=== PATIENT | male | born 1940 | race Caucasian/White ===

== ENCOUNTER 2023-12-13 12:09 | Day surgery (SDC) | payer OTHER, SELFPAY ==
[2023-12-11 15:14] VITALS: BMI 25.8
--- NOTE | 2023-12-12 10:07 | HO.ANESPROP2 ---
HPI - Anesthesia Eval Consult details Narrative: 83yo M for Upper Endoscopy and Colonoscopy Eliquis d/t ischemic stroke 2021 Follows [facility] cardiology. Last office visit 09/2023: s/p TAVR 09/2022 MR s/p mitraClip 08/2023 Nonobstructive CAD CHB s/p pacer 03/2023 SVT [facility] [place] Past Medical History Medical History (Updated 12/11/23 @ 15:13 by Gale Wick RN) Ischemic stroke CAD (coronary artery disease) Neuropathy Mitral regurgitation Elevated cholesterol GERD (gastroesophageal reflux disease) Prostate cancer Chronic renal insufficiency SVT (supraventricular tachycardia) Sleep apnea Aortic stenosis Surgical History Surgical History (Updated 12/11/23 @ 15:13 by Gale Wick RN) Hx of tonsillectomy S/P cardiac pacemaker procedure Status post transcatheter aortic valve replacement Meds Allergies Allergy/AdvReac Type Severity Reaction Status Date / Time nitroglycerin Allergy Unknown Unknown Verified 12/11/23 15:14 Home Medications Medication Instructions Recorded Confirmed Last Taken Type apixaban 2.5 mg tablet (Eliquis) 2.5 mg PO BID 12/11/23 12/11/23 Unknown History atorvastatin 20 mg tablet 20 mg PO DAILY 12/11/23 12/11/23 Unknown History darolutamide 300 mg tablet (Nubeqa) 600 mg PO BID 12/11/23 12/11/23 Unknown History fluticasone propionate 50 1 spray intranasal DAILY 12/11/23 12/11/23 Unknown History mcg/actuation nasal spray,suspension furosemide 20 mg tablet 20 mg PO DAILY 12/11/23 12/11/23 Unknown History magnesium oxide 400 mg PO DAILY 12/11/23 12/11/23 Unknown History tamsulosin 0.4 mg capsule 0.4 mg PO DAILY 12/11/23 12/11/23 Unknown History Exam Height,Weight and Vital Signs: Height 6 ft Weight 86.183 kg Pertinent Lab Results Pertinent Lab Results: 07/2023 labs from outside facility Electrolytes wnl BUN/Creat up 1.8 H&H low 9.04/17 Plts low 146 Narrative Narrative: EKG 09/2023 V-paced rhythm @ 70 ECHO 09/2023 LV wall thickness is mildly increased. Nml LV size and function with EF 55-60% Bioprosthetic valve in aortic position. Mild central aortic regurg. No aortic stenosis. Trace perivalvular regurg. Mitraclip in place. Trace mitral regurg. Nml RV size and function. Pacer interrog 08/2023 DDD 60/130 Battery life 8.5 AP 47%, CANDY CATCHER 98% 1 high vent rate. No AT/AF Assessment and Plan Assessment Anesthesia Assessment: Chart Reviewed
[2023-12-13 12:53] VITALS: BMI 26.1
--- NOTE | 2023-12-13 13:24 | P.CONAN_ITS ---
[facility] Past Medical History Medical History Ischemic stroke CAD (coronary artery disease) Neuropathy Mitral regurgitation Elevated cholesterol GERD (gastroesophageal reflux disease) Prostate cancer Chronic renal insufficiency SVT (supraventricular tachycardia) Sleep apnea Aortic stenosis Family History Family history of problems with anesthesia: No Surgical History Surgical History Hx of tonsillectomy S/P cardiac pacemaker procedure Status post transcatheter aortic valve replacement History of Problems with Anesthesia: No Social History Social History Patient Tobacco Use Status: Never used Tobacco Use of substances other than those prescribed or required for medical reasons: No Are you DNR?: No Advance Directives: No Advance Directives Information Provided: Yes Meds Allergies Allergy/AdvReac Type Severity Reaction Status Date / Time nitroglycerin Allergy Unknown Unknown Verified 12/11/23 15:14 Active Medications: Current Medications Lactated Ringer's (Lr) 1,000 mls @ 50 mls/hr IVCONT .Q20H DEXTER Home Medications Medication Instructions Recorded Confirmed Last Taken Type apixaban 2.5 mg tablet (Eliquis) 2.5 mg PO BID 12/11/23 12/13/23 12/10/23 History atorvastatin 20 mg tablet 20 mg PO DAILY 12/11/23 12/11/23 Unknown History darolutamide 300 mg tablet (Nubeqa) 600 mg PO BID 12/11/23 12/11/23 Unknown History fluticasone propionate 50 1 spray intranasal DAILY 12/11/23 12/11/23 Unknown History mcg/actuation nasal spray,suspension furosemide 20 mg tablet 20 mg PO DAILY 12/11/23 12/11/23 Unknown History magnesium oxide 400 mg PO DAILY 12/11/23 12/11/23 Unknown History tamsulosin 0.4 mg capsule 0.4 mg PO DAILY 12/11/23 12/11/23 Unknown History Exam Height,Weight and Vital Signs: Height 6 ft Weight 87.203 kg Airway Mallampati Class: II TM Dist: >3cm Neck ROM: Full Assessment and Plan Assessment Anesthesia Assessment: Anesthesia Plan Discussed and Chart Reviewed Final Anesthetic Review Family History of Problems with Anesthesia: No History of Problems with Anesthesia: No NPO: Yes ASA Class: III Final Preanesthetic Review: No Changes in Pt Med Stat, Meds/Allgs Chart Reviewed, Consent Obtained/Reviewed and Anes Risks/Benef Reviewed Patient Risk: Intermediate Procedure Risk: Low Anesthetic Plan Anesthetic Plan: TIVA Disposition: Standard PACU
[2023-12-13 13:33] VITALS: BP 133/47; PULSE 60; RESP 18; TEMP 36.4; O2SAT 99
[2023-12-13] MEDS: Lactated Ringers 1,000 ML 50 ML IVCONT (13:37)
--- NOTE | 2023-12-13 13:44 | MHC.SHP ---
Pre-Procedural Eval Section A Date of Service: 12/13/23 The patient is an INPATIENT: No Changes since office visit: No Cold of Flu in the past 2 weeks, No New Medical Problems, No Changes in Medication and No Patient answered all questions The History & Physical has been completed within 30 days and I have reviewed it.: Yes Section B Chief Complaint: Anemia, unspecified Allergies: Allergies Allergy/AdvReac Type Severity Reaction Status Date / Time nitroglycerin Allergy Unknown Unknown Verified 12/11/23 15:14 Plan I have reviewed the history and physical and performed a pertinent physical examination on my patient. No changes have occurred unless specified. Time Spent With Patient Time: Total time managing care of this patient today ____ minutes.
[2023-12-13 14:44] VITALS: BP 95/37; PULSE 60; RESP 16; TEMP 36.8; O2SAT 97
[2023-12-13 14:59] VITALS: BP 122/44; PULSE 60; RESP 16; TEMP 36.6; O2SAT 100
--- NOTE | 2023-12-13 16:38 | OP_ITS ---
DATE OF SERVICE: 12/13/2023 SURGEON: Deric Foster MD INDICATIONS: Anemia and Hemoccult-positive stools. PREOPERATIVE DIAGNOSIS: POSTOPERATIVE DIAGNOSIS: PROCEDURE PERFORMED: 1. Upper endoscopy with biopsy. 2. Colonoscopy to the cecum with biopsy and snare polypectomy. ESTIMATED BLOOD LOSS: COMPLICATIONS: ANESTHESIA: Monitored anesthesia care. ASSISTANTS: SPECIMENS: DESCRIPTION OF PROCEDURE: A history and physical performed. The risks and benefits of the procedure were explained to the patient. Informed consent was obtained. The patient was placed in the left lateral decubitus position. The Olympus videogastroscope was introduced into the esophagus, stomach, and duodenum. Examination was performed. The scope was removed. He was repositioned for colonoscopy. A digital rectal exam was performed and was found to be normal. The Olympus pediatric videocolonoscope was introduced into the rectum and advanced to the cecum. The cecum was identified by transillumination, palpation, and identification of ileocecal valve. Examination was performed. The scope was removed. He tolerated both procedures well and was turned recovery room in stable condition. FINDINGS: Upper endoscopy esophagus: The esophagus showed erosive esophagitis over the last 5 cm with no bleeding or ulcerated areas. There was a moderate-sized hiatal hernia. Stomach: The stomach showed multiple benign-appearing gastric polyps in the body and fundus consistent with fundic gland polyps. Two of these were biopsied. All were less than 10 mm. Duodenum: The bulb and 2nd portion were normal. The 2nd portion biopsies were obtained to rule out malabsorption. Colonoscopy: The terminal ileum was not examined. There was moderate amount of liquid stool coating the mucosa, which was washed and suctioned. This limited the sensitivity examination for detection of small polyps. There were 3 polyps identified and removed with a biopsy or snare polypectomy. Two were located in the cecum, both measured less than 10 mm. The 3rd polyp was located at 70 cm, measuring approximately 8 mm. This was removed with a snare. There was pandiverticulosis. Retroflexed examination showed some hypertrophic anal papillae and moderate-sized internal hemorrhoids. IMPRESSION: 1. Gastric polyps. 2. Erosive esophagitis. 3. Colon polyps. RECOMMENDATION: Follow up the biopsy results. MD SANTANA Mary/SINDYL / [phone]
== END 2023-12-13 15:40 | disposition home or self-care (01) ==
PROVIDERS: PCP Internal Medicine; Visit Provider Internal Medicine Gastroenterology
PROC: (CPT 45385; principal; 2023-12-13 13:50)
DX: D64.9 Anemia, unspecified (principal); R19.5 Other fecal abnormalities; D12.0 Benign neoplasm of cecum; D12.4 Benign neoplasm of descending colon; K57.30 Diverticulosis of large intestine without perforation or abscess without bleeding; K62.89 Other specified diseases of anus and rectum; K64.8 Other hemorrhoids; K31.7 Polyp of stomach and duodenum; K20.80 Other esophagitis without bleeding; K44.9 Diaphragmatic hernia without obstruction or gangrene; K21.9 Gastro-esophageal reflux disease without esophagitis; C61 Malignant neoplasm of prostate; N18.9 Chronic kidney disease, unspecified; I25.10 Atherosclerotic heart disease of native coronary artery without angina pectoris; Z95.0 Presence of cardiac pacemaker; E87.5 Hyperkalemia; Z79.01 Long term (current) use of anticoagulants; Z95.2 Presence of prosthetic heart valve; Z86.73 Personal history of transient ischemic attack (TIA), and cerebral infarction without residual deficits; Z79.899 Other long term (current) drug therapy
CPT/HCPCS: 45385; 45380; 43239; 88305; 88313; 88342; J2704

== ENCOUNTER → 2024-03-15 15:20 | Outpatient (BNV) | payer MEDICARE, OTHER, SELFPAY | PROVIDERS: PCP Internal Medicine; Visit Provider Internal Medicine Medical Oncology | DX: D64.9 Anemia, unspecified (principal) | CPT/HCPCS: 99202; 99204; 99213 ==

== ENCOUNTER 2024-06-01 12:00 | Outpatient (REF) | payer MEDICARE, SELFPAY | END 2024-06-01 12:01 | disposition home or self-care (01) | LOC: HO.LNP 12:00 | PROVIDERS: Visit Provider Internal Medicine Gastroenterology | DX: R19.7 Diarrhea, unspecified (principal) | CPT/HCPCS: 87177; 87209 ==

== ENCOUNTER 2024-06-02 10:45 | Outpatient (REF) | payer MEDICARE, SELFPAY ==
[2024-06-03 14:21] LABS: Leukocytes Stool Qualitative NEGATIVE (NEGATIVE)
== END 2024-06-02 10:46 | disposition home or self-care (01) ==
LOC: HO.LNP 10:45
PROVIDERS: Visit Provider Internal Medicine Gastroenterology
DX: R19.7 Diarrhea, unspecified (principal)
CPT/HCPCS: 89055

== ENCOUNTER 2024-06-03 12:55 | Outpatient (REF) | payer OTHER, SELFPAY ==
[2024-06-03 16:30] LABS: Adenovirus F 40/41 Not Detected (Not Detect.); Astrovirus Not Detected (Not Detect.); Cryptosporidium Not Detected (Not Detect.); Cyclospora cayetanensis Not Detected (Not Detect.); E. coli EAEC Not Detected (Not Detect.); E. coli EPEC Not Detected (Not Detect.); E. coli ETEC Not Detected (Not Detect.); E. coli STEC Not Detected (Not Detect.); Entamoeba histolytica Not Detected (Not Detect.); Giardia lamblia Not Detected (Not Detect.); Norovirus GI/GII Not Detected (Not Detect.); Plesiomonas shigelloides Not Detected (Not Detect.); Rotavirus A Not Detected (Not Detect.); Salmonella Not Detected (Not Detect.); Sapovirus Not Detected (Not Detect.); Shigella sp./EIEC Not Detected (Not Detect.); Vibrio Not Detected (Not Detect.); Vibrio Cholerae Not Detected (Not Detect.); Yersinia enterocolitica Not Detected (Not Detect.)
[2024-06-03 17:30] LABS: Campylobacter Detected (Not Detect.)
== END 2024-06-03 12:56 | disposition home or self-care (01) ==
LOC: HO.LNP 12:55
PROVIDERS: Visit Provider Internal Medicine Gastroenterology
DX: R19.7 Diarrhea, unspecified (principal)
CPT/HCPCS: 87507

== ENCOUNTER 2024-09-23 08:00 | Outpatient (REF) | payer MEDICARE, SELFPAY ==
[2024-09-24 12:10] LABS: Leukocytes Stool Qualitative NEGATIVE (NEGATIVE)
[2024-09-24 14:45] LABS: Adenovirus F 40/41 Not Detected (Not Detect.); Astrovirus Not Detected (Not Detect.); Campylobacter Not Detected (Not Detect.); Cryptosporidium Not Detected (Not Detect.); Cyclospora cayetanensis Not Detected (Not Detect.); E. coli EAEC Not Detected (Not Detect.); E. coli EPEC Not Detected (Not Detect.); E. coli ETEC Not Detected (Not Detect.); E. coli STEC Not Detected (Not Detect.); Entamoeba histolytica Not Detected (Not Detect.); Giardia lamblia Not Detected (Not Detect.); Norovirus GI/GII Not Detected (Not Detect.); Plesiomonas shigelloides Not Detected (Not Detect.); Rotavirus A Not Detected (Not Detect.); Salmonella Not Detected (Not Detect.); Sapovirus Not Detected (Not Detect.); Shigella sp./EIEC Not Detected (Not Detect.); Vibrio Not Detected (Not Detect.); Vibrio Cholerae Not Detected (Not Detect.); Yersinia enterocolitica Not Detected (Not Detect.)
[2024-10-01 10:39] LABS: Fecal Fat Qualitative Normal (Normal)
[2024-10-09 16:53] LABS: Pancreatic Elastase-1 656 mcg/g (>200)
== END 2024-09-23 08:01 | disposition home or self-care (01) ==
LOC: HO.LNP 08:00
PROVIDERS: Visit Provider Internal Medicine Gastroenterology
DX: R19.7 Diarrhea, unspecified (principal)
CPT/HCPCS: 82656; 82705; 87507; 89055

== ENCOUNTER 2024-09-23 15:38 | Outpatient (REF) | payer MEDICARE, SELFPAY ==
[2024-10-02 18:53] LABS: Camplyobacter jejuni Antibody <0.90
== END 2024-09-23 15:39 | disposition home or self-care (01) ==
LOC: HO.LAB 15:38
PROVIDERS: PCP Internal Medicine; Visit Provider Internal Medicine Gastroenterology
DX: R19.7 Diarrhea, unspecified (principal)
CPT/HCPCS: 36415; 86625

== ENCOUNTER 2025-03-07 15:37 | Emergency (ER) | payer OTHER, MEDICARE, SELFPAY ==
--- NOTE | ~2025-03-07 | XR_ITS ---
CLINICAL HISTORY: central chest pain 2 view chest x-ray Comparison: None Findings: No consolidation or effusion. Mildly enlarged heart. Elongation of the aorta. Cardiac pacemaker present. Prior TAVR. Postsurgical change of the distal right clavicle. IMPRESSION: 1. No acute findings. This document has been electronically signed by: Vicenta Tomas MD on 03/07/2025 16:49:27
[2025-03-07 15:38] VITALS: BP 129/44; PULSE 72; RESP 18; TEMP 37.2; O2SAT 97; BMI 26.4
--- NOTE | 2025-03-07 15:38 | ECG_ITS ---
Test Reason : CHEST PAIN Blood Pressure : */* mmHG Vent. Rate : 71 BPM Atrial Rate : 71 BPM P-R Int : 104 ms QRS Dur : 224 ms QT Int : 512 ms P-R-T Axes : * -58 90 degrees QTcB Int : 556 ms Atrial-sensed ventricular-paced rhythm Abnormal ECG No previous ECGs available Referred By: Lashell Paz Electronically Signed By: CHARLINE IRELAND MD
--- NOTE | 2025-03-07 16:05 | ED.CHESTPAIN ---
HPI - Chest Pain General Chief Complaint: Chest Pain Stated Complaint: chest pain Time Seen by Provider: 03/07/25 16:02 History of Present Illness ED Provider: gerardo HPI narrative: This is an 84-year-old male with chronic anemia, permanent pacemaker dependent, mitral regurg and aortic stenosis status post valve repairs/clip with progressively worsening shortness of breath on exertion mild though no cough no fever. He has had several weeks of rather constant burning-type chest pain across the central chest no radiation of the back neck or jaw. Minimal increased with exertion. Tells me that he performed a stress test before the most recent mitral clip and does not recall any known coronary artery disease or provocable positive stress testing. No hemoptysis no leg edema no history of DVT or PE. He was sent from Hematology office where he has been getting Procrit for mild anemia hemoglobin is reasonably stable 8.6 no reported melena Related Data Home Medications ?Medication ?Instructions ?Recorded ?Confirmed apixaban 2.5 mg tablet (Eliquis) 2.5 mg PO BID 12/11/23 03/03/25 darolutamide 300 mg tablet (Nubeqa) 600 mg PO BID 12/11/23 03/03/25 fluticasone propionate 50 1 spray intranasal DAILY 12/11/23 03/03/25 mcg/actuation nasal spray,suspension furosemide 20 mg tablet 20 mg PO DAILY 12/11/23 03/03/25 magnesium oxide 400 mg PO DAILY 12/11/23 03/03/25 tamsulosin 0.4 mg capsule 0.4 mg PO DAILY 12/11/23 03/03/25 evolocumab 140 mg/mL subcutaneous 140 mg subcut Q2W 03/15/24 03/03/25 pen injector (Makeda Israel) amlodipine 5 mg tablet 5 mg PO DAILY 03/03/25 03/03/25 omeprazole 20 mg capsule,delayed 20 mg PO DAILY 03/03/25 03/03/25 release Allergies Allergy/AdvReac Type Severity Reaction Status Date / Time nitroglycerin Allergy Unknown Unresponsiv Verified 03/07/25 15:47 e gabapentin Allergy Dizziness Verified 03/07/25 15:47 [facility] Past Medical History [facility] Narrative: PAST MEDICAL HISTORY: 1. AORTIC STENOSIS. 2. CKD. 3. PROSTATE CANCER: He was diagnosed with metastatic prostate cancer a couple of years ago. He was treated with Taxotere. He got the full dose in ended up in the hospital with diverticulitis for 10 days. Subsequently he was dose reduced to twice weekly dosing. He had 14 sessions. He did go into remission. Subsequently he has been maintained on Eligard q.6 months and Nubeka. He is being treated at [facility] under the care of Dr. Clay. 4. GERD. 5. HYPERLIPIDEMIA. 6. NEUROPATHY. 7. SLEEP APNEA. 8. MITRAL REGURGITATION. 9. SVT. HEART BLOCK. 10. CORONARY ARTERY DISEASE. 11. ISCHEMIC STROKE. 12. COLONOSCOPY: TUBULAR ADENOMAS. PAST SURGICAL HISTORY: 1. STATUS POST TONSILLECTOMY. 2. AORTIC VALVE REPLACEMENT TAVR IN 2021. 3. MITRAL VALVE CLIP IN 2022. 4. PACEMAKER PLACEMENT IN 2022. Medical History (Updated 03/07/25 @ 17:41 by Justin Schultz MD) Ischemic stroke CAD (coronary artery disease) Neuropathy Mitral regurgitation Elevated cholesterol GERD (gastroesophageal reflux disease) Prostate cancer Chronic renal insufficiency SVT (supraventricular tachycardia) Sleep apnea Aortic stenosis Surgical History Hx of tonsillectomy S/P cardiac pacemaker procedure Status post transcatheter aortic valve replacement Social History Social History Household Members: Spouse Patient Tobacco Use Status: Never used Tobacco Advance Directives: Yes Advance Directives Information Provided: Yes Advance Directives on File: No Do you have a plan to hurt others: No Plan service: Yes Current occupational status: retired Physical Exam Vital Signs: Vital Signs: Last Vital Signs Temp 98.2 F 03/07/25 18:42 Pulse 67 03/07/25 18:42 Resp 17 03/07/25 18:42 BP 115/40 L 03/07/25 18:42 Pulse Ox 94 03/07/25 18:42 O2 Del Method Room Air 03/07/25 18:42 BMI result Body Mass Index 26.4 Const: Other: EXAM: Gen: Alert, awake, well appearing, well hydrated. Head: Atraumatic Eyes: Anicteric, Normal conjunctiva. ENT: Moist mucosa, no pallor. ? Neck: Supple. No JVD Respiratory: Breathing comfortably, No distress.Clear to auscultation bilaterally, symmetric chest expansion, No wheeze, rales, ronchi. When the patient does exert himself and move around he appears very mildly dyspneic but not distressed and speaking full sentences no wheezing no stridor Cardiovascular: Paste on the vehicle monitor technician. Regular rate and rhythm. No murmurs or rub. Well perfused periphery, warm extremities. No edema. ?Ppm left upper chest Abdominal: Soft, no objective distension. No palpable masses or obvious organomegaly. No focal tenderness, no guarding, no rebound tenderness or other peritoneal findings. : No flank tenderness. Neuro: Alert. Gross movement of all extremities intact. ? Vital signs: See flowsheet Medical Decision Making Medical Decision Making [facility] Narrative: 84-year-old male with extensive cardiac history aortic valve replacement and mitral clip, P p.m. no self-reported or other clear diagnosis of underlying coronary artery disease with persistent steady and relatively unchanging chest pain nearly daily for many weeks slight dyspnea on exertion. Does not appear distressed he is awake alert pleasant with a reassuring cardiovascular exam. He does have a expected systolic murmur. He does not appear overloaded and has no peripheral edema or unilateral leg edema to suggest DVT he does however have prostate cancer. D-dimer was performed age adjusted this is very low likelihood of PE. Chest x-ray no infiltrates or effusions or signs of decompensated heart failure. Bedside echo is performed and reassuring with visualized mitral clip aortic valve replacement and trace pericardial effusion no evidence of decompensated heart failure or RV strain. Less likely to be ACS given the persistent chest pain however we will trend the troponins. ECG not helpful in this analysis given that there is no STEMI criteria in the setting of RV pacing Lab Data [facility] Lab Attestation statement: I reviewed the patient's lab results. 03/07/25 16:21 03/07/25 16:21 Labs: Lab Results 03/07/25 03/07/25 03/07/25 Range/Units 16:21 17:06 17:49 WBC 9.0 (4.8-10.8) X10*3/uL RBC 2.75 L (4.60-5.80) X10*6/uL Hgb 8.6 L (14.0-18.0) g/dl Hct 25.2 L (42.0-52.0) % MCV 91.6 (80.0-98.0) fL MCH 31.3 (27.0-33.0) pg MCHC 34.1 (31.0-36.0) g/dl RDW 14.0 (11.0-16.0) % Plt Count 170 (160-400) X10*3/uL MPV 10.2 (9.4-12.4) fL Immature Gran % (Auto) 0.3 (0.0-0.4) % Neut % (Auto) 83.2 H (45-73) % Lymph % (Auto) 11.3 L (20-40) % [place] % (Auto) 4.3 (2-11) % Eos % (Auto) 0.7 (0-4) % Baso % (Auto) 0.2 (0-2) % Lymph # (Auto) 1.0 L (1.2-4.9) X10*3/uL [place] # (Auto) 0.4 (0.1-1.2) X10*3/uL Eos # (Auto) 0.1 (0.0-0.4) X10*3/uL Baso # (Auto) 0.0 (0.0-0.2) X10*3/uL Abs Immat Gran (auto) 0.03 (0.00-0.03) X10*3/uL Absolute Neuts (auto) 7.5 (2.0-8.3) x10*3/uL Absolute Nucleated RBC 0.000 (0.0-0.012) X10*3/uL Nucleated RBC % (auto) 0.0 (0.0-0.2) /100WBC D-Dimer High Sensitivty 290 NG/ML Sodium 136 (135-145) mmol/L Potassium 3.8 (3.3-5.1) mmol/L Chloride 106 (96-108) mmol/L Carbon Dioxide 21 L (22-29) mmol/L Anion Gap 13 (12-20) BUN 18 H (9-16) mg/dL Creatinine 1.58 H (0.5-1.4) mg/dL Estim Creat Clear Calc 36.4 Estimated GFR 42 Random Glucose 111 (60-115) mg/dL Calcium 8.6 (8.4-10.2) mg/dL Troponin I High Sens 19.7 21.4 (<3.5-35.0) ng/L B-Natriuretic Peptide 475 H (<100) pg/mL Independent Interpretation I performed an independent interpretation of an: EKG Interpretation: ECG RV pacing expected left bundle branch block no sgarabosa criteria Discharge Plan Discharge Clinical Impression: Atypical chest pain Patient Disposition: Home, Self-Care Instructions: Chest Pain (DC) Additional Instructions: DISCHARGE DIAGNOSES: Chest pain, unclear cause Difficulty breathing, unclear cause at this time Trace pericardial effusion, fluid around the heart this is at this time negligible and unlikely to be related to your symptoms HISTORY OF PRESENTATION: Persistent steady central chest pain ongoing for weeks and mild difficulty breathing on exertion EMERGENCY DEPARTMENT COURSE,TESTS, TREATMENTS: While in the ED today you had a chest x-ray which was clear showed no signs of pneumonia or fluid in the lungs. You had an EKG which showed a paced rhythm. You had an echocardiogram which showed trace or so very small amount of fluid around the heart unlikely to be related to your current presentation. You did not show any signs of heart failure, pneumonia and blood clotting test or pulmonary emboli blood test was negative when corrected for your age. We have at this time excluded heart attack but we have not excluded narrowing of the vessels possibly causing the symptoms it is imperative that you call your envelope press operator at [facility] thing Monday morning to discuss your symptoms as we feel you may need provocative testing to exclude this. If at any point you develop severe or worsening pain in your chest especially if there is radiation to jaw your neck or your arm or associated sweating or ill appearance or vomiting return immediately to emergency department DISCHARGE MEDICATIONS: ?[We have made no changes to your regular medication regimen] FOLLOW-UP: ?Call your primary or general physician soon as possible to discuss your symptoms, your ED visit and to discuss follow up plans Call your envelope press operator INSTRUCTIONS ?& RETURN PRECAUTIONS: If any symptoms change first call your primary physician, if it is after-hours your primary doctors office should have a provider diagnostic cardiac sonographer you can speak with. If the symptoms are severe or very concerning to you then call 911 or return to the ED. Return for worsening pain as above Justin Schultz MD Emergency Physician [facility] Prescriptions: No Action tamsulosin 0.4 mg capsule 0.4 mg PO DAILY furosemide 20 mg tablet 20 mg PO DAILY fluticasone propionate [Flonase] 50 mcg/actuation [place],Suspension 1 spray INTRANASAL DAILY Rx Instructions: administer into each nostril Eliquis 2.5 mg tablet 2.5 mg PO BID magnesium oxide 400 mg magnesium Tablet 400 mg PO DAILY Nubeqa 300 mg tablet 600 mg PO BID Repatha SureClick 140 mg/mL pen injector 140 mg subcut Q2W amlodipine 5 mg Tablet 5 mg PO DAILY omeprazole 20 mg Capsule,Delayed Release(Dr/Ec) 20 mg PO DAILY Interventions: ED Discharge Assessment Last Done: 03/07/25 18:42 Discharge Date/Time: 03/07/25 18:42 Print Language: Indonesian
--- OUTSIDE RECORDS SUMMARY | 2025-03-07 16:17 | XMS_ITS | Patient Health Record ---
Author Organization [facility] Address [address] [place] [address] Care Team Providers Care Cardiology Clinical Consultant Name Role Phone Jose Angel Kim Primary Care Provider Un available Cristian OvertonDeric Unavailable [phone] Allergies Allergen (clinical drug ingredient) Drug/Non Drug Allergy documented on EMR Reaction Allergy Type Onset Date Status nitroglycerin Nitroglycerin Unknown Drug Allergy Active gabapentin Gabapentin Unknown Drug Allergy Activ e Results Component Value Reference Range Notes GI PANEL Reviewed date:06/06/2024 08:32:36 AM Interpretation: Performing Lab:[facility], [address] [place] [phone] Notes/Report: Campylobacter Detected Not Detect. Results of DETECTED CAMPYLOBACTER called to and read back by on 06/03/24 at 1729 by SUSAN. Results of DETECTED CAMPYLOBACTER called to and read back by [facility]ETT [facility] [employer] on 06/03/24 at 1645 by SUSAN. Plesiomonas shigelloides Not Detected Not Detect. Salmonella Not Detected Not Detect. Vibrio Not Detected Not Detect. Vibrio Cholerae Not Detected Not Detect. Yersinia enterocolitica Not Detected Not Detect. E. coli EAEC Not Detected Not Detect. E. coli EPEC Not Detected Not Detect. E. coli ETEC Not Detected Not Detect. E. coli STEC Not Detected Not Detect. E. coli O157 Not applicable Not Detect. E. coli containing the O157 antigen are a subset of E. coli containing the O157 antigen are a subset of Shiga-like toxin-producing E. coli (STEC). Shiga-like toxin-producing E. coli (STEC). Shigella sp./EIEC Not Detected Not Detect. Cryptosporidium Not Detected Not Detect. Cyclospora cayetanensis Not Detected Not Detect. Entamoeba histolytica Not Detected Not Detect. Giardia lamblia Not Detected Not Detect. Adenovirus F 40/41 Not Detected Not Detect. Astrovirus Not Detected Not Detect. Norovirus GI/GII Not Detected Not Detect. Rotavirus A Not Detected Not Detect. Sapovirus Not Detected Not Detect. All results must be correlated with clinical findings. All results must be correlated with clinical findings. Negative results do not exclude the possibility of Negative results do not exclude the possibility of gastrointestinal infection and should not be used as the gastrointestinal infection and should not be used as the sole basis for diagnosis, treatment, or other management sole basis for diagnosis, treatment, or other management decisions. Virus, bacteria, and parasite nucleic acid may decisions. Virus, bacteria, and parasite nucleic acid may persist in vivo independently of organism viability. persist in vivo independently of organism viability. Additionally, some organisms may be carried symptomatically. Additionally, some organisms may be carried symptomatically. Detection of organism targets does not imply that the Detection of organism targets does not imply that the corresponding organisms are infectious or are the causative corresponding organisms are infectious or are the causative agents for clinical symptoms. There is a risk of false agents for clinical symptoms. There is a risk of false negative values due to the presence of sequence variants in negative values due to the presence of sequence variants in the gene targets of the assay, amplification inhibitors in the gene targets of the assay, amplification inhibitors in specimens, or inadequate numbers of organisms for specimens, or inadequate numbers of organisms for amplification. amplification. The identification of several diarrheagenic E. coli The identification of several diarrheagenic E. coli pathotypes has historically relied upon phenotypic pathotypes has historically relied upon phenotypic characteristics. This panel targets genetic determinants characteristics. This panel targets genetic determinants characteristic of most pathogenic strains, but may not characteristic of most pathogenic strains, but may not detect all strains having phenotypic characteristics of a detect all strains having phenotypic characteristics of a pathotype. pathotype. The performance of this test has not been established for The performance of this test has not been established for monitoring treatment of infection with any of the panel monitoring treatment of infection with any of the panel organisms. organisms. This assay is performed by Multiplexed PCR, utilizing the This assay is performed by Multiplexed PCR, utilizing the [employer] Array. [employer] Array. Campylobacter Detected Not Detect. Results of DETECTED CAMPYLOBACTER called to and read back by on 06/03/24 at 1729 by [facility]. Results of DETECTED CAMPYLOBACTER called to and read back by IVETT [facility] [employer] on 06/03/24 at 1645 by CARMEN. Plesiomonas shigelloides Not Detected Not Detect. Salmonella Not Detected Not Detect. Vibrio Not Detected Not Detect. Vibrio Cholerae Not Detected Not Detect. Yersinia enterocolitica Not Detected Not Detect. E. coli EAEC Not Detected Not Detect. E. coli EPEC Not Detected Not Detect. E. coli ETEC Not Detected Not Detect. E. coli STEC Not Detected Not Detect. E. coli O157 Not applicable Not Detect. E. coli containing the O157 antigen are a subset of E. coli containing the O157 antigen are a subset of Shiga-like toxin-producing E. coli (STEC). Shiga-like toxin-producing E. coli (STEC). Shigella sp./EIEC Not Detected Not Detect. Cryptosporidium Not Detected Not Detect. Cyclospora cayetanensis Not Detected Not Detect. Entamoeba histolytica Not Detected Not Detect. Giardia lamblia Not Detected Not Detect. Adenovirus F 40/41 Not Detected Not Detect. Astrovirus Not Detected Not Detect. Norovirus GI/GII Not Detected Not Detect. Rotavirus A Not Detected Not Detect. Sapovirus Not Detected Not Detect. All results must be correlated with clinical findings. All results must be correlated with clinical findings. Negative results do not exclude the possibility of Negative results do not exclude the possibility of gastrointestinal infection and should not be used as the gastrointestinal infection and should not be used as the sole basis for diagnosis, treatment, or other management sole basis for diagnosis, treatment, or other management decisions. Virus, bacteria, and parasite nucleic acid may decisions. Virus, bacteria, and parasite nucleic acid may persist in vivo independently of organism viability. persist in vivo independently of organism viability. Additionally, some organisms may be carried symptomatically. Additionally, some organisms may be carried symptomatically. Detection of organism targets does not imply that the Detection of organism targets does not imply that the corresponding organisms are infectious or are the causative corresponding organisms are infectious or are the causative agents for clinical symptoms. There is a risk of false agents for clinical symptoms. There is a risk of false negative values due to the presence of sequence variants in negative values due to the presence of sequence variants in the gene targets of the assay, amplification inhibitors in the gene targets of the assay, amplification inhibitors in specimens, or inadequate numbers of organisms for specimens, or inadequate numbers of organisms for amplification. amplification. The identification of several diarrheagenic E. coli The identification of several diarrheagenic E. coli pathotypes has historically relied upon phenotypic pathotypes has historically relied upon phenotypic characteristics. This panel targets genetic determinants characteristics. This panel targets genetic determinants characteristic of most pathogenic strains, but may not characteristic of most pathogenic strains, but may not detect all strains having phenotypic characteristics of a detect all strains having phenotypic characteristics of a pathotype. pathotype. The performance of this test has not been established for The performance of this test has not been established for monitoring treatment of infection with any of the panel monitoring treatment of infection with any of the panel organisms. organisms. This assay is performed by Multiplexed PCR, utilizing the This assay is performed by Multiplexed PCR, utilizing the [employer] Array. [employer] Array. CORRECTED REPORT Camplyobacter jejuni Antibod y Reviewed date:10/03/2024 08:32:45 AM Interpretation: Performing Lab:[facility], [address] [place] [phone] Notes/Report: Camplyobacter jejuni Antibody <0.90 REFERENCE RANGE: <0.90 INTERPRETIVE CRITERIA: <0.90 ANTIBODY NOT DETECTED 0.90-1.10 EQUIVOCAL >1.10 ANTIBODY DETECTED Campylobacter jejuni is a major cause of sporadic bacterial diarrhea in the [facility], with poultry the most important source of infection. Markedly elevated levels of antibodies recognizing C. jejuni typically indicate recent or ongoing infection, even though stool cultures may be negative. Neurological complications may follow C. jejuni infection; approximately 30% of Guillain-[place] cases are associated with recent C. jejuni infection. The basis of this association is apparently molecular mimicry between C. jejuni antigens and gangliosides of neuronal cells. This test was developed and its analytical performance characteristics have been determined by [employer]. It has not been cleared or approved by FDA. This assay has been validated pursuant to the CLIA regulations and is used for clinical purposes. THIS TEST WAS PERFORMED AT: [facility] [facility] [address] [place] [address] JAYME GAONA MD,PHD,RONY GI PANEL Reviewed date:09/26/2024 09:40:05 AM Interpretation: Performing Lab:[facility], [address] [place] [phone] Notes/Report: Campylobacter Not Detected Not Detect. Plesiomonas shigelloides Not Detected Not Detect. Salmonella Not Detected Not Detect. Vibrio Not Detected Not Detect. Vibrio Cholerae Not Detected Not Detect. Yersinia enterocolitica Not Detected Not Detect. E. coli EAEC Not Detected Not Detect. E. coli EPEC Not Detected Not Detect. E. coli ETEC Not Detected Not Detect. E. coli STEC Not Detected Not Detect. E. coli O157 Not applicable Not Detect. E. coli containing the O157 antigen are a subset of Shiga-like toxin-producing E. coli (STEC). Shigella sp./EIEC Not Detected Not Detect. Cryptosporidium Not Detected Not Detect. Cyclospora cayetanensis Not Detected Not Detect. Entamoeba histolytica Not Detected Not Detect. Giardia lamblia Not Detected Not Detect. Adenovirus F 40/41 Not Detected Not Detect. Astrovirus Not Detected Not Detect. Norovirus GI/GII Not Detected Not Detect. Rotavirus A Not Detected Not Detect. Sapovirus Not Detected Not Detect. All results must be correlated with clinical findings. Negative results do not exclude the possibility of gastrointestinal infection and should not be used as the sole basis for diagnosis, treatment, or other management decisions. Virus, bacteria, and parasite nucleic acid may persist in vivo independently of organism viability. Additionally, some organisms may be carried asymptomatically. Detection of organism targets does not imply that the corresponding organisms are infectious or are the causative agents for clinical symptoms. There is a risk of false negative values due to the presence of sequence variants in the gene targets of the assay, amplification inhibitors in specimens, or inadequate numbers of organisms for amplification. The identification of several diarrheagenic E. coli pathotypes has historically relied upon phenotypic characteristics. This panel targets genetic determinants characteristic of most pathogenic strains, but may not detect all strains having phenotypic characteristics of a pathotype. The performance of this test has not been established for monitoring treatment of infection with any of the panel organisms. This assay is performed by Multiplexed PCR, utilizing the [employer] Array. Ova and Parasite Reviewed date:06/09/2024 07:52:11 PM Interpretation: Performing Lab:[facility], [address] [place] [phone] Notes/Report: Ova and Parasite SEE NOTE OVA AND PARASITES, CONC AND PERM SMEAR Micro Number: [id number] Test Status: Final Specimen Source: Stool Specimen Quality: Adequate CONCENTRATION 1: No ova or parasites seen TRICHROME 1: No ova or parasites seen Routine Ova and Parasite exam may not detect some parasites that occasionally cause diarrheal illness. Cryptosporidium Antigen and/or Cyclospora and Isospora Exam may be ordered to detect these parasites. One negative sample does not necessarily rule out the presence of a parasitic infection. For additional information, please refer to https://[employer]/faq/WIO652 (This link is being provided for informational/ educational purposes only.) THIS TEST WAS PERFORMED AT: [facility] [address] [place] [phone] RENETTA SALAZAR MD Leukocytes Stool Qualitative Reviewed date:06/06/2024 08:37:04 AM Interpretation: Performing Lab:[facility], [address] [place] [phone] Notes/Report: Leukocytes Stool Qualitative NEGATIVE NEGATIVE Leukocytes Stool Qualitative Reviewed date:09/26/2024 09:40:11 AM Interpretation: Performing Lab:[facility], [address] [place] [phone] Notes/Report: Leukocytes Stool Qualitative NEGATIVE NEGATIVE Pancreatic Elastase-1 Reviewed date:10/10/2024 08:19:33 AM Interpretation: Performing Lab:[facility], [address] [place] [phone] Notes/Report: Pancreatic Elastase-1 656 >200 mcg/g E-1 mcg/g feces Interpretation <100 Severe exocrine pancreatic insufficiency 100-200 Mild to moderate exocrine pancreatic insufficiency >200 Normal THIS TEST WAS PERFORMED AT: [facility] [address] [place] [address] JAYME GAONA MD,PHD,RONY Fecal Fat Qualitative Reviewed date:10/10/2024 08:19:25 AM Interpretation: Performing Lab:[facility], [address] [place] [phone] Notes/Report: Fecal Fat Qualitative Normal Normal THIS TEST WAS PERFORMED AT: [facility]/[address] [address] SAKINA RAMSEY MD,PHD Reason For Referral No Information Medications Medication SIG (Take, Route, Fr equency, Duration) Notes Start Date End Date Status Eliquis 5 MG half tab Orally Twice a day Active Tamsulosin HCl 0.4 MG TAKE ONE CAPSULE B Y MOUTH EVERY DAY Oral for 30 Active Furosemide 20 MG TAKE ONE TABLET BY M OUTH EVERY DAY Oral for 90 Active Nubeqa 300 MG as directed Oral 4 per day Active Magnesium Oxide 400 MG 1 tablet as neede d Orally Once a day for 30 day(s) Active Azithromycin 500 MG 1 tablet Orally michelle y for 7 days 08/22/2024 Active Ezetimibe 10 MG 1 tablet Orally Once a day Active Omeprazole 40 MG TAKE ONE CAPSULE BY MOUTH TWICE A DAY for 30 Active Repatha 140 MG/ML 1 mL Subcutaneous ev keo 14 days Active Eligard 7.5 MG as directed Subcutaneous Active Immunizations Vaccine Route Administration Date Status Comme nts Influenza Unknown 11/21/2023 Administered Social History Tobacco Use: Social History Observation Description Date Details (start date - stop date) Never Smoker NA - NA Tobacco Use/Smoking Question Answer Notes Patient is a nonsmoker Alcohol Screen Question Answer Notes Did you have a drink contain ing alcohol in the past year? Yes How often did you have a dri nk containing alcohol in the past year? Never (0 point) How many drinks did you have on a typical day when you were drinking in the past year? 1 or 2 drinks (0 point) How often did you have 6 or more drinks on one occasion in the past year? 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) Active confirmed Problem Gastroesophageal reflux disease (713689131) Chronic GERD (K21.9) Active confirmed Vital Signs Blood pressure diastolic 00 mm Hg 08/22/2024 Height 6 ft in 08/22/2024 Blood pressure systolic 00 mm Hg 08/22/2024 Weight 191 lbs 08/22/2024 BMI 25.90 kg/m2 08/22/2024 Encounters Encounter Location Date Provider Diagnosis [facility] [address] [place] [phone] 05/30/2024 Deric Foster Jr Diarrhea, unspecified type R19.7 [facility] [address] [place] [phone] 08/22/2024 Deric Foster Jr Abnormal findings in stool R19.5 and Campylobacter intestinal infection A04.5 [facility] [address] [place] [phone] 05/28/2024 Deric Foster Jr [facility] [address] [place] [phone] 06/03/2024 Deric Foster Jr [facility] [address] [place] [phone] 09/20/2024 Deric Foster Jr Diarrhea, unspecified type R19.7 [facility] [address] [place] [phone] 09/24/2024 Deric Foster Jr [facility] [address] [place] [phone] 10/10/2024 Deric Foster Jr Assessments Encounter Date Diagnosis (ICD Code) Assessment Notes Treatment Notes Treatment Clinical Notes Section Notes 05/30/2024 Diarrhea, unspecified type (ICD-10 - R19.7) We discussed hi s symptoms today. He'll have further evaluation with stool testing. We discussed using low-dose Imodium at night to help prevent problems with nocturnal diarrhea. Based on his colonoscopy earlier this year it seems unlikely that this is a colitis tissue. We discussed this today. He'll let us know how he's doing a month. 08/22/2024 Abnormal findings in stool (ICD-10 - R19.5) Based on his symptoms, we have recommended a 7 day course of azithromycin. He'll let us known 2 weeks out he is doing. If he has recurrent symptoms, a repeat GI panel will be obtained. We also discussed that frequently people will get postinfectious IBS-type symptoms after a viral or bacterial gastrointestinal illness. 08/22/2024 Campylobacter intestinal infection (ICD-10 - A04.5) Based on his symptoms, we have recommended a 7 day course of azithromycin. He'll let us known 2 weeks out he is doing. If he has recurrent symptoms, a repeat GI panel will be obtained. We also discussed that frequently people will get postinfectious IBS-type symptoms after a viral or bacterial gastrointestinal illness. 09/20/2024 Diarrhea, unspecified type (ICD-10 - R19.7) Plan Of Treatment Pending Test Test Name Order Date MAGNESIUM 12/18/2023 IRON + IBC (FE) 02/05/2024 FERRITIN 02/05/2024 CBC w/o DIFF 02/05/2024 RETICULOCYTE COUNT,CORRECTED 02/05/2024 STOOL WBC 09/20/2024 STOOL WBC 05/30/2024 OVA & PARASITES (O&P) 05/30/2024 PANCREATIC ELASTASE 09/20/2024 FECAL FAT QUAL 09/20/2024 Stool Culture 09/20/2024 Future Test Test Name Order Date UPPER GI ENDOSCOPY 11/27/2023 COLONOSCOPY 11/27/2023 Insurance Providers Payer Name Payer Address Payer Phone Subscriber Number Group Number Insured Name Patient Relationship to Insured Coverage Start Date Coverage End Date MEDICARE OF [place] [address] [place] [address] [phone] [id number] OLIVER OLIVAREZ Self - patient is the insured [employer] ATT[employer] CLAIMS [address] [place] [address] [phone] [id number] OLIVER OLIVAREZ Self - patient is the insured Medical (General) History Medical History History ICD Code Aortic stenosis Chronic kidney disease prostate cancer Gastroesophageal reflux disease Hyperlipidemia Neuropathy Sleep apnea Mitral regurgitation SVT Heart block Coronary artery disease Ischemic stroke Colonoscopy tubular adenomas x3, 12/13 EGD 12/13, fundic gland polyp, normal duo denal biopsies. Surgical History Surgery Date(Month/Year) Tonsillectomy aortic valve replacement (TAVR) 2021 mitral valve clip 2022 pacemaker 2022
--- OUTSIDE RECORDS SUMMARY | 2025-03-07 16:17 | XMS_ITS | Encounter Summary ---
Author Name [facility] [facility] [place] Address [address] [place] [address] Care Team Providers Care Well Shooter Name Role Phone PAZ WOODS Primary Care Provider Unavail able Insurance Providers: All historical and current Section Date Range: From patient's date of to the date document was created. This section includes the names of all active insurance providers for the patient. Insurance Provider Type of Coverage Plan Name Start of Policy Coverage End of Policy Coverage Group Number Member ID Insurance Provider's Telephone Number Policy Johnson's Name Patient's Relationship to Policy Johnson KEN SEPULV[place] OF [place] ([place]UECARD) MEDICARE SUPPLEMEN DEVIN MEDEX 2 Jun 20, 2013 [id number] OLIVER OLIVAREZ PATIENT [facility] MEDIC[facility] SUPPLEMEN DEVIN MEDEX 2 Jun 20, 2013 [id number] OLIVER OLIVAREZ PATIENT [facility] MEDICARE SUPPLEMEN DEVIN MEDEX 2 Jun 20, 2013 [id number] [phone] OLIVER OLIVAREZ PATIENT [place] SUPPLEMEN DEVIN MEDEX 2 Jun 20, 2013 [id number] OLIVER OLIVAREZ PATIENT MEDICARE (WNR) MEDICARE (M) PART A Apr 20, 2004 PART A [id number] OLIVER OLIVAREZ PATIENT MEDICARE (WNR) MEDICARE (M) PART B Apr 20, 2004 PART B [id number] OLIVER OLIVAREZ PATIENT MEDICARE (WNR) MEDICARE (M) PART A Apr 20, 2004 PART A [id number] OLIVER OLIVAREZ PATIENT MEDICARE (WNR) MEDICARE (M) PART B Apr 20, 2004 PART B [id number] [phone] OLIVER OLIVAREZ FOR LIFE TFL* Oct 24, 2017 [id number] [phone] OLIVER OLIVAREZ PATIENT Selected Encounter This section includes the information on record at CT for the Encounter. Date/Time Encounter Type Encounter Description Reason Provider Source Dec 05, 2024 02:57 PM OFFICE O/P EST LOW 20 MIN ANESTHESIA PRE/POST-OP CONSULT ICD-10-CM Z01.818 Encounter for other preprocedural examination LAURA ELLISON [facility] Encounter Template Text not used by CT Assessments - Encounter Diagnoses This section includes the primary and secondary diagnoses documented for the Encounter. Date/Time Primary/Secondary Diagnosis Diagnosis Name Provider Source Dec 13, 2024 03:35 PM PRIMARY Encounter for other preprocedural examination LAURA ELLISON [facility] Plan of Treatment: Future Appointments (+ 6 months) and Future Tests (+/- 45 days) The Plan of Treatment section includes future care activities for the patient from all CT treatmentfacilities. This section includes future appointments and future orders which are active, pending or scheduled. Future Appointments This section includes appointments that were scheduled to occur 6 months from the date of the Encounter, up to a maximum of 20 appointments. The data comes from all CT treatment facilities. Appointment Date/Time Appointment Type Appointme nt Facility Name Dec 11, 2024 10:00 AM [facility]BULATORY - [facility]ERY [facility] Jan 15, 2025 08:00 AM [facility] [place] [facility] Jan 15, 2025 11:30 AM [facility] Jan 29, 2025 01:00 PM AMBULATORY - NONE [facility] Jan 29, 2025 01:01 PM [facility] Feb 12, 2025 02:00 PM AMBULATORY - NONE [facility] [place] [facility] Feb 12, 2025 02:01 PM [facility] Mar 04, 2025 01:00 PM AMBULATORY - NONE [facility] [place] [facility] Mar 04, 2025 01:01 PM [facility] Mar 04, 2025 02:00 PM AMBULATORY - REHAB MEDICIN [facility] [place] [facility] May 13, 2025 01:00 PM AMBULATORY - NONE [facility] [place] [facility] May 13, 2025 01:01 PM [facility] [place] [facility] Lab Results: +/- 30 days of the encounter This section includes the Chemistry and Hematology Lab Results on record with CT for the patient. Radiology Reports and Pathology Reports are provided separately, in subsequent sections. Lab Results This section contains the Chemistry/Hematology Results that were resulted 30 days before or 30 daysafter the date of the Encounter. Date/Time Source Result Type Result - Unit Interpretation Reference Range Specimen Type Comment Dec 05, 2024 11:07 AM [facility] MRSA/SA SCREEN NARES Specimen Type: NARES No comment entered. Ordering Provider: LIGIA SHAFER Report Released Date/Time: Dec 05, 2024 11:05 AM Reporting Lab: [facility] [address] [facility] [address] Performing Lab: [facility] [address] [address] MRSA SURVL NARES DNA Negative Negative SA Negative Negative Nov 07, 2024 01:[address] [facility] BASIC METABOLIC PANEL (fasting) SERUM Specime n Type: SERUM No comment entered. Ordering Provider: PAZ WOODS Report Released Date/Time: Sep 20, 2024 01:52 PM Reporting Lab: [facility] [place] [address] [address] Performing Lab: [facility] [address] [facility] [address] UREA NITROGEN 26 mg/dL H 7-25 GLUCOSE 161 mg/dL H 65-100 SODIUM 137 mmol/L 135-145 POTASSIUM 4.1 mmol/L 3.5-5.0 CHLORIDE 109 mmol/L 100-110 CO2 20 meq/L 20-30 CREATININE, Serum 1.60 mg/dL H 0.50-1.40 eGFR(CKD-EPI 2020) 42 mL/min L >60 Nov 07, 2024 01:35 PM [facility] LIVER FUNCTION SERUM Specimen Type: SERUM No comment entered. Ordering Provider: PAZ WOODS Report Released Date/Time: Sep 20, 2024 01:52 PM Reporting Lab: [facility] [address] [facility] [address] Performing Lab: [address] [address] PROTEIN,TOTAL 6.4 g/dL 6.0-8.3 ALBUMIN 3.9 g/dL 3.5-5.0 ALKALINE PHOSPHATASE 80 U/L 40-150 AST 14 U/L 5-34 ALT 11 U/L BILIRUBIN, TOTAL 0.5 mg/dL 0.2-1.2 Nov 07, 2024 01:35 PM [facility] FERRITIN SERUM Specimen Type: SERUM No comment entered. Ordering Provider: PAZ WOODS Report Released Date/Time: Sep 20, 2024 01:52 PM Reporting Lab: [address] [address] Performing Lab: [address] [address] FERRITIN 46 ng/mL 20-300 Nov 07, 2024 01:35 PM [facility] IRON & TIBC PANEL SERUM Specimen Type: SERUM No comment entered. Ordering Provider: PAZ WOODS Report Released Date/Time: Sep 20, 2024 01:52 PM Reporting Lab: [address] [address] Performing Lab: [facility] [address] [facility] [address] TIBC 333 ug/dL 204-475 IRON 73 ug/dL 40-160 Transferrin Saturation 21.9 20.0-50.0 Transferrin (TRF) 252 mg/dL 200-360 Nov 07, 2024 01:35 PM [facility] CBC AND DIFF (AUTO) BLOOD Specimen Type: BLOO D No comment entered. Ordering Provider: PAZ WOODS Report Released Date/Time: Sep 20, 2024 01:52 PM Reporting Lab: [facility] [address] [facility] [address] Performing Lab: [facility] [address] [facility] [address] WBC 5.12 10*3/uL 4.50-11.00 RBC 3.42 10*6/uL L 4.23-5.66 HGB 10.7 g/dL L 12.8-17 HCT 31.3 L 39.2-50.4 MCV 91.5 fL 82-99 MCHC 34.2 g/dL 30.8-35.1 PLT 157 10*3/uL 140-360 RDW-CV 14.1 12.0-16.0 MONO, ABS 0.45 10*3/uL 0.30-1.10 MCH 31.3 pg 26.2-32.6 NEUT % 58.9 43.7-75.8 LYMPH % 30.3 14.0-42.3 MONO % 8.8 5.1-13.7 EOS % 1.4 0.4-6.8 BASO % 0.6 0.1-2.0 NEUT, ABS 3.02 10*3/uL 2.20-7.60 LYMPH, ABS 1.55 10*3/uL 1.00-3.20 EOS, ABS 0.07 10*3/uL 0.03-0.44 BASO, ABS 0.03 10*3/uL 0.01-0.13 IMMATURE GRAN % 0.0 0.0-0.7 IMMATURE GRAN, ABS 0.00 10*3/uL 0.00-0.0 6 NRBC % 0.0 0.0-0.0 NRBC, ABS 0.00 10*3/uL 0.00-0.00 Nov 07, 2024 01:35 PM [facility] PT & INR (PROTIME) PLASMA Specimen Type: PLASM A No comment entered. Ordering Provider: PAZ WOODS Report Released Date/Time: Sep 20, 2024 01:52 PM Reporting Lab: [address] [address] Performing Lab: [address] [address] INR 1.2 PROTIME 13.1 s 10.0-13.1 Nov 07, 2024 01:34 PM [facility] VITAMIN B12 SERUM Specimen Type: SERUM No comment entered. Ordering Provider: PAZ WOODS Report Released Date/Time: Nov 07, 2024 01:04 PM Reporting Lab: [address] [address] Performing Lab: [address] [address] VITAMIN B12 389 pg/mL 200-900 Vital Signs: All taken on the encounter date This section contains inpatient and outpatient Vital Signs collected on the date of the Encounter. Date/Time Temperature Pulse Blood Pressure Respiratory Rate SP02 Pain Height Weight Body Mass Index Source Dec 05, 2024 11:49 PM 0 [facility] Dec 05, 2024 09:57 PM 0 [facility] Dec 05, 2024 08:24 PM 97.5 74 167/58 18 99 0 71 195.2 27 [facility] Dec 05, 2024 10:52 AM 71 [facility] Dec 05, 2024 10:50 AM 97.1 60 146/69 16 100 0 188 26 [facility] Advance Directives: All historical and current Section Date Range: From patient's date of to the date document was created. This section includes ALL of a patient's completed or amended CT Advance and Rescinded Directives. The entries below indicate that a directive exists for the patient, but an actual copy is not included with this document. The data comes from all CT facilities. Date Advance Directives Provider Source Nov 07, [address] [facility] Encounter Notes: All associated encounter notes This section contains the clinical notes associated to the Encounter. Date/Time Encounter Note(s) Provider Source Dec 05, 2024 02:57 PM ANESTHESIOLOGY PRE OPERATIVE E & M NOTE: LOCAL TITLE: ANESTHESIA PREOPERATIVE EVALUATION (GT) STANDARD TITLE: ANESTHESIOLOGY PRE OPERATIVE E & M NOTE DATE OF NOTE: DEC 05, 2024@14:57 ENTRY DATE: DEC 05, 2024@14:57:52 AUTHOR: LAURA ELLISON EXP COSIGNER: URGENCY: STATUS: COMPLETED ANESTHESIA PREOPERATIVE EVALUATION NOTE PATIENT IDENTIFICATION Procedure: right ear cochlear mplant Indication: haring loss Age: 84 Sex: MALE Ht: 71 in [180.3 cm] (12/05/2024 10:52) Wt: 188 lb [85.28 kg] (12/05/2024 10:50) Vital Signs: HR: 60 (12/05/2024 10:50); BP: 146/69 (12/05/2024 10:50): RR: 16 (12/05/2024 10:50); Temp: 97.1 F [36.2 C] (12/05/2024 10:50); SpO2: HISTORY OF PRESENT ILLNESS: Pt. is an 84 yo MALE with PMHx noted below who is being evaluated prior to Right Cochlear Implant for Hearing Loss with a planned procedure date of 12/05/2024. Requested Anesthesia is general. Plan is for patient to be discharged home. 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 Had Anesthesia screen at that time that required PCP/ Cards risk stratification due to anemia. Patient is npo, anemia likely due to CKD/ chronic disease. He has no cp or sob now, has a pacer, gerd improving by itself. Untreated anuj. No recent cold or infection. N new allergies or problems with anesthesia. 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 - lexiscan nuclear stress test demonstrated moderate area of infarction and ischemia in his LAD and infarction in his RCA territory -Afib - on Eliquis for Atrial fibrillation -SVT -HTN - pt. states has been in good control 131 -133/41-63 per pt. 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 -ANUJ - untreated -GERD , moderate aized type 1 hiatal hernia - OMEPRAZOLE , controlled -CKD (stg 3) - Cr 1.86 (10/2023) --> 1.75 (07/2024) -Anemia / anemia of chronic disease -Hx fever unknown origin w/ thrombocytopenia & leukopenia 05/2015, possibly 2/2 a tick borne illness. -Hx 05/2023: some blood infection (unsure details), hospitalizaed for approx 10 days, had IV ABX and then outpatient ABX for additional 10 days -Other: See ROS REVIEW OF SYSTEMS HEENT: hearing gloss. No issues with eyes, nose, sinuses, or throat. CARDIAC: Pt. is able to walk 1-2 FOS w/out CP/pressure/tightness/jaw pain/arm pain. VASCULAR: pt does not know NEURO: Idiopathic peripheral neuropathy, small fiber neuropathy. PULM: No asthma, COPD, or home oxygen use. GI: Polyp Colon, Diverticular Disease of Colon. No gallbladder disease. 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 ENDOCRINE: pre DM. No thyroid dysfunction. ID/IMMUNE: No open wounds. MUSCULOSKELETAL: L>R shld pain / arthritis per pt. report. PSYCHIATRIC: No depression, anxiety, or PTSD. OTHER: Actinic Keratosis hem onc note:february RECOMMENDATION: I have been unable to locate labs from January. Please addend to this note if you have them available. From December, he is noted to have a mild chronic anemia. Micronutrient studies in the past six months are unremarkable and he has no evidence of significant iron, b12, or folate deficiency. Preliminary suspicion is for anemia of CKD. However, recommend obtaining reticuloycte count, spep and kappa/lambda serum free light chains to complete anemia work-up. SOCIAL HISTORY: -Tobacco: / EtOH(Ethanol): / Illicits: denies FAMILY: DEFERRED PAST SURGERIES -11/2023: EGD/colonoscopy for positive fit test. -08/2023: Hx severe MR s/p MiltraClip -04/14/23: Heart block s/p Abott PPM -09/2022: Hx severe - s/p TAVR -2002, s/p R orchiectomy -colon -pilonidal cyst - age 16 -tonsillectomy as a child ANESTHETIC COMPLICATIONS: -Denies prior anesthetic complications MEDICATIONS (Per [facility]): OMEPRAZOLE (omeprazole), 40 MG ELIQUIS (APIXABAN), 2.5 MG FUROSEMIDE TAB - prn MAGNESIUM OXIDE DAROLUTAMIDE (NUBEQA) PA-F TAB, LEUPROLIDE INJ,SUSP,LA CARBOXYMETHYLCELLULOSE NA 0.5% OPH SOLN REPATHA SURECLICK (evolocumab), 140 MG/ML, PEN INJCTR, SUBCUT, [employer] 1 ml SYRINGE MULTIVITAMIN TAMSULOSIN HCL (TAMSULOSIN HCL), 0.4 MG AMOXICILLIN (AMOXICILLIN), 500 MG PHYSICAL EXAM: cardiac: s1 and s2 heard Lungs : cta airway: M2 avg aperture 4 fgb neck from teeth intact tmd 4 fgb WORK-UP EK10/23/23: paced LABS: [facility] Aug 13, 2024 16:29 FERRITIN 66 ng/mL VA: [facility] Aug 13, 2024 16:29 SODIUM 140 mmol/L [facility]: [facility] Aug 13, 2024 16:29 POTASSIUM 4.1 mmol/L VA: [facility] Aug 13, 2024 16:29 CHLORIDE 110 mmol/L VA: [facility] Aug 13, 2024 16:29 CO2 21 mEq/L VA: [facility] Aug 13, 2024 16:29 UREA NITROGEN 22 mg/dL VA: [facility] Aug 13, 2024 16:29 GLUCOSE 98 mg/dL [facility]: [facility] Aug 13, 2024 16:29 PROTEIN,TOTAL 6.0 g/dL [facility]: [facility] Aug 13, 2024 16:29 ALBUMIN 3.7 g/dL [facility]: [facility] Aug 13, 2024 16:29 ALKALINE PHOSPHATASE 86 U/L [facility]: [facility] Aug 13, 2024 16:29 AST 15 U/L [facility]: [facility] Aug 13, 2024 16:29 BILIRUBIN, TOTAL 0.4 mg/dL [facility]: [facility] Aug 13, 2024 16:29 TIBC 298 ug/dL [facility]: [facility] Aug 13, 2024 16:29 IRON 62 ug/dL [facility]: [facility] Aug 13, 2024 16:29 CREATININE, Serum 1.75 mg/dL [facility]: [facility] Aug 13, 2024 16:29 Transferrin Saturation 20.8 % [facility]: [facility] Aug 13, 2024 16:29 Transferrin (TRF) 226 mg/dL [facility]: [facility] Aug 13, 2024 16:29 eGFR(CKD-EPI 2020) 38 mL/min [facility]: [facility] Aug 13, 2024 16:29 WBC 6.45 K/cmm [facility]: [facility] Aug 13, 2024 16:29 HGB 10.6 g/dL [facility]: [facility] Aug 13, 2024 16:29 HCT 32.1 % [facility]: [facility] Aug 13, 2024 16:29 PLT 153 K/cmm VA: [place], CHEST X-RAY / CT: none noted OTHER: -OUTSIDE CARDS Note from Date of service 10/07/24 (already scanned to records): ...medical clearance ...cochler implant... repeat ECHO conducted recently demonstrated normal heart function... no signs or symptoms of heart failuure ...patient on Eliquis due to a previous stroke ...device interrogations have consistently shown no evidence of atrial fibrillation. ... I do not foresee any contraindications... -02/20/24: HEMATOLOGY E-CONSULT NOTE ([facility]) REASON FOR CONSULT: 83 yo male with anemia, on Eliquis for Atrial fibrillation, omeprazole for gerd worked up with EGD/ colonoscopy in November for positive fit test. GI locally, DR Foster recommends a hematology consult. Please see him most recent labs from 02/11 I will have scanned. Thank you. RECOMMENDATION: I have been unable to locate labs from January. Please addend to this note if you have them available. From December, he is noted to have a mild chronic anemia. Micronutrient studies in the past six months are unremarkable and he has no evidence of significant iron, b12, or folate deficiency. Preliminary suspicion is for anemia of CKD. However, recommend obtaining reticuloycte count, spep and kappa/lambda serum free light chains to complete anemia work-up. /esmer/ KENDELL WINTER MD ATTENDING PHYSICIAN Signed: 02/20/2024 12:33 03/04/2024 ADDENDUM STATUS: COMPLETED Alerted to review available testing. SPEP normal, mildly abnormal light chains are likely due to known CKD. Suspect anemia of kidney disease. No further hematologic work-up indicated at this time. -10/29/23: CARDIOLOGY E-CONSULT NOTE ([facility]) Reason for consult: Perioperative device interrogation Chart reviewed. The patient underwent implantation of an Chaney dual chamber pacemaker in March 2023 for complete heart block. The device was interrogated on 08/31/23 and was functioning normally. Given recent normal device function, perioperative device interrogation and reprogramming is not necessary. If electrocautery will be used during the surgery, a magnet may be placed over the pacemaker during the surgery to make the pacemaker asynchronous. The magnet may be removed at the end of the surgery, and the device will revert to original settings. /esmer/ JEAN PIERRE BUSTILLO ATTENDING Signed: 10/29/2023 22:01 -Per Sleeve Maker (coordinator to scan records to chart) - outside Air Sampler provided the following: -10/31/23 ...cochlear surgery... I last saw the patient 09/15/23. At that time ... hemodynamicalyl stable. If things are unchanged...I do not feel strongly he needs to come in the office again before his upcoming surgery. He can hold Eliquis for 3 days... -[facility]: 10/16/23: (already scanned to medical records) The patient is on Eliquis empirically dut to a concern about atrial fibrillation after his stroke on 09/28/23 after undergoing a TAVR on 09/22/22. However, thus far no definitive atrial fibrillation has been detected. Therefore, if it is necessary to hold Eliquis before his cochlear implant surgery then it may be held for 2 days prior to surgery and then restarted as soon as it is safe to do so. No bridging necessary. (OF NOTE: CVA was 09/2022, not 09/2023) -10/13/23: TTE Summary: LV wall thickness is mildy increased. Normal LV size and function with EF 55- 60%. There is bioprosthetic valve in the aortic position. Mild central AR. No aortic stenosis (mean gradient 10mmHg). Mitraclip in place. Trace MR. Normal RV size and function. Compareison to 05/2023: mitraclip is in place and MRis corrected. -08/31/23: PPM interrogation Model: [employer] MRI Mode: DDD 60/130 Battery life: 8.5 years Normal impedance, threshold and sensitivity Pacing %: AP 47%, [employer] 98% Arrhythmic events: 1 high ventricular rate. No AT/AF -07/2023: Trans-esophageal ECHO Summary Mitral valve appears mildly thickened. The chordal structure is thickened and calcified. There is restricted mobility of the posterior mitral valve leaflet. There is severe MR. The mitral regurgitant jet is posteriorly directed. The mitral regurgitant jet is central with involvement laterally (A2/PA into A3/P3). The effective regurgitant orifice area is 0.43cm2 and the regurgitant volume is 86ml by proximal isovelocity surface area (PISA) method. There is systolic flow reversal of left upper pulmonary venous flow. There is no mitral stenosis. Valve area by 3D planimetry averages 4.6cm2. There is bioprosthetic valve in the aortic position. Mild central AR. Trivial perivalvular leak also present. An accurate AV mean gradient could not be obtained d/t off axis transgastric views. The LV systolic function is low normal. LVEF is 50-55%. There is basal inferior/inferolateral wall akinesis. Normal RV size and function. A pacer/ICD wire is seen in the RV. The pulmonary artery systolic pressure estimation is 26mmHg + right atrial pressure (central venous pressure). There is no thrombus in the left atrial appendage. Left atrial appendage function is normal. Comparison: No prior ROSE MARIE for comparison -05/2023: ECHO Normal LV size and function with EF 55-60%. Grade III, severe diastolic dysfunction with restricted LV filling pattern and increased LA pressure. There is a bioprosthetic valve in the aortic position (TAVR Medtr[employer] Evolut #34). There is mild central aortic regurgitation. No asortic stenosis (mean gradient 14 mmHg). There is moderate to severe MR. Normal RV size and function. The tricuspid valve is normal in appearance with at least mild TR. -06/19/2023: NM MYOCARD SPECT MULTI Summary Moderate sized area of myocardial infarction with associated ischemia in the LAD territory. Moderate sized area of prior infarction in the RCA territory. Normal left ventricular function. EF 57% -07/2022: Cardiac cath Normal left main. 65% D1 stenosis. Normal circumflex. 100% distal RCA stenosis. 60% proximal RCA stenosis. Pulmonary capillary wedge pressure 28mmHg. Mean PA pressure 24mmHg. Normal cardiac output of 5.2L/min. Severe with valve area 0.7cm2. No PCI performed. DASI (METS): at least 5.07 (10/2024) ASA PHYSICAL STATUS: 4 ANESTHETIC PLAN: std asa monitors, GETA, decadron COMMENTS preop done on dos, no meds recommendations THE RISKS AND BENEFITS OF THE ANESTHETIC HAVE BEEN EXPLAINED AND THE PATIENT AGREES TO PROCEED. PREOPERATIVE NPO GUIDELINES AND MEDICATION ADJUSTMENTS BEFORE SURGERY HAVE BEEN REVIEWED. Is the patient high risk geriatrics? =====High Risk Geriatrics===== Assessment: This patient has been flagged as a HIGH-RISK GERIATRICS. Plan: In HIGH-RISK GERIATRICS patients such as this, the following would be beneficial: Prioritize enhanced recovery after surgery (ERAS) strategy especially multimodal analgesia; avoid antihistamines (including diphenhydramine), anticholinergics (including scopolamine), benzodiazepines, and metoclopramide; renal and hepatic function and age per se should be considered and medication doses adjusted accordingly. ----- Preoperative Phase ----- - Nothing to eat after midnight - CLEAR fluids up to 2 hours prior to scheduled arrival are encouraged - Continue home analgesic medications - Prioritize preoperative acetaminophen and nonsteroidal anti-inflammatory drugs (NSAIDs) - Prioritize regional/neuraxial anesthesia; when possible these can be utilized as primary anesthetic to minimize polypharmacy ----- Intraoperative Plan ----- - Surgeons inject local unless concern for local anesthetic systemic toxicity (LAST) - If general anesthesia is elected, age-adjust induction agent dose, target an age-adjusted minimal alveolar concentration (MAC) and consider processed EEG (i.e. BIS) to avoid excess anesthetic depth - If opioids are required, prioritize short acting agents (such as fentanyl) and titrate to effect- Maintain euvolemia, use vasopressors/inotropes as appropriate to optimize hemodynamics - Maintain normothermia ----- Postoperative Phase ----- - Early consult to acute pain service if there are concerns for poorly controlled acute pain - Continue home analgesic medications - Consider scheduled doses of acetaminophen as a first-line agent - Exercise caution in patients with liver disease - Consider parenteral NSAIDs (such as ketorolac) if breakthrough pain occurs while on acetaminophen - Continuous regional/epidural if employed - If continued need for opioid, consider patient-controlled analgesia 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
--- OUTSIDE RECORDS SUMMARY | 2025-03-07 16:18 | XMS_ITS | Encounter Summary ---
Author Name [facility] [place] [facility] [place] [facility] [place] Address [address] [place] [address] Care Team Providers Care Loan Specialist Name Role Phone PAZ WOODS Primary Care [...] SUPPLEMEN DEVIN MEDEX 2 Jun 20, 2013 [id number] OLIVER LOPEZ PATIENT [facility] MEDICARE SUPPLEMEN DEVIN MEDEX 2 Jun 20, 2013 [id number] OLIVER LOPEZ PATIENT [place]IC[place] SUPPLEMEN DEVIN MEDEX 2 Jun 20, 2013 [id number] OLIVER LOPEZ PATIENT [employer] MEDICARE SUPPLEMEN TAL MEDEX 2 Jun 20, 2013 [id number] OLIVER LOPEZ PATIENT MEDICARE (WNR) MEDICARE (M) PART A Apr 20, 2004 PART A [id number] OLIVER LOPEZ PATIENT MEDICARE (WNR) MEDICARE (M) PART B Apr 20, 2004 PART B [id number] [phone] OLIVER LOPEZ PATIENT MEDICARE (WNR) MEDICARE (M) PART A Apr 20, 2004 PART A [id number] [phone] OLIVER LOPEZ PATIENT MEDICARE (WNR) MEDICARE (M) PART B Apr 20, 2004 PART B [id number] OLIVER LOPEZ FOR LIFE TFL* Oct 24, 2017 [id number] [phone] OLIVER LOPEZ PATIENT Selected Encounter This section includes the information on record at [place] for the Encounter. Date/Time Encounter Type Encounter Description Reason Provider Source Jan 15, 2025 08:00 AM COCHLEAR IMPLT F/UP EXAM 7/> AUDIOLOGY ICD-10-CM Z45.321 Encounter for adjustment and management of cochlear device CANDI CHOWDARY [facility] Encounter Template Text not used by [facility] Assessments - Encounter Diagnoses This section includes the primary and secondary diagnoses documented for the Encounter. Date/Time Primary/Secondary Diagnosis Diagnosis Name Provider Source Jan 15, 2025 01:13 PM PRIMARY Encounter for adjustment and management of cochlear device [facility] Jan 15, 2025 01:13 PM SECONDARY Sensorineural hearing loss, bilateral [facility] Plan of Treatment: Future Appointments (+ 6 months) and Future Tests (+/- 45 days) The Plan of Treatment section includes future care activities for the patient from all [place] treatmentfacilities. This section includes future appointments and future orders which are active, pending or scheduled. Future Appointments This section includes appointments that were scheduled to occur 6 months from the date of the Encounter, up to a maximum of 20 appointments. The data comes from all [place] treatment facilities. Appointment Date/Time Appointment Type Appointme nt Facility Name Jan 29, 2025 01:00 PM AMBULATORY - NONE [facility] Jan 29, 2025 01:01 PM AMBULATORY - SURGERY [facility] Feb 12, 2025 02:00 PM AMBULATORY - NONE [facility] Feb 12, 2025 02:01 PM AMBULATORY - SURGERY [facility] Mar 04, 2025 01:00 PM AMBULATORY - NONE [facility] Mar 04, 2025 01:01 PM AMBULATORY - SURGERY [facility] Mar 04, 2025 02:00 PM AMBULATORY - REHAB MEDICIN E [facility] May 13, 2025 01:00 PM AMBULATORY - NONE [facility] May 13, 2025 01:01 PM AMBULATORY - SURGERY [facility] Jun 19, 2025 03:00 PM [facility] Vital Signs: All taken on the encounter date This section contains inpatient and outpatient Vital Signs collected on the date of the Encounter. Date/Time Temperature Pulse Blood Pressure Respiratory Rate SP02 Pain Height Weight Body Mass Index Source Jan 15, 2025 10:24 AM 60 129/62 98 [facility] Advance Directives: All historical and current Section Date Range: From patient's date of to the date document was created. This section includes ALL of a patient's completed or amended [place] Advance and Rescinded Directives. The entries below indicate that a directive exists for the patient, but an actual copy is not included with this document. The data comes from all [place] facilities. Date Advance Directives Provider Source Nov 07, 2024 ADVANCE DIRECTIVE JOHN KUMAR [place] [facility] Encounter Notes: All associated encounter notes This section contains the clinical notes associated to the Encounter. Date/Time Encounter Note(s) Provider Source Jan 15, 2025 02:10 PM AUDIOLOGY EDUCATIO N NOTE: LOCAL TITLE: AUDIOLOGY PROGRESS/PT EDUCATION NOTE (T) STANDARD TITLE: AUDIOLOGY EDUCATION NOTE DATE OF NOTE: JAN 15, 2025@14:10 ENTRY DATE: JAN 15, 2025@14:10:27 AUTHOR: RICHIE,MARY KAY S EXP COSIGNER: URGENCY: STATUS: COMPLETED AUDIOLOGY PROGRESS/PT EDUCATION NOTE (T) Has ADDENDA Discussed plan of care with Audiology Reaming Machine Operator For Plastic and agree with the findings, assessment and plan as noted below: Oliver Lopez is a 84 YO vet with longstanding history of asymmetric (right poorer) sensorineural hearing loss s/p cochlear implantation in the RIGHT EAR seen today for initial activation of the devices below. will be fit with LEFT GYPSY hearing aid. [place] accompanied by his . IMPLANT(S): RIGHT EAR: [employer] SYNCHRONY 2 FLEX 28 ([id number]) Surgery date: 12/06/24 SOUND PROCESSORS: RIGHT EAR: ROSALES 3 ([id number]) in silver Magnet:3 Act Date: 01/15/25 *RIGHT EAR: ROSALES 3 ([id number]) in silver Magnet:3 Act Date: 01/15/25 *Back-up sound processor HEARING AID Hearing aid history: 05/03/21 GYPSY BURROUGHS REGIS R R [id number] NA 05/27/24 05/03/21 GYPSY BURROUGHS REGIS R L [id number] NA 05/27/24 03/08/16 GYPSY Z SERIES I110 MINI BTE 312 R [id number] 03/08/16 GYPSY Z SERIES I110 MINI BTE 312 L [id number] Current Hearing Aid Information 01/15/25 GYPSY BURROUGHS REGIS RT L [id number] Wax guard: HEAR CLEAR Dome size: 7MM OPEN DOME Security Officers And Guards: M BRAILLE DUPLICATING MACHINE OPERATOR SIZE 2 Retention: YES Trial expiration: 03/11/25 Warranty expiration: 10/12/27 Otoscopy: AU- Canals clear, TMs visualized. FITTING: Physical fit of hearing aid was good. The feedback franchise sales manager was activated. Real ear measurement (conformity evaluation) could not be ran on device due to equipment not functioning. Subjectively, reported a comfortable fit and good sound quality. Programming: NAL-NL2 Rocker button synced and enabled for Short press = VC Long press = Power on/off Mem1: Personal PROGRAMMING: Impedances: wnl NRT/NRI/ART: not measured today T levels: not measured today M levels: measured using electrode 6 and interpolated to all other electrodes RIGHT EAR P1: MAP 1 P2: MAP 1 (+3) P3: MAP 1 (+6) P4: MAP 1 (+9) Primary sound processor paired to 's [employer] remote control. Unable to save today's setting on back-up sound processor, due to defective sound processor. Device will be sent to executive vice president of sales for repair. AUDITORY REHAB AND TRAINING AUDITORY REHABILITATION: Rehab and education was provided to effectively self-manage hearing loss in relation to daily activities and active participation in care. Pt was educated regarding consistent use of devices, awareness of adverse listening situations, and their effects on the ability to participate in social activities. We also discussed the importance of multi-sensory integration to maximize benefit from the implants. I provided training on how to navigate adverse listening environments to maximize and improve overall communication. Pt was given instruction on implementing effective communication strategies. Reviewed hearing aid insertion, removal, use, cleaning, and how to charge hearing aids. 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 Includes multi-sensory integration and multi-sensory approaches, reducing negative emotional reactions, improving communication and listening skills, auditory training, effective use of amplification systems, and information, with or without amplification hearing aids and assistive and assistive listening devices. Provided extra domes and wax guards, reviewed supply order program and trial/warranty periods. MRI CONSIDERATIONS: Reviewed with executive vice president of sales's MRI compatibility regarding any future MRI. Discussed the importance of notifying radiologists/physicians of the presence of their CI prior to any MRI procedures. IMPRESSION: Pt had good open-set speech understanding without visual cues in the office today. He reported good sound quality bimodally and from the CI alone. PLAN: 1. RTC in [facility] for one month CI f/up appointment on 03/04/25 at 11:00 am. 2. 's back-up sound processor will be sent out for repair. Once device arrives, today's settings will be saved and device will be mailed to [facility] for upcoming appointment. Barriers/Considerations for Learning Assessed None List any if positive: READINESS TO LEARN: Ready to learn, patient receptive STYLES OF LEARNING PREFERRED: Discussion Ability to comprehend instruction: Yes If no, who will be instructed: Pt/caregiver received information that included interactive discussion and when applicable demonstration. Instruction was understood as evidenced by the ability to repeat significant information, ask pertinent questions, and demonstrate/verbalize skills learned.Yes Instructed about: Learner demonstrated understanding of information taught: Yes Reinforcement/Repeat Education Needed: No Additional take home instruction materials/supplies given/reviewed: (why not?) N/A /esmer/ Saravanan ABREU, PATY-A UNDERWRITING SUPPORT SPECIALIST Signed: 01/15/2025 14:11 01/17/2025 ADDENDUM STATUS: COMPLETED Rec'd replacement Rondo3 (SN: [id number]), loaded MAP 1 and attached #3 magnet. Mailed to the pt via [employer], tracking #: [id number] Damaged processor returned to [employer], [employer] tracking # [id number] /Saravanan Nowak, PATY-Veronica UNDERWRITING SUPPORT SPECIALIST Signed: 01/17/2025 14:53 01/24/2025 ADDENDUM STATUS: COMPLETED Pt called yesterday to report that both of his Rosales processors, including the new replacement, are not working. They only produce a buzzing/squealing sound when he wears them. He is unable to hear anything with them but was able to hear well with the processor following his initial activation until after the first overnight charge cycle 01/15-01/16. Pt unable to come to [place]. I coordinated an CVT appt for pt to be seen in [facility] by Dr. Chowdary on 01/29 at 13:00. Pt agreed to appt time. /esmer/ Saravanan Montanez Pcb Design Engineer, Audiology and Speech Pathology Signed: 01/24/2025 08:20 MARY KAY CHOWDARY [facility] Jan 15, 2025 07:19 AM AUDIOLOGY EDUCATIO N NOTE: LOCAL TITLE: AUDIOLOGY PROGRESS/PT EDUCATION NOTE (T) STANDARD TITLE: AUDIOLOGY EDUCATION NOTE DATE OF NOTE: JAN 15, 2025@07:19 ENTRY DATE: JAN 15, 2025@07:19:29 AUTHOR: COLLINS GARNER COSIGNER: MARY KAY CHOWDARY URGENCY: STATUS: COMPLETED Oliver Lopez is a 84 YO vet with longstanding history of asymmetric (right poorer) sensorineural hearing loss s/p cochlear implantation in the RIGHT EAR seen today for initial activation of the devices below. [place] will be fit with LEFT GYPSY hearing aid. [place] accompanied by his . IMPLANT(S): RIGHT EAR: [employer] SYNCHRONY 2 FLEX 28 ([id number]) Surgery date: 12/06/24 SOUND PROCESSORS: RIGHT EAR: ROSALES 3 ([id number]) in silver Magnet:3 Act Date: 01/15/25 *RIGHT EAR: ROSALES 3 ([id number]) in silver Magnet:3 Act Date: 01/15/25 *Back-up sound processor HEARING AID Hearing aid history: 05/03/21 GYPSY BURROUGHS REGIS R R [id number] NA 05/27/24 05/03/21 GYPSY [place] REGIS R L [id number] 05/27/24 03/08/16 [employer] Z SERIES I110 MINI BTE 312 R [id number] 03/08/16 [employer] Z SERIES I110 MINI BTE 312 L [id number] Current Hearing Aid Information 01/15/25 GYPSY [place] REGIS RT L [id number] Wax guard: HEAR CLEAR Dome size: 7MM OPEN DOME Security Officers And Guards: M BRAILLE DUPLICATING MACHINE OPERATOR SIZE 2 Retention: YES Trial expiration: 03/11/25 Warranty expiration: 10/12/27 Otoscopy: AU- Canals clear, TMs visualized. FITTING: Physical fit of hearing aid was good. The feedback franchise sales manager was activated. Real ear measurement (conformity evaluation) could not be ran on device due to equipment not functioning. Subjectively, reported a comfortable fit and good sound quality. Programming: NAL-NL2 Rocker button synced and enabled for Short press = VC Long press = Power on/off Mem1: Personal PROGRAMMING: Impedances: wnl NRT/NRI/ART: not measured today T levels: not measured today M levels: measured using electrode 6 and interpolated to all other electrodes RIGHT EAR P1: MAP 1 P2: MAP 1 (+3) P3: MAP 1 (+6) P4: MAP 1 (+9) Primary sound processor paired to 's [employer] remote control. Unable to save today's setting on back-up sound processor, due to defective sound processor. Device will be sent to executive vice president of sales for repair. AUDITORY REHAB AND TRAINING AUDITORY REHABILITATION: Rehab and education was provided to effectively self-manage hearing loss in relation to daily activities and active participation in care. Pt was educated regarding consistent use of devices, awareness of adverse listening situations, and their effects on the ability to participate in social activities. We also discussed the importance of multi-sensory integration to maximize benefit from the implants. I provided training on how to navigate adverse listening environments to maximize and improve overall communication. Pt was given instruction on implementing effective communication strategies. Reviewed hearing aid insertion, removal, use, cleaning, and how to charge hearing aids. 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 Includes multi-sensory integration and multi-sensory approaches, reducing negative emotional reactions, improving communication and listening skills, auditory training, effective use of amplification systems, and information, with or without amplification hearing aids and assistive and assistive listening devices. Provided extra domes and wax guards, reviewed supply order program and trial/warranty periods. ? - MRI CONSIDERATIONS: Reviewed with executive vice president of sales's MRI compatibility regarding any future MRI. Discussed the importance of notifying radiologists/physicians of the presence of their CI prior to any MRI procedures. IMPRESSION: Pt had good open-set speech understanding without visual cues in the office today. He reported good sound quality bimodally and from the CI alone. PLAN: 1. RTC in [facility] for one month CI f/up appointment on 03/04/25 at 11:00 am. 2. [place]'s back-up sound processor will be sent out for repair. Once device arrives, today's settings will be saved and device will be mailed to [facility] for upcoming appointment. /esmer/ COLLINS GARNER Audiology Occupational Therapist Assistants Signed: 01/15/2025 13:26 /esmer/ Saravanan ABREU, [facility]A UNDERWRITING SUPPORT SPECIALIST Cosigned: 01/15/2025 13:37 [facility]ARN[facility]
--- OUTSIDE RECORDS SUMMARY | 2025-03-07 16:18 | XMS_ITS | Data Portability ---
Author Organization [facility], Main Office Address [address] [facility] [facility], [address] [place] [address] Assessment No assessment recorded. Plan of Treatment Reminders Order Date Submit Date Provider Last Modified By Organization Details Last Modified Time Details Appointments None record ed. Lab None record ed. Referral None record ed. Procedures None record ed. Surgeries None record ed. Imaging None record ed. Medication Orders None record ed. Patient TargetsNo targets recorded. Patient InstructionsNo instructions recorded. Reason for Referral None Reported. 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, [address], [place], [address], [facility] 9 14:18:08 Coronary atherosclerosi s 129546446 Active 2018 DURAN Rosario [address] [facility], [address], [place], [address], [facility] 9 14:18:32 Nutritional disorder 5976064 Active 2018 DURAN Rosairo [address] [facility], [address], [place], [address], [facility] 9 14:18:59 Essential hypertension 30488370 Active 2018 DURAN Rosario [address] [facility], [address], [place], [address], [facility] 9 14:20:01 Mixed hyperlipidemia 209746672 Active 2018 DURAN Rosario [address] [facility], [address], [place], [address], [facility] 9 14:20:09 Bipolar disorder 98300497 Active 2018 KISHORE RosarioP [address] [facility], [address], [place], [address], [facility] 9 14:20:17 Ventricular arrhythmia 85479100 Active 2018 DURAN Rosario [address], [address], [place], [address], [facility] 9 14:21:02 Problem Notes None recorded. Medical Equipment None Reported. Allergies No known drug allergies Vitals Date Recorded Heart rate Respiratory rate Body temperature Systolic blood pressure Diastolic blood pressure Provider Name and Address Organization Details Last Updated DateTime 9 86 /min 20 /min 99.4 [degF] 124 mm[Hg] 68 mm[Hg] Vickie Perea TAKE UP OPERATOR [address] [facility], [address], [place], [address], [facility] 9 16:44:36 Date Recorded Heart rate Respiratory rate Body temperature Systolic blood pressure Diastolic blood pressure Provider Name and Address Organization Details Last Updated DateTime 9 94 /min 18 /min 98.3 [degF] 137 mm[Hg] 70 mm[Hg] Vickie PereaDURAN [address], [place], [address], [facility] 9 15:56:36 Date Recorded Systolic blood pressure Diastolic blood pressure Provider Name and Address Organization Details Last Updated DateTime 05/06/2019 132 mm[Hg] 72 mm[Hg] Mayra Nguyen [address] [place] [address], [address], [place], [address], [facility] 05/06/2019 14:01:05 Date Recorded Systolic blood pressure Diastolic blood pressure Provider Name and Address Organization Details Last Updated DateTime 05/15/2019 127 mm[Hg] 75 mm[Hg] Mayra Nguyen [address] [place] [address], [address], [place], [address], [facility] 05/15/2019 13:03:16 Social History Question Answer Notes LastModified by Organizat ion Details LastModified Time Tobacco Smoking Status Never Smoker Not Available [facility] 09/15/2020 03:13:20 Do You Have An Advance Directive? Yes DNR, DNI DNH [id number] Information not available 09/15/2020 What Is Your Level Of Alcohol Consumption? Moderate One Glass Of Wine Or Hard Liquor Per Day [id number] Information not available 09/15/2020 How Much Tobacco Do You Chew? None [id number] Information not available 09/15/2020 Do You Have A Medical Power Of Electro[employer]? No [id number] Information not available 09/15/2020 What Was The Date Of Your Most Recent Tobacco Screening? 05/16/2019 [id number] Information not available 09/15/2020 Sex: Unknown Functional Status None recorded. Mental Status None recorded. Family History Nothing Reported Notes:N/C Medical History No medical history recorded. Past Encounters Encounter ID Performer Location Encounter Start Date Encounter Closed Date Diagnosis/Indication Diagnosis SNOMED-CT Code Diagnosis ICD10 Code Diagnosis Note [id number] DURAN Rosario AT [address] [address] 04/02/2019 14:09:04 04/04/2019 13:29:09 Adenocarcinoma of stomach 776506793 C16.0 see hpiPT OT for conditioni ng and mobilityf/ u with oncology in 1-2 weeks to determine treatment courseoxyc odone 10 - 15 mg q 3 hrs prnfentany l patch 25 mcg q 72 hrmonitor bowels, pain reliefadde d senna s 1 po bid Coronary atherosclerosis 297080838 I25.119 asa 81 mg qdplavix 75 mg qdlipitor 20 mg qdmonitor for chest pain, sob 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 amiodarone 200 mg qdmonitor heart ratef/u with cardiology prn Essential hypertension 48562595 I10 metoprolol 12.5 mg bidmonitor bp and labs Mixed hyperlipidemia 267 980259 E78.2 statin as aboveAST/A LT normal Nutritional disorder 249 2009 E46 remeron 30 mg qhsmonitor weight, po intake Bipolar disorder 0155067 4 F31.9 bupropion 150 mg qdbuspar 10 [place] [id number] MD RAUL Bosch AT [address] [address] 04/03/2019 10:54:08 04/08/2019 16:23:21 Bipolar disorder 87701115 F31.89 Abilify 5 mg dailyBuspa r 10 mg bidmirtaza pine 30 mg at hsWellbutr in SR 150 mg dailywill monitor Ventricula r arrhythmia 94221954 I47.1 amiodarone 200 mg dailywill monitor with cardiology Coronary atherosclerosis 187446406 I25.10 ASA 81 mg dailyatorv astatin 20 mg dailywill monitor Adenocarci noma of stomach 446534032 C16.2 fentanyl patch 25 mcg [id number] one 10-15 mg q3h prnawait full oncology consultati on for discussion prognosis and treatment plan Asthenia 81371256 R53.1 PT/OTencou rage good nutrition will monitor Essential hypertension 37334906 I10 metoprolol 12.5 mg bidwill monitor [id number] DURAN Rosario AT [address] [address] 04/09/2019 13:05:42 04/11/2019 16:26:47 Adenocarcinoma of stomach 457874037 C16.0 continue PT OT for conditioni ng and mobilityf/ u with oncology tomorrow determine treatment courseoxyc odone 10 - 15 mg q 3 hrs prnfentany l patch 25 mcg q 72 hrapap 650 mg tid and prn NTE 3 g/24hrlido pawan patch to low back on at 9 PM, off 9 ammonitor bowels, pain reliefadde d senna s 1 po bidadd gabapentin 100 mg 1 qhs for insomnia related to dx, can increase as needed Coronary atherosclerosis 104747080 I25.119 asa 81 mg qdplavix 75 mg qdlipitor 20 mg qdmonitor for chest pain, sob Ventricula r arrhythmia 07621827 I49.9 amiodarone 200 mg qdmonitor heart ratef/u with cardiology prn Essential hypertension 07709258 I10 metoprolol 12.5 mg bidmonitor bp and labs Nutritional disorder 249 2009 E46 remeron 30 mg qhsmonitor weight, po intake Bipolar disorder 5757440 4 F31.9 bupropion 150 mg qdbuspar 10 [place] [id number] MD RAUL Bosch AT [address] [address] 04/17/2019 08:40:30 04/19/2019 15:16:01 Bipolar disorder 53383306 F31.89 Abilify 5 mg dailyBuspa r 10 mg bidmirtaza pine 30 mg at hsWellbutr in SR 150 mg dailywill monitor Nutritional disorder 249 2008 E44.0 will continue Megacewill offer chocolate Ensure tidwill monitor weekly weights Adenocarci noma of stomach 699398789 C16.2 fentanyl patch 25 mcg [id number] one 10-15 mg q3h prnplans to give chemo a try and hope for best Ventricula r arrhythmia 61334181 I47.1 amiodarone 200 mg dailywill monitor with cardiology Coronary atherosclerosis 355498181 I25.10 ASA 81 mg dailyatorv astatin 20 mg dailywill monitor Essential hypertension 16724424 I10 metoprolol 12.5 mg bidwill monitor Low back pain 495409855 M54.5 will increase gabapentin to 200 mg at hs for 2 nights, then [facility] increase fentanyl patcha [id number] DURAN Rosario AT [address] [place] [address] 04/26/2019 16:43:49 04/30/2019 10:13:57 Adenocarcinoma of stomach 970025635 C16.0 continue PT OT for conditioni ng and mobilityf/ u with oncology tomorrow determine treatment courseoxyc odone 10 - 15 mg q 3 hrs prnincreas e fentanyl patch to 50 mcg q 72 hrapap 650 mg tid and prn NTE 3 g/24hrlido pawan patch to low back on at 9 PM, off 9 ammonitor bowels, pain reliefsenn a s 1 po bidgabapen tin 300 mg qhs Coronary atherosclerosis 842576945 I25.119 asa 81 mg qdplavix 75 mg qdlipitor 20 mg qdmonitor for chest pain, sob Ventricula r arrhythmia 43029224 I49.9 amiodarone 200 mg qdmonitor heart ratef/u with cardiology prn Essential hypertension 71125169 I10 metoprolol 12.5 mg bidmonitor bp and labs Nutritional disorder 249 2008 E46 remeron 30 mg qhsmonitor weight, po intake Bipolar disorder 8720451 4 F31.9 bupropion 150 mg qdbuspar 10 [place] [id number] DURAN Rosario AT [address] [address] 04/30/2019 15:55:49 05/02/2019 14:58:23 Adenocarcinoma of stomach 421066319 C16.0 continue PT OT for conditioni ng and mobilityf/ u with oncology on 05/03 determine treatment courseoxyc odone 10 - 15 mg q 3 hrs prnfentany l 50 mcg q 72 hrapap 650 mg tid and prn NTE 3 g/24hrlido pawan patch to low back on at 9 PM, off 9 ammonitor bowels, pain reliefsenn a s 1 po bidgabapen tin 300 mg qhs Coronary atherosclerosis 021781280 I25.119 asa 81 mg qdplavix 75 mg qdlipitor 20 mg qdmonitor for chest pain, sob Ventricula r arrhythmia 98848533 I49.9 amiodarone 200 mg qdmonitor heart ratein NSR nowf/u with cardiology prn Essential hypertension 37412282 I10 metoprolol 12.5 mg bidmonitor bp and labs Nutritional disorder 249 2008 E46 remeron 30 mg qhsmonitor weight, po intake Bipolar disorder 8183786 4 F31.9 mood stable on current medsbuprop ion 150 mg qdbuspar 10 [place] [id number] Mayra JOSEPHLEY AT [address] [address] 05/06/2019 14:00:04 05/08/2019 09:33:40 Bipolar disorder 38800913 F31.89 stable, at baseline. continue regimenAbi lify 5 mg dailyBuspa r 10 mg bidmirtaza pine 30 mg at hsWellbutr in SR 150 mg dailywill monitor Ventricula r arrhythmia 95913877 I47.1 HR regular on examamioda don 200 mg dailywill monitor with cardiology Coronary atherosclerosis 367279086 I25.10 ASA 81 mg dailywill d/c statin to reduce pill burden.meghan l monitor Adenocarci noma of stomach 014655972 C16.2 see HPI, goal is for comfortfen tanyl patch 25 mcg y55fxde rec's from hospice include schedule of oxycodone 10 mg qid, ativan scheduled at HS and prn. with new order for lactulose daily. monitor. Essential hypertension 48731692 I10 BP at goal, continue regimenmet oprolol 12.5 mg bidwill monitor Shared car e - hospice and GP 197628372 Z76.89 see HPI, pt under care of hospice. goals are for comfort. follow hospice recs. monitor for s/s EOL, comfort. [id number] Mayra Williamsburglashell CARTER AT [address] [address] 05/15/2019 13:02:29 05/20/2019 15:40:29 Adenocarcinoma of stomach 141634426 C16.2 as above. Shared car e - hospice and GP 919856799 Z76.89 pt under care of hospice. goals are for comfort. follow hospice recs. pt appears to be imminently dying. fentanyl patch was d/c;d due to concern of effectiven ess with cachexia. current regimen of PO morphine is 40 mg q 1 hrs and q 1 hr prn. pt not comfortabl e with q 4 hrs scheduled dose, and concern of ablity to swallow increasing PO morphine. will switch to sub q via CADD pump. hospice will manage. Essential hypertension 22800416 I10 pt on hospice,al l PO meds ahave been d/c'd except for comfort meds. goals are for comfort. [id number] DURAN Rosario AT [address] [address] 05/16/2019 14:52:34 05/20/2019 16:15:27 Adenocarcinoma of stomach 663583865 C16.0 increase morphine CAD pump to 6 mg/hr continuous . staff will continue to administer 2 mg q 15 if pt appears uncomforta ble.hospic e care Health Concerns Section Related Observation LastModified by Organization Detai ls LastModified Time None Recorded Concern Status LastModified by Organization Details LastModified Time None Recorded Advance Directives Directive Y: DNR, DNI DNH Payers Encounter Date Sequence Insurance Name Policy Number Policy Johnson Covered Member ID Johnson Member ID Guarantor Name 04/26/2019 2 [place] [email or web address] [facility] [id number] [facility] 04/26/2019 1 [facility] - MEDICARE PREFERRED (MEDICARE REPLACEMENT HMO) BRIANA Torres [id number] [facility] 04/30/2019 2 [place] [facility] [id number] [facility] 04/30/2019 1 [facility] - MEDICARE PREFERRED (MEDICARE REPLACEMENT HMO) BRIANA Torres [id number] [facility] 05/06/2019 2 [place] [facility] Wan Torres [id number] [facility] 05/06/2019 1 [facility] - MEDICARE PREFERRED (MEDICARE REPLACEMENT HMO) BRIANA Torres [id number] [facility] 05/15/2019 2 [place] [facility] Wan [facility] [id number] [facility] 05/15/2019 1 [facility] - MEDICARE PREFERRED (MEDICARE REPLACEMENT HMO) BRIANA Torres [id number] [facility] 05/16/2019 2 [place] [facility] Wan Torres [id number] [facility] 05/16/[address] [facility] MEDICARE PREFERRED (MEDICARE REPLACEMENT HMO) BRIANA Torres [id number] [facility] Notes Date Note Type Note Provider Name and Address Organization Details Recorded Time 04/26/2019 text/html 78 yo male seen for routine 30 day rounding visit. pt admitted from [facility] s/p syncope and weakness. 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 it was not decided whether he would have further treatment.pt has had 20 lb unintentional weight loss in the last month. pt was having dark bloody stools. gastric mass found in the gastric cardia. pt also seen by cardiology who felt his syncope was 2/2 orthostasis. pt was continued on amiodarone for ventricular and atrial ectopy and asa and plavix continued for CAD. po intake poor, started on remeron and is improving. today staff note that pt has been having worse low back pain and he is currently on fentanyl 25 mcg with prn oxycodone. he was also started on gabapentin 100 mg for insomnia and titrated up to 300 mg which he says is working well. he is meeting with his oncologist in one week to discuss further treatment. no other concerns per nursing. Vickie Perea, TAKE UP OPERATOR [address] [facility], [address], [place], [address], [facility] [employer] [facility] 04/26/2019 16:48:05 04/30/2019 text/html 78 yo male seen for acute rounding visit. pt admitted from [facility] s/p syncope and weakness. 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 it was not decided whether he would have further treatment.pt has had 20 lb unintentional weight loss in the last month. pt was having dark bloody stools. gastric mass found in the gastric cardia. pt also seen by cardiology who felt his syncope was 2/2 orthostasis. pt was continued on amiodarone for ventricular and atrial ectopy and asa and plavix continued for CAD. po intake poor, started on remeron and is improving. today pt says the low back pain has improved since doubling the fentanyl patch to 50 mcg. he is meeting with his oncologist on 05/03 to discuss further treatment. his alk phos had come up 200 points to 736 today. no other concerns per nursing. DURAN Rosario [address] [facility], [address], [place], [address], [facility] [employer] 04/30/2019 16:03:13 05/06/2019 text/html Pt is an 79 y.o male seen today for acute rounding visit. Pt had f/u with oncology on 05/03, who determined adenocarcinoma of stomach non-treatable and referred to hospice. Pt was admitted to hospice services on 05/05/19. He was admitted to [facility] 04/01/19 after [facility] admission 03/23/19-04/01/19 after found on the floor by friend after syncopal episode. He also had anorexia, weight less, shortness of breath, and weakness. Upper endoscopy revealed a gastric mass which was determined to be moderately to poorly differentiated adenocarcinoma. Abd/pelvic CT revealed lesions consistent with mets to liver. Chest CT was consistent with lung mets (per patient). Patient was seen by oncology at [facility] and is awaiting fu outpatient consultation to discuss prognosis and treatment options. During admission he was initially treated for rhabdomyolysis with IV hydration and initially elevated CK and creatinine returned to baseline. Of note, cardiology felt that syncope was due to orthostasis and medical therapy only indicated for CAD at this time. Mayra Nguyen [address] [facility], [address], [place], [address], [employer] 05/06/2019 15:02:32 05/15/2019 text/html Pt is an 79 y.o male seen today for acute rounding visit per concerns of pain management at EOL. Pt appears to be imminently dying and in need of better sx management.Pt was admitted to hospice services on 05/05/19. He was admitted to [facility] 04/01/19 after [facility] admission 03/23/19-04/01/19 after found on the floor by friend after syncopal episode. He also had anorexia, weight less, shortness of breath, and weakness. Upper endoscopy revealed a gastric mass which was determined to be moderately to poorly differentiated adenocarcinoma. Abd/pelvic CT revealed lesions consistent with mets to liver. Chest CT was consistent with lung mets (per patient). Patient was seen by oncology at [facility] and is awaiting fu outpatient consultation to discuss prognosis and treatment options. Mayra Nguyen [address] [facility], [address], [place], [address], [employer] 05/15/2019 13:09:50 05/16/2019 text/html 79 y.o male seen today for acute rounding visit. hospice in to eval pt for pain management. they are asking to increase his morphine CAD pump to 6 mg/hr from 4 mg continuous. he also has 2 mg q 15 minutes prn which staff and friend have been administering as pt is unable. pt is actively dying. He was admitted to [facility] 04/01/19 after [facility] admission 03/23/19-04/01/19 after found on the floor by friend after syncopal episode. He also had anorexia, weight less, shortness of breath, and weakness. Upper endoscopy revealed a gastric mass which was determined to be moderately to poorly differentiated adenocarcinoma. Abd/pelvic CT revealed lesions consistent with mets to liver. Chest CT was consistent with lung mets (per patient). Patient was seen by oncology at [facility] and is awaiting fu outpatient consultation to discuss prognosis and treatment options. DURAN Rosario [address] [facility], [address], [place], [address], [employer] 05/16/2019 14:58:18
--- OUTSIDE RECORDS SUMMARY | 2025-03-07 16:18 | XMS_ITS | Clinical Summary ---
Author Organization [facility] Address [address] [facility] [facility] [address] [place] [address] Phone Care Team Providers Care Blending Tank Tender Name Role Phone Maxx Donis MD Primary Care Provider [phone] Allergies Active Allergy Reactions Criticality Noted Date Comments Gabapentin 01/25/2023 Nitroglycerin 01/25/2023 Other reaction(s): low bp Medications tamsulosin (FLOMAX) 0.4 MG 24 hr capsule Take 0.4 mg by mouth 06/29/2022 Active omeprazole (PriLOSEC) [address] capsule See Instructions, TAKE 1 CAPSULE BY MOUTH TWICE A DAY, # 30 capsule, 5 Refills, [facility], 182.88, cm, 05/25/21 12:55:00 EDT, Height 11/04/2021 Active furosemide (LASIX) 20 MG tablet Take 20 mg by mouth 10/30/2022 Active DAROLUTAMIDE PO Take 600 mg by mouth 06/29/2022 Active apixaban (ELIQUIS) 5 MG tablet Take 5 mg by mouth 10/31/2022 Active magnesium oxide 250 MG tablet Take 400 mg by mouth in the morning. Active Repatha SureClick 140 MG/ML solution auto-injector 01/25/2024 Activ e Active Problems Problem Noted Date Diagnosed Date Stage 3a chronic kidney disease 02/23/2023 Stage 3b chronic kidney disease 01/26/2023 Renal osteodystrophy 01/26/2023 Idiopathic peripheral neuropathy 01/25/2023 Hypercholesterolemia 01/25/2023 History of aortic valve replacement 01/25/2023 Heart failure with normal ejection fraction 06/2023 Gastroesophageal reflux disease 01/25/2023 Dizziness 01/25/2023 Cough 01/25/2023 Coronary arteriosclerosis 01/25/2023 Chronic kidney disease stage 3 01/25/2023 Aortic valve stenosis 01/25/2023 Anemia 01/25/2023 Non-specific colitis 01/25/2023 Malignant tumor of testis 01/25/2023 Infection of skin 01/25/2023 Renal failure syndrome 01/25/2023 Serum creatinine above reference range Peripheral neuropathic pain 01/25/2023 Patient encounter status 01/25/2023 Overweight 01/25/2023 Numbness 01/25/2023 Tick bite 01/25/2023 Shoulder pain 01/25/2023 Transfusion reaction due to excess volume 2022 Overview (01/26/2023): Patient at risk for Transfusion-Associated Circulatory Overload (TACO). The use of slow infusion rates, the administration of ruben-transfusion diuretics where not clinically contraindicated, and/or the transfusion of split units of PRBCs should be considered in any future hemotherapy interventions. Consult Transfusion Medicine Services if any questions. 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 Patient doing well after hospitalization, will remain on apixaban twice daily for further prevention and amiodarone for rhythm and rate control. Dr. Rodriguez will manage the amiodarone. Cerebellar infarction 10/10/2022 Overview (01/26/2023): Last Assessment & Plan: The symptoms that came with the stroke have resolved, patient to remain on apixaban for further prevention of measurement. Posterior rhinorrhea 08/31/2022 Overview (01/26/2023): Last Assessment & Plan: Oropharynx negative for signs of thrush, cobblestoning is present indicative of postnasal drip with nasal discharge, possibly fall allergy related, fluticasone nasal spray 1 spray each nostril nightly and I explained exactly how to use the Flonase properly so that it would be most effective. Meanwhile for the cough so we can get better sleep 2 teaspoons nightly of the cough syrup with codeine. He can use it at daytime to if he needs to and we put some refills on. If he develops a sore throat we can treat thrush if that develops. Do not snort the fluticasone nasal spray to the back of the throat. Diverticulitis 06/21/2022 Primary insomnia 06/21/2022 Overview (01/26/2023): Last Assessment & Plan: The patient is having a lot of trouble staying asleep. Sleep is important to gather his strength so he has some strength to take care of his ADLs the next day. Trial of trazodone 50 mg p.o. nightly. Avoidance of antihistamine substances for sleep. Aortic valve stenosis 06/21/2022 Overview (01/26/2023): Status post TAVR 09/22 without complication. Last Assessment & Plan: Systolic diastolic murmur appreciated, history negative for chest pain, CHF, syncope. Patient being referred to [facility] cardiology [place] from the commercial loan closer seeing the patient at [facility]. Patient possibly being referred for TAVR, we ascertained today no signs of heart failure, patient will continue as planned with the follow-up appointment. Diverticulitis of sigmoid colon 05/26/2022 Overview (01/26/2023): Last Assessment & Plan: Patient has a history of diverticulitis many years ago and has followed Dr. Foster (GI) as an outpatient. Last colonoscopy approximately 2 years ago was unremarkable except for polyps. Clearly source of his fever, elevated CRP of 132, and elevated procalcitonin of 0.21. Clinically improving though continues to complain of generalized malaise and [employer] member nausea and a sense of fullness Tolerated full liquids -Check plain films today to rule out developing ileus -Continue high dose ceftriaxone and metronidazole for now. Hopefully can transition him to oral antibiotics if x-rays are negative -Advance diet regular, low fiber unless x-rays consistent with ileus -Stop IV morphine. Only needed it once in the last 36 hours -Ambulate in the halls now that he is no longer neutropenic Febrile neutropenia 05/25/2022 Overview (01/26/2023): Last Assessment & Plan: Patient presented with neutropenic fever in the setting of recent chemotherapy (Taxotere) for metastatic prostate cancer. Patient also experiencing left lower quadrant pain and was found to have uncomplicated sigmoid diverticulitis on his CAT scan. Likely source of fever. White count has rebounded. No longer neutropenic. Afebrile for 36 hours. -Continue IV ceftriaxone and IV Flagyl along with lactobacillus for diverticulitis with an expectation that we will transition to p.o. soon. -Blood cultures remain negative -Repeat CBC with diff daily Benign prostatic hyperplasia with outflow obstru ction 04/14/2022 Overview (01/26/2023): Last Assessment & Plan: Continue Flomax Diverticulosis of sigmoid colon 04/14/2022 Overview (01/26/2023): Last Assessment & Plan: Diverticulitis has since healed up as per exam, patient can convert over to high-fiber diet if he wishes, agree with avoidance of seeds nuts and popcorn. 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 Mitral valve regurgitation 07/12/2016 Overview (01/25/2023): Mild Secondary pulmonary hypertension 07/12/2016 Overview (01/25/2023): RVSP 32 mmHg; RV normal Mixed sleep apnea 04/19/2016 Overview (01/25/2023): AHI 19.1, BMLH HST. Declined treatment. Encounters Date Type Department Care Team Description 03/05/2025 Orders Only [facility] [address] [facility] [place] [address] Eduardo Pike MD Stage 3b chronic kidney disease (HCC); Renal osteodystrophy from Last 3 Months Immunizations Immunization Administration Dates Next Due Cholera 11/21/1961 Hepatitis A 03/13/1999,09/05/1998 Influenza (IM) Preservative Free 08/12/2014 Influenza Split High Dose Pr eservative Free IM 08/29/2019,10/07/2018,08/18/2017,09/06 Influenza Vaccine, Quadrival ent, Adjuvanted 08/13/2021 Influenza Whole 09/05/1998,09/27/1997,11/29/1994 Influenza, Unspecified 08/20/2023,2021,07/21/2021,09/01,08/20/2020,08/18/2017,09/06/2016 ,10/06/2015,08/11/2014 MMR 10/13/1998 Meningococcal Polysaccharide 12/12/1998 Moderna SARS-COV-2 02/22/2022,,01/04/2021,12/07 OPV 11/20/1963 Pneumococcal Conjugate 13-Valent 09/06/2016,01/19 Pneumococcal Polysaccharide 04/10/2017 Shingrix 02/22/2022,07/22/2021 Td 11/30/1989 Tdap 07/22/2021,08/14/2012 Typhoid Live 09/05/1998 Typhoid, Unspecified 11/22/1987 Yellow Fever 03/20/1999,11/24/1982 Zoster 02/22/2022,07/22/2021,12/20/2007 Family History Relation Status Comments Father Mother Social History Tobacco Use Types Packs/Day Years Used Date Smoking Tobacco: Never Tobacco Cessation:Counseling Given: Not Answered Alcohol Use Standard Drinks/Week Comments Never 0 (1 standard drink = 0.6 oz pure alcohol) Alcoholic Drinks/day: Occasional social drink Sex and Gender Information Value Date Recorded Sex Assigned at Not on file Legal Sex Male 4:41 PM EST Gender Identity Not on file Sexual Orientation Not on file Last Filed Vital Signs Vital Sign Reading Time Taken Comments Blood Pressure 119/60 04/04/2024 1:42 PM EDT Pulse 67 02/23/2023 3:10 PM EDT Temperature - - Respiratory Rate - - Oxygen Saturation 97% 02/23/2023 3:10 PM EDT Inhaled Oxygen Concentration - - Weight 87.8 kg (193 lb 9.6 oz) 04/04/2024 1:42 P M EDT Height - - Body Mass Index - - Plan of Treatment Upcoming Encounters Date Type Department Care Team (Late st Contact Info) Description 04/03/2025 1:15 PM EDT Office Visit [facility] [address] [place] [address] Eduardo Pike MD [address] [id number] Health Maintenance Due Date Last Done Comments Pneumococcal Vaccine: 50+ Years Completed 04/10/2017, 09/06/2016, 02/13/2015 Pneumococcal Vaccine: Peds (0 to 5 Years) and At-Risk Patients (6 to 49 Years) Discontinued 04/10/2017, 09/06/2016, 02/13/2015 Influenza Vaccine Completed 08/13/2024, , 09/17/2022, Additional history exists Hepatitis B Vaccine Aged Out No longe r eligible based on patient's age to complete this topic Insurance [facility] Medicare [facility] Medicare Care Teams Blending Tank Tender Relationship Specialty Start Date End Date Maxx Donis MD [address] [employer] [place] [id number] PCP - General 11/30/20
--- OUTSIDE RECORDS SUMMARY | 2025-03-07 16:18 | XMS_ITS | Encounter Summary ---
Author Name [facility] [place] [facility] [place] [facility] [place] Address [address] [place] [address] Care Team Providers Care Structural Shop Helper Name Role Phone PAZ WOODS Primary Care [...] SUPPLEMEN DEVIN MEDEX 2 Jun 20, 2013 [id number] OLIVER OLIVAREZ PATIENT [facility] SUPPLEMEN DEVIN MEDEX 2 Jun 20, 2013 [id number] OLIVER OLIVAREZ PATIENT [facility] SUPPLEMEN DEVIN MEDEX 2 Jun 20, 2013 [id number] OLIVER OLIVAREZ PATIENT [facility] [place] MEDIC[place] SUPPLEMEN DEVIN MEDEX 2 Jun 20, 2013 [id number] OLIVER OLIVAREZ PATIENT MEDICARE (WNR) MEDICARE (M) PART A Apr 20, 2004 PART A [id number] OLIVER OLIVAREZ PATIENT MEDICARE (WNR) MEDICARE (M) PART B Apr 20, 2004 PART B [id number] OLIVER OLIVAREZ PATIENT MEDICARE (WNR) MEDICARE (M) PART A Apr 20, 2004 PART A [id number] OLIVER OLIVAREZ PATIENT MEDICARE (WNR) MEDICARE (M) PART B Apr 20, 2004 PART B [id number] [phone] OLIVER OLIVAREZ FOR LIFE TFL* Oct 24, 2017 [id number] OLIVER OLIVAREZ PATIENT Selected Encounter This section includes the information on record at [place] for the Encounter. Date/Time Encounter Type Encounter Description Reason Provider Source Dec 05, 2024 11:00 AM Inpatient Visit MEDICAL/SURGICAL DAY UNIT LEIGHU LIGIA ESTEVEZ Encounter Template Text not used by [place] Plan of Treatment: Future Appointments (+ 6 months) and Future Tests (+/- 45 days) The Plan of Treatment section includes future care activities for the patient from all [place] treatmentfacilities. This section includes future appointments and future orders which are active, pending or scheduled. Future Appointments This section includes appointments that were scheduled to occur 6 months from the date of the Encounter, up to a maximum of 20 appointments. The data comes from all [place] treatment facilities. Appointment Date/Time Appointment Type Appointme nt Facility Name Dec 11, 2024 10:00 AM AMBULATORY [place] [facility] Jan 15, 2025 08:00 AM AMBULATORY [place] [facility] Jan 15, 2025 11:30 AM AMBUL[facility] [place] [facility] Jan 29, 2025 01:00 PM AMBULATORY - NONE [place] [facility] [place] [facility] Jan 29, 2025 01:01 PM AMBULATORY - SURGERY [facility] Feb 12, 2025 02:00 PM [facility] [place] [facility] Feb 12, 2025 02:01 PM AMBULATORY - SURGERY [facility] Mar 04, 2025 01:00 PM AMBULATORY - NONE [place] [facility] [place] [facility] Mar 04, 2025 01:01 PM AMBULATORY - SURGERY [facility] Mar 04, 2025 02:00 PM [facility] May 13, 2025 01:00 PM [facility] May 13, 2025 01:01 PM AMBULATORY - SURGERY [facility] Lab Results: +/- 30 days of the encounter This section includes the Chemistry and Hematology Lab Results on record with [place] for the patient. Radiology Reports and Pathology Reports are provided separately, in subsequent sections. Lab Results This section contains the Chemistry/Hematology Results that were resulted 30 days before or 30 daysafter the date of the Encounter. Date/Time Source Result Type Result - Unit Interpretation Reference Range Specimen Type Comment Dec 05, 2024 11:07 AM [facility] MRSA/SA SCREEN NARES Specimen Type: NARES No comment entered. Ordering Provider: LIGIA ESTEVEZ Report Released Date/Time: Dec 05, 2024 11:05 AM Reporting Lab: [address] [address] Performing Lab: [address] [address] MRSA SURVL NARES DNA Negative Negative SA Negative Negative Nov 07, 2024 01:35 PM [facility] LIVER FUNCTION SERUM Specimen Type: SERUM No comment entered. Ordering Provider: PAZ WOODS Report Released Date/Time: Sep 20, 2024 01:52 PM Reporting [facility]: [facility] [address] [address] Performing Lab: [address] [address] PROTEIN,TOTAL 6.4 g/dL 6.0-8.3 ALBUMIN 3.9 g/dL 3.5-5.0 ALKALINE PHOSPHATASE 80 U/L 40-150 AST 14 U/L 5-34 ALT 11 U/L BILIRUBIN, TOTAL 0.5 mg/dL 0.2-1.2 Nov 07, 2024 01:35 PM [facility] BASIC METABOLIC PANEL (fasting) SERUM Specime n Type: SERUM No comment entered. Ordering Provider: PAZ WOODS Report Released Date/Time: Sep 20, 2024 01:52 PM Reporting Lab: [facility] [address] [address] Performing Lab: [facility] [address] [facility] [address] UREA NITROGEN 26 mg/dL H 7-25 GLUCOSE 161 mg/dL H 65-100 SODIUM 137 mmol/L 135-145 POTASSIUM 4.1 mmol/L 3.5-5.0 CHLORIDE 109 mmol/L 100-110 CO2 20 meq/L 20-30 CREATININE, Serum 1.60 mg/dL H 0.50-1.40 eGFR(CKD-EPI 2020) 42 mL/min L >60 Nov 07, 2024 01:35 PM [facility] FERRITIN SERUM Specimen Type: SERUM No comment entered. Ordering Provider: PAZ WOODS Report Released Date/Time: Sep 20, 2024 01:52 PM Reporting Lab: [address] [address] Performing Lab: [address] [address] FERRITIN 46 ng/mL 20-300 Nov 07, 2024 01:35 PM [facility] IRON & TIBC PANEL SERUM Specimen Type: SERUM No comment entered. Ordering Provider: PAZ WOODS Report Released Date/Time: Sep 20, 2024 01:52 PM Reporting Lab: [facility] [address] [address] Performing Lab: [address] [address] TIBC 333 ug/dL 204-475 IRON 73 ug/dL 40-160 Transferrin Saturation 21.9 20.0-50.0 Transferrin (TRF) 252 mg/dL 200-360 Nov 07, 2024 01:35 PM [facility] CBC AND DIFF (AUTO) BLOOD Specimen Type: BLOO D No comment entered. Ordering Provider: PAZ WOODS Report Released Date/Time: Sep 20, 2024 01:52 PM Reporting Lab: [facility] [address] [facility] [address] Performing Lab: [facility] [address] [facility] [address] WBC 5.12 10*3/uL 4.50-11.00 RBC 3.42 10*6/uL [...] 10*3/uL 0.00-0.00 Nov 07, 2024 01:35 PM [facility] PT & INR (PROTIME) PLASMA Specimen Type: PLASM A No comment entered. Ordering Provider: PAZ WOODS Report Released Date/Time: Sep 20, 2024 01:52 PM Reporting Lab: [facility] [address] [facility] [address] Performing Lab[facility] [address] [address] INR 1.2 PROTIME 13.1 s 10.0-13.1 Nov 07, 2024 01:34 PM [facility] VITAMIN B12 SERUM Specimen Type: SERUM No comment entered. Ordering Provider: PAZ WOODS Report Released Date/Time: Nov 07, 2024 01:04 PM Reporting Lab: [facility] [address] [facility] [address] Performing Lab: [address] [address] VITAMIN B12 389 pg/mL 200-900 Vital Signs: All taken on the encounter date This section contains inpatient and outpatient Vital Signs collected on the date of the Encounter. Date/Time Temperature Pulse Blood Pressure Respiratory Rate SP02 Pain Height Weight Body Mass Index Source Dec 05, 2024 11:49 PM 0 [facility] Dec 05, 2024 09:57 PM 0 [facility] Dec 05, 2024 08:24 PM 97.5 74 167/58 18 99 0 71 195.2 27 [facility] Dec 05, 2024 10:52 AM 71 [facility] Dec 05, 2024 10:50 AM 97.1 60 146/69 16 100 0 188 26 [facility] Advance Directives: All historical and current Section Date Range: From patient's date of to the date document was created. This section includes ALL of a patient's completed or amended [place] Advance and Rescinded Directives. The entries below indicate that a directive exists for the patient, but an actual copy is not included with this document. The data comes from all [place] facilities. Date Advance Directives Provider Source Nov 07, 2024 ADVANCE DIRECTIVE [facility] Encounter Notes: All associated encounter notes This section contains the clinical notes associated to the Encounter. Date/Time Encounter Note(s) Provider Source Dec 05, 2024 02:33 PM NURSING NOTE: LOCAL TITLE: [facility] OPERATING ROOM/PROCEDURE FIRE RISK ASSESSMENT STANDARD TITLE: NURSING NOTE DATE OF NOTE: DEC 05, 2024@14:33 ENTRY DATE: DEC 05, 2024@14:33:15 AUTHOR: CARMEN CHRISTENSEN EXP COSIGNER: URGENCY: STATUS: COMPLETED PROBLEM: FIRE RISK ASSESSMENT EXPECTED OUTCOME: Patient will remain free from injury related to surgical fire/ procedural fire NURSING ASSESSMENT: A. Is an alcohol-based skin antiseptic or other flammable solution being used preoperatively? No B. Is the procedure being performed above the xiphoid process or in the oropharynx? Yes, Interventions Coat head and facial hair near the site with water-soluble surgical lubricant to decrease flammability. Use an adhesive incise drape between the surgical/procedural site and the oxygen source. If oxygen concentration is greater than 30% consider laryngeal mask airway or endotracheal tube. Comments: C. Is open oxygen or nitrous oxide being administered (delivery via nasal cannula or face mask)? No D. Is an ESU (Electrical Surgical Unit), laser, or fiber optic cord being used? Yes, Interventions ESU Place the ESU in a location that does not put stress on the electrical cord. Keep the electrical cord dry and free of kinks, knots, and bends. Inspect the ESU cord before use, and do not use it if there is any evidence of breaks, nicks, or cracks in the outer insulation coating. Keep the active electrode cord free of kinks and coils during use. Only the person controlling the active electrode should activate the ESU. Use the lowest possible power setting for the ESU. Store the active electrode in a clean, dry, non-conductive safety holster when it is not in use. Keep sterile drapes or linens away from the activated ESU. Do not use an ignition source to enter the bowel or the trachea. Keep the ESU active electrode away from oxygen, nitrous oxide, or combustible anesthetic gas sources if possible. Do not activate the active electrode in the presence of flammable agents until the agents are dry and vapors have dissipated (eg, alcohol-based skin antiseptics, tinctures, de-fatting agents, collodion, petroleum-based lubricants, phenol, aerosol adhesives, uncured methyl methacrylate). Keep the active electrode tip clean. Use active electrode tips according to the emergency medical technician/driver's instructions. Use only active electrodes or return electrodes that are compatible with the ESU. Seat the active electrode tip securely into the electrosurgical hand piece. Do not alter the active electrode tip (eg, by bending, by using insulation sheaths made from flammable materials such as rubber catheters). Activate the active electrode only when it is in close proximity to the target tissue and away from other metal objects that could conduct heat or cause arcing. Inspect minimally invasive electrosurgical instruments for impaired insulation and remove them from service if the insulation is not intact. Use cut or blend settings instead of coagulation when possible. Remove the active electrode tip from the electrosurgical hand piece before discarding it. Remove the batteries or disable the cautery tip before disposing of battery-powered, hand-held cautery units, if applicable. During perineal procedure, use moistened radiopaque sponges to cover or pack the anus. Comments: E. Other possible contributors to fire are present (defibrillator, drills, saws, burrs) Yes, Interventions Slowly drip saline on a moving drill, ron, or saw blade. Place drills or saws on the [place] stand or back table when not in use. Comments: OUTCOME: Option 1. Patient is free from fire/burn injury. Additional comments: /es/ CARMEN CHRISTENSEN RN REGISTERED NURSE Signed: 12/05/2024 14:34 CARMEN CHRISTENSEN [facility] Dec 05, 2024 01:58 PM SURGERY ATTENDING PRE OPERATIVE E & M NOTE: LOCAL TITLE: PRE-OP SURGICAL ATTENDING PROGRESS NOTE STANDARD TITLE: SURGERY ATTENDING PRE OPERATIVE E & M NOTE DATE OF NOTE: DEC 05, 2024@13:58 ENTRY DATE: DEC 05, 2024@13:58:39 AUTHOR: LIGIA ESTEVEZ EXP COSIGNER: URGENCY: STATUS: COMPLETED PRE-OP ATTENDING NOTE Pre-operative diagnosis: BILATERAL HEARING LOSS Operative plan: RIGHT COCHLEAR IMPLANT I have discussed risks, benefits, and potential complications including: Bleeding, scar, pain, infection, csf leak, device failure, facial paralysis, vertigo, dysgeusia, implant extrusion * This patient is expected to be admitted postoperatively: Yes * I personally discussed the anticipated impact of surgical vs non-surgical treatment on: current symptoms, functional outcome, burden of care on the family, living situation post-operatively, and survival. * Patient's goal for the treatment plan is (in their words): to hear again * This treatment plan is a result of shared decision making between the patient, patient's family, and the surgeon reflecting on the patient's stated goals of care. /es/ LIGIA ESTEVEZ MD OTOLOGY, NEUROTOLOGY AND SKULL BASE SURGERY Signed: 12/05/2024 13:59 LIGIA ESTEVEZ [facility] Dec 05, 2024 01:26 PM SURGERY NURSING NO TE: LOCAL TITLE: NURSING PHASE III-PRE-OP HOLDING AREA PRE-OP ASSESS STANDARD TITLE: SURGERY NURSING NOTE DATE OF NOTE: DEC 05, 2024@13:26 ENTRY DATE: DEC 05, 2024@13:26:43 AUTHOR: JAQUELINE ARTHUR COSIGNER: URGENCY: STATUS: COMPLETED NURSING PHASE III-PRE OP HOLDING AREA PRE OP ASSESSMENT Date: Nov@13:20 Identification band: Correct name: Verified Correct social security number: Verified Patient verified identity verbally: Yes COVID/Illness Screening Does the have symptoms of COVID/Illness? (Cough, Shortness of Breath, Sore Throat, Fever, Nasal or Congestion or Recent exposure to someone with COVID) No Proposed surgery: Right Cochlear implant Proposed surgery matches: Operating room schedule: Yes Attending note: Yes Consent: Yes Current H&P: Yes Patient verbalizes procedure and site of surgery: Yes Operative site indicated with surgical marking pen or armband per Dr. Gaitan. Allergies: GABAPENTIN, NITROGLYCERIN Patient's height: 71 in [180.3 cm] (12/05/2024 10:52) Patient's weight: 188 lb [85.28 kg] (12/05/2024 10:50) Patient's age: 84 Temperature: 97.1 Glucose: n/a History of post-op nausea and vomiting: No NPO from midnight: Yes Pre-op cognitive function: WNL Pre-op activity level: Moves all extremities Hearing: Normal The following were removed: N/A Comments: Left upper chest pacemaker Loose teeth: No Skin features: Intact Pre-surgery Chlorhexidine Gluconate (CHG) wipes: N/A Decolonization completed per surgery protocol: N/A Pre-op clip: N/A Type and screen collected: N/A Lab work completed: Yes test completed: N/A Priority problems: Anxiety due to surgery Risk for fall Plan for nursing care for the identified problems will follow the guidelines outlined in RN standards of care and/or will follow the accepted standards of nursing care for the operating room and holding area. 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 He is a CI candidate but his surgery was delayed due to anemia. He is now interested in moving forward after his workup is complete. 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 OTHER: Actinic Keratosis SOCIAL HISTORY: -Tobacco: / EtOH(Ethanol): / Illicits: denies FAMILY: DEFERRED PAST SURGERIES -11/2023: EGD/colonoscopy for positive fit test. 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 He is a RIGHT sided CI candidate. - To OR w Dr. Estevez for Right cochlear implantation, Med EL /esmer/ CELSA HERNANDEZ Otolaryngology - Head & Neck Surgery Resident Signed: 12/05/2024 13:08 /esmer/ LIGIA ESTEVEZ MD OTOLOGY, NEUROTOLOGY AND SKULL BASE SURGERY Cosigned: 12/05/2024 13:58 CELSA HERNANDEZ [facility] Dec 05, 2024 11:30 AM NURSING NOTE: LOCAL TITLE: PATIENT BELONGING LIST NOTE STANDARD TITLE: NURSING NOTE DATE OF NOTE: DEC 05, 2024@11:30 ENTRY DATE: DEC 05, 2024@11:30:16 AUTHOR: YAMILETH WOOD EXP COSIGNER: URGENCY: STATUS: COMPLETED PATIENT BELONGING LIST NOTE Has ADDENDA CH: [facility] ADMITTING NURSE/LITIGATOR: yamileth wood/rn PATIENT WAS ADVISED THAT VALUABLES AND FUNDS WILL BE ACCEPTED FOR SAFEKEEPING; HOWEVER, [facility] DOES NOT ASSUME RESPONSIBILITY FOR LOST, STOLEN OR DAMAGED ITEMS THAT REMAIN IN THEIR POSSESSION, INCLUDING DENTURES AND EYEGLASSES. MEDICATIONS (S) ARE HANDLED IN ACCORDANCE WITH EXISTING [facility] POLICY. 1 light jacket 1 hat 1 scarf 1sweat short 1 polo shirt 1 t-shirt 1 pair pants 1 underwear 1 pair socks 1 pair shoes 1 p;air eyeglasses 1 book 1 smartphone 1 white bag Clean clothes 1 pajama bottom 1 t-shirt 1 underwear' 1 sweat pants 1 sweat shirt 1 pair socks toiletriea Medications given to daughter MEDICATION: HANDELED IN ACCORDANCE WITH EXISTING [facility] POLICY Do you have any medications with you? No If yes, then please list the medications: BENEFICIARY NAMED: Yes If yes, provide name and contact information of a person they give authority to act as their beneficiary in the event they are unable to diamond picker their belongings including valuables upon discharge or . Name: Address: Phone Number: Yiqtdwilf-[phone] daughter This list was completed with the Patient/Caregiver and a copy of this signed note was given to the Patient/Caregiver. Patient agrees that once items are sent to the clothing room they will not be accessible until discharge. Patient informed that any items left after discharge will be disposed of after 90 days. /esmer/ YAMILETH WOODRN,BSN REGISTERED NURSE Signed: 12/05/2024 11:34 12/06/2024 ADDENDUM STATUS: COMPLETED all patient belongings were brought to [facility] by [facility] WILLEM [facility] and were given to [facility] BEBO George at 1035 /es/ TOMER HILLIARD CNA CERTIFIED NURSE RED HAT OPEN STACK ADMINISTRATOR Signed: 12/06/2024 10:45 YAMILETH WOOD [facility] Dec 05, 2024 10:52 AM NURSING PROCEDURE NOTE: LOCAL TITLE: NURSING PHASE I [facility] DAY OF PROCEDURE OR NOTE STANDARD TITLE: NURSING PROCEDURE NOTE DATE OF NOTE: DEC 05, 2024@10:52 ENTRY DATE: DEC 05, 2024@10:52:32 AUTHOR: YAMILETH WOOD EXP COSIGNER: URGENCY: STATUS: COMPLETED [facility] DAY OF PROCEDURE NOTE OR NOTE COVID/Illness Screening Does the [place] have symptoms of COVID/Illness? (Cough, Shortness of Breath, Sore Throat, Fever, Nasal or Congestion or Recent exposure to someone with COVID) No If yes: 1. Referred to: 2. Comments: DAY OF PROCEDURE: Does the patient have an Advance Directive? Yes If yes, does the patient want to change or revoke it during this admission? No If yes, a social work consult has been completed. No If yes, does the patient have a copy that they can provide now? No Is there an electronic copy of an Advance Directive in the CWAD (Patient Postings)? Yes If no, does the patient want information on Advance Directives? No If yes, a social Work consult has been completed No Date/time: Nov@13:00 Patient/Nursing Assessment Planned surgery/procedure: right cochlear implant Identification Band: Patient verified identity verbally: Yes Place on patient after patient is identified according to HSP: Yes Arrived from: Home How transported: Ambulatory Is the patient on blood thinners? Yes If yes, what is the name of the medication? apixaban when was the last dose of the medication taken? Nov Does the patient have an open wound or rashes? No If yes, where? Did the patient have a Methicillin-resistant staphylococcus aures (MRSA) swab? Yes If yes, where? Allergies: GABAPENTIN, NITROGLYCERIN Other Allergies: none A medication review is done with the patient/caregiver: Active Outpatient Medications (including Supplies): No Medications Found * Active Medications from other [facility]: Active Medications from Remote Data NOTE: Remote meds display is limited to those items matched to National Drug File at the originating site. CARBOXYMETHYLCELLULOSE NA 0.5% SOLN,OPH Sig: INSTILL 1 DROP INTO EACH EYE TWICE DAILY NEEDED FOR DRY EYE Quantity: 15 Days Supply: 30 Rx Expiration Date: 01/11/25 Last filled 07/03/24 at [place] [facility] (Active) * Unable to review medications with patient/caregiver due to: Patient cannot remember some of hos medications Vital Signs: T: 97.1 F [36.2 C] (12/05/2024 10:50) P: 60 (12/05/2024 10:50) R: 16 (12/05/2024 10:50); O2 sat: 100% RA B/P: 146/69 (12/05/2024 10:50) Pain scale: 0 (12/05/2024 10:50) Finger stick: n/a PAIN ASSESSMENT Patient is able to self report pain. NUMERICAL PAIN SCALE Numerical Rating pain scale:0 - No pain Intervention IS NOT required at this time Comments: If pain is 4 or greater: Location: and Character: Is your pain tolerable/adequately controlled in your present treatment plan: If answered no notified MD by: Weight: 188 lb [85.28 kg] (12/05/2024 10:50)lbs height: 71 in [180.3 cm] (12/05/2024 10:52)in. Neurological assessment: Mental status: Oriented, Calm Fall Risk: NO If answered yes list personal assistive devices in place: Wandering Risk: NO Sensory assessment limitation: hearing: YES visual: YES Respiratory: Breathing easily without distress YES O2 dependent: NO Cardiovascular: Heart Rate problems YES afib Pacemaker YES GI: bowel problems NO : urinary problems no HOSE INSPECTOR AND PATCHER: If female last menstrual period: n/a What was the method of patient preparation used? npo after midnight When was the last time food or fluid was taken: Nov@16:00 What medications did you take today?am meds with sips of water Patient Transportation: How did you arrive? car with /daughter How are you getting home? admit Name of person: [phone] Are they in the waiting area? Yes Patient Belongings and valuables: Placed in locker: Yes Locker number: 19 Given to someone: Yes Whom: medications given to daughter Belonging list completed: Yes Blood: Is the clot current: No Procedure and consent verification: Patient verbalized an understanding of procedure? Yes Completed consent: Yes Consent validated by patient: Yes Correct site validated by patient: Yes OR schedule and consent validated: Yes If no to any of the above who was notified: Intravenous access: Yes Inserted by:Yamileth Wood/bebo Device type: nexiva g 20 Site: right hand Solution: SL Pre Procedure Medications: Time Medication Dose Route Other Procedure expectations for patient: no complications Expected patient outcome/Plan of care: to hear better Other team members involved: ENT IF PATINT IS GOING TO THE OR CONTINUE. DOCUMENTATION PRESENT: Attending note, History and Physical, Anesthesia note, Current labs, Consent, EKG Patient voided /es/ YAMILETH WOODRN,BSN REGISTERED NURSE Signed: 12/05/2024 13:19 YAMILETH WOOD [facility]
--- OUTSIDE RECORDS SUMMARY | 2025-03-07 16:18 | XMS_ITS | Encounter Summary ---
Author Name [facility] [facility] [place] Address [address] [place] [address] Care Team Providers Care Court Abstractor Name Role Phone PAZ WOODS Primary Care [...] SUPPLEMEN DEVIN MEDEX 2 Jun 20, 2013 [id number] OLIVER LOPEZ PATIENT [facility] MEDICARE SUPPLEMEN DEVIN MEDEX 2 Jun 20, 2013 [id number] OLIVER LOPEZ PATIENT [facility] MEDICARE SUPPLEMEN DEVIN MEDEX 2 Jun 20, 2013 [id number] [phone] OLIVER LOPEZ PATIENT [place] MEDIC[place] SUPPLEMEN DEVIN MEDEX 2 Jun 20, 2013 [id number] OLIVER LOPEZ PATIENT MEDICARE (WNR) MEDICARE (M) PART A Apr 20, 2004 PART A [id number] OLIVER LOPEZ PATIENT MEDICARE (WNR) MEDICARE (M) PART B Apr 20, 2004 PART B [id number] [phone] OLIVER LOPEZ PATIENT MEDICARE (WNR) MEDICARE (M) PART A Apr 20, 2004 PART A [id number] OLIVER LOPEZ PATIENT MEDICARE (WNR) MEDICARE (M) PART B Apr 20, 2004 PART B [id number] OLIVER LOPEZ PATIENT FOR LIFE TFL* Oct 24, 2017 [id number] [phone] OLIVER LOPEZ PATIENT Selected Encounter This section includes the information on record at [place] for the Encounter. Date/Time Encounter Type Encounter Description Reason Provider Source Sep 11, 2024 11:30 AM OFFICE O/P EST MOD 30 MIN OTOLARYNGOLOGY/EN T ICD-10-CM H91.93 Unspecified hearing loss, bilateral HILDREW,CHRISTIAN S IHE Encounter Template Text not used by [place] Assessments - Encounter Diagnoses This section includes the primary and secondary diagnoses documented for the Encounter. Date/Time Primary/Secondary Diagnosis Diagnosis Name Provider Source Sep 11, 2024 01:43 PM PRIMARY Unspecified hearing loss, bilateral HILDREW,DOUGLA S [facility] Plan of Treatment: Future Appointments (+ 6 months) and Future Tests (+/- 45 days) The Plan of Treatment section includes future care activities for the patient from all [place] treatmentfacilities. This section includes future appointments and future orders which are active, pending or scheduled. Future Appointments This section includes appointments that were scheduled to occur 6 months from the date of the Encounter, up to a maximum of 20 appointments. The data comes from all [place] treatment facilities. Appointment Date/Time Appointment Type Appointme nt Facility Name Sep 12, 2024 03:30 PM AMBULATORY [place]ICINE [place] [facility] Sep 27, 2024 11:30 AM [facility] Oct 02, 2024 10:00 AM AMBULATORY - NONE [facility] Nov 07, 2024 10:00 AM [facility] Nov 07, 2024 01:00 PM [facility] Dec 05, 2024 11:00 AM [facility]ORY [facility] Dec 11, 2024 10:00 AM [facility]UL[facility]ORY - [facility] Jan 15, 2025 08:00 AM [facility]ORY [facility] Jan 15, 2025 11:30 AM [facility]ORY [facility] Jan 29, 2025 01:00 PM AMBULATORY - NONE [facility] Jan 29, 2025 01:01 PM [facility]ORY [facility]ERY [facility] Feb 12, 2025 02:00 PM AMBULATORY - NONE [facility] Feb 12, 2025 02:01 PM [facility]ORY [facility]ERY [facility] Mar 04, 2025 01:00 PM AMBULATORY - NONE [facility] Mar 04, 2025 01:01 PM [facility]ORY [facility] Mar 04, 2025 02:00 PM AMBULATORY - REHAB MEDICIN E [facility] Lab Results: +/- 30 days of the encounter This section includes the Chemistry and Hematology Lab Results on record with [place] for the patient. Radiology Reports and Pathology Reports are provided separately, in subsequent sections. Lab Results This section contains the Chemistry/Hematology Results that were resulted 30 days before or 30 daysafter the date of the Encounter. Date/Time Source Result Type Result - Unit Interpretation Reference Range Specimen Type Comment Aug 13, 2024 03:29 PM [facility] FERRITIN SERUM Specimen Type: SERUM No comment entered. Ordering Provider: RENETTA WOODS Report Released Date/Time: Feb 19, 2024 02:41 PM Reporting Lab: [facility] [address] Performing Lab: [facility] [address] FERRITIN 66 ng/mL 20-300 Aug 13, 2024 03:29 PM [facility] IRON & TIBC PANEL SERUM Specimen Type: SERUM No comment entered. Ordering Provider: PAZ WOODS Report Released Date/Time: Feb 19, 2024 02:41 PM Reporting Lab: [facility] [address] [facility] [address] Performing Lab: [address] [address] TIBC 298 ug/dL 204-475 IRON 62 ug/dL 40-160 Transferrin Saturation 20.8 20.0-50.0 Transferrin (TRF) 226 mg/dL 200-360 Aug 13, 2024 03:29 PM [facility] BASIC METABOLIC PANEL (fasting) SERUM Specime n Type: SERUM No comment entered. Ordering Provider: PAZ WOODS Report Released Date/Time: Feb 19, 2024 02:41 PM Reporting Lab: [address] [address] Performing Lab: [address] [address] UREA NITROGEN 22 mg/dL 7-25 GLUCOSE 98 mg/dL 65-100 SODIUM 140 mmol/L 135-145 POTASSIUM 4.1 mmol/L 3.5-5.0 CHLORIDE 110 mmol/L 100-110 CO2 21 meq/L 20-30 CREATININE, Serum 1.75 mg/dL H 0.50-1.40 eGFR(CKD-EPI 2020) 38 mL/min L >60 Aug 13, 2024 03:29 PM [facility] LIPID PANEL FASTING SERUM Specimen Type: SERU M No comment entered. Ordering Provider: PAZ WOODS Report Released Date/Time: Feb 19, 2024 02:41 PM Reporting Lab: [address] [address] Performing Lab: [address] [address] CHOLESTEROL 141 mg/dL TRIGLYCERIDE 137 mg/dL 0-150 LDL calculated 61 mg/dL 0-129 CHOL/HDL 2.7 HDL CHOLESTEROL 53 mg/dL 40-60 Aug 13, 2024 03:29 PM [facility] LIVER FUNCTION SERUM Specimen Type: SERUM No comment entered. Ordering Provider: PAZ WOODS Report Released Date/Time: Feb 19, 2024 02:41 PM Reporting Lab: [facility] [address] [facility] [address] Performing Lab: [address] [address] PROTEIN,TOTAL 6.0 g/dL 6.0-8.3 ALBUMIN 3.7 g/dL 3.5-5.0 ALKALINE PHOSPHATASE 86 U/L 40-150 AST 15 U/L 5-34 ALT 10 U/L BILIRUBIN, TOTAL 0.4 mg/dL 0.2-1.2 Aug 13, 2024 03:29 PM [facility] PSA SERUM Specimen Type: SERUM No comment entered. Ordering Provider: PAZ WOODS Report Released Date/Time: Feb 19, 2024 02:41 PM Reporting Lab: [address] [address] Performing Lab: [address] [address] PSA < 0.10 ng/mL 0.00-4.00 Aug 13, 2024 03:29 PM [facility] CBC AND DIFF (AUTO) BLOOD Specimen Type: BLOO D No comment entered. Ordering Provider: PAZ WOODS Report Released Date/Time: Feb 19, 2024 02:41 PM Reporting Lab: [address] [address] Performing Lab: [address] [address] WBC 6.45 10*3/uL 4.50-11.00 RBC 3.41 10*6/uL L 4.23-5.66 HGB 10.6 g/dL L 12.8-17 HCT 32.1 L 39.2-50.4 MCV 94.1 fL 82-99 MCHC 33.0 g/dL 30.8-35.1 PLT 153 10*3/uL 140-360 RDW-CV 14.2 12.0-16.0 MONO, ABS 0.50 10*3/uL 0.30-1.10 MCH 31.1 pg 26.2-32.6 NEUT % 57.8 43.7-75.8 LYMPH % 32.2 14.0-42.3 MONO % 7.8 5.1-13.7 EOS % 1.4 0.4-6.8 BASO % 0.5 0.1-2.0 NEUT, ABS 3.73 10*3/uL 2.20-7.60 LYMPH, ABS 2.08 10*3/uL 1.00-3.20 EOS, ABS 0.09 10*3/uL 0.03-0.44 BASO, ABS 0.03 10*3/uL 0.01-0.13 IMMATURE GRAN % 0.3 0.0-0.7 IMMATURE GRAN, ABS 0.02 10*3/uL 0.00-0.0 6 NRBC % 0.0 0.0-0.0 NRBC, ABS 0.00 10*3/uL 0.00-0.00 Vital Signs: All taken on the encounter date This section contains inpatient and outpatient Vital Signs collected on the date of the Encounter. Date/Time Temperature Pulse Blood Pressure Respiratory Rate SP02 Pain Height Weight Body Mass Index Source Sep 11, 2024 09:39 AM 97.8 60 170/71 100 [facility] Advance Directives: All historical and current Section Date Range: From patient's date of to the date document was created. This section includes ALL of a patient's completed or amended [place] Advance and Rescinded Directives. The entries below indicate that a directive exists for the patient, but an actual copy is not included with this document. The data comes from all [place] facilities. Date Advance Directives Provider Source Nov 07, 2024 ADVANCE DIRECTIVE JOHN KUMAR [place] [facility] Radiology Reports: +/- 30 days of the encounter Radiology Reports For cases when an order for radiology services may have been completed prior to the date of the Encounter, the report list includes the Radiology Reports that were completed up to 30 days before dateof the Encounter. For cases when an order for radiology services may have been completed after the date of the Encounter, the report list also includes the Radiology Reports that were completed up to30 days after date of the Encounter. The data comes from all [place] treatment facilities. Date/Time Radiology Report Provider Source Oct 02, 2024 09:[address] ORBIT SELLA P FOS OR TEMP BONE W/O CONT: OLIVER LOPEZ [id number] [phone] Exm Date: OCT 02, 2024@09:59 Req Phys: PAZ WOODS Loc: CWM/NO/PACT 3 (Req'g Loc) Img Loc: NHM/CT Service: [facility] [place] [address] (Case [id number] COMPLETE) CT ORBIT SELLA P FOS OR TEMP BONE(CT Detailed) CPT:36227 Reason for Study: We are also requesting a CT IAC (CT Temporal) w/o contrast [facility] Report Status: Verified Date Reported: OCT 03, 2024 Date Verified: OCT 03, 2024 Parts Sales Counterperson E-Sig: Report: CT ORBIT SELLA P FOS OR TEMP BONE W/O CONT HISTORY: We are also requesting a CT IAC (CT Temporal) w/o contrast Reason for Study: We are also requesting a CT IAC (CT Temporal) w/o contrast [facility]. COMPARISON: CT temporal bones: None. TECHNIQUE: CT ORBIT SELLA P FOS OR TEMP BONE W/O CONT . Study (including selection of protocol, image acquisition, and any postprocessing) was performed under direction and supervision of the local radiologist at the local [facility] facility. Images were then submitted to the [facility] National Teleradiology Program (NTP) for interpretation. 745 images were received by the [place] National Teleradiology Program (NTP) for interpretation. If provided to [facility] NTP by local facility, intravenous contrast and/or radiation dose and information is reported below. This information is provided by the technologist at the local facility and cannot be independently verified by the interpreting radiologist RADIATION DOSE (mGy*cm): 489 IV CONTRAST: None administered. FINDINGS: RIGHT TEMPORAL BONE: External auditory canal patent. Please note that otoscopic visualization may be more sensitive than imaging for detection and characterization of cutaneous based lesions involving the external auditory canal and for evaluation of the tympanic membrane. Ossicles intact. Middle ear cavity and mastoid air cells well aerated. Normal course of the facial nerve. Otic capsule and osseous labyrinth unremarkable. Osseous contours of the internal auditory canal unremarkable. Nonosseous contents of the internal auditory canals and cerebellopontine cisterns are not well evaluated by CT; if there is clinical concern for vestibular schwannoma or other non-osseous abnormality please note that MRI of the internal auditory canals is more sensitive than CT. LEFT TEMPORAL BONE: External auditory canal patent. Please note that otoscopic visualization may be more sensitive than imaging for detection and characterization of cutaneous based lesions involving the external auditory canal and for evaluation of the tympanic membrane. Ossicles intact. Middle ear cavity and mastoid air cells well aerated. Normal course of the facial nerve. Otic capsule and osseous labyrinth unremarkable. Osseous contours of the internal auditory canal unremarkable. Nonosseous contents of the internal auditory canals and cerebellopontine cisterns are not well evaluated by CT; if there is clinical concern for vestibular schwannoma or other non-osseous abnormality please note that MRI of the internal auditory canals is more sensitive than CT. Impression: Unremarkable CT appearance of the bilateral temporal bones. READING PHYSICIAN: Kimber Adair M.D. -[phone] 10/03/2024 8:12 [facility] [place] National Teleradiology Program [phone] (For Medical Practitioner Use Only) Attention Patients / Veterans: If you have questions or concerns about these test results, please contact your ordering provider or primary care team. Primary Diagnostic Code: NO ALERT REQUIRED Primary Interpreting Staff: RADIOLOGY,OUTSIDE SERVICE, Staff Physician / RADIOLOGY,OUTSIDE SERVICE [place] [facility] Encounter Notes: All associated encounter notes This section contains the clinical notes associated to the Encounter. Date/Time Encounter Note(s) Provider Source Sep 11, 2024 01:43 PM SURGERY NOTE: LOCAL TITLE: ENT BOOKING SHEET PROGRESS NOTE STANDARD TITLE: SURGERY NOTE DATE OF NOTE: SEP 11, 2024@13:43 ENTRY DATE: SEP 11, 2024@13:43:55 AUTHOR: LIGIA SHAFER COSIGNER: URGENCY: STATUS: COMPLETED ENT BOOKING SHEET PROGRESS NOTE Has ADDENDA Ears Nose Throat (ENT) Surgical Booking Form Elective Case (schedule within 60 days of AURE) Clinically Indicated Date: Nov What is the sex of the patient? Male Desired Attending: Zenaida Surgical Diagnosis: hearing loss Surgical Procedure: right cochlear implant Side of body: Right Length of Procedure: 2 Hour(s) 0 Minute(s) Anesthesia: General Frozen Section: No Intraoperative Fluoroscopy: No Post-op Disposition: Observation Pre-op Clearance Required: Medical, Cardiology Special Equipment for Procedure: Nicolas Barrientos Consults needed before procedure: Lovenox Bridge: Yes Bleeding risk based on surgery/procedure type: Intermediate Bleeding Risk (PLEASE ORDER TYPE and SCREEN) ----- ACTIVE ANTIOCOAGULANTS, DOACS, ANTIPLATELETS, NSAIDS ----- Aspirin/NSAIDS: No Antiplatelets: No DOAC: No Warfarin (Coumadin): No The patient has a Life Sustaining Treatment order/note documented? No ENT BOOKING TEAM NOTIFIED Is patient a HIGH RISK GERIATRIC (GSV) candidate? Yes /esmer/ LIGIA SHAFER MD OTOLOGY, NEUROTOLOGY AND SKULL BASE SURGERY Signed: 09/11/2024 13:45 Receipt Acknowledged By: 09/12/2024 08:43 /esmer/ FLOWER LOPEZ, RN REGISTERED NURSE 09/11/2024 14:20 /esmer/ Saravanan ABREU CCC-A CLEARANCE COORDINATOR 09/11/2024 ADDENDUM STATUS: COMPLETED Patient will need cardiology clearence. Anticoagulation will need to be held Patient has chosen a [facility] impalnt Patient needs a CT IAC done in [facility]. /faraz SHAFER MD OTOLOGY, NEUROTOLOGY AND SKULL BASE SURGERY Signed: 09/11/2024 13:46 09/11/2024 ADDENDUM STATUS: COMPLETED I would like to keep patient overnight in the hosptal for one night after surgery. 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 He is a CI candidate but his surgery was delayed due to anemia. He is now interested in moving forward after his workup is complete. Allergies/Adverse Reactions: No Allergy Assessment RECENT VITALS: Blood Pressure: Pulse: Respirations: Temperature: Pain Level: Weight: Height: Pulse Ox: No data available The OBJECT ACTIVE MEDS OUTPATIENT was NOT found...Contact IRM. Physical Exam General - NAD, AAOx3, strong voice without stridor Eyes - PERRL, EOMI, no nystagmus Ears - AD - normal EAC, TM intact, no effusion - normal EAC, TM intact, no effusion Nose - Midline septum, pink mucosa without mass or lesion, unremarkable inferior turbinates Oral Cavity - normal dentition, no gingival fluctuance, no mucosal mass or lesion Pharynx - Tonsillar fossae intact, no mucosal mass or lesions Neck - supple, no lymphadenopathy, no thyromegaly A/P - 83 yo MALE with RIGHT sided SNHL. He is a RIGHT sided CI candidate. - Patient will need clearence from PCP. - Patient will need cardiac clearence. - His anticoagulation needs to be held and/or bridged. - Pneumovax - CT IAC in [place] /esmer/ LIGIA SHAFER MD OTOLOGY, NEUROTOLOGY AND SKULL BASE SURGERY Signed: 09/11/2024 13:43 Receipt Acknowledged By: 09/12/2024 08:41 /es/ FLOWER LOPEZ, RN REGISTERED NURSE 09/11/2024 13:58 /es/ Saravanan ABREU, [facility] CLEARANCE COORDINATOR LIGIA SHAFER [facility]
--- OUTSIDE RECORDS SUMMARY | 2025-03-07 16:18 | XMS_ITS ---
Author Organization [facility] Address [address] [place] [address] Care Team Providers Care Co Chairman Name Role Phone Maxx Donis MD Primary Care Provider Unavailabl e Black, Josy Unavailable [phone] Allergies Allergen (clinical drug ingredient) Drug/Non Drug Allergy documented on EMR Reaction Allergy Type Onset Date Status gabapentin Gabapentin Unknown Drug Allergy Activ e nitroglycerin Nitroglycerin Unknown Drug Allergy Active REASON FOR VISIT Ingrown Nail, Emergency Appointment Medications Medication SIG (Take, Route, Frequency, Duration) Notes Start Date End Date Status eliquis 5 mg Active Atorvastatin Calcium 40 MG 1 tablet Orally Once a day Active Eligard Active Furosemide 20 MG 1 tablet Orally Once a day Active Magnesium Oxide 400 MG 1 tablet as neede d Orally Once a day Active Flonase Active CeleBREX 200 MG 1 capsule Orally Onc e a day for 30 day(s) 05/17/2016 Not-Taking Physical Therapy 3-4x per week for 3- 4 weeks 07/26/2016 Not-Taking Night Splint AFO - L1930 as directed 04/12/2016 Not-Taking Gabapentin 100 MG Orally No t-Taking Nortriptyline HCl 10 MG TAKE ONE CAPSULE BY MOUTH AT BEDTIME Oral for 30 Not-Taking Celecoxib 200 MG TAKE 1 CAPSULE BY MO UTH DAILY, NEEDED FOR PAIN Oral for 30 Not-Taking Omeprazole 10 MG 2 capsules Orally On ce a day for 30 day(s) Not-Taking aspirin baby Not-Ej ing Simvastatin 10 MG TAKE 1 TABLET BY DIALLO TH AT BEDTIME Oral for 90 Not-Takin g Omeprazole 20 MG 1 capsule 30 minutes before morning meal Orally Once a day Active Ammonium Lactate 12 % 1 application Externally Twice a day for 30 days Active Ammonium Lactate 12 % 1 application Externally Twice a day for 30 days Active Tamsulosin HCl 0.4 MG Oral for 30 Days Active Nubeqa 300 MG Oral for 30 Days Active Social History Tobacco Use: Social History Observation Description Date Details (start date - stop date) Never Smoker NA - NA Tobacco Use/Smoking Question Answer Notes Are you a: nonsmoker Additional Findings: Tobacco Non-User Current no n-smoker Alcohol Screen Question Answer Notes Did you have a drink containing alcohol in the p ast year? Yes Points 0 Interpretation Negative Tobacco use other than smoking: Question Answer Notes Are you an other tobacco user? No Vital Signs Height 6 ft 0 in in 06/14/2024 Weight 190 lbs 06/14/2024 BMI 25.77 kg/m2 06/14/2024 Procedures Procedure Date Ordered Date Performed Result Body Sit e 90094-Iggqzgkv Plate 06/14/2024 N/A Encounters Encounter Location Date Provider Diagnosis [facility] [address] [address] 06/14/2024 Josy Barney Ingrown nail L60.0 Assessments Encounter Date Diagnosis (ICD Code) Assessment Notes Treatment Notes Treatment Clinical Notes Section Notes 06/14/2024 Ingrown nail (ICD-10 - L60.0) Plan Of Treatment Pending Test Test Name Order Date [id number] Plate 06/14/2024 Next Appt Details Follow Up: 2 Weeks, Reason: Provider Name:Josy Barney , 05/09/2025 11:00:00 AM, [address] [place], [address], Procedure Notes * Category Sub-Category Detail Notes Nail Avulsion Procedure A fine sterile e levator was placed between the eponychium, nail fold, and nail plate to separate the structures. A sterile nail splitter, and/or sterile 316 blade, was then used to longitudinally section the nail along its entire length through the eponychium to the area under the nail fold. The offending portion of nail was from the nail bed with a rolling action and then removed with a hemostat. No underlying bone was identified. There was minimal bleeding as hemostasis was achieved through the temporary use of either a digital tourniquet or the aforementioned local with epinephrine. A bacitracin sterile dressing was applied. Local wound aftercare instructions were discussed and dispensed. The patient was informed of both conservative and future surgical procedures to prevent recurrence. Tylenol or Motrin was recommended for pain or discomfort (03669) , Pt DEFERS matricectomy Anesthesia was accomplished TOP ICALLY with Lidocaine Hydrochloride Jelly 2 percent Location Medial nail border , TA Progress Notes * Wan LOPEZDOB:1940 (84 yo M)Acc No.[id number]:06/14/2024 Progress Note Patient:?Wan Lopez Provider:?Josy Barney DPM :1940???Age:84 Y???Sex:Male Isrrael e:06/14/2024 Address:[address] [place], [place] [id number] Pcp:Maxx Donis MD Subjective: * Chief Complaints: * ???Ingrown NailEmergency Bala ointment * Medical History:? * Surgical History:?cataract s urgery heart valve replacement, pacemaker * Hospitalization/Major Diagno stic Procedure:?No Hospitalization History. * Family History:?Mother: dece ased, diagnosed with Other malignant neoplasm of unspecified site.?Father: .? * Social History:?Tobacco Use:?Tobacco Use/Smoking?Are you a:?nonsmoker ?Additional Findings: Tobacco Non-User?Current non-smoker ?Tobacco use other than smoking?Are you an other tobacco user??No ???Drugs/Alcohol:?Drugs?Have you used drugs other than those for medical reasons in the past 12 months??No ?Alcohol Screen?Did you have a drink containing alcohol in the past year??Yes ?Points?0 ?Interpretation?Negative ???Miscellaneous:?Caffeine: yes, 1-2 cups per day. ?Children: yes, 2. ?Exercise: yes, occasional, gardening/yard work. ?Marital status: . ?Occupation: Retired/. * Medications:?TakingFlonase E ligard eliquis 5 mg Tablet Atorvastatin Calcium 40 MG Tablet 1 tablet Orally Once a dayFurosemide 20 MG Tablet 1 tablet Orally Once a dayMagnesium Oxide 400 MG Tablet 1 tablet as needed Orally Once a dayOmeprazole 20 MG Capsule Delayed Release 1 capsule 30 minutes before morning meal Orally Once a dayTamsulosin HCl 0.4 MG Capsule Oral Nubeqa 300 MG Tablet Oral Ammonium Lactate 12 % Cream 1 application Externally Twice a dayAmmonium Lactate 12 % Cream 1 application Externally Twice a dayTaking Flonase Taking Eligard Taking eliquis 5 mg Tablet Taking Atorvastatin Calcium 40 MG Tablet 1 tablet Orally Once a dayTaking Furosemide 20 MG Tablet 1 tablet Orally Once a dayTaking Magnesium Oxide 400 MG Tablet 1 tablet as needed Orally Once a dayTaking Omeprazole 20 MG Capsule Delayed Release 1 capsule 30 minutes before morning meal Orally Once a dayTaking Tamsulosin HCl 0.4 MG Capsule Oral Taking Nubeqa 300 MG Tablet Oral Taking Ammonium Lactate 12 % Cream 1 application Externally Twice a dayTaking Ammonium Lactate 12 % Cream 1 application Externally Twice a dayNot-Taking/PRNOmeprazole 10 MG Capsule Delayed Release 2 capsules Orally Once a dayaspirin baby Nortriptyline HCl 10 MG Capsule TAKE ONE CAPSULE BY MOUTH AT BEDTIME Oral Celecoxib 200 MG Capsule TAKE 1 CAPSULE BY MOUTH DAILY, NEEDED FOR PAIN Oral Simvastatin 10 MG Tablet TAKE 1 TABLET BY MOUTH AT BEDTIME Oral Night Splint AFO - L1930 as directed CeleBREX 200 MG Capsule 1 capsule Orally Once a dayPhysical Therapy 3-4x per week for 3-4 weeks Gabapentin 100 MG Capsule Orally Medication List reviewed and reconciled with the patientNot- Taking/PRN Omeprazole 10 MG Capsule Delayed Release 2 capsules Orally Once a dayNot- Taking/PRN aspirin baby Not-Taking/PRN Nortriptyline HCl 10 MG Capsule TAKE ONE CAPSULE BY MOUTH AT BEDTIME Oral Not-Taking/PRN Celecoxib 200 MG Capsule TAKE 1 CAPSULE BY MOUTH DAILY, NEEDED FOR PAIN Oral Not-Taking/PRN Simvastatin 10 MG Tablet TAKE 1 TABLET BY MOUTH AT BEDTIME Oral Not-Taking/PRN Night Splint AFO - L1930 as directed Not-Taking/PRN CeleBREX 200 MG Capsule 1 capsule Orally Once a dayNot-Taking/PRN Physical Therapy 3-4x per week for 3-4 weeks Not-Taking/PRN Gabapentin 100 MG Capsule Orally Medication List reviewed and reconciled with the patient * Allergies:?GabapentinNitrogl marielena[Allergies Verified] Objective: * Vitals:?Ht: 6 ft 0 in, Wt: 1 90, BMI:25.77, Shoe size: 11. * Examination: ???Ingrown Nail: ?INSPECTION:?Reveals nail incurvation, pain on palpation, groove hypertrophy , groove ischemia , Medial nail border , TA.? Assessment: * Assessment: 1.?Ingrown nail - L60.0? Plan: * Treatment: * Procedures:?Nail Avulsion:?Location?Medial nail border , TA.?Anesthesia?was accomplished TOPICALLY with Lidocaine Hydrochloride Jelly 2 percent.?Procedure?A fine sterile elevator was placed between the eponychium, nail fold, and nail plate to separate the structures. A sterile nail splitter, and/or sterile 316 blade, was then used to longitudinally section the nail along its entire length through the eponychium to the area under the nail fold. The offending portion of nail was from the nail bed with a rolling action and then removed with a hemostat. No underlying bone was identified. There was minimal bleeding as hemostasis was achieved through the temporary use of either a digital tourniquet or the aforementioned local with epinephrine. A bacitracin sterile dressing was applied. Local wound aftercare instructions were discussed and dispensed. The patient was informed of both conservative and future surgical procedures to prevent recurrence. Tylenol or Motrin was recommended for pain or discomfort (64606) , Pt DEFERS matricectomy.? * Procedure Codes:?43382 Avuls ion Plate, Modifiers: TA * Follow Up:?2 Weeks * Images: * Sign off status: Completed true * Provider:?Josy Barney DPM Date:?2023 Generated for Glenn tirado/Niels/Iraidaitting on:?03/07/2025 04:18 PM EDT History and Physical Notes * Examination Category Sub-Category Detail Notes Category Not es Ingrown Nail INSPECTION: Reveals nail inc urvation, pain on palpation, groove hypertrophy , groove ischemia , Medial nail border , TA
--- OUTSIDE RECORDS SUMMARY | 2025-03-07 16:18 | XMS_ITS | Encounter Summary ---
Author Name [facility] Organization [facility] [place] [facility] [place] Address [address] [place] [address] Care Team Providers Care Office Services Associate Name Role Phone PAZ WOODS Primary Care [...] SUPPLEMEN DEVIN MEDEX 2 Jun 20, 2013 [id number] OLIVER OLIVAREZ PATIENT [place] SUPPLEMEN DEVIN MEDEX 2 Jun 20, 2013 [id number] [phone] OLIVER OLIVAREZ PATIENT [place] SUPPLEMEN DEVIN MEDEX 2 Jun 20, 2013 [id number] OLIVER OLIVAREZ PATIENT [place] MEDICARE SUPPLEMEN TAL MEDEX 2 Jun 20, 2013 [id number] OLIVER OLIVAREZ PATIENT MEDICARE (WNR) MEDICARE (M) PART A Apr 20, 2004 PART A [id number] OLIVER OLIVAREZ PATIENT MEDICARE (WNR) MEDICARE (M) PART B Apr 20, 2004 PART B [id number] [phone] OLIVER OLIVAREZ PATIENT MEDICARE (WNR) MEDICARE (M) PART A Apr 20, 2004 PART A [id number] OLIVER OLIVAREZ PATIENT MEDICARE (WNR) MEDICARE (M) PART B Apr 20, 2004 PART B [id number] OLIVER OLIVAREZ FOR LIFE TFL* Oct 24, 2017 [id number] [phone] OLIVER OLIVAREZ PATIENT Selected Encounter This section includes the information on record at [place] for the Encounter. Date/Time Encounter Type Encounter Description Reason Provider Source Aug 13, 2024 03:27 PM IMMUNIZATION ADMIN PRIMARY CARE/MEDICINE ICD-10-CM Z23. Encounter for immunization ANIL WOODS Encounter Template Text not used by [place] Assessments - Encounter Diagnoses This section includes the primary and secondary diagnoses documented for the Encounter. 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 This section includes future appointments and future orders which are active, pending or scheduled. Future Appointments This section includes appointments that were scheduled to occur 6 months from the date of the Encounter, up to a maximum of 20 appointments. The data comes from all [place] treatment facilities. Appointment Date/Time Appointment Type Appointme nt Facility Name Sep 11, 2024 09:30 AM [facility] [place] [facility] Sep 11, 2024 11:30 [facility] Sep 12, 2024 03:30 PM [facility] [place] [facility] Sep 27, 2024 11:30 AM [facility] [place] [facility] Oct 02, 2024 10:00 AM AMBULATORY - NONE [facility] [place] [facility] Nov 07, 2024 10:00 AM [facility] [place] [facility] Nov 07, 2024 01:00 PM [facility] [place] [facility] Dec 05, 2024 11:00 AM [facility] [place] [facility] Dec 11, 2024 10:00 AM [facility] [place] [facility] Jan 15, 2025 08:00 AM [facility] [place] [facility] Jan 15, 2025 11:30 AM [facility] [place] [facility] Jan 29, 2025 01:00 PM AMBULATORY - NONE [facility] [place] [facility] Jan 29, 2025 01:01 PM [facility] [place] [facility] Lab Results: +/- 30 days of the encounter This section includes the Chemistry and Hematology Lab Results on record with [place] for the patient. Radiology Reports and Pathology Reports are provided separately, in subsequent sections. Lab Results This section contains the Chemistry/Hematology Results that were resulted 30 days before or 30 daysafter the date of the Encounter. Date/Time Source Result Type Result - Unit Interpretation Reference Range Specimen Type Comment Aug 13, 2024 03:29 PM [facility] FERRITIN SERUM Specimen Type: SERUM No comment entered. Ordering Provider: RENETTA WOODS Report Released Date/Time: Feb 19, 2024 02:41 PM Reporting Lab: [place] [facility] [place] [facility] [address] [address] Performing Lab: [facility] [address] FERRITIN 66 ng/mL 20-300 Aug 13, 2024 03:29 PM [facility] IRON & TIBC PANEL SERUM Specimen Type: SERUM No comment entered. Ordering Provider: PAZ WOODS Report Released Date/Time: Feb 19, 2024 02:41 PM Reporting Lab: [facility] [address] [address] Performing Lab: [address] [address] TIBC 298 ug/dL 204-475 IRON 62 ug/dL 40-160 Transferrin Saturation 20.8 20.0-50.0 Transferrin (TRF) 226 mg/dL 200-360 Aug 13, 2024 03:29 PM [facility] BASIC METABOLIC PANEL (fasting) SERUM Specime n Type: SERUM No comment entered. Ordering Provider: PAZ WOODS Report Released Date/Time: Feb 19, 2024 02:41 PM Reporting Lab: [address] [address] Performing Lab: [address] [address] UREA NITROGEN 22 mg/dL 7-25 GLUCOSE 98 mg/dL 65-100 SODIUM 140 mmol/L 135-145 POTASSIUM 4.1 mmol/L 3.5-5.0 CHLORIDE 110 mmol/L 100-110 CO2 21 meq/L 20-30 CREATININE, Serum 1.75 mg/dL H 0.50-1.40 eGFR(CKD-EPI 2020) 38 mL/min L >60 Aug 13, 2024 03:29 PM [facility] LIVER FUNCTION SERUM Specimen Type: SERUM No comment entered. Ordering Provider: PAZ WOODS Report Released Date/Time: Feb 19, 2024 02:41 PM Reporting Lab: [address] [address] Performing Lab: [address] [address] PROTEIN,TOTAL 6.0 g/dL 6.0-8.3 ALBUMIN 3.7 g/dL 3.5-5.0 ALKALINE PHOSPHATASE 86 U/L 40-150 AST 15 U/L 5-34 ALT 10 U/L BILIRUBIN, TOTAL 0.4 mg/dL 0.2-1.2 Aug 13, 2024 03:29 PM [facility] LIPID PANEL FASTING SERUM Specimen Type: SERU M No comment entered. Ordering Provider: PAZ WOOSD Report Released Date/Time: Feb 19, 2024 02:41 PM Reporting Lab: [facility] [address] [address] Performing Lab: [facility] [address] [address] CHOLESTEROL 141 mg/dL TRIGLYCERIDE 137 mg/dL 0-150 LDL calculated 61 mg/dL 0-129 CHOL/HDL 2.7 HDL CHOLESTEROL 53 mg/dL 40-60 Aug 13, 2024 03:29 PM [facility] PSA SERUM Specimen Type: SERUM No comment entered. Ordering Provider: PAZ WOODS Report Released Date/Time: Feb 19, 2024 02:41 PM Reporting Lab: [facility] [address] [address] Performing Lab: [address] [address] PSA < 0.10 ng/mL 0.00-4.00 Aug 13, 2024 03:29 PM [facility] CBC AND DIFF (AUTO) BLOOD Specimen Type: BLOO D No comment entered. Ordering Provider: PAZ WOODS Report Released Date/Time: Feb 19, 2024 02:41 PM Reporting Lab: [facility] [address] [address] Performing Lab: [address] [address] WBC 6.45 10*3/uL 4.50-11.00 RBC 3.41 10*6/uL [...] Pain Height Weight Body Mass Index Source Aug 13, 2024 03:06 PM 97.8 67 132/64 16 98 0 196 27 [facility] Immunizations: All administered on the encounter date This section contains immunizations associated to the Encounter. 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 Current Smoking Status This section includes the most current smoking, or tobacco-related health factor, from the [place] facility where the Encounter took place. Date/Time Current Smoking Status Comment Lorri radford Feb 19, 2024 02:00 PM [place]-TOBACCO NEVER USED [facility] Tobacco Use History This section includes a history of the smoking, or tobacco-related health factors, that were collected on or before the date of the Encounter. The data comes from the [place] facility where the Encounter took place. Date/Time Smoking Status/Tobacco Use Comment F acility Feb 21, 2023 02:30 PM VA-TOBACCO NEVER USED [place] [facility] Jul 22, 2021 02:30 PM VA-TOBACCO NEVER USED [facility] Advance Directives: All historical and current Section Date Range: From patient's date of to the date document was created. This section includes ALL of a patient's completed or amended [place] Advance and Rescinded Directives. The entries below indicate that a directive exists for the patient, but an actual copy is not included with this document. The data comes from all [place] facilities. Date Advance Directives Provider Source Nov 07, 2024 ADVANCE DIRECTIVE JOHN KUMAR [facility] Encounter Notes: All associated encounter notes This section contains the clinical notes associated to the Encounter. Date/Time Encounter Note(s) Provider Source Aug 13, 2024 03:27 PM IMMUNIZATION NOTE: LOCAL TITLE: [place] IMMUNIZATION NOTE STANDARD TITLE: IMMUNIZATION NOTE DATE OF NOTE: AUG 13, 2024@15:27:53 ENTRY DATE: AUG 13, 2024@15:27:53 AUTHOR: SALOMON DRAPER EXP COSIGNER: URGENCY: STATUS: COMPLETED Administered: RSV, BIVALENT, PROTEIN SUBUNIT RSVPREF, DILUENT RECONSTITUTED, 0.5 ML, PF Date Administered: Aug 13, 2024 15:27 Series: Series 1 Refrigeration Operator: [email or web address], [email or web address] Lot: [id number] Exp Date: Feb 17, 2025 ND: [id number] Admin Route/Site: INTRAMUSCULAR/LEFT DELTOID Dosage: 0.5mL Vaccine Information Statement(s): RSV (RESPIRATORY SYNCYTIAL VIRUS) VACCINE VIS Sep 07, 2023 (JAPANESE) Order By: Policy Administered By: Salomon Draper /esmer/ SALOMON DRAPER LPN Signed: 08/13/2024 15:37 SALOMON DRAPER [facility]
--- OUTSIDE RECORDS SUMMARY | 2025-03-07 16:18 | XMS_ITS ---
Author Organization [facility] [place] Address [address] [place] [address] Care Team Providers Care Coyote Hunter Name Role Phone Maxx Donis MD Primary Care Provider Unavailabl e Black, Josy Unavailable [phone] Allergies Allergen (clinical drug ingredient) Drug/Non Drug Allergy documented on EMR Reaction Allergy Type Onset Date Status gabapentin Gabapentin Unknown Drug Allergy Activ e nitroglycerin Nitroglycerin Unknown Drug Allergy Active REASON FOR VISIT Painful nail(s) aggravated by shoes causing difficulty standing/walking, Skin problem(s), Heel pain Medications Medication SIG (Take, Route, Frequency, Duration) Notes Start Date End Date Status Simvastatin 10 MG TAKE 1 TABLET BY DIALLO TH AT BEDTIME Oral for 90 Not-Takin g CeleBREX 200 MG 1 capsule Orally Onc e a day for 30 day(s) 05/17/2016 Not-Taking Night Splint AFO - L1930 as directed 04/12/2016 Not-Taking Gabapentin 100 MG Orally No t-Taking Physical Therapy 3-4x per week for 3- 4 weeks 07/26/2016 Not-Taking Nortriptyline HCl 10 MG TAKE ONE CAPSULE BY MOUTH AT BEDTIME Oral for 30 Not-Taking aspirin baby Not-Ej ing Celecoxib 200 MG TAKE 1 CAPSULE BY MO UTH DAILY, NEEDED FOR PAIN Oral for 30 Not-Taking Omeprazole 10 MG 2 capsules Orally On ce a day for 30 day(s) Not-Taking Ammonium Lactate 12 % 1 application Externally Twice a day for 30 days Active Ammonium Lactate 12 % 1 application Externally Twice a day for 30 days Not-Taking Omeprazole 20 MG 1 capsule 30 minutes before morning meal Orally Once a day Active Magnesium Oxide 400 MG 1 tablet as neede d Orally Once a day Active Nubeqa 300 MG Oral for 30 Days Active Tamsulosin HCl 0.4 MG Oral for 30 Days Active eliquis 5 mg Active Eligard Active Furosemide 20 MG 1 tablet Orally Once a day Active Atorvastatin Calcium 40 MG 1 tablet Orally Once a day Not-Taking Flonase Active Ammonium Lactate 12 % 1 application Externally to affected areas of dry skin to feet except for between the toes Twice a day for 30 days Active amLODIPine Benzoate Active Zetia 10 MG 1 tablet Orally Once a day Active Repatha Active Social History Tobacco Use: Social History [...] Are you an other tobacco user? 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 Problem Essential hypertension (22844696) Essential hypertension (I10) Active confirmed Vital Signs Height 6 ft 0 in in 11/08/2024 Weight 190 lbs 11/08/2024 BMI 25.77 kg/m2 11/08/2024 Blood pressure systolic 133 mm Hg 11/08/20 24 Blood pressure diastolic 82 mm Hg 024 Procedures Procedure Date Ordered Date Performed Result Body Sit e 12040-OHRRGBG NAIL, 6 OR MORE 11/08/2024 N/A Encounters Encounter Location Date Provider Diagnosis [facility] [address] 11/08/2024 Josy Black Onychomycosis B35.1 ; Plantar fasciitis of right foot M72.2 ; Pain in right toe(s) M79.674 ; Pain in left toe(s) M79.675 ; Xerosis of skin L85.3 ; Pain in right foot M79.671 ; Calcaneal spur, right foot M77.31 ; Interstitial myositis of right foot M60.171 and Bursitis of right foot M77.51 Assessments Encounter Date Diagnosis (ICD Code) Assessment Notes Treatment Notes Treatment Clinical Notes Section Notes 11/08/2024 Onychomycosis (ICD-10 - B35.1) 11/08/2024 Plantar fasciitis of right foot (ICD-10 - M72.2) Patient Educated with: HEEL CORD STRETCHES.pdf (HEEL CORD STRETCHES.pdf) Patient Educated with: RICE THERAPY.pdf (RICE THERAPY.pdf) 11/08/2024 Pain in right toe(s) (ICD-10 - M79.674) 11/08/2024 Pain in left toe(s) (ICD-10 - M79.675) 11/08/2024 Xerosis of skin (ICD-10 - L85.3) 11/08/2024 Pain in right foot (ICD-10 - M79.671) 11/08/2024 Calcaneal spur, right foot (ICD-10 - M77.31) 11/08/2024 Interstitial myositis of right foot (ICD-10 - M60.171) 11/08/2024 Bursitis of right foot (ICD-10 - M77.51) Plan Of Treatment Medication Medication Name Sig Start Date Stop Date Notes Ammonium Lactate 12 % 1 application Exte rnally to affected areas of dry skin to feet except for between the toes Twice a day for 30 days Treatment Notes Assessment Notes Plantar fasciitis of right foot Patient Educated with: HEEL CORD STRETCHES.pdf (HEEL CORD STRETCHES.pdf) Patient Educated with: RICE THERAPY.pdf (RICE THERAPY.pdf) Pending Test Test Name Order Date [id number] NAIL, 6 OR MORE 11/08/2024 Next Appt Details Follow Up: prn, Reason: Provider Name:Josy Barney , 05/09/2025 11:00:00 AM, [address], [place], [address], Procedure Notes * Category Sub-Category Detail Notes Debride Nail 6-10 Nail debridement Due to the cl inical pathology outlined in the exam findings, performance of this nail treatment is medically necessary as its management by an unskilled/untrained nonprofessional would put this patients foot and overall health at risk. Therefore, debridement to affected nail(s), as described in exam ( TA, T1, T2, T3, T4, T5, T6, T7, T8, T9, ___ ), was performed exclusively by the physician of record to reduce/remove overall nail length, girth, thickness, subungual debris, and necrotic tissue, by manual and/or electrical means through the use of a nail nipper and/or dremel-type sand mill grinder, to a more viable healthy nail plate or bed tissue 6-10 nails in total. Silver nitrate was used for any petechial bleeding as necessary. Definitive antifungal treatment options, both pharmaceutical and surgical, have been reviewed and discussed with the patient. The patient solely prefers the use of intermittent/as needed professional debridement services for their nail condition and understands the need for additional periodic treatments to maintain effectiveness in symptomatic relief - 71601 Progress Notes * Wan LOPEZDOB:1940 (84 yo M)Acc No.[id number]:11/08/2024 Progress Note Patient:?LOPEZ, Wan Provider:?Josy Barney DPM :1940???Age:84 Y???Sex:Male Isrrael e:11/08/2024 Address:[address] [place] [address] [address], [facility] Pcp:Maxx Donis MD Subjective: * Chief Complaints: * ???Painful nail(s) aggravate d by shoes causing difficulty standing/walkingSkin problem(s)Heel pain * HPI: ???Painful Nails:?Pt States Last PCP Visit:?Date:?11/07/2024 ???Skin problems:?Nature:?dryness , scaling.?Location:?B/L .?Duration:?several days.?Course:?worse.?Heel pain:?Location:?Proximal plantar aspect of Heel, RIGHT.?Duration:?, several months.?Course:?worse.?Aggravated:?standing, walking, walking first thing in the morning/after rest.?Treatments:?rest/alter normal daily activity.? * Medical History:? * Surgical History:?cataract s urgery heart valve replacement, pacemaker * Hospitalization/Major Diagno stic Procedure:?Denies Past Hospitalization * Family History:?Mother: dece ased, diagnosed with [...] work. ?Marital status: . ?Occupation: Retired/. * Medications:?TakingRepatha Z etia 10 MG Tablet 1 tablet Orally Once a day amLODIPine Benzoate Flonase Eligard eliquis 5 mg Tablet Furosemide 20 MG Tablet 1 tablet Orally Once a day Magnesium Oxide 400 MG Tablet 1 tablet as needed Orally Once a day Omeprazole 20 MG Capsule Delayed Release 1 capsule 30 minutes before morning meal Orally Once a day Tamsulosin HCl 0.4 MG Capsule Oral Nubeqa 300 MG Tablet Oral Ammonium Lactate 12 % Cream 1 application Externally Twice a day Taking Repatha Taking Zetia 10 MG Tablet 1 tablet Orally Once a day Taking amLODIPine Benzoate Taking Flonase Taking Eligard Taking eliquis 5 mg Tablet Taking Furosemide 20 MG Tablet 1 tablet Orally Once a day Taking Magnesium Oxide 400 MG Tablet 1 tablet as needed Orally Once a day Taking Omeprazole 20 MG Capsule Delayed Release 1 capsule 30 minutes before morning meal Orally Once a day Taking Tamsulosin HCl 0.4 MG Capsule Oral Taking Nubeqa 300 MG Tablet Oral Taking Ammonium Lactate 12 % Cream 1 application Externally Twice a day Not-Taking/PRNAtorvastatin Calcium 40 MG Tablet 1 tablet Orally Once a day Ammonium Lactate 12 % Cream 1 application Externally Twice a day Omeprazole 10 MG Capsule Delayed Release 2 capsules Orally Once a day aspirin baby Nortriptyline HCl 10 MG Capsule TAKE ONE CAPSULE BY MOUTH AT BEDTIME Oral Celecoxib 200 MG Capsule TAKE 1 CAPSULE BY MOUTH DAILY, NEEDED FOR PAIN Oral Simvastatin 10 MG Tablet TAKE 1 TABLET BY MOUTH AT BEDTIME Oral Night Splint AFO - L1930 as directed CeleBREX 200 MG Capsule 1 capsule Orally Once a day Physical Therapy 3-4x per week for 3-4 weeks Gabapentin 100 MG Capsule Orally Medication List reviewed and reconciled with the patientNot-Taking/PRN Atorvastatin Calcium 40 MG Tablet 1 tablet Orally Once a day Not-Taking/PRN Ammonium Lactate 12 % Cream 1 application Externally Twice a day Not-Taking/PRN Omeprazole 10 MG Capsule Delayed Release 2 capsules Orally Once a day Not-Taking/PRN aspirin baby Not-Taking/PRN Nortriptyline HCl 10 MG Capsule TAKE ONE CAPSULE BY MOUTH AT BEDTIME Oral Not-Taking/PRN Celecoxib 200 MG Capsule TAKE 1 CAPSULE BY MOUTH DAILY, NEEDED FOR PAIN Oral Not-Taking/PRN Simvastatin 10 MG Tablet TAKE 1 TABLET BY MOUTH AT BEDTIME Oral Not-Taking/PRN Night Splint AFO - L1930 as directed Not-Taking/PRN CeleBREX 200 MG Capsule 1 capsule Orally Once a day Not-Taking/PRN Physical Therapy 3-4x per week for 3-4 weeks Not-Taking/PRN Gabapentin 100 MG Capsule Orally Medication List reviewed and reconciled with the patient * Allergies:?GabapentinNitrogl makedayes[Allergies Verified] Objective: * Vitals:?Ht: 6 ft 0 in, Wt: 1 90, BMI: 25.77, Shoe size: 11, BP: 133/82 mm Hg, Ht- cm: 182.88 cm, Wt-k.18 kg. * Examination: ???General Examination: ?GENERAL APPEARANCE:?Reveals a pleasant, alert, well nourished, well- developed, well hydrated individual, who demonstrates proper attention to hygiene/body habitus, and is in no acute distress, Pt serves as own historian for office visit today.?ORIENTED:?person, place, and time.?Nails: ?NAILS are:?Elongated, overgrown, dystrophic, lytic, greater than 3mm thick, discolored and friable with crumbly malodorous subungual debris, with pain on palpation, TA, T1, T2, T3, T4, T5, T6, T7, T8, T9.?Dermatologic: ?SKIN FINDINGS:?Skin shows sign(s) of, dryness, scaling, in a stocking fashion, no fissure(s) present, B/L.?Heel Pain: ?INSPECTION:? Pain on Palpation to Plantar Fascia med. and central bands, intrinsic musc., infra-calcaneal bursa, and med calc tubercle , RIGHT foot, No pain: posterior/superior heel, achilles bursa/tendon, sinus tarsi, peroneals, or with lateral heel compression; no limited STJ ROM, calor, or ecchymosis,RIGHT foot.?Orthopedic: ?GAIT ABNORMALITY:?antalgic.?FOOT MORPHOLOGY:? Pes Planus structure, Decreased Ankle joint dorsiflexion ROM, knee extended.?FOOTWEAR:?shoe gear properties exacerbate patients foot/toe deformity.?Neurological: ?TINEL'S COMPRESSION:?Negative tarsal tunnel, stas pedis, and medial calcaneal nerves.?Vascular: ?DP PULSES (B):?3/4, B/L.?PT PULSES (B):?3/4, B/L.?CAPILLARY FILL TIME:?immediate, all digits, B/L.?TROPHIC CONDITION-TEXTURE/ELASTICITY/TURGOR/HAIR GROWTH (B):?normal, B/L.? 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 9.?Bursitis of right foot - M77.51??? Plan: * Treatment: 2.?Onychomycosis?Procedure: 58937-HYXTEBP NAIL, 6 OR MORE 3.?Xerosis of skin? Start Ammonium Lactate Cream, 12 %, 1 application, Externally to affected areas of dry skin to feet except for between the toes, Twice a day, 30 days, 140, Refills 2.?? * Procedures:?Debride Nail 6-10:?Nail debridement?Due to the clinical pathology outlined in the exam findings, performance of this nail treatment is medically necessary as its management by an unskilled/untrained nonprofessional would put this patients foot and overall health at risk. Therefore, debridement to affected nail(s), as described in exam ( TA, T1, T2, T3, T4, T5, T6, T7, T8, T9, ___ ), was performed exclusively by the physician of record to reduce/remove overall nail length, girth, thickness, subungual debris, and necrotic tissue, by manual and/or electrical means through the use of a nail nipper and/or dremel-type sand mill grinder, to a more viable healthy nail plate or bed tissue 6- 10 nails in total. Silver nitrate was used for any petechial bleeding as necessary. Definitive antifungal treatment options, both pharmaceutical and surgical, have been reviewed and discussed with the patient. The patient solely prefers the use of intermittent/as needed professional debridement services for their nail condition and understands the need for additional periodic treatments to maintain effectiveness in symptomatic relief - 42484.? * Procedure Codes:?15485 DEBRI DE NAIL, 6 OR MORE * Preventive Medicine:? ??Counseling:?Discussion:?-14: Office or other outpatient visit for the evaluation and management of an established patient, which required a medically appropriate history and/or examination and MODERATE level of DECISION MAKING for: 1 OR MORE CHRONIC PROBLEM(S) THATS WORSENING, 2 STABLE CHRONIC PROBLEMS, A NEWLY DIAGNOSED PROBLEM WITH UNCERTAIN PROGNOSIS, AN ACUTE COMPLICATED INJURY WITH MULTIPLE TREATMENT OPTIONS, OR AN ACUTE PROBLEM WITH ACCOMPANYING SYSTEMIC SYMPTOMS, THAT POSE(S) A MODERATE RISK OF MORBIDITY. THIS CONDITION MAY ALSO INCLUDE RX DRUG MANAGEMENT, OR A DECISON FOR MINOR SURGERY. The visit on the day of the encounter encompassed interpreting the data and educating the patient as to the nature of their condition, treatment options available according to their individual PMH, meds, allergies, and overall health/living conditions, as well as any potential risks or complications that may occur from a failure to adhere to, and participate in, the recommended course of therapy. The discussion included a complete verbal, and/or written explanation of the examination results, any x-rays taken, the proposed diagnosis, and outline of the treatment plan. A schedule for future care needs was also explained. The patient verbalized an understanding of the instructions at this time and agreed to be an active participant in their treatment. If the patient should think of any questions or concerns after the visit, I have encouraged the patient to call the office.?Heel pain:?FASCIITIS: I explained to the patient the possible etiologies of Plantar Fasciitis including foot type/shoegear/activity level/exercise routine and the risks/benefits of all the different treatment options for heel pain including: No treatment at all, Rest, Ice, NSAIDs(only if well tolerated after meals), New/supportive Shoegear, Strappings and Tapings, Stretching exercises, Deep Tissue Massage, Heel cups/cushions, Arch support/shoe inserts, Custom orthoses, Topical analgesics including Aspercream/Voltaren gel, Night splint AFO for am stiffness, Cortisone injection therapy, Cast boot with crutches/cane/or walker for assisted ambulation, Physical Therapy, EPAT/ESWT, Interfil injection therapy, as well as surgical [place]/Endoscopic Fasciitomy surgical procedures if needed. Recommendations were made to limit barefoot walking, eliminate wearing nonsupportive shoegear (i.e. flip-flops or sandals, or a shoe with an easily bendable, foldable, or twistable sole) and wear shoegear with a good solid sole, a supportive arch, and plenty of room for an insert/orthotic if necessary. If wearing sandals was required by the patient, we recommended orthopedic sandals such as Orthoheel or Birkenstock even while in the home. If the patient wore heels in the past, we recommended they continue, but eliminate the use of flats. The advantages and disadvantages of each option were discussed and the patients questions re: types of shoegear, custom vs prefabricated inserts, activity level, PO vs Topical medications (and their respective potential complications/drug interactions/side effects), and consistency in home treatment regimens for optimal success were answered to their satisfaction. Literature detailing plantar fasciitis and the various treatment options were dispensed and reviewed, Stretching exercises for the patients injury/diagnosis were discussed and demonstrated, Handouts were also given.?Xerosis:?The patient was counseled on the diagnosis, potential etiologies, and treatment options for their skin condition. We discussed the risks and benefits of each option from performing no treatment, to utilizing OTC topical skin creams/ointments, to utilizing prescription topical creams/ointments, to utilizing customized compounded topical medications and use of nocturnal occlusion with any/all previously detailed therapies. We discussed the advantages and disadvantages of each possible treatment and importance for adherence to all the recommended therapies for optimum success and avoid potential complications such as open sore/infection/possible hospitalization. We discussed the potential effectiveness of each topical preparation as well as each ones possible side effects and/or patient medication interactions. Patient questions re: use, dosage, successful outcomes, and application consistency were reviewed and the patient verbalized that all answers were clearly understood. The patient has decided to apply Rx skin creams to their feet save the interspaces while paying special attention to the heels. Such was sent to their pharmacy at the time of visit.? ??Screening/Special Tests:?Fall Risk?Screening:?No falls in the past year * Follow Up:?prn * Images: * Sign off status: Completed true * Provider:?Josy Barney DPM Date:?2023 Generated for Glenn tirado/Niels/eTransmitting on:?03/07/2025 04:18 PM EDT History and Physical Notes * HPI (History of Present Illness) Category Sub-Category Detail Notes Category Not es Heel pain Duration: , several months Location: Proximal plantar asp ect of Heel, RIGHT Aggravated: standing, walking, w alking first thing in the morning/after rest Course: worse Treatments: rest/alter normal da gale activity Painful Nails Pt States Last PCP Visit: Date:: 11/07/2024 Skin problems Nature: dryness , scaling Location: B/L Duration: several days Course: worse Examination Category Sub-Category Detail Notes Category Not es Neurological TINEL'S COMPRESSION: Negative ta rsal tunnel, stas pedis, and medial calcaneal nerves Dermatologic SKIN FINDINGS: Skin shows sign( s) of, dryness, scaling, in a stocking fashion, no fissure(s) present, B/L Orthopedic GAIT ABNORMALITY: antalgic FOOT MORPHOLOGY: Pes Planus structure , Decreased Ankle joint dorsiflexion ROM, knee extended FOOTWEAR EVALUATION: shoe gear propertie s exacerbate patients foot/toe deformity General Examination GENERAL APPEARANCE: Reveals a pleasant, alert, well nourished, well-developed, well hydrated individual, who demonstrates proper attention to hygiene/body habitus, and is in no acute distress, Pt serves as own historian for office visit today ORIENTED: person, place, and t luigi Vascular DP PULSES (B): 3/4, B/L PT PULSES (B): 3/4, B/L CAPILLARY FILL TIME: immediate, all digi ts, B/L TROPHIC CONDITION-TEXTURE/EL ASTICITY/TURGOR/HAIR GROWTH (B): normal, B/L Nails NAILS are: Elongated, overg rown, dystrophic, lytic, greater than 3mm thick, discolored and friable with crumbly malodorous subungual debris, with pain on palpation, TA, T1, T2, T3, T4, T5, T6, T7, T8, T9 Heel Pain INSPECTION: Pain on Palpatio n to Plantar Fascia med. and central bands, intrinsic musc., infra-calcaneal bursa, and med calc tubercle , RIGHT foot, No pain: posterior/superior heel, achilles bursa/tendon, sinus tarsi, peroneals, or with lateral heel compression; no limited STJ ROM, calor, or ecchymosis,RIGHT foot
--- OUTSIDE RECORDS SUMMARY | 2025-03-07 16:18 | XMS_ITS | Encounter Summary ---
Author Organization [facility] Address [address] [facility] [address] [place] [address] Phone Care Team Providers Care Welder Apprentice Combination Name Role Phone Maxx Donis MD Primary Care Provider [phone] Encounter Details Date Type Department Care Team (Late Contact Info) Description 03/05/2025 Orders Only [facility] [address] [place] [address] Eduardo Pike MD [phone] [address] Stage 3b chronic kidney disease (HCC); Renal osteodystrophy Social History Tobacco Use Types Packs/Day Years Used Date Smoking Tobacco: Never Alcohol Use Standard Drinks/Week Comments Never 0 (1 standard drink = 0.6 oz pure alcohol) Alcoholic Drinks/day: Occasional social drink Sex and Gender Information Value Date Recorded Sex Assigned at Not on file Legal Sex Male 4:41 PM EST Gender Identity Not on file Sexual Orientation Not on file documented as of this encounter Plan of Treatment Upcoming Encounters Date Type Department Care Team (Late st Contact Info) Description 04/03/2025 1:15 PM EDT [facility] [address] [place] [address] Eduardo Pike MD [address] [address] documented as of this encounter Visit Diagnoses Diagnosis Stage 3b chronic kidney disease (HCC) Renal osteodystrophy documented in this encounter Care Teams Welder Apprentice Combination Relationship Specialty Start Date End Date Maxx Donis MD [address] [place] [address] PCP - General 11/30/20 documented as of this encounter
--- OUTSIDE RECORDS SUMMARY | 2025-03-07 16:18 | XMS_ITS | Encounter Summary ---
Author Name [facility] [place] Organization [place] Address [address] [place] [address] Care Team Providers Care Senior Lead Java Developer Name Role Phone PAZ WOODS Primary Care [...] SUPPLEMEN DEVIN MEDEX 2 Jun 20, 2013 [id number] OLIVER LOPEZ PATIENT [place] MEDICARE SUPPLEMEN DEVIN MEDEX 2 Jun 20, 2013 [id number] OLIVER LOPEZ PATIENT [place] MED[place] SUPPLEMEN DEVIN MEDEX 2 Jun 20, 2013 [id number] OLIVER LOPEZ [place] MEDIC[place] SUPPLEMEN TAL MEDEX 2 Jun 20, 2013 [id number] OLIVER LOPEZ PATIENT MEDICARE (WNR) MEDICARE (M) PART A Apr 20, 2004 PART A [id number] OLIVER LOPEZ PATIENT MEDICARE (WNR) MEDICARE (M) PART B Apr 20, 2004 PART B [id number] [phone] OLIVER LOPEZ PATIENT MEDICARE (WNR) MEDICARE (M) PART A Apr 20, 2004 PART A [id number] OLIVER LOPEZ PATIENT MEDICARE (WNR) MEDICARE (M) PART B Apr 20, 2004 PART B [id number] [phone] OLIVER LOPEZ FOR LIFE TFL* Oct 24, 2017 [id number] OLIVER LOPEZ PATIENT Selected Encounter This section includes the information on record at [place] for the Encounter. Date/Time Encounter Type Encounter Description Reason Provider Source Mar 04, 2025 01:00 PM TELEHEALTH FACILITY FEE AUDIOLOGY ICD-10-CM H90.3 Sensorineural hearing loss, bilateral CAMINITI,FLORENCE E IHE Encounter Template Text not used by [place] Assessments - Encounter Diagnoses This section includes the primary and secondary diagnoses documented for the Encounter. Date/Time Primary/Secondary Diagnosis Diagnosis Name Provider Source Mar 04, 2025 01:44 PM PRIMARY Sensorineural hearing loss, bilateral JULIANNAINITI,FLORENCE E [facility] Plan of Treatment: Future Appointments (+ [...] Date/Time Appointment Type Appointme nt Facility Name May 13, 2025 01:00 PM [facility] - [facility] May 13, 2025 01:01 PM AM[place] [facility] Jun 19, 2025 03:00 PM AM[place]ULATORY [place]ICINE [place] [facility] Aug 11, 2025 03:00 PM [place]UL[place]ORY [place]ICINE [place] [facility] Active, Pending, and Scheduled Orders This section includes a listing of several types of active, pending, and scheduled orders, including clinic medications orders, diagnostic test orders, procedure orders and consult orders; where the start date of the order is 45 days before the date of the Encounter or 45 days after the date of theEncounter. The data comes from all [place] treatment facilities. Test Date/Time Test Type Test Details Facility Name Mar 03, 2025 02:23 PM Consult Order COMMUNITY CARE-ONCOLOGY Cons Supervisor Fertilizer Processing's Choice [facility] Social History: Smoking Status (Most current) and Tobacco Use (All prior to encounter date) This section includes the most current, and the historical, smoking and tobacco- related health factors from the [place] facility where the Encounter took place. Current Smoking Status This section includes the most current smoking, or tobacco-related health factor, from the [place] facility where the Encounter took place. Date/Time Current Smoking Status Comment Facil ity Feb 19, 2024 02:00 PM VA-TOBACCO NEVER USED [facility] Tobacco Use History This section includes a history of the smoking, or tobacco-related health factors, that were collected on or before the date of the Encounter. The data comes from the [place] facility where the Encounter took place. Date/Time Smoking Status/Tobacco Use Comment F acility Feb 21, 2023 02:30 PM VA-TOBACCO NEVER USED [place] [facility] Jul 22, 2021 02:30 PM VA-TOBACCO NEVER USED [place] [facility] Advance Directives: All historical and current [...] Nov 07, 2024 ADVANCE DIRECTIVE JOHN KUMAR [place] CNT RL [facility] Encounter Notes: All associated encounter notes This section contains the clinical notes associated to the Encounter. Date/Time Encounter Note(s) Provider Source Mar 04, 2025 08:57 AM AUDIOLOGY E & M NO TE: LOCAL TITLE: AUDIOLOGY CLINIC STANDARD TITLE: AUDIOLOGY E & M NOTE DATE OF NOTE: MAR 04, 2025@08:57 ENTRY DATE: MAR 04, 2025@08:57:54 AUTHOR: FLORENCE ECHOLS EXP COSIGNER: URGENCY: STATUS: COMPLETED Oliver Lopez is a 84 YO vet with longstanding history of asymmetric (right poorer) sensorineural hearing loss s/p cochlear implantation in the RIGHT EAR seen today via CVT with Dr. Echols. Pt notes that he feels like he isn't hearing anything from his processors. He also reports discomfort at the magnet site when using the Rosales processor. -- IMPLANT(S): RIGHT EAR: MED EL SYNCHRONY 2 FLEX 28 ([id number]) Surgery date: 12/06/24 SOUND PROCESSORS: RIGHT EAR: ROSALES 3 ([id number]) in silver Magnet:4 Act Date: 01/15/25 *RIGHT EAR: SONNET2 ([id number]) Champion; Magnet 3(-) HEARING AID LEFT EAR 01/15/25 [facility] L [id number] -- CI PROGRAMMING: -Impedances were run and were wnl across the array. -Increased MCLs globally and pt noted an instant improvement; saved as follows to the Rondo3: P1: MAP5 Converted MAP 5----> to MAP 6 for the Sonnet2 Ordered a 3S [place] magnet, mailed to [place] and Dr. Echols will hold for next appt. Advised pt to use Sonnet for now, as notes no discomfort with that processor. -- -- AIDED TESTING (by [employer] today) revealed: All testing was done CI only condition with 60 dB contra masking (via insert) 500 1k 2k 4k 70 50 55 50 AZBio 0% CNCs 12% These results reflect slight decreases in detection and a slight improvement on CNCs as compared to pre-operative scores. PLAN: 1. Pt to rtc on 05/13 @ 1pm (CVT appt). 2. Will consider tele-AR and possibly a speech consult for a cognition evaluation at next appt. Barriers/Considerations for Learning Assessed None List any [...] materials/supplies given/reviewed: (why not?) N/A /esmer/ Saravanan LAMAR, [facility]-A STAFF FILM TECHNICIAN Signed: 03/04/2025 16:36 FLORENCE ECHOLS [facility]
--- OUTSIDE RECORDS SUMMARY | 2025-03-07 16:18 | XMS_ITS | Encounter Summary ---
Author Name [facility] [place] Organization [facility] [place] Address [address] [place] [address] Care Team Providers Care Back Roll Lathe Operator Name Role Phone PAZ WOODS Primary Care [...] Name Patient's Relationship to Policy Johnson KEN SEPULEVDA OF CT (BLUECARD) MEDICARE SUPPLEMEN DEVIN MEDEX 2 Jun 20, 2013 [id number] OLIVER LOPEZ [facility] SUPPLEMEN DEVIN MEDEX 2 Jun 20, 2013 [id number] [phone] OLIVER LOPEZ PATIENT [facility] MEDICARE SUPPLEMEN DEVIN MEDEX 2 Jun 20, 2013 [id number] OLIVER LOPEZ [place] MED[place] SUPPLEMEN DEVIN MEDEX 2 Jun 20, 2013 [id number] [phone] OLIVER LOPEZ PATIENT MEDICARE (WNR) MEDICARE (M) PART B Apr 20, 2004 PART B [id number] OLIVER LOPEZ PATIENT MEDICARE (WNR) MEDICARE (M) PART A Apr 20, 2004 PART A [id number] [phone] OLIVER LOPEZ PATIENT MEDICARE (WNR) MEDICARE (M) PART A Apr 20, 2004 PART A [id number] [phone] OLIVER LOPEZ PATIENT MEDICARE (WNR) MEDICARE (M) PART B Apr 20, 2004 PART B [id number] [phone] OLIVER LOPEZ FOR LIFE TFL* Oct 24, 2017 [id number] OLIVER LOPEZ PATIENT Selected Encounter This section includes the information on record at [place] for the Encounter. Date/Time Encounter Type Encounter Description Reason Provider Source Feb 12, 2025 02:01 PM REPROGRAM COCHLEAR IMPLT 7/> AUDIOLOGY ICD-10-CM H90.3 Sensorineural hearing loss, bilateral OLIVA QUIROZ [facility] Encounter Template Text not used by [place] Assessments - Encounter Diagnoses This section includes the primary and secondary diagnoses documented for the Encounter. Date/Time Primary/Secondary Diagnosis Diagnosis Name Provider Source Feb 12, 2025 03:57 PM PRIMARY Sensorineural hearing loss, bilateral OLIVA QUIROZ [facility] Plan of Treatment: Future Appointments (+ 6 months) and Future Tests (+/- 45 days) The Plan of Treatment section includes future care activities for the patient from all [place] treatmentfacilities. This section includes future appointments and future orders which are active, pending or scheduled. Future Appointments This section includes appointments that were scheduled to occur 6 months from the date of the Encounter, up to a maximum of 20 appointments. The data comes from all [place] treatment facilities. Appointment Date/Time Appointment Type Appointme nt Facility Name Mar 04, 2025 01:00 PM [facility] Mar 04, 2025 01:01 PM [place] [facility] Mar 04, 2025 02:00 PM [facility] May 13, 2025 01:00 PM AMBULATORY - NONE [place] [facility] May 13, 2025 01:01 PM [place] [facility] Jun 19, 2025 03:00 PM AM[place]UL[place] [place] [facility] Aug 11, 2025 03:00 PM [facility] Active, Pending, and Scheduled Orders This section includes a listing of several types of active, pending, and scheduled orders, including clinic medications orders, diagnostic test orders, procedure orders and consult orders; where the start date of the order is 45 days before the date of the Encounter or 45 days after the date of theEncounter. The data comes from all [place] treatment facilities. Test Date/Time Test Type Test Details Facility Name Mar 03, 2025 02:23 PM Consult Order COMMUNITY CARE-ONCOLOGY Cons Oil Rag Washer's Choice [facility] Advance Directives: All historical and current Section Date Range: From patient's date of to the date document was created. This section includes ALL of a patient's completed or amended [place] Advance and Rescinded Directives. The entries below indicate that a directive exists for the patient, but an actual copy is not included with this document. The data comes from all [place] facilities. Date Advance Directives Provider Source Nov 07, 2024 ADVANCE DIRECTIVE JOHN KUMAR [facility] Encounter Notes: All associated encounter notes This section contains the clinical notes associated to the Encounter. Date/Time Encounter Note(s) Provider Source Feb 12, 2025 11:19 AM AUDIOLOGY EDUCATIO N NOTE: LOCAL TITLE: AUDIOLOGY PROGRESS/PT EDUCATION NOTE (T) STANDARD TITLE: AUDIOLOGY EDUCATION NOTE DATE OF NOTE: FEB 12, 2025@11:19 ENTRY DATE: FEB 12, 2025@11:19:09 AUTHOR: MARY KAY QUIROZ COSIGNER: URGENCY: STATUS: COMPLETED Oliver Lopez is a 84 YO vet with longstanding history of asymmetric (right poorer) sensorineural hearing loss s/p cochlear implantation in the RIGHT EAR seen today via CVT with Dr. Echols. Pt notes a screeching sound from both processors. IMPLANT(S): RIGHT EAR: MED EL SYNCHRONY 2 FLEX 28 ([id number]) Surgery date: 12/06/24 SOUND PROCESSORS: RIGHT EAR: ANDREW 3 ([id number]) in silver Magnet:4 Act Date: 01/15/25 *RIGHT EAR: SONNET2 ([id number]) Champion; Magnet 3(-) HEARING AID LEFT EAR 01/15/25 [facility] L [id number] CI PROGRAMMING: -Impedances were run and were wnl across the array. -Tried decreased HF electrodes, however pt then noted no benefit. -Flattened out all electrodes and pt preferred the sound quality, therefore saved as follows to the Sonnet2: P1: MAP3 Converted MAP 3----> to MAP 4 for the Rondo3 It should be noted that inconsistencies in pt's reporting were noted and he also appeared somewhat confused about his devices (ie brought a fan rail equipment operator that he thought was his CI remote) Counseled pt extensively re: releastic expectations of a CI and uniqueness of implantation with SSD pts. We also discussed the importance of consistent use and allowing time for acclimitzation. PLAN: 1. Pt already has a f/u scheduled for 03/04, which he will keep. Barriers/Considerations for Learning Assessed None List any [...] given/reviewed: (why not?) N/A /esmer/ Saravanan ABREU, [facility]3]-A WIRE PHOTO OPERATOR Signed: 02/12/2025 15:57 MARY KAY QUIROZ [facility]
--- OUTSIDE RECORDS SUMMARY | 2025-03-07 16:19 | XMS_ITS ---
Author Name [facility] [place] Organization [place] Address [address] [place] [address] Care Team Providers Care Body Worker Name Role Phone PAZ WOODS Primary Care [...] SUPPLEMEN DEVIN MEDEX 2 Jun 20, 2013 [id number] OLIVER OLIVAREZ PATIENT [place] MEDICARE SUPPLEMEN DEVIN MEDEX 2 Jun 20, 2013 [id number] [phone] OLIVER OLIVAREZ PATIENT [place] MEDICARE SUPPLEMEN DEVIN MEDEX 2 Jun 20, 2013 [id number] OLIVER OLIVAREZ [place] MED[place] SUPPLEMEN TAL MEDEX 2 Jun 20, 2013 [id number] [phone] OLIVER OLIVAREZ PATIENT MEDICARE (WNR) MEDICARE (M) PART A Apr 20, 2004 PART A [id number] OLIVER OLIVAREZ PATIENT MEDICARE (WNR) MEDICARE (M) PART B Apr 20, 2004 PART B [id number] OLIVER OLIVAREZ PATIENT MEDICARE (WNR) MEDICARE (M) PART A Apr 20, 2004 PART A [id number] [phone] OLIVER OLIVAREZ PATIENT MEDICARE (WNR) MEDICARE (M) PART B Apr 20, 2004 PART B [id number] [phone] OLIVER OLIVAREZ FOR LIFE TFL* Oct 24, 2017 [id number] OLIVER OLIVAREZ PATIENT Selected Encounter This section includes the information on record at [place] for the Encounter. Date/Time Encounter Type Encounter Description Reason Provider Source Jan 29, 2025 01:00 PM TELEHEALTH FACILITY FEE AUDIOLOGY ICD-10-CM H90.3 Sensorineural hearing loss, bilateral JULIANNAINIRICK,FLORENCE E IHE Encounter Template Text not used by [place] Assessments - Encounter Diagnoses This section includes the primary and secondary diagnoses documented for the Encounter. Date/Time Primary/Secondary Diagnosis Diagnosis Name Provider Source Jan 29, 2025 04:19 PM PRIMARY Sensorineural hearing loss, bilateral TRISH,FLORENCE E [employer] Plan of Treatment: Future Appointments (+ 6 [...] Date/Time Appointment Type Appointme nt Facility Name Feb 12, 2025 02:00 PM [facility]ATORY - [facility] Feb 12, 2025 02:01 PM [place] [facility] Mar 04, 2025 01:00 PM AMBULATORY - NONE [place] [facility] Mar 04, 2025 01:01 PM [place] [facility] Mar 04, 2025 02:00 PM AMBULATORY - REHAB MEDICIN [place] [facility] May 13, 2025 01:00 PM AMBULATORY - NONE [place] [facility] May 13, 2025 01:01 PM [place] [facility] Jun 19, 2025 03:00 PM [place] [facility] [facility] Active, Pending, and Scheduled Orders This section includes a listing of several types of active, pending, and scheduled orders, including clinic medications orders, diagnostic test orders, procedure orders and consult orders; where the start date of the order is 45 days before the date of the Encounter or 45 days after the date of theEncounter. The data comes from all [place] treatment facilities. Test Date/Time Test Type Test Details Facility Name Mar 03, 2025 02:23 PM Consult Order COMMUNITY CARE-ONCOLOGY Cons Bending Frame Operator[facility] Social History: Smoking Status (Most current) and Tobacco Use (All prior to encounter date) This section includes the most current, and the historical, smoking and tobacco- related health factors from the [place] facility where the Encounter took place. Current Smoking Status This section includes the most current smoking, or tobacco-related health factor, from the [place] facility where the Encounter took place. Date/Time Current Smoking Status Comment Lorri ity Feb 19, 2024 02:00 PM VA-TOBACCO NEVER USED [place] CNTRL [facility] Tobacco Use History This section includes a history of the smoking, or tobacco-related health factors, that were collected on or before the date of the Encounter. The data comes from the [place] facility where the Encounter took place. Date/Time Smoking Status/Tobacco Use Comment F acility Feb 21, 2023 02:30 PM VA-TOBACCO NEVER USED [place] [facility] Jul 22, 2021 02:30 PM VA-TOBACCO NEVER USED [place] [facility] Advance Directives: All historical and current [...] 2024 ADVANCE DIRECTIVE JOHN KUMAR [place] [facility] Encounter Notes: All associated encounter notes This section contains the clinical notes associated to the Encounter. Date/Time Encounter Note(s) Provider Source Feb 11, 2025 04:40 PM ADDENDUM: LOCAL TITLE: Addendum STANDARD TITLE: ADDENDUM DATE OF NOTE: FEB 11, 2025@16:40:52 ENTRY DATE: FEB 11, 2025@16:40:53 AUTHOR: DEEPA NUNN COSIGNER: URGENCY: STATUS: COMPLETED entered leaf for CVT clinic to be opened 02/12 [id number] /esmer/ Melva BROWNE, [facility]-A School Inspector Chief, Audiology Signed: 02/11/2025 16:41 Receipt Acknowledged By: 02/12/2025 07:28 /esmer/ MEENAKSHI MEJIA ADVANCED FORM SETTER [address] FORMS === --- Original Document --- 01/29/25 AUDIOLOGY CLINIC: Nettie with bilateral sensorineural hearing loss was seen for a Clinical Video Telehealth (CVT) appt on 01-29-25. Pt was at the [facility] with Air Hose Coupler, Florence Echols and the cloud engineer at [place] was available via screensharing through [employer]. A [employer] rep was also present. Pt uses a RIGHT EAR Med-El cochlear implant implanted with a Sonnet2 and [place] processor and a hearing aid on the left ear. Impedances were WNLs across the electrode array. The map from the initial [place] activation was programmed into the new Sonnet 2 processor today. Nettie noted good sound quality. Improper charging may have been why the [place] was not working. Reviewed charging the Rosales and the Sonnet2. Sent back the spare [place] device to [employer]. Next CVT session with pt going to [place] will be on 03-04-25 at 1pm. /esmer/ Saravanan LAMAR, [facility]-A STAFF CALL CENTER RECRUITER Signed: 01/29/2025 16:22 02/11/2025 ADDENDUM STATUS: COMPLETED [facility] reached out as they received report from [employer] regarding 's contact stating that both processors are not working and are causing screeching . He was very concerned about both processors seemingly malfunctioning asking to be seen sooner than later. Was able to negotiate a CVT with [facility] for 02/12 from 2-3pm, Dr. Echols will conduct this appnt with Dr. Saira Chowdary. /esmer/ Melva BROWNE, [facility]-A School Inspector Chief, Audiology Signed: 02/11/2025 16:34 DEEPA NUNN [place] CNTL [place] [facility] Jan 29, 2025 11:50 AM AUDIOLOGY E & M NO TE: LOCAL TITLE: AUDIOLOGY CLINIC STANDARD TITLE: AUDIOLOGY E & M NOTE DATE OF NOTE: JAN 29, 2025@11:50 ENTRY DATE: JAN 29, 2025@11:50:41 AUTHOR: FLORENCE ECHOLS COSIGNER: URGENCY: STATUS: COMPLETED AUDIOLOGY CLINIC Has ADDENDA with bilateral sensorineural hearing loss was seen for a Clinical Video Telehealth (CVT) appt on 01-29-25. Pt was at the [facility] with Air Hose Coupler, Florence Echols and the cloud engineer at [employer] was available via screensharing through [employer]. A [employer] rep was also present. Pt uses a RIGHT EAR Med-El cochlear implant implanted with a Sonnet2 and Rosales processor and a hearing aid on the left ear. Impedances were WNLs across the electrode array. The map from the initial Rosales activation was programmed into the new Sonnet 2 processor today. noted good sound quality. Improper charging may have been why the [place] was not working. Reviewed charging the [place] and the Sonnet2. Sent back the spare [place] device to [employer]. Next CVT session with pt going to [place] will be on 03-04-25 at 1pm. /esmer/ Saravanan LAMAR, [facility]-A STAFF CALL CENTER RECRUITER Signed: 01/29/2025 16:22 02/11/2025 ADDENDUM STATUS: COMPLETED [facility] CT reached out as [facility] 's contact stating that both processors are not working and are causing screeching . He was very concerned about both processors seemingly malfunctioning asking to be seen sooner than later. Was able to negotiate a CVT with [facility] for 02/12 from 2-3pm, Dr. Echols will conduct this appnt with Dr. Saira Chowdary. /esmer/ Melva BROWNE, [facility]-A School Inspector Chief, Audiology Signed: 02/11/2025 16:34 02/11/2025 ADDENDUM STATUS: COMPLETED entered leaf for CVT clinic to be opened 02/12 [id number] /esmer/ Melva BROWNE, [facility]-A School Inspector Chief, Audiology Signed: 02/11/2025 16:41 Receipt Acknowledged By: * AWAITING SIGNATURE * MEENAKSHI MEJIA [facility]
--- OUTSIDE RECORDS SUMMARY | 2025-03-07 16:19 | XMS_ITS | Clinical Summary ---
Author Organization [facility] Address [address] [place] [address] Care Team Providers Care Cyber Forensic Specialist Name Role Phone Maxx Donis Primary Care Provider [phone] Medications aspirin 325 mg tablet Active Active Problems Problem Noted Date Diagnosed Date Aortic stenosis, moderate 06/12/2015 Tick bite 04/20/2015 Skin infection 04/20/2015 Creatinine elevation 02/13/2015 Neuropathic pain of both legs 02/13/2015 Numbness 07/24/2013 Acute colitis 07/24/2013 Overview (08/10/2017): THE COLITIS RESOLVED WITHIN THE YEAR OF HAVING IT, HE IS FOLLOWED BY DR TAVERA Cough 12/04/2012 Esophageal reflux 12/04/2012 Hypercholesterolemia 12/04/2012 Immunizations Immunization Administration Dates Next Due INFLUENZA, SPLIT VIRUS, TRIVALENT, PF 08/12/2014 Pneumococcal Conjugate Vaccine, 13 Valent 2014 Tetanus Toxoid, Reduced Diph theria Toxoid, and Acellular Pertussis Vaccine, Adsorbed 08/14/2012 Family History Medical History Relation Name Comments Other Father Family history of Drowned Other Mother Family history of Healthy female Relation Name Status Comments Father Mother Social History Tobacco Use Types Packs/Day Years Used Date Smoking Tobacco: Never Comments:: Sex and Gender Information Value Date Recorded Sex Assigned at Not on file Legal Sex Male 12:15 AM EDT Gender Identity Not on file Sexual Orientation Not on file Last Filed Vital Signs Vital Sign Reading Time Taken Comments Blood Pressure 118/70 10/29/2023 11:00 AM EST Pulse 60 10/29/2023 11:00 AM EST Temperature 36.6 ??C (97.8 ??F) 06/11/2015 10:36 AM E DT Respiratory Rate 16 10/29/2023 11:00 AM EST Oxygen Saturation 98% 10/29/2023 11:00 AM EST Inhaled Oxygen Concentration - - Weight 92.5 kg (204 lb) 06/12/2015 3:04 PM EDT Height 176.5 cm (5' 9.5 ) 06/11/2015 10:36 AM ED T Body Mass Index 29.69 06/11/2015 10:36 AM EDT Plan of Treatment Health Maintenance Due Date Last Done Comments Medicare AWV 1941 COVID-19 Vaccine ( season) 2024 08/19/2023, 03/24/2023, 10/16/2022, Additional history exists Alcohol/Substance Use Screening 11/20/2024 Depression Screening and Follow-Up 11/20/2024 Health Care Proxy Review 11/20/2024 Social Acceptd of Health Annual Screening 11/20/2024 Influenza Vaccine (Season Ended) 2025 08/24/2023, 08/20/2023, 09/17/2022, Additional history exists DTaP,Tdap,and Td Vaccines (3 - Td or Tdap) 07/22/2031 07/22/2021, 08/14/2012, 11/30/1989 Zoster Vaccines Completed 02/22/2022, 03/2022, 07/22/2021, Additional history exists RSV Vaccine (60+ years old and patients) Completed 08/24/2023 Pneumococcal Vaccine: 50+ Years Completed 10/10/2023, 04/10/2017, 09/06/2016, Additional history exists Hepatitis B Vaccines Aged Out No long er eligible based on patient's age to complete this topic Insurance MEDICARE [facility] [place] [facility] Care Teams Cyber Forensic Specialist Relationship Specialty Start Date End Date Maxx Donis [address] [place] [address] PCP - General Internal Medicine 10/27/23
--- OUTSIDE RECORDS SUMMARY | 2025-03-07 16:19 | XMS_ITS ---
Author Name [facility] Address [address] [place] [address] Care Team Providers Care Coining Press Operator Name Role Phone PAZ WOODS Primary [...] SUPPLEMEN DEVIN MEDEX 2 Jun 20, 2013 [id number] [phone] OLIVER OLIVAREZ PATIENT [place] SUPPLEMEN DEVIN MEDEX 2 Jun 20, 2013 [id number] [phone] OLIVER OLIVAREZ PATIENT [place] SUPPLEMEN DEVIN MEDEX 2 Jun 20, 2013 [id number] [phone] OLIVER OLIVAREZ PATIENT BCBS [place] MEDICARE SUPPLEMEN DEVIN MEDEX 2 Jun 20, 2013 [id number] OLIVER OLIVAREZ PATIENT MEDICARE (WNR) MEDICARE (M) PART A Apr 20, 2004 PART A [id number] OLIVER OLIVAREZ PATIENT MEDICARE (WNR) MEDICARE (M) PART B Apr 20, 2004 PART B [id number] [phone] OLIVER OLIVAREZ PATIENT MEDICARE (WNR) MEDICARE (M) PART A Apr 20, 2004 PART A [id number] OLIVER OLIVAREZ PATIENT MEDICARE (WNR) MEDICARE (M) PART B Apr 20, 2004 PART B [id number] [phone] OLIVER OLIVAREZ PATIENT FOR LIFE TFL* Oct 24, 2017 [id number] OLIVER OLIVAREZ PATIENT Selected Encounter This section includes the information on record at [place] for the Encounter. 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 Date/Time Primary/Secondary Diagnosis Diagnosis Name Provider Source Jul 13, 2024 10:43 AM PRIMARY Exophoria YVAN GARZA [place] [facility] [place] [facility] Jul 13, 2024 10:43 AM SECONDARY Dry eye syndrome of bilateral lacrimal glands YVAN GARZA [place] [facility] [place] [facility] Jul 13, 2024 10:43 AM SECONDARY Hypermetropia, bilateral YVAN GARZA B [place] [facility] [place] [facility] Jul 13, 2024 10:43 AM SECONDARY Presence of intraocular lens GREGYVAN B [place] [facility] [place] [facility] Plan of Treatment: Future Appointments (+ 6 months) and Future Tests (+/- 45 days) The Plan of Treatment section includes future care activities for the patient from all VA treatmentfacilities. This section includes future appointments and future orders which are active, pending or scheduled. Future Appointments This section includes appointments that were scheduled to occur 6 months from the date of the Encounter, up to a maximum of 20 appointments. The data comes from all [place] treatment facilities. Appointment Date/Time Appointment Type Appointme nt Facility Name Jul 03, 2024 09:20 AM AMBULATORY - MEDICINE [place] [facility] [place] [facility] Aug 13, 2024 03:00 PM AMBULATORY - MEDICINE [place] [facility] [place] [facility] Sep 11, 2024 09:30 AM [place] [facility] Sep 11, 2024 11:30 AM [place] [facility] Sep 12, 2024 03:30 PM AMBULATORY - MEDICINE [place] [facility] [place] [facility] Sep 27, 2024 11:30 AM AMBULATORY - MEDICINE [place] [facility] [place] [facility] Oct 02, 2024 10:00 AM AMBULATORY - NONE [facility] [place] [facility] Nov 07, 2024 10:00 AM AM[place]ULATORY [place] [facility] Nov 07, 2024 01:00 PM AMBULATORY - MEDICINE [place] [facility] [place] [facility] Dec 05, 2024 11:00 AM AM[place]UL[place]ORY [place] [facility] Dec 11, 2024 10:00 AM AMBULATORY - [place] [facility] Social History: Smoking Status (Most current) and Tobacco Use (All prior to encounter date) This section includes the most current, and the historical, smoking and tobacco- related health factors from the [place] facility where the Encounter took place. Current Smoking Status This section includes the most current smoking, or tobacco-related health factor, from the VA facility where the Encounter took place. Date/Time Current Smoking Status Comment Facil ity Feb 19, 2024 02:00 PM [facility] Tobacco Use History This section includes a history of the smoking, or tobacco-related health factors, that were collected on or before the date of the Encounter. The data comes from the [place] facility where the Encounter took place. Date/Time Smoking Status/Tobacco Use Comment F acility Feb 21, 2023 02:30 PM VA-TOBACCO NEVER USED [place] [facility] [place] [facility] Jul 22, 2021 02:30 PM VA-TOBACCO NEVER USED [place] [facility] Advance Directives: All historical and current Section Date Range: From patient's date of to the date document was created. This section includes ALL of a patient's completed or amended [place] Advance and Rescinded Directives. The entries below indicate that a directive exists for the patient, but an actual copy is not included with this document. The data comes from all [place] facilities. Date Advance Directives Provider Source Nov 07, 2024 ADVANCE DIRECTIVE JOHN KUMAR [place] [facility] Encounter Notes: All associated encounter notes This section contains the clinical notes associated to the Encounter. Date/Time Encounter Note(s) Provider Source Jun 13, 2024 11:00 AM OPTOMETRY NOTE: LOCAL TITLE: OPTOMETRY NOTE STANDARD TITLE: OPTOMETRY NOTE DATE OF NOTE: JUN 13, 2024@11:00 ENTRY DATE: JUN 13, 2024@11:00:34 AUTHOR: LAKEISHA PATEL JR EXP COSIGNER: YVAN GARZA URGENCY: STATUS: COMPLETED OPTOMETRY NOTE Has ADDENDA Active problems - Computerized Problem List is the source for the followin. AF-Atrial Fibrillation ([facility] [id number]) 2. Diverticular Disease of Colon ([facility] [id number]) 3. Aortic Stenosis, Non-Rheumatic ([facility] [id number]) 4. HB - Heart block 5. Sleep apnea 6. Postablative testicular hypofunction 7. Anaemia 8. Cardiac pacemaker in situ 9. H/O: Stroke ([facility] [id number]) 10. Prostate Cancer ([facility] [id number]) 11. Polyp Colon ([facility] [id number]) 12. GERD - Gastro-Esophageal Reflux Disease ([facility] [id number]) 13. Hearing Loss ([facility] [id number]) 14. Hyperlipidemia ([facility] [id number]) 15. Actinic Keratosis ([facility] [id number]) 16. Idiopathic peripheral neuropathy Active Outpatient Medications (including Supplies): Active Outpatient Medications Status 1) CARBOXYMETHYLCELLULOSE NA 0.5% OPH SOLN INSTILL 1 ACTIVE DROP INTO EACH EYE TWICE DAILY NEEDED FOR DRY EYE Active Non-VA Medications Status 1) Non-VA APIXABAN 5MG TAB 2.5MG BY MOUTH EVERY 12 HOURS ACTIVE 2) Non-VA DAROLUTAMIDE 300MG TAB 600MG BY MOUTH TWICE ACTIVE DAILY 3) Non-VA EVOLOCUMAB 140MG/ML INJ 1ML PEN 140MG/1ML ACTIVE SUBCUTANEOUSLY EVERY 2 WEEKS 4) Non-VA FUROSEMIDE 20MG TAB 20MG BY MOUTH ONCE DAILY ACTIVE 5) Non-VA LEUPROLIDE INJ,SUSP,LA SUBCUTANEOUSLY ACTIVE 6) Non-VA MAGNESIUM OXIDE 400MG TAB 400MG BY MOUTH ONCE ACTIVE DAILY 7) Non-VA OMEPRAZOLE 20MG EC CAP 20MG BY MOUTH TWICE ACTIVE DAILY NEEDED 8) Non-VA TAMSULOSIN HCL 0.4MG CAP 0.4MG BY MOUTH ONCE ACTIVE DAILY 9 Total Medications Allergies: NITROGLYCERIN, GABAPENTIN All medications including those prescribed by outside VA's, community providers, and all OTC meds were reviewed and reconciled with patient to the best of their abilities. This 84 year old MALE is seen today for CEE CARLOS: 05/2023 Chief Complaint: Pt. here for yearly check-up. Pt. does not have any complaints or changes to vision today. Happy with vision through bifocals and through NVO (NVO has BI prism). Pt brought updated medication list. Had valve done in heart (saw specialist the other day and everything going well), and has history of prostate cancer also followed regularly by specialist. Followed closely with PCP Dr. Carroll Medications: Eliqius 1/2 5mg 2x per day Flonase 50mcg 1 spray as needed Furosemide 20mg 1 per day Tamsulosin 0.4mg 1 per day Magnesium oxide 400mg 1 per day Omeprazole 20mg 1 per day Cancer drugs NUBEQA (darolutamide) 300mg 4x per day Eligard shot thru march OHx: - Pseudophakia OU - RE with presbyopia OU - Exophoria: BI prism for NVO working well - Dry eyes/allergy Ocular Medications: -Artificial tears prn: happy with results and would like refill (-) Pain: (-) MCCAULEY: (-) Diplopia: (-) Flashes: (-) Floaters: (-) Amaurosis Fugax/Tia's: (-) Eye Injury: (+) Eye Surgery: CE w/ PCIOL OU (-) TBI FOHx: (-) Glaucoma/Blindness (+) ARMD: mother VITALS (most recent, as listed in the electronic record): B/P: 124/56 (02/19/2024 13:48) Pulse: 64 (02/19/2024 13:48) Temperature: 97.7 F [36.5 C] (02/19/2024 13:48) Weight: 196 lb [88.90 kg] (02/19/2024 13:48) Height: 71 in [180.3 cm] (07/22/2021 14:22) BMI: BMI: 27.4 PERTINENT LABS: HEMOGLOBIN A1C TREND No data available (-) Smoker/Length of Time/PPD: Current Rx with last BCVA: OD:+1.00-2.17i309 20/20-1 OS:plano-1.97o383 20/20 Add: +2.50 20/20 OU DVA ( )sc ( x )cc - phoropter OD: 20/20-1 OS: 20/20 Pupils: PERRL (-)APD EOMs: SAFE OU, (-)Pain/Diplopia CVF (facial, peripheral): FTFC OU Subjective Refraction: OD: +1.00-2.28s665 20/20-1 OS: plano-1.46n857 20/20 Add: +2.50 20/20 OU All the above performed by student, reviewed by attending Anterior segment: Performed by student, repeated by attending Lids: dermatochalasis with hoodwinking OU Conj: white and quiet OU Cornea: mild central clouding OU, round scar inferior to pupil OS AC: D&Q OU Angles: 4x4 OU Iris: flat and clear OU Lens: PCIOL well centered and clear centrally OU OS: very mild inferior peripheral PCO Tonometry: Performed by student, reviewed by attending OD 13 mmHg OS 13 mmHg Time: 11:17am Fundus exam: Dilated: XX 11:21am Dilating Drops: 1GTT 1 % Tropicamide OU & 1GTT 2.5% Phenylephrine OU (Pt. ed. on side effects, dilation warning given and verbal consent obtained) Patient advised not to drive if they feel they have any symptoms which could affect their ability to drive safely. Patient advised not to engage in any activities which could put themselves or others at risk if they feel they have any symptoms which could affect their ability to perform those activities safely. Performed by student, repeated by attending Vit: syneresis OU (+)PVD OS C/D: 0.20 OD, 0.20 OS; [place] healthy and distinct OU Macula: OD: flat, mild pigment mottling OS: flat, mild pigmentary change PPole: few scattered hard drusen along superior arcades OU (OD>OS) A/V: 2/3 Vessels: normal caliber OU Periph: flat and intact (-)holes, tears, detachments 360 OU Assessment/Plan: 1. 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 happy and asymptomatic with current NVO incorporating 2 base in prism OD & OS - Ed. on findings - Monitor 2. Dry eyes with allergic conjunctivitis component OU - Pt. mildly symptomatic to itch during allergy season, has found refresh to be working really well - Refill of refresh ordered today, ed. to continue using BID-QID OU prn - Monitor 3. Pseudophakia OU - Pt. educated on today's findings - PCIOL's appear stable today - Monitor 4. 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 ed on findings - Going to get 1x clear bifocal and 1x sun bifocal - Happy with current NVO - Monitor Return to Clinic 1 Year or earlier PRN /es/ LAKEISHA PATEL JR OPTOMETRY STUDENT Signed: 06/13/2024 16:48 /esmer/ YVAN GARZA OD Basin Cleaner Cosigned: 06/25/2024 07:46 06/25/2024 ADDENDUM STATUS: COMPLETED The optometry recording studio intern participated in this exam, I saw this in conjunction with the optometry student. The entrance tests and refraction were performed by the student and reviewed by me. I personally met with the patient, confirmed the history, complaints and the student's findings, and performed slit lamp and fundus evaluation as indicated. I reviewed and agree with the stated findings, assessment and plan. I have added/edited the documentation to reflect my exam findings and changes to the assessment and plan. patient offered and declined printed medication list Medication Reconciliation: Outpatient: Has the patient been taking medications as documented in the EMLR? YES: The patient has been taking medications as documented in the EMLR. Essential Medication List for Review used to complete this medication reconciliation. INCLUDED IN THIS LIST: Alphabetical list of active outpatient prescriptions dispensed from this VA (local) and dispensed from another VA or DoD facility (remote) as well as inpatient orders (local, pending and active), local clinic medications, locally documented non-VA medications, and local prescriptions that have or been discontinued in the past 90 days. - All changes in medications, including all non-VA/Herbal/OTC medications were entered into CPRS. - If there were any medications the patient should no longer take, they were discontinued. - The patient/caregiver was instructed to update this list, discard old lists, and take this list to the next appointment, whether with a VA or non-VA provider. JLV Link Data on this list may not be complete. Please check JLV. Allergies/ADRs (Tool #5) FACILITY ALLERGY/ADR -------- [facility] GABAPENT[facility] [place] [facility] NITROGLYCERIN [facility] GABAPENTIN [facility]GL[facility]IN [facility] ([facility] INCLUDED IN THIS LIST: Alphabetical list of active outpatient prescriptions dispensed from this [place] (local) and dispensed from another [place] or [facility] facility (remote) as well as inpatient orders (local pending and active), local clinic medications, locally documented non-VA medications, and local prescriptions that have or been discontinued in the past 90 days. Non-VA Meds Last Documented On: Feb 19, 2024 NOTE The display of VA prescriptions dispensed from another [place] or DoD facility (remote) is limited to active outpatient prescription entries matched to National Drug File at the originating site and may not include some items such as investigational drugs, compounds, etc. NOT INCLUDED IN THIS LIST: Medications self-entered by the patient into personal health records (i.e. [employer]) are NOT included in this list. Non-VA medications documented outside this [place], remote inpatient orders (regardless of status) and remote clinic medications are NOT included in this list. The patient and provider must always discuss medications the patient is taking, regardless of where the medication was dispensed or obtained. Non-VA APIXABAN 5MG TAB TAKE ONE-HALF TABLET BY MOUTH EVERY 12 HOURS Medication prescribed by Non-VA provider. Indication: FOR PREVENTION OF BLOOD CLOTS OUTPT CARBOXYMETHYLCELLULOSE NA 0.5% OPH SOLN (Status = Active) INSTILL 1 DROP INTO EACH EYE TWICE DAILY NEEDED FOR DRY EYE Rx# [id number] Last Released: 06/17/24 Qty/Days Supply: Rx Expiration Date: 01/11/25 Refills Remainin Indication: FOR DRY EYE Non-VA DAROLUTAMIDE 300MG TAB TAKE TWO TABLETS BY MOUTH TWICE DAILY Medication prescribed by Non-VA provider. Non-VA EVOLOCUMAB 140MG/ML INJ 1ML PEN INJECT 140MG/1ML SUBCUTANEOUSLY EVERY 2 WEEKS OUTPT FLUTICASONE PROP 50MCG 120D NASAL INHL (Status = ) INSTILL 1 SPRAY INTO EACH NOSTRIL TWICE DAILY FOR NASAL IRRITATION/INFLAMMATION Rx# [id number] Last Released: 05/03/23 Qty/Days Supply: 12/19 Rx Expiration Date: 04/25/24 Refills Remainin Indication: FOR NASAL IRRITATION/INFLAMMATION Non-VA FUROSEMIDE 20MG TAB TAKE ONE TABLET BY MOUTH ONCE DAILY Medication prescribed by Non-VA provider. Non-VA LEUPROLIDE INJ,SUSP,LA INJECT SUBCUTANEOUSLY [id number] Medication prescribed by Non-VA provider. Non-VA MAGNESIUM OXIDE 400MG TAB TAKE ONE TABLET BY MOUTH ONCE DAILY Medication prescribed by Non-VA provider. Non-VA OMEPRAZOLE 20MG EC CAP TAKE 1 CAPSULE BY MOUTH TWICE DAILY NEEDED OUTPT SODIUM CHLORIDE 0.65% SOLN NASAL SPRAY (Status = ) INSTILL 2 SPRAYS INTO EACH NOSTRIL TWICE DAILY FOR STUFFY NOSE Rx# [id number] Last Released: 05/03/23 Qty/Days Supply: Rx Expiration Date: 04/25/24 Refills Remainin Indication: FOR STUFFY NOSE Non-VA TAMSULOSIN HCL 0.4MG CAP TAKE 1 CAPSULE BY MOUTH ONCE DAILY SUPPLIES /esmer/ YVAN GARZA OD Basin Cleaner Signed: 06/25/2024 07:47 LAKEISHA PATEL JR [facility]
--- OUTSIDE RECORDS SUMMARY | 2025-03-07 16:19 | XMS_ITS | Encounter Summary ---
Author Organization [facility] Address [address] [place] [address] Care Team Providers Care Radiology Nurse Name Role Phone Maxx Donis Primary Care Provider [phone] Encounter Details Date Type Department Care Team (Late st Contact Info) Description 10/27/2023 Documentation [facility] [address] [place] [address] Kori Richard NP [address], [place] [phone] Social History Tobacco Use Types Packs/Day Years Used Date Smoking Tobacco: Never Comments:: Sex and Gender Information Value Date Recorded Sex Assigned at Not on file Legal Sex Male 12:15 AM EDT Gender Identity Not on file Sexual Orientation Not on file documented as of this encounter Plan of Treatment Not on file documented as of this encounter Visit Diagnoses Not on filedocumented in this encounter Care Teams Radiology Nurse Relationship Specialty Start Date End Date Maxx Donis [address] [place] [address] PCP - General Internal Medicine 10/27/23 documented as of this encounter
--- OUTSIDE RECORDS SUMMARY | 2025-03-07 16:19 | XMS_ITS | Encounter Summary ---
Author Name [facility] [place] Organization [place] Address [address] [place] [address] Care Team Providers Care Private Client Advisor Name Role Phone PAZ WOODS Primary Care [...] SUPPLEMEN DEVIN MEDEX 2 Jun 20, 2013 [id number] OLIVER OLIVAREZ [facility]IENT [facility] SUPPLEMEN DEVIN MEDEX 2 Jun 20, 2013 [id number] OLIVER OLIVAREZ PATIENT [facility] MEDICARE SUPPLEMEN DEVIN MEDEX 2 Jun 20, 2013 [id number] [phone] OLIVER OLIVAREZ PATIENT [employer] MEDICARE SUPPLEMEN TAL MEDEX 2 Jun 20, 2013 [id number] [phone] OLIVER OLIVAREZ PATIENT MEDICARE (WNR) MEDICARE (M) PART A Apr 20, 2004 PART A [id number] OLIVER OLIVAREZ PATIENT MEDICARE (WNR) MEDICARE (M) PART B Apr 20, 2004 PART B [id number] OLIVER OLIVAREZ PATIENT MEDICARE (WNR) MEDICARE (M) PART A Apr 20, 2004 PART A [id number] [phone] OLIVER OLIVAREZ PATIENT MEDICARE (WNR) MEDICARE (M) PART B Apr 20, 2004 PART B [id number] [phone] OLIVER OLIVAREZ FOR LIFE TFL* Oct 24, 2017 [id number] [phone] OLIVER OLIVAREZ PATIENT Selected Encounter This section includes the information on record at [place] for the Encounter. Date/Time Encounter Type Encounter Description Reason Provider Source Mar 04, 2025 02:00 PM HEARING AID REPAIR/MODIFYIN G AUDIOLOGY ICD-10-CM H90.3 Sensorineural hearing loss, bilateral FLORENCE CHAMBERS IHJayna Encounter Template Text not used by [place] Assessments - Encounter Diagnoses This section includes the primary and secondary diagnoses documented for the Encounter. Date/Time Primary/Secondary Diagnosis Diagnosis Name Provider Source Mar 04, 2025 02:44 PM PRIMARY Sensorineural hearing loss, bilateral FLORENCE CHAMBERS E [facility] Plan of Treatment: Future Appointments (+ 6 months) and Future Tests (+/- 45 days) The Plan of Treatment section includes future care activities for the patient from all [place] treatmentfacilities. This section includes future appointments and future orders which are active, pending or scheduled. Future Appointments This section includes appointments that were scheduled to occur 6 months from the date of the Encounter, up to a maximum of 20 appointments. The data comes from all [place] treatment facilities. Appointment Date/Time Appointment Type Appointme nt Facility Name May 13, 2025 01:00 PM AMBULATORY - NONE [facility] May 13, 2025 01:01 PM AMBULATORY - SURGERY [facility] Jun 19, 2025 03:00 PM [place]UL[place]ICINE [place] [facility] [place] [facility] Aug 11, 2025 03:00 PM AMBULATORY - MEDICINE [facility] N[facility] Active, Pending, and Scheduled Orders This section includes a listing of several types of active, pending, and scheduled orders, including clinic medications orders, diagnostic test orders, procedure orders and consult orders; where the start date of the order is 45 days before the date of the Encounter or 45 days after the date of theEncounter. The data comes from all [place] treatment facilities. Test Date/Time Test Type Test Details Facility Name Mar 03, 2025 02:23 PM Consult Order COMMUNITY CARE-ONCOLOGY Cons Overlock Collar Setter's Choice [facility] Social History: Smoking Status (Most current) and Tobacco Use (All prior to encounter date) This section includes the most current, and the historical, smoking and tobacco- related health factors from the [place] facility where the Encounter took place. Current Smoking Status This section includes the most current smoking, or tobacco-related health factor, from the [place] facility where the Encounter took place. Date/Time Current Smoking Status Comment Facil ity Feb 19, 2024 02:00 PM [place]-TOBACCO NEVER USED [facility] Tobacco Use History This section includes a history of the smoking, or tobacco-related health factors, that were collected on or before the date of the Encounter. The data comes from the [place] facility where the Encounter took place. Date/Time Smoking Status/Tobacco Use Comment F acility Feb 21, 2023 02:30 PM [place]-TOBACCO NEVER USED [facility] Jul 22, 2021 02:30 PM [place]-TOBACCO NEVER USED [facility] Advance Directives: All historical and current Section Date Range: From patient's date of to the date document was created. This section includes ALL of a patient's completed or amended [place] Advance and Rescinded Directives. The entries below indicate that a directive exists for the patient, but an actual copy is not included with this document. The data comes from all [place] facilities. Date Advance Directives Provider Source Nov 07, 2024 ADVANCE DIRECTIVE JOHN KUMAR [facility] Encounter Notes: All associated encounter notes This section contains the clinical notes associated to the Encounter. Date/Time Encounter Note(s) Provider Source Mar 04, 2025 02:43 PM AUDIOLOGY E & M NO TE: LOCAL TITLE: AUDIOLOGY CLINIC STANDARD TITLE: AUDIOLOGY E & M NOTE DATE OF NOTE: MAR 04, 2025@14:43 ENTRY DATE: MAR 04, 2025@14:43:29 AUTHOR: FLORENCE CHAMBERS EXP COSIGNER: URGENCY: STATUS: COMPLETED was seen on 03-04-25 for soundfield testing of his CI. The left ear had an insert with 60dB of masking playing for all testing. Warble tone thresholds: 500 1000 2000 4000 (Hz) 70 50 55 50 (dB HL) [place] CNCs at 60 dB: 12% [employer] at 60 dB (list 1): 0% Results were shared with the CI market consultant in [place]. Rembrandt noted his left Refugio REGIS did not seem to be working. Initial check confirmed, the aid is . A new net developer contract was installed and the sound check was then positive. /esmer/ Saravanan LAMAR, [facility]-A STAFF ENCODING CLERK Signed: 03/04/2025 14:49 FLORENCE CHAMBERS [facility]
--- OUTSIDE RECORDS SUMMARY | 2025-03-07 16:19 | XMS_ITS ---
Author Organization [facility] Address [address] [place] [address] Care Team Providers Care Remote Sensing Analyst Name Role Phone Jose Angel Kim Primary Care Provider Un available CristianDeric ward Jr Unavailable Results Component Value Reference Range Notes Camplyobacter jejuni Antibod y Reviewed date:10/03/2024 08:32:45 AM Interpretation: Performing Lab:[facility], [address] [place] [id number] Notes/Report: Camplyobacter jejuni Antibody <0.90 REFERENCE RANGE: <0.90 INTERPRETIVE CRITERIA: <0.90 ANTIBODY NOT DETECTED 0.90-1.10 EQUIVOCAL >1.10 ANTIBODY DETECTED Campylobacter jejuni is a major cause of sporadic bacterial diarrhea in the [facility], with poultry the most important source of infection. Markedly elevated levels of antibodies recognizing C. jejuni typically indicate recent or ongoing infection, even though stool cultures may be negative. Neurological complications may follow C. jejuni infection; approximately 30% of Guillain-Broadway cases are associated with recent C. jejuni infection. The basis of this association is apparently molecular mimicry between C. jejuni antigens and gangliosides of neuronal cells. This test was developed and its analytical performance characteristics have been determined by [employer]. It has not been cleared or approved by FDA. This assay has been validated pursuant to the CLIA regulations and is used for clinical purposes. THIS TEST WAS PERFORMED AT: [employer] [address] [place] [address] JAYME GAONA MD,PHD,RONY GI PANEL Reviewed date:09/26/2024 09:40:05 AM Interpretation: Performing Lab:[facility], [address] [place] [phone] Notes/Report: Campylobacter Not Detected Not Detect. Plesiomonas [...] is performed by Multiplexed PCR, utilizing the Progression Array. REASON FOR VISIT still continue with diarrhea Encounters Encounter Location Date Provider Diagnosis [facility] [address] [place] [address] 09/20/2024 Deric Foster Jr Diarrhea, unspecified type R19.7 Assessments Encounter Date Diagnosis (ICD Code) Assessment Notes Treatment Notes Treatment Clinical Notes Section Notes 09/20/2024 Diarrhea, unspecified type (ICD-10 - R19.7) Plan Of Treatment Pending Test Test Name Order Date STOOL WBC 09/20/2024 PANCREATIC ELASTASE 09/20/2024 FECAL FAT QUAL 09/20/2024 Stool Culture 09/20/2024 Progress Notes * OLIVER OLIVAREZDOB:[birth year] (84 yo M)Acc No.[id number]:09/20/2024 Patient:?OLIVAREZOLIVER :1940???Age:84 Y???Sex:Male Address:[address] [place] [address] Subjective: * Chief Complaints: * ???Still continue with diarr hea * Medical History:? * Surgical History:? * Hospitalization/Major Diagno stic Procedure:? * Medications:? Objective: Assessment: * Assessment: 1.?Diarrhea, unspecified typ e - R19.7? Plan: * Treatment: ?LAB: GI PANEL * Procedure Codes:? * true * Date:? Generated for Glenn tirado/Niels/Trellsmitting on:?03/07/2025 04:19 PM EDT
--- OUTSIDE RECORDS SUMMARY | 2025-03-07 16:19 | XMS_ITS ---
VA NON-OR ANESTHESIA PROCEDURES [facility] Encounter Summary Created on: March 07, 2025 JUANIS OLIVER SEVERINO : 1940 Sex: Male Author Name [facility] [place] [facility] [place] [facility] [place] Address [address] [place] [address] Care Team Providers Care Molding Machine Setter Name Role Phone PAZ WOODS Primary Care [...] SUPPLEMEN DEVIN MEDEX 2 Jun 20, 2013 [id number] [phone] OLIVER OLIVAREZ [facility] SUPPLEMEN DEVIN MEDEX 2 Jun 20, 2013 [id number] OLIVER OLIVAREZ PATIENT [employer] MEDICARE SUPPLEMEN DEVIN MEDEX 2 Jun 20, 2013 [id number] OLIVER OLIVAREZ PATIENT [facility] MEDICARE SUPPLEMEN DEVIN MEDEX 2 Jun 20, 2013 [id number] OLIVER OLIVAREZ PATIENT MEDICARE (WNR) MEDICARE (M) PART A Apr 20, 2004 PART A [id number] [phone] OLIVER OLIVAREZ PATIENT MEDICARE (WNR) MEDICARE (M) PART B Apr 20, 2004 PART B [id number] [phone] OLIVER OLIVAREZ PATIENT MEDICARE (WNR) MEDICARE (M) PART A Apr 20, 2004 PART A [id number] OLIVER OLIVAREZ PATIENT MEDICARE (WNR) MEDICARE (M) PART B Apr 20, 2004 PART B [id number] OLIVER OLIVAREZ PATIENT FOR LIFE TFL* Oct 24, 2017 [id number] OLIVER OLIVAREZ PATIENT Selected Encounter This section includes the information on record at [place] for the Encounter. Date/Time Encounter Type Encounter Description Reason Pro vider Source Dec 05, 2024 07:28 PM Outpatient Encounter NON-OR ANESTHESIA PROCEDURES I[facility] Encounter Template Text not used by [place] Plan of Treatment: Future Appointments (+ 6 months) and Future Tests (+/- 45 days) The Plan of Treatment section includes future care activities for the patient from all [place] treatmentfacilities. This section includes future appointments and future orders which are active, pending or scheduled. Future Appointments This section includes appointments that were scheduled to occur 6 months from the date of the Encounter, up to a maximum of 20 appointments. The data comes from all [place] treatment facilities. Appointment Date/Time Appointment Type Appointme nt Facility Name Dec 11, 2024 10:00 AM AMBULATORY - [facility] Jan 15, 2025 08:00 AM AM[facility]UL[facility]ORY - SURG[facility] Jan 15, 2025 11:30 AM AMBULATORY - SURGERY [facility] Jan 29, 2025 01:00 PM AMBULATORY - NONE [facility] Jan 29, 2025 01:01 PM AMBUL[facility]ORY - SURGERY [facility] Feb 12, 2025 02:00 PM [facility] Feb 12, 2025 02:01 PM AMBULATORY - SURGERY [facility] Mar 04, 2025 01:00 PM [facility] Mar 04, 2025 01:01 PM AMBULATORY - SURGERY [facility] Mar 04, 2025 02:00 PM AMBULATORY - RE[facility]AB [facility] May 13, 2025 01:00 PM [facility] May 13, 2025 01:01 PM AMBULATORY - SURGERY [facility] Lab Results: +/- 30 days of the encounter This section includes the Chemistry and Hematology Lab Results on record with [place] for the patient. Radiology Reports and Pathology Reports are provided separately, in subsequent sections. Lab Results This section contains the Chemistry/Hematology Results that were resulted 30 days before or 30 daysafter the date of the Encounter. Date/Time Source Result Type Result - Unit Interpretation Reference Range Specimen Type Comment Dec 05, 2024 11:07 AM [facility] MRSA/SA SCREEN NARES Specimen Type: NARES No comment entered. Ordering Provider: LIGIA SHAFER Report Released Date/Time: Dec 05, 2024 11:05 AM Reporting Lab: [address] [address] Performing Lab: [address] [address] MRSA SURVL NARES DNA Negative Negative SA Negative Negative Nov 07, 2024 01:35 PM [facility] BASIC METABOLIC PANEL (fasting) SERUM Specime n Type: SERUM No comment entered. Ordering Provider: PAZ WOODS Report Released Date/Time: Sep 20, 2024 01:52 PM Reporting Lab: [address] [address] Performing Lab: [address] [address] UREA NITROGEN 26 mg/dL H 7-25 GLUCOSE 161 mg/dL H 65-100 SODIUM 137 mmol/L 135-145 POTASSIUM 4.1 mmol/L 3.5-5.0 CHLORIDE 109 mmol/L 100-110 CO2 20 meq/L 20-30 CREATININE, Serum 1.60 mg/dL H 0.50-1.40 eGFR(CKD-EPI 2020) 42 mL/min L >60 Nov 07, 2024 01:35 PM [facility] LIVER FUNCTION SERUM Specimen Type: SERUM No comment entered. Ordering Provider: PAZ WOODS Report Released Date/Time: Sep 20, 2024 01:52 PM Reporting Lab: [facility] [address] [facility] [address] Performing Lab: [address] [address] PROTEIN,TOTAL 6.4 g/dL 6.0-8.3 ALBUMIN 3.9 g/dL 3.5-5.0 ALKALINE PHOSPHATASE 80 U/L 40-150 AST 14 U/L 5-34 ALT 11 U/L BILIRUBIN, TOTAL 0.5 mg/dL 0.2-1.2 Nov 07, 2024 01:35 PM [facility] FERRITIN SERUM Specimen Type: SERUM No comment entered. Ordering Provider: PAZ WOODS Report Released Date/Time: Sep 20, 2024 01:52 PM Reporting Lab: [facility] [address] [facility] [address] Performing Lab: [address] [address] FERRITIN 46 ng/mL 20-300 Nov 07, 2024 01:35 PM [facility] IRON & TIBC PANEL SERUM Specimen Type: SERUM No comment entered. Ordering Provider: PAZ WOODS Report Released Date/Time: Sep 20, 2024 01:52 PM Reporting Lab: [address] [address] Performing Lab: [address] [address] TIBC 333 ug/dL 204-475 IRON 73 ug/dL 40-160 Transferrin Saturation 21.9 20.0-50.0 Transferrin (TRF) 252 mg/dL 200-360 Nov 07, 2024 01:35 PM [facility] CBC AND DIFF (AUTO) BLOOD Specimen Type: BLOO D No comment entered. Ordering Provider: PAZ WOODS Report Released Date/Time: Sep 20, 2024 01:52 PM Reporting Lab: [address] [address] Performing Lab: [address] [address] WBC 5.12 10*3/uL 4.50-11.00 RBC 3.42 10*6/uL [...] 10*3/uL 0.00-0.00 Nov 07, 2024 01:35 PM [facility] PT & INR (PROTIME) PLASMA Specimen Type: PLASM A No comment entered. Ordering Provider: PAZ WOODS Report Released Date/Time: Sep 20, 2024 01:52 PM Reporting Lab: [address] [place] [address] Performing Lab: [facility] [address] [facility] [address] INR 1.2 PROTIME 13.1 s 10.0-13.1 Nov 07, 2024 01:34 PM [facility] VITAMIN B12 SERUM Specimen Type: SERU M No comment entered. Ordering Provider: PAZ WOODS Report Released Date/Time: Nov 07, 2024 01:04 PM Reporting Lab: [facility] [address] [facility] [address] Performing Lab: [facility] [address] [facility] [address] VITAMIN B12 389 pg/mL 200-900 Vital Signs: All taken on the encounter date This section contains inpatient and outpatient Vital Signs collected on the date of the Encounter. Date/Time Temperature Pulse Blood Pressure Respiratory Rate SP02 Pain Height Weight Body Mass Index Source Dec 05, 2024 11:49 PM 0 [facility] Dec 05, 2024 09:57 PM 0 [facility] Dec 05, 2024 08:24 PM 97.5 74 167/58 18 99 0 71 195.2 27 [facility] Dec 05, 2024 10:52 AM 71 [facility] Dec 05, 2024 10:50 AM 97.1 60 146/69 16 100 0 188 26 [facility] Advance Directives: All historical and current Section Date Range: From patient's date of to the date document was created. This section includes ALL of a patient's completed or amended [place] Advance and Rescinded Directives. The entries below indicate that a directive exists for the patient, but an actual copy is not included with this document. The data comes from all [place] facilities. Date Advance Directives Provider Source Nov 07, 2024 ADVANCE DIRECTIVE JOHN KUMAR [facility] Encounter Notes: All associated encounter notes This section contains the clinical notes associated to the Encounter. Date/Time Encounter Note(s) Provider Source Dec 05, 2024 07:30 PM ANESTHESIOLOGY POS T OPERATIVE E & M NOTE: LOCAL TITLE: POST ANESTHETIC NOTE STANDARD TITLE: ANESTHESIOLOGY POST OPERATIVE E & M NOTE DATE OF NOTE: DEC 05, 2024@19:30 ENTRY DATE: DEC 05, 2024@19:30:36 AUTHOR: ANUSHKA SCHWARZ EXP COSIGNER: URGENCY: STATUS: COMPLETED Post Anesthesia Evaluation Note S/p right ear cochlear implant under GA. Most recent vitals were assessed Remarks: BP 138/50, HR 60 V-paced, RR 12, O2Sat 98% AIRWAY Patient on room air MENTAL STATUS Patient alert and oriented PAIN Pain well controlled NAUSEA/VOMITING No nausea/vomiting POST OPERATIVE HYDRATION Tolerating PO No evidence of intraoperative recall., No apparent anesthesia-related complications., The patient participated in this assessment. /esmer/ ANUSHKA SCHWARZ MS, SYSTEM SOFTWARE PROGRAMMER, SERVICE LOSS CONTROL CONSULTANT Signed: 12/05/2024 19:32 ANUSHKA SCHWARZ [facility]
--- OUTSIDE RECORDS SUMMARY | 2025-03-07 16:19 | XMS_ITS ---
Author Organization [facility] Address [address] [place] [address] Care Team Providers Care Sampler Radioactive Waste Name Role Phone Maxx Donis MD Primary Care Provider Unavailmartha Barney, Josy Austin [phone] REASON FOR VISIT Sore painful toe - looking to be seen Encounters Encounter Location Date [facility] [address] [place] [address] 06/12/2024 Josy Barney Plan Of Treatment Next Appt Details Provider Name:Josy Barney , 05/09/2025 11:00:00 AM, [address] [place] [address], [place], [address], Progress Notes * Wan LOPEZDOB:1940 (84 yo M)Acc No.[id number]:06/12/2024 Patient:?Wan Lopez :1940???Age:84 Y???Sex:Male Address:[address], [place], [address] * true * Date:? Generated for Printi ng/Faesperanzag/eTransmitting on:?03/07/2025 04:19 PM EDT
--- OUTSIDE RECORDS SUMMARY | 2025-03-07 16:19 | XMS_ITS | Referral Summary ---
Author Organization [facility] Address [address] [place] [address] Care Team Providers Care Ferry Hand Name Role Phone Maxx Donis Primary Care Provider [phone] Medications aspirin 325 mg tablet Active Active [...] Toxoid, and Acellular Pertussis Vaccine, Adsorbed 08/14/2012 Social History Tobacco Use Types Packs/Day Years [...] 06/11/2015 10:36 AM EDT Plan of Treatment Not on file Insurance MEDICARE [facility] britebill Care Teams Ferry Hand Relationship Specialty Start Date End Date Maxx Donis [address] [place] [address] PCP - General Internal Medicine 10/27/23
--- OUTSIDE RECORDS SUMMARY | 2025-03-07 16:19 | XMS_ITS ---
Author Organization [facility] Address [address] [place] [address] Care Team Providers Care Irrigation Technician Name Role Phone Jose Angel Kim Primary Care Provider Un available Deric Foster Jr REASON FOR VISIT lab results Encounters Encounter Location Date Provider Diagnosis [facility] [address] [place] [address] 10/10/2024 Deric Foster Jr Plan Of Treatment No Information Progress Notes * OLIVER OLIVAREZDOB:[birth year] (84 yo M)Acc No.[id number]:10/10/2024 Patient:?OLIVER OLIVAREZ :1940???Age:84 Y???Sex:Male Address:[address] [place] [address] * true * Date:? Generated for Lucilai celestino/Niels/eTransmitting on:?03/07/2025 04:19 PM EDT
--- OUTSIDE RECORDS SUMMARY | 2025-03-07 16:19 | XMS_ITS | Encounter Summary ---
Author Organization [facility] Address [address] [place] [address] Care Team Providers Care Spareribs Trimmer Name Role Phone Maxx Donis Primary Care Provider [phone] Encounter Details Date Type Department Care Team (Late st Contact Info) Description 10/27/2023 Orders Only [facility] [address] [place] [address] Kori Richard NP [address] [place] [address] Social History Tobacco Use Types Packs/Day Years [...] on filedocumented in this encounter Care Teams Spareribs Trimmer Relationship Specialty Start Date End Date Maxx Donis [address] [place] [address] PCP - General Internal Medicine 10/27/23 documented as of this encounter
--- OUTSIDE RECORDS SUMMARY | 2025-03-07 16:19 | XMS_ITS | Patient Health Record ---
[facility] Address [address] [place] [address] Care Team Providers Care Waste Water Plant Operator Name Role Phone Jewels JUNE, Maxx Primary Care Provider Unavailabl e Black, Josy Unavailable [phone] Allergies Allergen (clinical drug ingredient) Drug/Non Drug Allergy documented on EMR Reaction Allergy Type Onset Date Status gabapentin Gabapentin Unknown Drug Allergy Activ e nitroglycerin Nitroglycerin Unknown Drug Allergy Active Reason For Referral No Information Medications Medication SIG (Take, Route, Frequency, Duration) Notes Start Date End Date Status Ammonium Lactate 12 % 1 application Externally to affected areas of dry skin to feet except for between the toes Twice a day for 30 days Active eliquis 5 mg Active Nortriptyline HCl 10 MG TAKE ONE CAPSULE BY MOUTH AT BEDTIME Oral for 30 Not-Taking Eligard Active aspirin baby Not-Ej ing Furosemide 20 MG 1 tablet Orally Once a day Active Simvastatin 10 MG TAKE 1 TABLET BY DIALLO TH AT BEDTIME Oral for 90 Not-Takin g Atorvastatin Calcium 40 MG 1 tablet Orally Once a day Not-Taking Celecoxib 200 MG TAKE 1 CAPSULE BY MO UTH DAILY, NEEDED FOR PAIN Oral for 30 Not-Taking Omeprazole 10 MG 2 capsules Orally On ce a day for 30 day(s) Not-Taking amLODIPine Benzoate Active Ammonium Lactate 12 % 1 application Externally Twice a day for 30 days Active Zetia 10 MG 1 tablet Orally Once a day Active Ammonium Lactate 12 % 1 application Externally Twice a day for 30 days Not-Taking Flonase Active Omeprazole 20 MG 1 capsule 30 minutes before morning meal Orally Once a day Active CeleBREX 200 MG 1 capsule Orally Onc e a day for 30 day(s) 05/17/2016 Not-Taking Magnesium Oxide 400 MG 1 tablet as neede d Orally Once a day Active Night Splint AFO - L1930 as directed 04/12/2016 Not-Taking Repatha Active Nubeqa 300 MG Oral for 30 Days Active Gabapentin 100 MG Orally No t-Taking Tamsulosin HCl 0.4 MG Oral for 30 Days Active Physical Therapy 3-4x per week for 3- 4 weeks 07/26/2016 Not-Taking Social History Tobacco Use: Social History Observation [...] Problem Status W/U Status Risk Notes Problem 484243720 Hallux rigidus o f right foot (M20.21) Active confirmed Problem 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) Neuritis of left foot (G57.92) Active confirmed Problem Plantar fasciitis of right foot (5117357544870777 1) Plantar fasciitis of right foot (M72.2) Active confirmed Problem Interstitial myositis (72874920) Interstitial myositis of right foot (M60.171) Active confirmed Problem 866106205 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 Problem Osteoarthritis of midtarsal joint of left foot (3555986799727661 ) Osteoarthritis of midtarsal joint of left foot (M19.072) Active confirmed Problem Osteoarthritis of midtarsal joint of right foot (3246880025772530 ) Osteoarthritis of midtarsal joint of right foot (M19.071) Active confirmed Problem Essential hypertension (65188851) Essential hypertension (I10) Active confirmed Vital Signs Blood pressure diastolic 82 mm Hg 11/08/2024 Height 6 ft 0 in in 11/08/2024 Blood pressure systolic 133 mm Hg 11/08/2024 Weight 190 lbs 11/08/2024 BMI 25.77 kg/m2 11/08/2024 Procedures Procedure Date Ordered Date Performed Result Body Sit e 62893-FYWZOFY NAIL, 6 OR MORE 05/08/2024 N/A 47017-Pejvgeaz Plate 06/14/2024 N/A 31770-VGJIMDY NAIL, 6 OR MORE 11/08/2024 N/A Encounters Encounter Location Date Provider Diagnosis [address] [place] [address] 05/08/2024 Josy Black Xerosis of skin L85. 3 ; Neuropathy due to chemical substance G62.2 ; Onychomycosis B35.1 ; Pain of toe of right foot M79.674 ; Pain of toe of left foot M79.675 ; Pain in left foot M79.672 and Pain in right foot M79.[address] [address] 06/14/2024 Josy Black Ingrown nail L60.[address] [address] 11/08/2024 Josy Black Onychomycosis B35.1 ; Plantar fasciitis of right foot M72.2 ; Pain in right toe(s) M79.674 ; Pain in left toe(s) M79.675 ; Xerosis of skin L85.3 ; Pain in right foot M79.671 ; Calcaneal spur, right foot M77.31 ; Interstitial myositis of right foot M60.171 and Bursitis of right foot M77.[address] [address] 06/12/2024 Josy Black Assessments Encounter Date Diagnosis (ICD Code) Assessment Notes Treatment Notes Treatment Clinical Notes Section Notes 05/08/2024 Xerosis of skin (ICD-10 - L85.3) 05/08/2024 Neuropathy due to chemical substance (ICD-10 - G62.2) 06/14/2024 Ingrown nail (ICD-10 - L60.0) 11/08/2024 Onychomycosis (ICD-10 - B35.1) 11/08/2024 Plantar fasciitis of right foot (ICD-10 - M72.2) Patient Educated with: HEEL CORD STRETCHES.pdf (HEEL CORD STRETCHES.pdf) Patient Educated with: RICE THERAPY.pdf (RICE THERAPY.pdf) 11/08/2024 Pain in right toe(s) (ICD-10 - M79.674) 05/08/2024 Onychomycosis (ICD-10 - B35.1) 11/08/2024 Pain in left toe(s) (ICD-10 - M79.675) 05/08/2024 Pain of toe of right foot (ICD-10 - M79.674) 11/08/2024 Xerosis of skin (ICD-10 - L85.3) 05/08/2024 Pain of toe of left foot (ICD-10 - M79.675) 05/08/2024 Pain in left foot (ICD-10 - M79.672) 11/08/2024 Pain in right foot (ICD-10 - M79.671) 11/08/2024 Calcaneal spur, right foot (ICD-10 - M77.31) 05/08/2024 Pain in right foot (ICD-10 - M79.671) 11/08/2024 Interstitial myositis of right foot (ICD-10 - M60.171) 11/08/2024 Bursitis of right foot (ICD-10 - M77.51) Plan Of Treatment Pending Test Test Name Order Date X ray : Foot, left 3V 04/19/2013 X ray : Foot, right 3V 01/15/2018 X ray : Foot, right 3V 04/19/2013 29878-SDOYGJN NAIL, 6 OR MORE 11/08/2024 77747-CVHTYDF NAIL, 6 OR MORE 12/27/2023 33365-BTHWXIZ NAIL, 6 OR MORE 05/08/2024 48783-UIKHZJS NAIL, 6 OR MORE 07/12/2023 66308-GTDLNOX NAIL, 1-5 05/21/2015 28329-Kxxdfcyc Plate 06/14/2024 33124-Zmbv. Subungual Hematoma 18737,F9621-AQK TENDON SHEATH/LIGAMENT 0 05/17/2016 Next Appt Details Provider Name:Josy Barney , 05/09/2025 11:00:00 AM, [address] [facility], [place], [address], Insurance Providers Payer Name Payer Address Payer Phone Subscriber Number Group Number Insured Name Patient Relationship to Insured Coverage Start Date Coverage End Date Medicare National [employer] [address] [place] [address] [phone] [id number] Wan Lopez Self - patient is the insured [employer] [address] [place] [address] [phone] [id number] Wan Lopez Self - patient is the insured for Life [address] [place] [id number] [phone] [id number] Wan Lopez Self - patient is the insured Medical (General) History Medical History History ICD Code cataracts testicular cancer measles mumps chicken pox Broken bones Diverticulosis Heart disease Lyme disease Numbness Stroke Warts Chicken pox Joint implants/screws Replacement Heart Valves Transfusions Surgical History Surgery Date(Month/Year) cataract surgery heart valve replacement, pacemaker Hospitalization History Reason Date(Month/Year)
--- OUTSIDE RECORDS SUMMARY | 2025-03-07 16:19 | XMS_ITS ---
Author Name [facility] Organization [facility] Address [address] [place] [address] Care Team Providers Care Private Investigator Surveillance Name Role Phone JOSE ANGEL CHASE Primary Care Provider Unavail able Insurance Providers: [...] SUPPLEMEN DEVIN MEDEX 2 Jun 20, 2013 [id number] OLIVER OLIVAREZ PATIENT [place] SUPPLEMEN DEVIN MEDEX 2 Jun 20, 2013 [id number] [phone] OLIVER OLIVAREZ PATIENT [place] SUPPLEMEN DEVIN MEDEX 2 Jun 20, 2013 [id number] [phone] OLIVER OLIVAREZ PATIENT [place] MED[place]ARE SUPPLEMEN TAL MEDEX 2 Jun 20, 2013 [id number] [phone] OLIVER OLIVAREZ MEDICARE (WNR) MEDICARE (M) PART A Apr 20, 2004 PART A [id number] [phone] OLIVER OLIVAREZ PATIENT MEDICARE (WNR) MEDICARE (M) PART B Apr 20, 2004 PART B [id number] [phone] OLIVER OLIVAREZ PATIENT MEDICARE (WNR) MEDICARE (M) PART A Apr 20, 2004 PART A [id number] OLIVER OLIVAREZ PATIENT MEDICARE (WNR) MEDICARE (M) PART B Apr 20, 2004 PART B [id number] OLIVER OLIVAREZ FOR LIFE TFL* Oct 24, 2017 [id number] OLIVER OLIVAREZ PATIENT Selected Encounter This section includes the information on record at [place] for the Encounter. Date/Time Encounter Type Encounter Description Reason Pro vider Source Mar 03, 2025 10:42 AM Outpatient Encounter COMMUNITY CARE CONSULT IHE Encounter Template Text not used by [place] Plan of Treatment: Future Appointments (+ 6 months) and Future Tests (+/- 45 days) The Plan of Treatment section includes future care activities for the patient from all [place] treatmentfacilities. This section includes future appointments and future orders which are active, pending or scheduled. Future Appointments This section includes appointments that were scheduled to occur 6 months from the date of the Encounter, up to a maximum of 20 appointments. The data comes from all [place] treatment facilities. Appointment Date/Time Appointment Type Appointme nt Facility Name Mar 04, 2025 01:00 PM AMBULATORY - NONE [facility] [place] [facility] Mar 04, 2025 01:01 PM AM[place] [facility] Mar 04, 2025 02:00 PM AMBULATORY - REHAB MEDICIN E [facility] [place] [facility] May 13, 2025 01:00 PM AMBULATORY - NONE [facility] May 13, 2025 01:01 PM [place]UL[place] - [place] [facility] Jun 19, 2025 03:00 PM [facility] [place] [facility] [place] [facility] Aug 11, 2025 03:00 PM AMBULATORY - MEDICINE [facility] Active, Pending, and Scheduled Orders This section includes a listing of several types of active, pending, and scheduled orders, including clinic medications orders, diagnostic test orders, procedure orders and consult orders; where the start date of the order is 45 days before the date of the Encounter or 45 days after the date of theEncounter. The data comes from all [place] treatment facilities. Test Date/Time Test Type Test Details Facility Name Mar 03, 2025 02:23 PM Consult Order COMMUNITY CARE-ONCOLOGY Cons Power Driven Brush Maker's Choice [facility] Social History: Smoking Status (Most current) and Tobacco Use (All prior to encounter date) This section includes the most current, and the historical, smoking and tobacco- related health factors from the [place] facility where the Encounter took place. Current Smoking Status This section includes the most current smoking, or tobacco-related health factor, from the [place] facility where the Encounter took place. Date/Time Current Smoking Status Comment Facil ity Feb 19, 2024 02:00 PM VA-TOBACCO NEVER USED [facility] Tobacco Use History This section includes a history of the smoking, or tobacco-related health factors, that were collected on or before the date of the Encounter. The data comes from the [place] facility where the Encounter took place. Date/Time Smoking Status/Tobacco Use Comment F acility Feb 21, 2023 02:30 PM [place]-TOBACCO NEVER [facility]ED [facility] Jul 22, 2021 02:30 PM VA-TOBACCO NEVER US[facility] Advance Directives: All historical and current Section Date Range: From patient's date of to the date document was created. This section includes ALL of a patient's completed or amended [place] Advance and Rescinded Directives. The entries below indicate that a directive exists for the patient, but an actual copy is not included with this document. The data comes from all [place] facilities. Date Advance Directives Provider Source Nov 07, 2024 ADVANCE DIRECTIVE JOHN KUMAR [facility] Encounter Notes: All associated encounter notes This section contains the clinical notes associated to the Encounter. Date/Time Encounter Note(s) Provider Source Mar 03, 2025 10:42 AM ADMINISTRATIVE NOT E: LOCAL TITLE: ADMINISTRATIVE NOTE STANDARD TITLE: ADMINISTRATIVE NOTE DATE OF NOTE: MAR 03, 2025@10:42 ENTRY DATE: MAR 03, 2025@10:42:08 AUTHOR: DAVID WALKER COSIGNER: URGENCY: STATUS: COMPLETED ADMINISTRATIVE NOTE Has ADDENDA Received fax and call from [facility] reporting is scheduled for follow up care 03/05/25 and will have appts after that date. His previous authorization will on 03/26/25. Should PCP be in agreement a new community care Oncology consult would be needed. Alerting PACT to review. /esmer/ DAVID WALKER Signed: 03/03/2025 10:43 Receipt Acknowledged By: 03/03/2025 13:41 /esmer/ GENO SPARROW RN REGISTERED NURSE 03/03/2025 14:23 /esmer/ Jose Angel Chase PA-C STAFF PHYSICIAN CUSTOMER SUPPORT PROFESSIONAL 03/03/2025 ADDENDUM STATUS: COMPLETED Consult entered, pending provider signature. /esmer/ GENO SPARROW RN REGISTERED NURSE Signed: 03/03/2025 13:41 DAVID WALKER [place] [facility]
--- OUTSIDE RECORDS SUMMARY | 2025-03-07 16:19 | XMS_ITS | Encounter Summary ---
Author Name [facility] [place] [facility] [place] [facility] [place] [facility] [place] Address [address] [place] [address] Care Team Providers Care Director Alumni Relations Name Role Phone PAZ WOODS Primary Care [...] SUPPLEMEN DEVIN MEDEX 2 Jun 20, 2013 [id number] OLIVER [facility]IVAREZ [facility] SUPPLEMEN DEVIN MEDEX 2 Jun 20, 2013 [id number] OLIVER OLIVAREZ PATIENT [facility] MEDICARE SUPPLEMEN DEVIN MEDEX 2 Jun 20, 2013 [id number] [phone] OLIVER OLIVAREZ PATIENT [place] MEDIC[place] SUPPLEMEN DEVIN MEDEX 2 Jun 20, 2013 [id number] [phone] OLIVER OLIVAREZ PATIENT MEDICARE (WNR) MEDICARE (M) PART A Apr 20, 2004 PART A [id number] OLIVER OLIVAREZ PATIENT MEDICARE (WNR) MEDICARE (M) PART B Apr 20, 2004 PART B [id number] [phone] OLIVER OLIVAREZ PATIENT MEDICARE (WNR) MEDICARE (M) PART A Apr 20, 2004 PART A [id number] [phone] OLIVER OLIVAREZ PATIENT MEDICARE (WNR) MEDICARE (M) PART B Apr 20, 2004 PART B [id number] OLIVER OLIVAREZ FOR LIFE TFL* Oct 24, 2017 [id number] OLIVER OLIVAREZ PATIENT Selected Encounter This section includes the information on record at [place] for the Encounter. Date/Time Encounter Type Encounter Description Reason Provider Source Sep 11, 2024 09:30 AM [facility] 1ST HOUR AUDIOLOGY ICD-10-CM H90.3 Sensorineural hearing loss, bilateral OLIVA QUIROZ IHE Encounter Template Text not used by [place] Assessments - Encounter Diagnoses This section includes the primary and secondary diagnoses documented for the Encounter. Date/Time Primary/Secondary Diagnosis Diagnosis Name Provider Source Sep 11, 2024 03:03 PM PRIMARY Sensorineural hearing loss, bilateral MONSE GARNER [facility] Sep 11, 2024 03:03 PM SECONDARY Encounter for fitting and adjustment of hearing aid MONSE GARNER [facility] Plan of Treatment: Future Appointments (+ 6 months) and Future Tests (+/- 45 days) The Plan of Treatment section includes future care activities for the patient from all [place] treatmentfacilities. This section includes future appointments and future orders which are active, pending or scheduled. Future Appointments This section includes appointments that were scheduled to occur 6 months from the date of the Encounter, up to a maximum of 20 appointments. The data comes from all [place] treatment facilities. Appointment Date/Time Appointment Type Appointme nt Facility Name Sep 12, 2024 03:30 PM [facility] [place] [facility] Sep 27, 2024 11:30 AM [facility] [place] [facility] Oct 02, 2024 10:00 AM AMBULATORY [facility] NONE [facility] [place] [facility] Nov 07, 2024 10:00 AM [facility]ORY [facility] Nov 07, 2024 01:00 PM [facility] [place] [facility] Dec 05, 2024 11:00 AM AMBULATORY - [facility] Dec 11, 2024 10:00 AM AMBULATORY - [facility] Jan 15, 2025 08:00 AM AM[facility]ULATORY [facility] Jan 15, 2025 11:30 AM AMBULATORY - [facility] Jan 29, 2025 01:00 PM AM[facility]ULATORY [facility] NONE [facility] [place] [facility] Jan 29, 2025 01:01 PM [facility] [place] [facility] [place] [facility] Feb 12, 2025 02:00 PM AMBULATORY [facility] NONE [facility] [place] [facility] Feb 12, 2025 02:01 PM [facility] [place] [facility] Mar 04, 2025 01:00 PM AMBULATORY [facility] NONE [facility] [place] [facility] Mar 04, 2025 01:01 PM [facility] [place] [facility] [place] [facility] Mar 04, 2025 02:00 PM [facility] Lab Results: +/- 30 days of the encounter This section includes the Chemistry and Hematology Lab Results on record with [place] for the patient. Radiology Reports and Pathology Reports are provided separately, in subsequent sections. Lab Results This section contains the Chemistry/Hematology Results that were resulted 30 days before or 30 daysafter the date of the Encounter. Date/Time Source Result Type Result - Unit Interpretation Reference Range Specimen Type Comment Aug 13, 2024 03:29 PM [place] [facility] FERRITIN SERUM Specimen Type: SERUM No comment entered. Ordering Provider: RENETTA WOODS Report Released Date/Time: Feb 19, 2024 02:41 PM Reporting [facility] [address] [address] Performing Lab: [facility] [address] [facility] [address] FERRITIN 66 ng/mL 20-300 Aug 13, 2024 03:29 PM [facility] IRON & TIBC PANEL SERUM Specimen Type: SERUM No comment entered. Ordering Provider: PAZ WOODS Report Released Date/Time: Feb 19, 2024 02:41 PM Reporting Lab: [facility] [address] [facility] [address] Performing Lab: [facility] [address] [facility] [address] TIBC 298 ug/dL 204-475 IRON 62 ug/dL 40-160 Transferrin Saturation 20.8 20.0-50.0 Transferrin (TRF) 226 mg/dL 200-360 Aug 13, 2024 03:29 PM [facility] LIVER FUNCTION SERUM Specimen Type: SERUM No comment entered. Ordering Provider: PAZ WOODS Report Released Date/Time: Feb 19, 2024 02:41 PM Reporting Lab: [facility] [address] [facility] [address] Performing Lab: [facility] [address] [facility] [address] PROTEIN,TOTAL 6.0 g/dL 6.0-8.3 ALBUMIN 3.7 g/dL 3.5-5.0 ALKALINE PHOSPHATASE 86 U/L 40-150 AST 15 U/L 5-34 ALT 10 U/L BILIRUBIN, TOTAL 0.4 mg/dL 0.2-1.2 Aug 13, 2024 03:29 PM [facility] BASIC METABOLIC PANEL (fasting) SERUM Specime n Type: SERUM No comment entered. Ordering Provider: PAZ WOODS Report Released Date/Time: Feb 19, 2024 02:41 PM Reporting Lab: [facility] [address] [facility] [address] Performing Lab: [facility] [address] [facility] [address] UREA NITROGEN 22 mg/dL 7-25 GLUCOSE 98 mg/dL 65-100 SODIUM 140 mmol/L 135-145 POTASSIUM 4.1 mmol/L 3.5-5.0 CHLORIDE 110 mmol/L 100-110 CO2 21 meq/L 20-30 CREATININE, Serum 1.75 mg/dL H 0.50-1.40 eGFR(CKD-EPI 2020) 38 mL/min L >60 Aug 13, 2024 03:29 PM [facility] LIPID PANEL FASTING SERUM Specimen Type: SERU M No comment entered. Ordering Provider: PAZ WOODS Report Released Date/Time: Feb 19, 2024 02:41 PM Reporting Lab: [address] [address] Performing Lab: [address] [address] CHOLESTEROL 141 mg/dL TRIGLYCERIDE 137 mg/dL 0-150 LDL calculated 61 mg/dL 0-129 CHOL/HDL 2.7 HDL CHOLESTEROL 53 mg/dL 40-60 Aug 13, 2024 03:29 PM [facility] PSA SERUM Specimen Type: SERUM No comment entered. Ordering Provider: PAZ WOODS Report Released Date/Time: Feb 19, 2024 02:41 PM Reporting Lab: [address] [address] Performing Lab: [address] [address] PSA < 0.10 ng/mL 0.00-4.00 Aug 13, 2024 03:29 PM [facility] CBC AND DIFF (AUTO) BLOOD Specimen Type: BLOO D No comment entered. Ordering Provider: PAZ WOODS Report Released Date/Time: Feb 19, 2024 02:41 PM Reporting Lab: [address] [address] Performing Lab: [address] [address] WBC 6.45 10*3/uL 4.50-11.00 RBC 3.41 10*6/uL [...] 2024 09:39 AM 97.8 60 170/71 100 [facility] Advance Directives: All historical and current Section Date Range: From patient's date of to the date document was created. This section includes ALL of a patient's completed or amended [place] Advance and Rescinded Directives. The entries below indicate that a directive exists for the patient, but an actual copy is not included with this document. The data comes from all [place] facilities. Date Advance Directives Provider Source Nov 07, 2024 ADVANCE DIRECTIVE JOHN KUMAR [place] [facility] Radiology Reports: +/- 30 days of the [...] the Encounter. The data comes from all [place] treatment facilities. Date/Time Radiology Report Provider Source Oct 02, 2024 09:[address] ORBIT SELLA P FOS OR TEMP BONE W/O CONT: OLIVER OLIVAREZ [id number] -[id number] M Exm Date: OCT 02, 2024@09:59 Req Phys: PAZ WOODS Loc: CWM/NO/PACT 3 (Req'g Loc) Img Loc: NHM/CT [facility] [place] [address] (Case [id number] COMPLETE) CT ORBIT SELLA P FOS OR TEMP BONE(CT Detailed) CPT:20115 Reason for Study: We are also requesting a CT IAC (CT Temporal) w/o contrast Clinical [facility] Report Status: Verified Date Reported: OCT 03, 2024 Date Verified: OCT 03, 2024 Advertising Columnist E-Sig: Report: CT ORBIT SELLA P FOS [...] facility. Images were then submitted to the [facility] National Teleradiology Program (NTP) for interpretation. 745 images were received by the [place] National Teleradiology Program (NTP) for interpretation. If provided to [facility] NTP by local facility, intravenous contrast and/or [...] temporal bones. READING PHYSICIAN: Kimber Adair M.D. -[phone] 10/03/2024 8:12 [facility] National Teleradiology Program [phone] (For Medical Practitioner Use Only) Attention Patients / Veterans: If you have questions or concerns about these test results, please contact your ordering provider or primary care team. Primary Diagnostic Code: NO ALERT REQUIRED Primary Interpreting Staff: RADIOLOGY,OUTSIDE SERVICE, Staff Physician / RADIOLOGY,OUTSIDE SERVICE [place] [facility] Encounter Notes: All associated encounter notes This section contains the clinical notes associated to the Encounter. Date/Time Encounter Note(s) Provider Source Sep 11, 2024 03:23 PM AUDIOLOGY NOTE: LOCAL TITLE: AUDIO EVALUATION NOTE STANDARD TITLE: AUDIOLOGY NOTE DATE OF NOTE: SEP 11, 2024@15:23 ENTRY DATE: SEP 11, 2024@15:23:23 AUTHOR: MARY KAY QUIROZ COSIGNER: URGENCY: STATUS: COMPLETED AUDIO EVALUATION NOTE Has ADDENDA Discussed plan of care with Audiology Compliance Lead and agree with the findings, assessment and plan as noted below: 84 year old with bilateral sensorineural hearing loss was seen today for an audiological re-evaluation, LEFT hearing aid check, and CI candidacy evaluation for RIGHT ear. accompanied by his and daughter during today's visit. previously had a RIGHT CI candidacy evaluation on 07/19/23 where he was deemed a CI candidate. decided on RIGHT Med EL Flex 28 and Rosales 2 in light bergman during that appointment. However, due to lack of GI medical clearance, the RIGHT CI surgery was cancelled. CI candidacy evaluation was performed today with a stock RIGHT BEULAH M90 BTE fit with a Comply Tip cotton jammer. CNC SCORES: (60 dB contralateral masking used via insert) Condition List Words Correct R aided, quiet 15 0/50 [place] BIO SENTENCE SCORES: CONDITION LIST SCORE R aided quiet 15 0/138 = 0% (60dB masking, L insert) arrived with only 2016 left MCCAULEY. Reported: - Decline in hearing Tinnitus: Longstanding, occasional, non-bothersome, ringing (AU) Vertigo: Denied Otalgia: Denied Otorrhea: Denied Ear surgery: Denied Cancer hx. (concerns for ototoxicity): Denied Hearing aid history[place] 05/03/21 [facility] [place] REGIS R R [id number] 05/27/24 05/03/21 [facility] [place] REGIS R L [id number] 05/27/24 03/08/16 [facility] Z SERIES I110 MINI BTE 312 R [id number] 03/08/16 [facility] Z SERIES I110 MINI BTE 312 L [id number] Otoscopy: AU- WNL, Clear canals and TMs visible Tympanometry: AD- Type As (Normal volume and pressure, hypocompliance) - Type A (Normal volume, pressure, & compliance) Pure-tone air and bone conduction testing: AD- DNT - WNL (250 Hz) to moderately-severe SNHL Speech Recognition Threshold: AD- DNT - 35 dB SRT Speech discrimination using PB function: AD- DNT - Excellent (96%) at 75 dB HL Counseled on: Configuration of hearing loss and implications Realistic expectations for amplification Good communication strategies Tinnitus management/intervention Hearing aid assessment was completed. Marianna is a good hearing aid candidate for left ear based on degree/configuration of hearing loss. Discussed different amplification options and decided on LEFT Refugio Fernandez AI REGIS, which will be compatible with his RIGHT Med El cochlear implant sound processor. Ordered: LEFT EAR Model: Warranty: Circuit: Options: Model: FERNANDEZ AI REGIS RT Warranty: 3YR Circuit: FERNANDEZ AI Options: AUTOMATIC TELEPHONE RESPONSE [STD], INDUCTION COIL [STD], *DIRECTIONAL MICROPHONE, ROCKER SWITCH [STD], *STARLINK PREMIUM PRE SCHOOL TEACHER 2.0 REGIS RT, M ORDER DESK CLERK SIZE 2 Shell Color: GRAPHITE MA BTE (GRAPH MA) Open Fit Item: 7MM OCCLUDED COMFORT EARBUD ([id number]), 7MM OPEN COMFORT EARBUD ([id number] hearing aids were checked and found to be in good working condition. -Cleaned/changed: Dome (7mm open dome) IMPRESSION: Marianna remains a CI candidacy single-sided/asymmetric hearing loss criteria as today's sound field testing (CNC and AzBio) score remain 0%, same as previous CI evaluation on 07/19/23. and his family will like to continue RIGHT CI process. Realistic expectations regarding RIGHT CI were covered in detailed. will like to continue with MED-El but with Sonnet 2 and Rosales 3 in light bergman. Based on today's audiological re-evaluation results for , 's pure tone thresholds and speech scores for were stable when compared to audiogram completed on 02/06/2024. Marianna acknowledged and verbalized understanding of all the information provided today and was given the opportunity to ask questions. Plan: 1. RIGHT CI surgery will be scheduled based on 's availability 2. Monitor hearing every 2-3 years, sooner per concern, or any change in otologic/vestibular history. 3. Marianna will contact the clinic with any questions or concerns. Barriers/Considerations for Learning Assessed None List any [...] given/reviewed: (why not?) N/A /esmer/ Saravanan ABREU, JOSÉ MIGUEL AUTOMOTIVE PARTS COUNTER ASSISTANT Signed: 09/11/2024 15:24 09/18/2024 ADDENDUM STATUS: COMPLETED Marcelo raymond'jose m and held in clinic [place] drawers[facility] /Saravanan Nowak CCC-A AUTOMOTIVE PARTS COUNTER ASSISTANT Signed: 09/18/2024 09:37 11/22/2024 ADDENDUM STATUS: COMPLETED Med-El Synchrony 2 Flex28 implants and Rondo2 processors (cool bergman) ordered for upcoming surgery on 12/05/2024 /esmer/ Saravanan Montanez Loading Machine Operator, Audiology and Speech Pathology Signed: 11/22/2024 10:02 12/02/2024 ADDENDUM STATUS: COMPLETED primary CI kit and backup received /esmer/ Saravanan Montanez Loading Machine Operator, Audiology and Speech Pathology Signed: 12/02/2024 14:52 12/06/2024 ADDENDUM STATUS: COMPLETED Pt implanted with (R) Med-el Synchrony Flex 28 (SN: [id number]) Registration completed and back-up implant mailed to [employer] Tracking #: [id number] /Saravanan Nowak, JOSÉ MIGUEL AUTOMOTIVE PARTS COUNTER ASSISTANT Signed: 12/06/2024 09:32 MARY KAY QUIROZ [facility] Sep 11, 2024 10:25 AM AUDIOLOGY NOTE: LOCAL TITLE: AUDIO EVALUATION NOTE STANDARD TITLE: AUDIOLOGY NOTE DATE OF NOTE: SEP 11, 2024@10:25 ENTRY DATE: SEP 11, 2024@10:26:03 AUTHOR: COLLINS GARNER EXP COSIGNER: MARY KAY QUIROZ URGENCY: STATUS: COMPLETED 84 year old with bilateral sensorineural hearing loss was seen today for an audiological re-evaluation, LEFT hearing aid check, and CI candidacy evaluation for RIGHT ear. Marianna accompanied by his and daughter during today's visit. previously had a RIGHT CI candidacy evaluation on 07/19/23 where he was deemed a CI candidate. Marianna decided on RIGHT Med EL Flex 28 and Rosales 2 in light bergman during that appointment. However, due to lack of GI medical clearance, the RIGHT CI surgery was cancelled. CI candidacy evaluation was performed today with a stock RIGHT BEULAH M90 BTE fit with a Comply Tip cotton jammer. CNC SCORES: (60 dB contralateral masking used via insert) Condition List Words Correct R aided, quiet 15 0/50 [place] BIO SENTENCE SCORES: CONDITION LIST SCORE R aided quiet 15 0/138 = 0% (60dB masking, L insert) Marianna arrived with only 2016 left M[place]. Reported: - Decline in hearing Tinnitus: Longstanding, occasional, non-bothersome, ringing (AU) Vertigo: Denied Otalgia: Denied Otorrhea: Denied Ear surgery: Denied Cancer hx. (concerns for ototoxicity): Denied Hearing aid history: 05/03/21 [facility] [place] REGIS R R [id number] 05/27/24 05/03/21 [facility] [place] REGIS R L [id number] 05/27/24 03/08/16 [facility] Z SERIES I110 MINI BTE 312 R [id number] 03/08/16 [facility] Z SERIES I110 MINI BTE 312 L [id number] Otoscopy: AU- WNL, Clear canals and TMs visible Tympanometry: AD- Type As (Normal volume and pressure, hypocompliance) - Type A (Normal volume, pressure, & compliance) Pure-tone air and bone conduction testing: AD- DNT - WNL (250 Hz) to moderately-severe SNHL Speech Recognition Threshold: AD- DNT - 35 dB SRT Speech discrimination using PB function: AD- DNT - Excellent (96%) at 75 dB HL Counseled on: Configuration of hearing loss and implications Realistic expectations for amplification Good communication strategies Tinnitus management/intervention Hearing aid assessment was completed. Marianna is a good hearing aid candidate for left ear based on degree/configuration of hearing loss. Discussed different amplification options and decided on LEFT Refugio Fernandez AI REGIS, which will be compatible with his RIGHT Med El cochlear implant sound processor. Ordered: LEFT EAR Model: Warranty: Circuit: Options: Model: FERNANDEZ AI REGIS RT Warranty: 3YR Circuit: FERNANDEZ AI Options: AUTOMATIC TELEPHONE RESPONSE [STD], INDUCTION COIL [STD], *DIRECTIONAL MICROPHONE, ROCKER SWITCH [STD], *STARLINK PREMIUM PRE SCHOOL TEACHER 2.0 REGIS RT, M ORDER DESK CLERK SIZE 2 Shell Color: GRAPHITE MA BTE (GRAPH MA) Open Fit Item: 7MM OCCLUDED COMFORT EARBUD ([id number]), 7MM OPEN COMFORT EARBUD ([id number] hearing aids were checked and found to be in good working condition. -Cleaned/changed: Dome (7mm open dome) IMPRESSION: Marianna remains a CI candidacy single-sided/asymmetric hearing loss criteria as today's sound field testing (CNC and AzBio) score remain 0%, same as previous CI evaluation on 07/19/23. and his family will like to continue RIGHT CI process. Realistic expectations regarding RIGHT CI were covered in detailed. Marianna will like to continue with MED-El but with Sonnet 2 and [place] 3 in light bergman. Based on today's audiological re-evaluation results for , 's pure tone thresholds and speech scores for were stable when compared to audiogram completed on 02/06/2024. Marianna acknowledged and verbalized understanding of all the information provided today and was given the opportunity to ask questions. Plan: 1. RIGHT CI surgery will be scheduled based on 's availability 2. Monitor hearing every 2-3 years, sooner per concern, or any change in otologic/vestibular history. 3. Marianna will contact the clinic with any questions or concerns. Barriers/Considerations for Learning Assessed: Hearing impaired READINESS TO LEARN: Ready to learn, patient receptive STYLES OF LEARNING PREFERRED: Discussion Ability to comprehend instruction: Yes Pt/caregiver received information that included interactive discussion and when applicable demonstration. Instruction was understood as evidenced by the ability to repeat significant information, ask pertinent questions, and demonstrate/verbalize skills learned? Yes Learner demonstrated understanding of information taught: Yes Reinforcement/Repeat Education Needed: No Additional take home instruction materials/supplies given/reviewed: N/A /esmer/ COLLINS GARNER Audiology Power Technician Signed: 09/11/2024 15:03 /esmer/ Saravanan ABREU, [facility]-A AUTOMOTIVE PARTS COUNTER ASSISTANT Cosigned: 09/11/2024 15:23 COLLINS GARNER [facility]
--- OUTSIDE RECORDS SUMMARY | 2025-03-07 16:19 | XMS_ITS | Encounter Summary ---
Author Name [facility] [place] [facility] [place] Address [address] [place] [address] Care Team Providers Care Side Piece Coverer Name Role Phone PAZ WOODS Primary Care [...] SUPPLEMEN DEVIN MEDEX 2 Jun 20, 2013 [id number] OLIVER OLIVAREZ PATIENT [place] MEDIC[place] SUPPLEMEN DEVIN MEDEX 2 Jun 20, 2013 [id number] OLIVER [place]IVAREZ [place] SUPPLEMEN DEVIN MEDEX 2 Jun 20, 2013 [id number] OLIVER OLIVAREZ PATIENT [place] MEDIC[place] SUPPLEMEN DEVIN MEDEX 2 Jun 20, 2013 [id number] [phone] OLIVER OLIVAREZ PATIENT MEDICARE (WNR) MEDICARE (M) PART A Apr 20, 2004 PART A [id number] [phone] OLIVER OLIVAREZ PATIENT MEDICARE (WNR) MEDICARE (M) PART B Apr 20, 2004 PART B [id number] [phone] OLIVER OLIVAREZ PATIENT MEDICARE (WNR) MEDICARE (M) PART A Apr 20, 2004 PART A [id number] OLIVER OLIVAREZ PATIENT MEDICARE (WNR) MEDICARE (M) PART B Apr 20, 2004 PART B [id number] [phone] OLIVER OLIVAREZ PATIENT FOR LIFE TFL* Oct 24, 2017 [id number] OLIVER OLIVAREZ PATIENT Selected Encounter This section includes the information on record at [place] for the Encounter. Date/Time Encounter Type Encounter Description Reason Pro vider Source Dec 04, 2024 11:02 AM Outpatient Encounter ADMIN PAT ACTIVTIES (MASNONCT) IHE Encounter Template Text not used by [place] Plan of Treatment: Future Appointments (+ 6 months) and Future Tests (+/- 45 days) The Plan of Treatment section includes future care activities for the patient from all [place] treatmentfacilities. This section includes future appointments and future orders which are active, pending or scheduled. Future Appointments This section includes appointments that were scheduled to occur 6 months from the date of the Encounter, up to a maximum of 20 appointments. The data comes from all [place] treatment facilities. Appointment Date/Time Appointment Type Appointme nt Facility Name Dec 05, 2024 11:00 AM [facility] [place] [facility] Dec 11, 2024 10:00 AM [facility] [place] [facility] Jan 15, 2025 08:00 AM [facility] [place] [facility] Jan 15, 2025 11:30 AM [facility] [place] [facility] Jan 29, 2025 01:00 PM [place] NONE [place] [facility] [facility] Jan 29, 2025 01:01 PM [place] [facility] Feb 12, 2025 02:00 PM [place] [facility] [place] [facility] Feb 12, 2025 02:01 PM [facility]ORY - [place] [facility] Mar 04, 2025 01:00 PM [facility] [place] [facility] [place] [facility] Mar 04, 2025 01:01 PM [facility] Mar 04, 2025 02:00 PM [place] [facility] [place] [facility] May 13, 2025 01:00 PM [place]ONE [place] [facility] [place] [facility] May 13, 2025 01:01 PM AMBULATORY - SURGERY [facility] Lab Results: +/- 30 days of the encounter This section includes the Chemistry and Hematology Lab Results on record with [place] for the patient. Radiology Reports and Pathology Reports are provided separately, in subsequent sections. Lab Results This section contains the Chemistry/Hematology Results that were resulted 30 days before or 30 daysafter the date of the Encounter. Date/Time Source Result Type Result - Unit Interpretation Reference Range Specimen Type Comment Dec 05, 2024 11:07 AM [facility] MRSA/SA SCREEN NARES Specimen Type: NARES No comment entered. Ordering Provider: LIGIA SHAFER Report Released Date/Time: Dec 05, 2024 11:05 AM Reporting Lab: [facility] [address] [facility] [address] Performing Lab: [address] [address] MRSA SURVL NARES DNA Negative Negative SA Negative Negative Nov 07, 2024 01:35 PM [facility] BASIC METABOLIC PANEL (fasting) SERUM Specime n Type: SERUM No comment entered. Ordering Provider: PAZ WOODS Report Released Date/Time: Sep 20, 2024 01:52 PM Reporting Lab: [facility] [address] [facility] [address] Performing Lab: [address] [address] UREA NITROGEN 26 mg/dL H 7-25 GLUCOSE 161 mg/dL H 65-100 SODIUM 137 mmol/L 135-145 POTASSIUM 4.1 mmol/L 3.5-5.0 CHLORIDE 109 mmol/L 100-110 CO2 20 meq/L 20-30 CREATININE, Serum 1.60 mg/dL H 0.50-1.40 eGFR(CKD-EPI 2020) 42 mL/min L >60 Nov 07, 2024 01:35 PM [facility] LIVER FUNCTION SERUM Specimen Type: SERUM No comment entered. Ordering Provider: PAZ WOODS Report Released Date/Time: Sep 20, 2024 01:52 PM Reporting Lab: [address] [address] Performing Lab: [address] [address] PROTEIN,TOTAL 6.4 g/dL 6.0-8.3 ALBUMIN 3.9 g/dL 3.5-5.0 ALKALINE PHOSPHATASE 80 U/L 40-150 AST 14 U/L 5-34 ALT 11 U/L BILIRUBIN, TOTAL 0.5 mg/dL 0.2-1.2 Nov 07, 2024 01:35 PM [facility] FERRITIN SERUM Specimen Type: SERUM No comment entered. Ordering Provider: PAZ WOODS Report Released Date/Time: Sep 20, 2024 01:52 PM Reporting Lab: [address] [address] Performing Lab: [address] [address] FERRITIN 46 ng/mL 20-300 Nov 07, 2024 01:35 PM [facility] IRON & TIBC PANEL SERUM Specimen Type: SERUM No comment entered. Ordering Provider: PAZ WOODS Report Released Date/Time: Sep 20, 2024 01:52 PM Reporting Lab: [address] [address] Performing Lab: [address] [address] TIBC 333 ug/dL 204-475 IRON 73 ug/dL 40-160 Transferrin Saturation 21.9 20.0-50.0 Transferrin (TRF) 252 mg/dL 200-360 Nov 07, 2024 01:35 PM [facility] CBC AND DIFF (AUTO) BLOOD Specimen Type: BLOO D No comment entered. Ordering Provider: PAZ WOODS Report Released Date/Time: Sep 20, 2024 01:52 PM Reporting Lab: [facility] [address] [facility] [facility] [address] Performing Lab: [facility] [address] [facility] [facility] [address] WBC 5.12 10*3/uL 4.50-11.00 RBC 3.42 10*6/uL [...] 10*3/uL 0.00-0.00 Nov 07, 2024 01:35 PM [facility] PT & INR (PROTIME) PLASMA Specimen Type: PLASM A No comment entered. Ordering Provider: PAZ WOODS Report Released Date/Time: Sep 20, 2024 01:52 PM Reporting Lab: [facility] [address] [facility] [facility] [facility] [address] Performing Lab: [facility] [address] [facility] [address] INR 1.2 PROTIME 13.1 s 10.0-13.1 Nov 07, 2024 01:34 PM [facility] VITAMIN B12 SERUM Specimen Type: SERUM No comment entered. Ordering Provider: PAZ WOODS Report Released Date/Time: Nov 07, 2024 01:04 PM Reporting Lab: [facility] [address] [address] Performing Lab: [facility] [address] [address] VITAMIN B12 389 pg/mL 200-900 Advance Directives: All historical and current Section Date Range: From patient's date of to the date document was created. This section includes ALL of a patient's completed or amended [place] Advance and Rescinded Directives. The entries below indicate that a directive exists for the patient, but an actual copy is not included with this document. The data comes from all [place] facilities. Date Advance Directives Provider Source Nov 07, 2024 ADVANCE DIRECTIVE JOHN KUMAR [facility] Encounter Notes: All associated encounter notes This section contains the clinical notes associated to the Encounter. Date/Time Encounter Note(s) Provider Source Dec 04, 2024 11:02 AM [facility] NOTE: LOCAL TITLE: PRE OP HOLDING TELEPHONE NOTE STANDARD TITLE: NURSING ADMINISTRATIVE NOTE DATE OF NOTE: DEC 04, 2024@11:02 ENTRY DATE: DEC 04, 2024@11:02:38 AUTHOR: TRACEE GONZALEZ EXP COSIGNER: URGENCY: STATUS: COMPLETED PRE OPERATIVE HOLDING TELEPHONE NOTE A pre-operative telephone call was made to the patient Made contact with patient Patient reached via: cell phone Best number to contact patient day of surgery: COVID/Illness Screening Does the have symptoms of COVID/Illness? (Cough, Shortness of Breath, Sore Throat, Fever, Nasal or Congestion or Recent exposure to someone with COVID) No The following instructions were reviewed with verbalized understanding: Report to [facility], [facility] 1, 3rd floor at: Nov@11:00 NPO after midnight. It is dangerous to have anesthesia with food or liquids (other than water) in your stomach. Surgery may be cancelled if these instructions are not followed. If instructed to take any medications the morning of surgery, take with a small sip of water NPO Status: Yes Patient aware of medications to be held the morning of surgery per anesthesia consult Yes Hold medications that can prolong bleeding time (Coumadin, Aspirin, NSAIDS, Vitamin E, Fish oil, etc.) Bring photo ID. Do not bring valuables or medications. Wear comfortable clothes. Glasses, contacts, dental appliances, jewelry/piercings will be removed prior to surgery. You cannot drive after receiving anesthesia. You must arrange transportation home with a responsible adult. If you become ill or unable to keep your appointment for surgery, please notify [facility] (hours 6am-7pm) at [phone]. [phone] or the call center [phone] Who is driving you home after post procedure? Name of person:Traci( ) Phone number of person:[phone] /es/ KEVIN ZAMAN RN REGISTERED NURSE Signed: 12/04/2024 11:03 TRACEE GONZALEZ [facility]
--- OUTSIDE RECORDS SUMMARY | 2025-03-07 16:19 | XMS_ITS | Encounter Summary ---
Author Name [facility] [place] [facility] [place] Address [address] [place] [address] Care Team Providers Care Pillowcase Cutter Name Role Phone PAZ WOODS Primary Care [...] SUPPLEMEN DEVIN MEDEX 2 Jun 20, 2013 [id number] OLIVER LOPEZ PATIENT [place] MEDICARE SUPPLEMEN DEVIN MEDEX 2 Jun 20, 2013 [id number] OLIVER LOPEZ PATIENT [facility] MEDICARE SUPPLEMEN DEVIN MEDEX 2 Jun 20, 2013 [id number] OLIVER LOPEZ [place] SUPPLEMEN DEVIN MEDEX 2 Jun 20, 2013 [id number] OLIVER LOEPZ PATIENT MEDICARE (WNR) MEDICARE (M) PART A Apr 20, 2004 PART A [id number] [phone] OLIVER LOPEZ PATIENT MEDICARE (WNR) MEDICARE (M) PART B Apr 20, 2004 PART B [id number] OLIVER LOPEZ PATIENT MEDICARE (WNR) MEDICARE (M) PART A Apr 20, 2004 PART A [id number] OLIVER LOPEZ PATIENT MEDICARE (WNR) MEDICARE (M) PART B Apr 20, 2004 PART B [id number] OLIVER LOPEZ FOR LIFE TFL* Oct 24, 2017 [id number] [phone] OLIVER LOPEZ PATIENT Selected Encounter This section includes the information on record at [place] for the Encounter. Date/Time Encounter Type Encounter Description Reason Provider Source Mar 04, 2025 01:01 PM REPROGRAM COCHLEAR IMPLT 7/> AUDIOLOGY ICD-10-CM H90.3 Sensorineural hearing loss, bilateral OLIVA QUIROZ [facility] Encounter Template Text not used by [place] Assessments - Encounter Diagnoses This section includes the primary and secondary diagnoses documented for the Encounter. Date/Time Primary/Secondary Diagnosis Diagnosis Name Provider Source Mar 04, 2025 04:10 PM PRIMARY Sensorineural hearing loss, bilateral OLIVA QUIROZ [facility] Plan of Treatment: Future Appointments (+ 6 months) and Future Tests (+/- 45 days) The Plan of Treatment section includes future care activities for the patient from all [place] treatmentfacilities. This section includes future appointments and future orders which are active, pending or scheduled. Future Appointments This section includes appointments that were scheduled to occur 6 months from the date of the Encounter, up to a maximum of 20 appointments. The data comes from all [place] treatment facilities. Appointment Date/Time Appointment Type Appointme nt Facility Name May 13, 2025 01:00 PM [facility] May 13, 2025 01:01 PM AM[facility] SURGERY [facility] Jun 19, 2025 03:00 PM [facility] Aug 11, 2025 03:00 PM AM[facility]UL[facility] - MEDICINE [facility] Active, Pending, and Scheduled Orders This section includes a listing of several types of active, pending, and scheduled orders, including clinic medications orders, diagnostic test orders, procedure orders and consult orders; where the start date of the order is 45 days before the date of the Encounter or 45 days after the date of theEncounter. The data comes from all [place] treatment facilities. Test Date/Time Test Type Test Details Facility Name Mar 03, 2025 02:23 PM Consult Order [facility]COL[facility]Y Cons Consumer Lender's Choice [facility] Advance Directives: All historical and current Section Date Range: From patient's date of to the date document was created. This section includes ALL of a patient's completed or amended [place] Advance and Rescinded Directives. The entries below indicate that a directive exists for the patient, but an actual copy is not included with this document. The data comes from all [place] facilities. Date Advance Directives Provider Source Nov 07, 2024 ADVANCE DIRECTIVE JOHN KUMAR [facility] Encounter Notes: All associated encounter notes This section contains the clinical notes associated to the Encounter. Date/Time Encounter Note(s) Provider Source Mar 04, 2025 10:43 AM AUDIOLOGY EDUCATIO N NOTE: LOCAL TITLE: AUDIOLOGY PROGRESS/PT EDUCATION NOTE (T) STANDARD TITLE: AUDIOLOGY EDUCATION NOTE DATE OF NOTE: MAR 04, 2025@10:43 ENTRY DATE: MAR 04, 2025@10:43:12 AUTHOR: MARY KAY QUIROZ COSIGNER: URGENCY: STATUS: [...] magnet site when using the Rosales processor. IMPLANT(S): RIGHT EAR: MED EL SYNCHRONY 2 FLEX 28 ([id number]) Surgery date: 12/06/24 SOUND PROCESSORS: RIGHT EAR: ROSALES 3 ([id number]) in silver Magnet:4 Act Date: 01/15/25 *RIGHT EAR: SONNET2 ([id number]) Champion; Magnet 3(-) HEARING AID LEFT EAR 01/15/25 [facility] RT L [id number] CI PROGRAMMING: -Impedances were run and were wnl across the array. -Increased MCLs globally and pt noted an instant improvement; saved as follows to the Rondo3: P1: MAP5 Converted MAP 5----> to MAP 6 for the Sonnet2 Ordered a 3S [place] magnet, mailed to [place] and Dr. Echols will hold for next appt. Advised pt to use Sonnet for now, as notes no discomfort with that processor. AIDED TESTING (by [employer] today) revealed: All [...] given/reviewed: (why not?) N/A /esmer/ Saravanan ABREU, [facility]-A JOINT MACHINE OPERATOR Signed: 03/04/2025 16:10 MARY KAY QUIROZ [facility]
--- OUTSIDE RECORDS SUMMARY | 2025-03-07 16:20 | XMS_ITS ---
Author Name [facility] Organization Unknown Care Team Organization Name Specialty Phone Email Start Date End Da te [facility]
--- OUTSIDE RECORDS SUMMARY | 2025-03-07 16:20 | XMS_ITS | Encounter Summary ---
Author Name [facility] [place] [facility] [place] Address [address] [place] [address] Care Team Providers Care Banking Consultant Name Role Phone PAZ WOODS Primary Care [...] SUPPLEMEN DEVIN MEDEX 2 Jun 20, 2013 [id number] OLIVER OLIVAREZ PATIENT [place] MED[place] SUPPLEMEN DEVIN MEDEX 2 Jun 20, 2013 [id number] OLIVER OLIVAREZ [place]IENT [place] SUPPLEMEN DEVIN MEDEX 2 Jun 20, 2013 [id number] OLIVER OLIVAREZ PATIENT [place] MEDICARE SUPPLEMEN DEVIN MEDEX 2 Jun 20, 2013 [id number] OLIVER OLIVAREZ PATIENT MEDICARE (WNR) MEDICARE (M) PART B Apr 20, 2004 PART B [id number] OLIVER OLIVAREZ PATIENT MEDICARE (WNR) MEDICARE (M) PART A Apr 20, 2004 PART A [id number] [phone] [id number] OLIVER OLIVAREZ PATIENT MEDICARE (WNR) MEDICARE (M) PART A Apr 20, 2004 PART A [id number] [phone] OLIVER OLIVAREZ PATIENT MEDICARE (WNR) MEDICARE (M) PART B Apr 20, 2004 PART B [id number] [phone] OLIVER OLIVAREZ PATIENT FOR LIFE TFL* Oct 24, 2017 [id number] [phone] OLIVER OLIVAREZ PATIENT Selected Encounter This section includes the information on record at [place] for the Encounter. Date/Time Encounter Type Encounter Description Reason Provider Source Dec 05, 2024 04:54 PM Outpatient Encounter ADMIN PAT ACTIVTIES (MASNONCT) MARY KAY ADAMS Encounter Template Text not used by [place] Plan of Treatment: Future Appointments (+ 6 months) and Future Tests (+/- 45 days) The Plan of Treatment section includes future care activities for the patient from all [place] treatmentfacilities. This section includes future appointments and future orders which are active, pending or scheduled. Future Appointments This section includes appointments that were scheduled to occur 6 months from the date of the Encounter, up to a maximum of 20 appointments. The data comes from all [place] treatment facilities. Appointment Date/Time Appointment Type Appointme nt Facility Name Dec 11, 2024 10:00 AM [place] [facility] Jan 15, 2025 08:00 AM [place] [facility] Jan 15, 2025 11:30 AM [place] [facility] Jan 29, 2025 01:00 PM AMBULATORY - NONE [facility] Jan 29, 2025 01:01 PM [place] [facility] Feb 12, 2025 02:00 PM [place] [facility] [place] [facility] Feb 12, 2025 02:01 PM [place] [facility] Mar 04, 2025 01:00 PM [facility] [place] [facility] [place] [facility] Mar 04, 2025 01:01 PM [place] [facility] Mar 04, 2025 02:00 PM [facility] May 13, 2025 01:00 PM [place]ONE [place] [facility] [place] [facility] May 13, 2025 01:01 PM [facility] Lab Results: +/- 30 days of the encounter This section includes the Chemistry and Hematology Lab Results on record with [place] for the patient. Radiology Reports and Pathology Reports are provided separately, in subsequent sections. Lab Results This section contains the Chemistry/Hematology Results that were resulted 30 days before or 30 daysafter the date of the Encounter. Date/Time Source Result Type Result - Unit Interpretation Reference Range Specimen Type Comment Dec 05, 2024 11:07 AM [facility] MRSA/SA SCREEN NARES Specimen Type: NARES No comment entered. Ordering Provider: LIGIA SHAFER Report Released Date/Time: Dec 05, 2024 11:05 AM Reporting Lab: [address] [address] Performing Lab: [address] [address] MRSA SURVL NARES DNA Negative Negative SA Negative Negative Nov 07, 2024 01:35 PM [facility] BASIC METABOLIC PANEL (fasting) SERUM Specime n Type: SERUM No comment entered. Ordering Provider: PAZ WOODS Report Released Date/Time: Sep 20, 2024 01:52 PM Reporting Lab: [address] [address] Performing Lab: [address] [address] UREA NITROGEN 26 mg/dL H 7-25 GLUCOSE 161 mg/dL H 65-100 SODIUM 137 mmol/L 135-145 POTASSIUM 4.1 mmol/L 3.5-5.0 CHLORIDE 109 mmol/L 100-110 CO2 20 meq/L 20-30 CREATININE, Serum 1.60 mg/dL H 0.50-1.40 eGFR(CKD-EPI 2020) 42 mL/min L >60 Nov 07, 2024 01:35 PM [facility] LIVER FUNCTION SERUM Specimen Type: SERUM No comment entered. Ordering Provider: PAZ WOODS Report Released Date/Time: Sep 20, 2024 01:52 PM Reporting Lab: [address] [address] Performing Lab: [address] [address] PROTEIN,TOTAL 6.4 g/dL 6.0-8.3 ALBUMIN 3.9 g/dL 3.5-5.0 ALKALINE PHOSPHATASE 80 U/L 40-150 AST 14 U/L 5-34 ALT 11 U/L BILIRUBIN, TOTAL 0.5 mg/dL 0.2-1.2 Nov 07, 2024 01:35 PM [facility] FERRITIN SERUM Specimen Type: SERUM No comment entered. Ordering Provider: PAZ WOODS Report Released Date/Time: Sep 20, 2024 01:52 PM Reporting Lab: [address] [address] Performing Lab: [address] [address] FERRITIN 46 ng/mL 20-300 Nov 07, 2024 01:35 PM [facility] CBC AND DIFF (AUTO) BLOOD Specimen Type: BLOO D No comment entered. Ordering Provider: PAZ WOODS Report Released Date/Time: Sep 20, 2024 01:52 PM Reporting Lab: [address] [address] Performing Lab: [address] [address] WBC 5.12 10*3/uL 4.50-11.00 RBC 3.42 10*6/uL [...] 10*3/uL 0.00-0.00 Nov 07, 2024 01:35 PM [facility] IRON & TIBC PANEL SERUM Specimen Type: SERUM No comment entered. Ordering Provider: PAZ WOODS Report Released Date/Time: Sep 20, 2024 01:52 PM Reporting Lab: [address] [address] Performing Lab: [address] [address] TIBC 333 ug/dL 204-475 IRON 73 ug/dL 40-160 Transferrin Saturation 21.9 20.0-50.0 Transferrin (TRF) 252 mg/dL 200-360 Nov 07, 2024 01:35 PM [facility] PT & INR (PROTIME) PLASMA Specimen Type: PLASM A No comment entered. Ordering Provider: PAZ WOODS Report Released Date/Time: Sep 20, 2024 01:52 PM Reporting Lab: [facility] [address] [facility] [address] Performing Lab: [facility] [address] [address] INR 1.2 PROTIME 13.1 s 10.0-13.1 Nov 07, 2024 01:34 PM [facility] VITAMIN B12 SERUM Specimen Type: SERUM No comment entered. Ordering Provider: PAZ WOODS Report Released Date/Time: Nov 07, 2024 01:04 PM Reporting Lab: [facility] [address] [facility] [address] Performing Lab: [address] [address] VITAMIN B12 389 pg/mL 200-900 Vital Signs: [...] ALL of a patient's completed or amended [place] Advance and Rescinded Directives. The entries below indicate that a directive exists for the patient, but an actual copy is not included with this document. The data comes from all [place] facilities. Date Advance Directives Provider Source Nov 07, 2024 ADVANCE DIRECTIVE [facility] Encounter Notes: All associated encounter notes This section contains the clinical notes associated to the Encounter. Date/Time Encounter Note(s) Provider Source Dec 05, 2024 04:54 PM ADMINISTRATIVE NOT E: LOCAL TITLE: WH-WEI/MARIBEL STANDARD TITLE: ADMINISTRATIVE NOTE DATE OF NOTE: DEC 05, 2024@16:54 ENTRY DATE: DEC 05, 2024@16:54:27 AUTHOR: MARY KAY ADAMS EXP COSIGNER: URGENCY: STATUS: COMPLETED Patient: OLIVER OLIVAREZ SSN: [id number] Date of Operation: 12/05/2024 Diagnosis: Illness, unspecified Hearing Loss Procedure: RIGHT Cochlear Implant/ Med EL ASA Number: 4 Staff: --------- CELSA HERNANDEZ, SURGEON LIGIA SHAFER, ANDREW. SURGEON LAURA ELLISON ANES. SUPER. CALO, LISBEYSI, PRIN. ANES. FEINLEIB, JESSICA, ANES. SUPER. FEINLEIB, JESSICA, PRIN. ANES. Anesthesia Care Start: 12/05/2024 13:54 Event: Patient Arrives in Operating Room 12/05/2024 14:04 Event: Induction Complete and Ready for Surgery 12/05/2024 14:24 pressure ppoints cchecked and padded Surgery Start Time: 12/05/2024 14:50 Surgery End Time: 12/05/2024 16:39 Anesthesia Care End: 12/05/2024 16:52 Anesthesia Method: General 12/05/2024 14:24 (Primary), Airway: Endotracheal Intubation, Technique: Indirect Laryngoscopy, Patient Position: Supine, Induction Type: Intravenous, Ventilation by Mask: Easy to Ventilate without Aid/Adjunct, Intubating Device: Glidescope, Ease: Easy, 1 Number Of Attempts, Intubation View: Grade 2, Blade Size: 3, Size: 8, Depth (cm): 22, Tube: Cuffed, Depth Measurement Location: Teeth, EtCO2 Verified: Waveform, Performed By: ANES. MILLER, Result: Successful Airway Tube: Standard Securement: Taped Eye Protection: Both Eyes, Tape Insertion Complication: No Complications Noted Anesthesia Procedure: - Procedure 12/05/2024 14:40 In Situ, Site: Hand Anesthesia Fluids: RINGERS LACTATED SOLUTION: 700 ml /es/ MARY KAY ADAMS MD PHD Patient Service Representative Signed: 12/05/2024 16:54 MARY KAY ADAMS [facility]
--- OUTSIDE RECORDS SUMMARY | 2025-03-07 16:20 | XMS_ITS ---
Author Organization [facility] Address [address] [place] [phone] Care Team Providers Care Director Construction Services Name Role Phone Jose Angel Kim Primary Care Provider Un available Deric Foster Jr [phone] REASON FOR VISIT medication Encounters Encounter Location Date Provider Diagnosis [facility] [address] [place] [phone] 09/24/2024 Deric Foster Jr Plan Of Treatment No Information Progress Notes * OLIVER OLIVAREZDOB:[birth year] (84 yo M)Acc No.[id number]:09/24/2024 Patient:?OLIVER OLIVAREZ :1940???Age:84 Y???Sex:Male Address:[address] [place] [id number] * true * Date:? Generated for Printi celestino/Niels/eTransmitting on:?03/07/2025 04:20 PM EDT
--- OUTSIDE RECORDS SUMMARY | 2025-03-07 16:20 | XMS_ITS | Encounter Summary ---
Author Name [facility] [place] [facility] [place] [facility] [place] Address [address] [place] [address] Care Team Providers Care [employer] Consultant Name Role Phone PAZ WOODS Primary [...] SUPPLEMEN DEVIN MEDEX 2 Jun 20, 2013 [id number] OLIVER OLIVAREZ PATIENT [place] MEDICARE SUPPLEMEN DEVIN MEDEX 2 Jun 20, 2013 [id number] OLIVER OLIVAREZ PATIENT [employer] CT MEDICARE SUPPLEMEN DEVIN MEDEX 2 Jun 20, 2013 [id number] OLIVER OLIVAREZ PATIENT [place] MEDICARE SUPPLEMEN DEVIN MEDEX 2 Jun 20, 2013 [id number] OLIVER OLIVAREZ PATIENT MEDICARE (WNR) MEDICARE (M) PART A Apr 20, 2004 PART A [id number] OLIVER OLIVAREZ PATIENT MEDICARE (WNR) MEDICARE (M) PART B Apr 20, 2004 PART B [id number] OLIVER OLIVAREZ PATIENT MEDICARE (WNR) MEDICARE (M) PART A Apr 20, 2004 PART A [id number] [phone] OLIVER OLIVAREZ PATIENT MEDICARE (WNR) MEDICARE (M) PART B Apr 20, 2004 PART B [id number] OLIVER OLIVAREZ PATIENT FOR LIFE TFL* Oct 24, 2017 [id number] OLIVER OLIVAREZ PATIENT Selected Encounter This section includes the information on record at [place] for the Encounter. Date/Time Encounter Type Encounter Description Reason Provider Source Dec 05, 2024 08:07 PM Inpatient Visit ADMIN PAT ACTIVTIES (MASNONCT) MATTHIAS BRAVO Encounter Template Text not used by [place] Plan of Treatment: Future Appointments (+ 6 [...] 10:00 AM [facility] [place] [facility] Jan 15, 2025 08:00 AM [facility] [place] [facility] Jan 15, 2025 11:30 AM [facility] [place] [facility] Jan 29, 2025 01:00 PM AMBULATORY - NONE [facility] Jan 29, 2025 01:01 PM [facility] [place] [facility] Feb 12, 2025 02:00 PM AM[place] - [place]ONE [place] [facility] [place] [facility] Feb 12, 2025 02:01 PM [facility] [place] [facility] Mar 04, 2025 01:00 PM AMBULATORY - NONE [place] [facility] [place] [place] [facility] Mar 04, 2025 01:01 PM [facility] [place] [facility] Mar 04, 2025 02:00 PM [facility] May 13, 2025 01:00 PM [place] [facility] [place] [facility] May 13, 2025 01:01 PM [facility] Lab Results: +/- 30 days of the encounter This section includes the Chemistry and Hematology Lab Results on record with [place] for the patient. Radiology Reports and Pathology Reports are provided separately, in subsequent sections. Lab Results This section contains the Chemistry/Hematology Results that were resulted 30 days before or 30 daysafter the date of the Encounter. Date/Time Source Result Type Result - Unit Interpretation Reference Range Specimen Type Comment Dec 05, 2024 11:07 AM [facility] MRSA/SA SCREEN NARES Specimen Type: NARES No comment entered. Ordering Provider: LIGIA SHAFER Report Released Date/Time: Dec 05, 2024 11:05 AM Reporting Lab: [address] [address] Performing Lab: [address] [address] MRSA SURVL NARES DNA Negative Negative SA Negative Negative Nov 07, 2024 01:35 PM [facility] BASIC METABOLIC PANEL (fasting) SERUM Specime n Type: SERUM No comment entered. Ordering Provider: PAZ WOODS Report Released Date/Time: Sep 20, 2024 01:52 PM Reporting Lab: [address] [address] Performing Lab: [address] [address] UREA NITROGEN 26 mg/dL H 7-25 GLUCOSE 161 mg/dL H 65-100 SODIUM 137 mmol/L 135-145 POTASSIUM 4.1 mmol/L 3.5-5.0 CHLORIDE 109 mmol/L 100-110 CO2 20 meq/L 20-30 CREATININE, Serum 1.60 mg/dL H 0.50-1.40 eGFR(CKD-EPI 2020) 42 mL/min L >60 Nov 07, 2024 01:35 PM [facility] LIVER FUNCTION SERUM Specimen Type: SERUM No comment entered. Ordering Provider: PAZ WOODS Report Released Date/Time: Sep 20, 2024 01:52 PM Reporting Lab: [facility] [address] [address] Performing Lab: [address] [address] PROTEIN,TOTAL 6.4 g/dL 6.0-8.3 ALBUMIN 3.9 g/dL 3.5-5.0 ALKALINE PHOSPHATASE 80 U/L 40-150 AST 14 U/L 5-34 ALT 11 U/L BILIRUBIN, TOTAL 0.5 mg/dL 0.2-1.2 Nov 07, 2024 01:35 PM [facility] FERRITIN SERUM Specimen Type: SERUM No comment entered. Ordering Provider: PAZ WOODS Report Released Date/Time: Sep 20, 2024 01:52 PM Reporting Lab: [address] [address] Performing Lab: [address] [address] FERRITIN 46 ng/mL 20-300 Nov 07, 2024 01:35 PM [facility] IRON & TIBC PANEL SERUM Specimen Type: SERUM No comment entered. Ordering Provider: PAZ WOODS Report Released Date/Time: Sep 20, 2024 01:52 PM Reporting Lab: [facility] [address] [address] Performing Lab: [address] [address] TIBC 333 ug/dL 204-475 IRON 73 ug/dL 40-160 Transferrin Saturation 21.9 20.0-50.0 Transferrin (TRF) 252 mg/dL 200-360 Nov 07, 2024 01:35 PM [facility] CBC AND DIFF (AUTO) BLOOD Specimen Type: BLOO D No comment entered. Ordering Provider: PAZ WOODS Report Released Date/Time: Sep 20, 2024 01:52 PM Reporting Lab: [facility] [address] [address] Performing Lab: [facility] [address] [address] WBC 5.12 10*3/uL 4.50-11.00 RBC 3.42 10*6/uL [...] 10*3/uL 0.00-0.00 Nov 07, 2024 01:35 PM [facility] PT & INR (PROTIME) PLASMA Specimen Type: PLASM A No comment entered. Ordering Provider: PAZ WOODS Report Released Date/Time: Sep 20, 2024 01:52 PM Reporting Lab: [facility] [address] [address] Performing Lab: [facility] [address] [address] INR 1.2 PROTIME 13.1 s 10.0-13.1 Nov 07, 2024 01:34 PM [facility] VITAMIN B12 SERUM Specimen Type: SERUM No comment entered. Ordering Provider: PAZ WOODS Report Released Date/Time: Nov 07, 2024 01:04 PM Reporting Lab: [facility] [address] [address] Performing Lab: [address] [address] VITAMIN B12 389 pg/mL 200-900 Vital Signs: All taken on the encounter date This section contains inpatient and outpatient Vital Signs collected on the date of the Encounter. Date/Time Temperature Pulse Blood Pressure Respiratory Rate SP02 Pain Height Weight Body Mass Index Source Dec 05, 2024 11:49 PM 0 [facility] Dec 05, 2024 09:57 PM 0 [facility] Dec 05, 2024 08:24 PM 97.5 74 167/58 18 99 0 71 195.2 27 [facility] Dec 05, 2024 10:52 AM 71 [facility] Dec 05, 2024 10:50 AM 97.1 60 146/69 16 100 0 188 26 [facility] Advance Directives: All historical and current [...] Nov 07, 2024 ADVANCE DIRECTIVE [facility] Encounter Notes: All associated encounter notes This section contains the clinical notes associated to the Encounter. Date/Time Encounter Note(s) Provider Source Dec 05, 2024 08:07 PM ADMINISTRATIVE NOT E: LOCAL TITLE: -ARK/PACU STANDARD TITLE: ADMINISTRATIVE NOTE DATE OF NOTE: DEC 05, 2024@20:07 ENTRY DATE: DEC 05, 2024@20:07:33 AUTHOR: MATTHIAS BRAVO COSIGNER: URGENCY: STATUS: COMPLETED Patient: OLIVER OLIVAREZ SSN: [id number] Date of Operation: 12/05/2024 Procedure: RIGHT Cochlear Implant/ Med EL Diagnosis: Illness, unspecified Hearing Loss Staff: --------- CELSA HERNANDEZ, SURGEON LIGIA SHAFER, ATTPaulino SURGEON LAURA ELLISON ANES. SUPER. CALO, LISBEYSI, PRIN. ANES. FEINLEIB, JESSICA, ANES. SUPER. FEINLEIB, JESSICA, PRIN. ANES. ARTHUR, MANSOOR AKHTAR, PACU Nurse, Primary Anesthesia Method: General 12/05/2024 14:24 (Primary), Airway: [...] Insertion Complication: No Complications Noted Anesthesia Procedure: ---- Procedure 12/05/2024 14:40 In Situ, Site: Hand Procedure 12/05/2024 17:10 In Situ, Line Number: 1, Site: Hand, Laterality: Right, Catheter Type: Angio, Catheter Size: 20 Ga PACU Drugs: FentaNYL PACU: 50 mcg PACU Fluids: Urine Output: 200 ml Event: Ready for Discharge from PACU (RDPACU) 12/05/2024 20:05 Event: Patient Arrives in PACU 12/05/2024 16:52 Event: Patient Leaves PACU 12/05/2024 20:05 Patient awake, alert and oriented X4, denied any nausea, pain tolerable, VSS on RA. Dressing on the right ear C/D/I. Patient met Pacu discharge criteria, transferred to via stretcher. /esmer/ Maribel BRAVO,RN,BSN REGISTERED NURSE Signed: 12/05/2024 20:07 [facility]
--- OUTSIDE RECORDS SUMMARY | 2025-03-07 16:20 | XMS_ITS | Continuity of Care Document ---
Author Name [facility] Organization [facility] Care Team Providers Care Pouncer Name Role Phone [facility] Unavailable Unavailable Problems Combined list of problems from Department of Defense and Veterans Affairs facilities. It does not include entries that were removed or entered in error. Problem Status Onset Date Problem Type Date of Resolution Comments Source H/O: Stroke (SCT [id number]) Active 09/20/20 22 Condition [facility] Actinic Keratosis (SCT 609859336) Active Condition [facility] AF-Atrial Fibrillation (SCT 67395436) Active Condition [facility] Anaemia Active Condition [facility] Aortic Stenosis, Non-Rheumatic (SCT [id number]) Active Condition Nov 08, 2023 Entered By: ANIL WOODS Comment: S/P TAVR #34 09/22/2022 [facility] Cardiac pacemaker in situ Active Condition [facility] Diverticular Disease of Colon (SCT [id number]) Active Condition [facility] GERD - Gastro-Esophageal Reflux Disease (SCT 438639249) Active Condition [facility] HB - Heart block Active Condition Nov 08, 2023 Entered By: ANIL WOODS Comment: S/P Chaney PPM 04/14/2023. [facility] Hearing Loss (SCT 54587175) Active Condition [facility] Hyperlipidemia (SCT 91801999) Active Condition [facility] Idiopathic peripheral neuropathy Active Condition [facility] Polyp Colon (SCT 08503967) Active Condition [facility] Postablative testicular hypofunction Active Condition Nov 06, 2023 Entered By: ANIL WOODS Comment: Orchiectomy followed by radiation . 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 Active Diagnosis [facility] Diagnosis: ICD-10-CM Z13.6 Encounter for screening for cardiovascular disorders Active Diagnosis [facility] Admit Reason: HEARING LOSS Active Diagnosis [facility] Diagnosis: ICD-10-CM Z01.818 Encounter for other preprocedural examination Active Diagnosis [facility] Diagnosis: ICD-10-CM H91.90 Unspecified hearing loss, unspecified ear Active Diagnosis [facility] Diagnosis: ICD-10-CM H91.93 Unspecified hearing loss, bilateral Active Diagnosis [facility] Diagnosis: ICD-10-CM Z46.0 Encounter for fit/adjst of spectacles and contact lenses Active Diagnosis [facility] Diagnosis: ICD-10-CM 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 Active Diagnosis [facility] Diagnosis: ICD-10-CM H91.91 Unspecified hearing loss, right ear Active Diagnosis [facility] Diagnosis: ICD-10-CM D64.9 Anemia, unspecified Active Diagnosis [facility] Diagnosis: ICD-10-CM Z02.89 Encounter for other administrative examinations Active Diagnosis [facility] Diagnosis: ICD-10-CM Z96.1 Presence of intraocular lens Active Diagnosis [facility] Diagnosis: ICD-10-CM I44.2 Atrioventricular block, complete Active Diagnosis [facility] Diagnosis: ICD-10-CM H90.5 Unspecified sensorineural hearing loss Active Diagnosis [facility] Medications Combined list of outpatient medications from Department of Defense and Veterans Affairs facilities.Medications provided include 1) outpatient medications from the last 15 months, and 2) patient-reported medications. Medication Details Route Status Patient Instructions Prescription Expires Prescription Number Last Dispense Date Ordering Provider Order Date Order Qty Source APIXABAN 5MG TAB TAKE ONE-HALF TABLET BY MOUTH EVERY 12 HOURS ORAL ACTIVE PAZ WOODS 2022 [facility] APIXABAN 5MG TAB TAKE ONE-HALF TABLET BY MOUTH TWICE A DAY ORAL ACTIVE CALOGENATY ROSASA R 2024 [place] [facility] CARBOXYMETH YLCELLULOSE NA 0.5% SOLN,OPH INSTILL 1 DROP INTO EACH EYE TWICE DAILY NEEDED FOR DRY EYE OPHTHA LMIC 01/11/2025 [id number] MERHAR,NO B 2023 15 [facility] DAROLUTAMID E 300MG TAB TAKE TWO TABLETS BY MOUTH TWICE DAILY ORAL ACTIVE MERJUANINO AH B 2022 [facility] EVOLOCUMAB 140MG/ML INJ,PEN,1ML INJECT 140MG/1M L SUBCUTAN EOUSLY EVERY 2 WEEKS SUBCUT ANEOUS ACTIVE PAZ WOODS 2023 [facility] EZETIMIBE 10MG TAB TAKE ONE TABLET BY MOUTH ONCE DAILY ORAL ACTIVE PAZ WOODS 2023 [facility] EZETIMIBE 10MG TAB TAKE ONE TABLET BY MOUTH ONCE DAILY ORAL ACTIVE RENEERENATESA ID 2024 [place] [facility] FLUTICASONE PROPIONATE 50MCG/SPRAY SOLN,NASAL, 16GM INSTILL 1 SPRAY INTO EACH NOSTRIL TWICE DAILY NASAL ACTIVE PAZ WOODS 2023 [facility] FUROSEMIDE 20MG TAB TAKE ONE TABLET BY MOUTH EVERY MORNING ORAL ACTIVE DAVID,SA ID [id number] [facility] FUROSEMIDE 20MG TAB TAKE ONE TABLET BY MOUTH ONCE DAILY ORAL ACTIVE MERHAR,NO AH B 2022 [facility] LEUPROLIDE INJ,SUSP,LA INJECT SUBCUTAN EOUSLY [id number] SUBCUT ANEOUS ACTIVE MERHAR,NO AH B 2022 [facility] MAGNESIUM OXIDE 400MG TAB TAKE ONE TABLET BY MOUTH ONCE DAILY ORAL ACTIVE MERHAR,NO B 2022 [facility] MECLIZINE HCL 25MG TAB TAKE ONE TABLET BY MOUTH TWICE A DAY NEEDED FOR MOTION SICKNESS ORAL 01/05/2025 [id number] DAVID,SA ID 2024 10 [facility] OMEPRAZOLE 20MG CAP,EC TAKE 1 CAPSULE BY MOUTH TWICE DAILY NEEDED ORAL ACTIVE PAZ WOODS 2020 [facility] OMEPRAZOLE 40MG CAP,EC TAKE 1 CAPSULE ONCE DAILY ACTIVE DAVIDSA ID 2024 [facility] OXYCODONE HCL 5MG TAB TAKE ONE TABLET(5 MG) BY MOUTH EVERY 4 HOURS NEEDED FOR PAIN *THESE ARE SHORT ACTING TABS* ORAL 01/05/2025 [id number] DAVID,SA ID 2024 6 [facility] TAMSULOSIN HCL 0.4MG CAP TAKE 1 CAPSULE BY MOUTH ONCE DAILY ORAL ACTIVE PAZ WOODS 20[facility] TAMSULOSIN HCL 0.4MG CAP TAKE 1 CAPSULE BY MOUTH DAILY 30 MINUTES AFTER SUPPER ORAL ACTIVE DAVIDSA ID [id number] [facility] Allergies, Adverse Reactions, Alerts Combined list of allergies from Department of Defense and Veterans Affairs facilities. It does not include entries that were removed or entered in error. Substance Category Reaction Severity Reaction type Status Date Reported Comments Source GABAPENTIN Propensity to adverse reactions to drug (finding) Delirium active 3 [facility] NITROGLYCERIN Propensity to adverse reactions to drug (finding) active 3 [facility] Immunizations Combined list of available immunizations from the Department of Defense and Veterans Affairs facilities. Immunization Series Date Given Administered By Site Reaction Lot Number CVX Code Drug Geospatial Information Scientist Status Comments Source COVID-19 (MODERNA), MRNA, LNP-S, PF, 50 MCG/0.5 ML (AGES 12+ YEARS) 6 2023 312 complet ed HISTORICA L INFORMATI ON - FROM OTHER REGISTRY, [facility] RSV, BIVALENT, PROTEIN SUBUNIT RSVPREF, DILUENT RECONSTITUTED , 0.5 ML, PF 1 2023 MIMI DRAPER E LEFT DELTO ID [id number] 305 complet ed [facility] INFLUENZA, HIGH-DOSE, TRIVALENT, PF 2023 MIMI DRAPER E LEFT DELTO ID [id number] 135 complet ed Booster for Series, [facility] INFLUENZA, UNSPECIFIED FORMULATION 2022 88 complet ed HISTORICA L INFORMATI ON - FROM PATIENT'S RECALL, [facility] COVID-19 (MODERNA), MRNA, LNP-S, BIVALENT BOOSTER, PF, 50 MCG/0.5 ML OR 25MCG/0.25 ML DOSE 1 2022 MAUREEN ALBERTO RIGHT DELTO ID [id number] 229 complet ed [facility] COVID-19 (MODERNA), MRNA, LNP-S, PF, 100 MCG/0.5ML DOSE OR 50 MCG/0.25ML DOSE 3 2021 207 complet ed MOD; [id number]; 2 [facility] ZOSTER RECOMBINANT 2 2021 187 complet ed [facility] COVID-19 (MODERNA), MRNA, LNP-S, PF, 100 MCG/0.5ML DOSE OR 50 MCG/0.25ML DOSE 3 2020 207 complet ed [facility] TDAP 2020 115 complet ed [facility] ZOSTER RECOMBINANT 1 2020 187 complet ed [facility] INFLUENZA, UNSPECIFIED FORMULATION 2020 88 complet ed [facility] COVID-19 (MODERNA), MRNA, LNP-S, PF, 100 MCG/0.5 ML DOSE 2 2020 207 complet ed MOD; [id number]; 1 [facility] COVID-19 (MODERNA), MRNA, LNP-S, PF, 100 MCG/0.5 ML DOSE 1 2020 207 complet ed MOD; [id number]; 1 [facility] INFLUENZA, UNSPECIFIED FORMULATION 2019 88 complet ed [facility] PNEUMOCOCCAL POLYSACCHARID E PPV23 2016 33 complet ed [facility] PNEUMOCOCCAL CONJUGATE PCV 13 2015 133 complet ed yes [facility] Results Combined list of recent chemistry, hematology and other laboratory results from Department of Defense and Veterans Affairs, ranging from 15 months to all on record, depending upon the facility. Order Name Results Value Reference Range Date Interpretation Specimen Comments Source MRSA/SA SCREEN METHICILLI N RESISTANT STAPHYLOCO CCUS AUREUS (MRSA) DNA [PRESENCE] IN SPECIMEN BY PAKO WITH PROBE DETECTION Negative 12/05 Specimen Type: NARES No comment entered. Ordering Provider: ANOOP SHAFER Report Released Date/Time: Dec 05, 2024 11:05 AM Reporting Lab: [facility] [address] [place] [address] Performing Lab: [facility] [address] [place] [address] [facility] MRSA/SA SCREEN STAPHYLOCO CCUS AUREUS DNA [PRESENCE] IN SPECIMEN BY PAKO WITH PROBE DETECTION Negative 12/05 Specimen Type: NARES No comment entered. Ordering Provider: ANOOP SHAFER Report Released Date/Time: Dec 05, 2024 11:05 AM Reporting Lab: [facility] [address] [facility] [address] Performing Lab: [facility] [address] [facility] [address] [facility] LIVER FUNCTION PROTEIN [MASS/VOLU ME] IN SERUM OR PLASMA 6.4 g/dL 6.0 - 8.3 11/07 Specimen Type: SERUM No comment entered. Ordering Provider: Maryellen WOODS Report Released Date/Time: Sep 20, 2024 01:52 PM Reporting Lab: [facility] [place] [facility] [address] [facility] [address] Performing Lab: [facility] [place] [facility] [address] [facility] [address] [facility] [place] [facility] LIVER FUNCTION ALBUMIN [MASS/VOLU ME] IN SERUM OR PLASMA 3.9 g/dL 3.5 - 5.0 11/07 Specimen Type: SERUM No comment entered. Ordering Provider: Maryellen WOODS Report Released Date/Time: Sep 20, 2024 01:52 PM Reporting Lab: [facility] [place] [facility] [address] [facility] [address] Performing Lab: [facility] [place] [facility] [address] [facility] [address] [facility] [place] [facility] LIVER FUNCTION ALKALINE PHOSPHATAS E [ENZYMATIC ACTIVITY/V OLUME] IN SERUM OR PLASMA 80 U/L 40 - 150 11/07 Specimen Type: SERUM No comment entered. Ordering Provider: Maryellen WOODS Report Released Date/Time: Sep 20, 2024 01:52 PM Reporting Lab: [facility] [place] [facility] [address] [facility] [address] Performing Lab: [facility] [place] [facility] [address] [facility] [address] [facility] [place] [facility] LIVER FUNCTION ASPARTATE AMINOTRANS FERASE [ENZYMATIC ACTIVITY/V OLUME] IN SERUM OR PLASMA 14 U/L 5 - 34 11/07 Specimen Type: SERUM No comment entered. Ordering Provider: Maryellen WOODS Report Released Date/Time: Sep 20, 2024 01:52 PM Reporting Lab: [facility] [place] [facility] [address] [facility] [address] Performing Lab: [facility] [place] [facility] [address] [facility] [address] [facility] LIVER FUNCTION ALANINE AMINOTRANS FERASE [ENZYMATIC ACTIVITY/V OLUME] IN SERUM OR PLASMA 11 U/L 11/07 Specimen Type: SERUM No comment entered. Ordering Provider: Maryellen WOODS Report Released Date/Time: Sep 20, 2024 01:52 PM Reporting Lab: [facility] [place] [facility] [address] [facility] [address] Performing Lab: [facility] [place] [facility] [address] [facility] [address] [facility] [place] [facility] LIVER FUNCTION BILIRUBIN. TOTAL [MASS/VOLU ME] IN SERUM OR PLASMA 0.5 mg/dL 0.2 - 1.2 11/07 Specimen Type: SERUM No comment entered. Ordering Provider: Maryellen WOODS Report Released Date/Time: Sep 20, 2024 01:52 PM Reporting Lab: [facility] [place] [facility] [address] [facility] [address] Performing Lab: [facility] [place] [facility] [address] [facility] [address] [facility] BASIC METABOLI C PANEL (fasting ) UREA NITROGEN [MASS/VOLU ME] IN SERUM OR PLASMA 26 mg/dL 7 - 25 11/07 H Specimen Type: SERUM No comment entered. Ordering Provider: Maryellen WOODS Report Released Date/Time: Sep 20, 2024 01:52 PM Reporting Lab: [facility] [place] [facility] [address] [facility] [address] Performing Lab: [facility] [place] [facility] [address] [facility] [address] [facility] [facility] BASIC METABOLI C PANEL (fasting ) GLUCOSE [MASS/VOLU ME] IN SERUM OR PLASMA 161 mg/dL 65 - 100 11/07 H Specimen Type: SERUM No comment entered. Ordering Provider: Maryellen WOODS Report Released Date/Time: Sep 20, 2024 01:52 PM Reporting Lab: [facility] [place] [address] [address] Performing Lab: [facility] [address] [address] [facility] BASIC METABOLI C PANEL (fasting ) SODIUM [MOLES/VOL UME] IN SERUM OR PLASMA 137 mmol/L 135 - 145 11/07 Specimen Type: SERUM No comment entered. Ordering Provider: Maryellen WOODS Report Released Date/Time: Sep 20, 2024 01:52 PM Reporting Lab: [facility] [place] [address] [address] Performing Lab: [facility] [address] [address] [facility] BASIC METABOLI C PANEL (fasting ) POTASSIUM [MOLES/VOL UME] IN SERUM OR PLASMA 4.1 mmol/L 3.5 - 5.0 11/07 Specimen Type: SERUM No comment entered. Ordering Provider: Maryellen WOODS Report Released Date/Time: Sep 20, 2024 01:52 PM Reporting Lab[facility] [address] [address] Performing Lab: [facility] [place] [address] [address] [facility] [place] [facility] BASIC METABOLI C PANEL (fasting ) CHLORIDE [MOLES/VOL UME] IN SERUM OR PLASMA 109 mmol/L 100 - 110 11/07 Specimen Type: SERUM No comment entered. Ordering Provider: Maryellen WOODS Report Released Date/Time: Sep 20, 2024 01:52 PM Reporting Lab: [facility] [place] [address] [address] Performing Lab: [facility] [address] [address] [facility] BASIC METABOLI C PANEL (fasting ) CARBON DIOXIDE, TOTAL [MOLES/VOL UME] IN SERUM OR PLASMA 20 meq/L 20 - 30 11/07 Specimen Type: SERUM No comment entered. Ordering Provider: Maryellen WOODS Report Released Date/Time: Sep 20, 2024 01:52 PM Reporting Lab: [facility] [address] [address] Performing Lab: [facility] [address] [address] [facility] BASIC METABOLI C PANEL (fasting ) CREATININE [MASS/VOLU ME] IN SERUM OR PLASMA 1.60 mg/dL 0.50 - 1.40 11/07 H Specimen Type: SERUM No comment entered. Ordering Provider: Maryellen WOODS Report Released Date/Time: Sep 20, 2024 01:52 PM Reporting Lab: [facility] [address] [address] Performing Lab: [address] [address] [facility] BASIC METABOLI C PANEL (fasting ) GLOMERULAR FILTRATION RATE/1.73 SQ M.PREDICTE D [VOLUME RATE/AREA] IN SERUM, PLASMA OR BLOOD BY CREATININE -BASED FORMULA (CKD-EPI 2020) 42 mL/min 60 11/07 L Specimen Type: SERUM No comment entered. Ordering Provider: Maryellen WOODS Report Released Date/Time: Sep 20, 2024 01:52 PM Reporting Lab: [facility] [address] [address] Performing Lab: [address] [address] [facility] FERRITIN FERRITIN [MASS/VOLU ME] IN SERUM OR PLASMA 46 ng/mL 20 - 300 11/07 Specimen Type: SERUM No comment entered. Ordering Provider: Maryellen WOODS Report Released Date/Time: Sep 20, 2024 01:52 PM Reporting Lab: [facility] [address] [facility] [address] Performing Lab: [facility] [address] [facility] [address] [facility] [place] [facility] IRON & TIBC PANEL IRON BINDING CAPACITY [MASS/VOLU ME] IN SERUM OR PLASMA 333 ug/dL 204 - 475 11/07 Specimen Type: SERUM No comment entered. Ordering Provider: Maryellen WOODS Report Released Date/Time: Sep 20, 2024 01:52 PM Reporting Lab: [facility] [place] [facility] [address] [facility] [address] Performing Lab: [facility] [place] [facility] [address] [facility] [address] [facility] [place] [facility] IRON & TIBC PANEL IRON [MASS/VOLU ME] IN SERUM OR PLASMA 73 ug/dL 40 - 160 11/07 Specimen Type: SERUM No comment entered. Ordering Provider: Maryellen WOODS Report Released Date/Time: Sep 20, 2024 01:52 PM Reporting Lab: [facility] [place] [facility] [address] [facility] [address] Performing Lab: [facility] [place] [facility] [address] [facility] [address] [facility] [place] [facility] IRON & TIBC PANEL IRON/IRON BINDING CAPACITY.T OTAL [MASS RATIO] IN SERUM OR PLASMA 21.9 20.0 - 50.0 11/07 Specimen Type: SERUM No comment entered. Ordering Provider: Maryellen WOODS Report Released Date/Time: Sep 20, 2024 01:52 PM Reporting Lab: [facility] [place] [facility] [address] [facility] [address] Performing Lab: [facility] [place] [facility] [address] [facility] [address] [facility] [place] [facility] IRON & TIBC PANEL TRANSFERRI N [MASS/VOLU ME] IN SERUM OR PLASMA 252 mg/dL 200 - 360 11/07 Specimen Type: SERUM No comment entered. Ordering Provider: Maryellen WOODS Report Released Date/Time: Sep 20, 2024 01:52 PM Reporting Lab: [facility] [place] [address] [address] Performing Lab: [facility] [place] [address] [address] [facility] [place] [facility] CBC AND DIFF (AUTO) LEUKOCYTES [#/VOLUME] IN BLOOD BY AUTOMATED COUNT 5.12 10*3/uL 4.50 - 11.00 11/07 Specimen Type: BLOOD No comment entered. Ordering Provider: Maryellen WOODS Report Released Date/Time: Sep 20, 2024 01:52 PM Reporting Lab: [facility] [place] [address] [address] Performing Lab: [facility] [place] [address] [address] [facility] [place] [facility] CBC AND DIFF (AUTO) ERYTHROCYT ES [#/VOLUME] IN BLOOD BY AUTOMATED COUNT 3.42 10*6/uL 4.23 - 5.66 11/07 L Specimen Type: BLOOD No comment entered. Ordering Provider: Maryellen WOODS Report Released Date/Time: Sep 20, 2024 01:52 PM Reporting Lab: [facility] [place] [address] [address] Performing Lab: [facility] [place] [address] [address] [facility] [place] [facility] CBC AND DIFF (AUTO) HEMOGLOBIN [MASS/VOLU ME] IN BLOOD 10.7 g/dL 12.8 - 17 11/07 L Specimen Type: BLOOD No comment entered. Ordering Provider: Maryellen WOODS Report Released Date/Time: Sep 20, 2024 01:52 PM Reporting Lab: [facility] [place] [facility] [address] [facility] [address] Performing Lab: [facility] [place] [facility] [address] [facility] [address] [facility] [place] [facility] CBC AND DIFF (AUTO) HEMATOCRIT [VOLUME FRACTION] OF BLOOD BY AUTOMATED COUNT 31.3 39.2 - 50.4 11/07 L Specimen Type: BLOOD No comment entered. Ordering Provider: Maryellen WOODS Report Released Date/Time: Sep 20, 2024 01:52 PM Reporting Lab: [facility] [place] [facility] [address] [facility] [address] Performing Lab: [facility] [place] [facility] [address] [facility] [address] [facility] [place] [facility] CBC AND DIFF (AUTO) MCV [ENTITIC VOLUME] BY AUTOMATED COUNT 91.5 fL 82 - 99 11/07 Specimen Type: BLOOD No comment entered. Ordering Provider: Maryellen WOODS Report Released Date/Time: Sep 20, 2024 01:52 PM Reporting Lab: [facility] [place] [facility] [address] [facility] [address] Performing Lab: [facility] [place] [facility] [address] [facility] [address] [facility] [place] [facility] CBC AND DIFF (AUTO) MCHC [MASS/VOLU ME] BY AUTOMATED COUNT 34.2 g/dL 30.8 - 35.1 11/07 Specimen Type: BLOOD No comment entered. Ordering Provider: Maryellen WOODS Report Released Date/Time: Sep 20, 2024 01:52 PM Reporting Lab: [facility] [place] [facility] [address] [facility] [phone] Performing Lab: [place] [facility] [place] [facility] [address] [facility] [phone] [facility] [place] [facility] CBC AND DIFF (AUTO) PLATELETS [#/VOLUME] IN BLOOD BY AUTOMATED COUNT 157 10*3/uL 140 - 360 11/07 Specimen Type: BLOOD No comment entered. Ordering Provider: Maryellen WOODS Report Released Date/Time: Sep 20, 2024 01:52 PM Reporting Lab: [facility] [place] [facility] [address] [facility] [phone] Performing Lab: [facility] [place] [place] [facility] [address] [facility] [phone] [facility] [place] [facility] CBC AND DIFF (AUTO) ERYTHROCYT E DISTRIBUTI ON WIDTH [RATIO] BY AUTOMATED COUNT 14.1 12.0 - 16.0 11/07 Specimen Type: BLOOD No comment entered. Ordering Provider: Maryellen WOODS Report Released Date/Time: Sep 20, 2024 01:52 PM Reporting Lab: [facility] [address] [facility] [address] Performing Lab: [facility] [place] [facility] [address] [facility] [address] [facility] CBC AND DIFF (AUTO) MONOCYTES [#/VOLUME] IN BLOOD BY AUTOMATED COUNT 0.45 10*3/uL 0.30 - 1.10 11/07 Specimen Type: BLOOD No comment entered. Ordering Provider: Maryellen WOODS Report Released Date/Time: Sep 20, 2024 01:52 PM Reporting Lab: [facility] [place] [facility] [address] [facility] [address] Performing Lab: [facility] [place] [facility] [address] [facility] [address] [facility] CBC AND DIFF (AUTO) MCH [ENTITIC MASS] BY AUTOMATED COUNT 31.3 pg 26.2 - 32.6 11/07 Specimen Type: BLOOD No comment entered. Ordering Provider: Maryellen WOODS Report Released Date/Time: Sep 20, 2024 01:52 PM Reporting Lab: [facility] [place] [facility] [address] [facility] [address] Performing Lab: [facility] [place] [address] [address] [facility] CBC AND DIFF (AUTO) NEUTROPHIL S/100 LEUKOCYTES IN BLOOD BY AUTOMATED COUNT 58.9 43.7 - 75.8 11/07 Specimen Type: BLOOD No comment entered. Ordering Provider: Maryellen WOODS Report Released Date/Time: Sep 20, 2024 01:52 PM Reporting Lab: [facility] [place] [facility] [address] [facility] [address] Performing Lab: [facility] [place] [facility] [address] [facility] [address] [facility] CBC AND DIFF (AUTO) LYMPHOCYTE S/100 LEUKOCYTES IN BLOOD BY AUTOMATED COUNT 30.3 14.0 - 42.3 11/07 Specimen Type: BLOOD No comment entered. Ordering Provider: Maryellen WOODS Report Released Date/Time: Sep 20, 2024 01:52 PM Reporting Lab: [facility] [place] [address] [address] Performing Lab: [facility] [place] [facility] [address] [facility] [address] [facility] CBC AND DIFF (AUTO) MONOCYTES/ 100 LEUKOCYTES IN BLOOD BY AUTOMATED COUNT 8.8 5.1 - 13.7 11/07 Specimen Type: BLOOD No comment entered. Ordering Provider: Maryellen WOODS Report Released Date/Time: Sep 20, 2024 01:52 PM Reporting Lab: [facility] [place] [facility] [address] [facility] [address] Performing Lab: [facility] [place] [facility] [address] [facility] [address] [facility] CBC AND DIFF (AUTO) EOSINOPHIL S/100 LEUKOCYTES IN BLOOD BY AUTOMATED COUNT 1.4 0.4 - 6.8 11/07 Specimen Type: BLOOD No comment entered. Ordering Provider: Maryellen WOODS Report Released Date/Time: Sep 20, 2024 01:52 PM Reporting Lab: [facility] [place] [facility] [address] [facility] [address] Performing Lab: [facility] [place] [facility] [address] [facility] [address] [facility] CBC AND DIFF (AUTO) BASOPHILS/ 100 LEUKOCYTES IN BLOOD BY AUTOMATED COUNT 0.6 0.1 - 2.0 11/07 Specimen Type: BLOOD No comment entered. Ordering Provider: Maryellen WOODS Report Released Date/Time: Sep 20, 2024 01:52 PM Reporting Lab: [facility] [place] [facility] [address] [facility] [address] Performing Lab: [facility] [place] [facility] [address] [facility] [address] [facility] CBC AND DIFF (AUTO) NEUTROPHIL S [#/VOLUME] IN BLOOD BY AUTOMATED COUNT 3.02 10*3/uL 2.20 - 7.60 11/07 Specimen Type: BLOOD No comment entered. Ordering Provider: Maryellen WOODS Report Released Date/Time: Sep 20, 2024 01:52 PM Reporting Lab: [facility] [place] [facility] [address] [facility] [address] Performing Lab: [facility] [place] [facility] [address] [facility] [address] [facility] CBC AND DIFF (AUTO) LYMPHOCYTE S [#/VOLUME] IN BLOOD BY AUTOMATED COUNT 1.55 10*3/uL 1.00 - 3.20 11/07 Specimen Type: BLOOD No comment entered. Ordering Provider: Maryellen WOODS Report Released Date/Time: Sep 20, 2024 01:52 PM Reporting Lab: [facility] [place] [facility] [address] [facility] [address] Performing Lab: [facility] [place] [facility] [address] [facility] [address] [facility] CBC AND DIFF (AUTO) EOSINOPHIL S [#/VOLUME] IN BLOOD BY AUTOMATED COUNT 0.07 10*3/uL 0.03 - 0.44 11/07 Specimen Type: BLOOD No comment entered. Ordering Provider: Maryellen WOODS Report Released Date/Time: Sep 20, 2024 01:52 PM Reporting Lab: [facility] [address] [facility] [address] Performing Lab: [facility] [address] [facility] [address] [facility] CBC AND DIFF (AUTO) BASOPHILS [#/VOLUME] IN BLOOD BY AUTOMATED COUNT 0.03 10*3/uL 0.01 - 0.13 11/07 Specimen Type: BLOOD No comment entered. Ordering Provider: Maryellen WOODS Report Released Date/Time: Sep 20, 2024 01:52 PM Reporting Lab: [facility] [place] [facility] [address] [facility] [address] Performing Lab: [facility] [address] [address] [facility] CBC AND DIFF (AUTO) IMMATURE GRANULOCYT ES/100 LEUKOCYTES IN BLOOD BY AUTOMATED COUNT 0.0 0.0 - 0.7 11/07 Specimen Type: BLOOD No comment entered. Ordering Provider: Maryellen WOODS Report Released Date/Time: Sep 20, 2024 01:52 PM Reporting Lab: [facility] [place] [address] [address] Performing Lab: [facility] [address] [facility] [address] [facility] CBC AND DIFF (AUTO) IMMATURE GRANULOCYT ES [#/VOLUME] IN BLOOD 0.00 10*3/uL 0.00 - 0.06 11/07 Specimen Type: BLOOD No comment entered. Ordering Provider: Maryellen WOODS Report Released Date/Time: Sep 20, 2024 01:52 PM Reporting Lab: [facility] [address] [place] [address] Performing Lab: [facility] [place] [address] [address] [facility] CBC AND DIFF (AUTO) NRBC % 0.0 0.0 - 0.0 11/07 Specimen Type: BLOOD No comment entered. Ordering Provider: Maryellen WOODS Report Released Date/Time: Sep 20, 2024 01:52 PM Reporting Lab: [facility] [place] [address] [address] Performing Lab[facility] [place] [facility] [address] [facility] [address] [facility] CBC AND DIFF (AUTO) NRBC, ABS 0.00 10*3/uL 0.00 - 0.00 11/07 Specimen Type: BLOOD No comment entered. Ordering Provider: Maryellen WOODS Report Released Date/Time: Sep 20, 2024 01:52 PM Reporting Lab: [facility] [place] [address] [address] Performing Lab: [facility] [place] [address] [address] [facility] PT & INR (PROTIME ) INR IN PLATELET POOR PLASMA BY COAGULATIO N ASSAY 1.2 11/07 Specimen Type: PLASMA No comment entered. Ordering Provider: Maryellen WOODS Report Released Date/Time: Sep 20, 2024 01:52 PM Reporting Lab: [facility] [place] [address] [address] Performing Lab[facility] [place] [address] [address] [facility] [place] PT & INR (PROTIME ) PROTHROMBI N TIME (PT) 13.1 s 10.0 - 13.1 11/07 Specimen Type: PLASMA No comment entered. Ordering Provider: Maryellen WOODS Report Released Date/Time: Sep 20, 2024 01:52 PM Reporting Lab: [facility] [place] [address] [address] Performing Lab: [facility] [place] [address] [facility] [address] [facility] VITAMIN B12 COBALAMIN (VITAMIN B12) [MASS/VOLU ME] IN SERUM OR PLASMA 389 pg/mL 200 - 900 11/07 Specimen Type: SERUM No comment entered. Ordering Provider: Maryellen WOODS Report Released Date/Time: Nov 07, 2024 01:04 PM Reporting Lab: [facility] [address] [facility] [address] Performing Lab: [facility] [address] [facility] [address] [facility] FERRITIN FERRITIN [MASS/VOLU ME] IN SERUM OR PLASMA 66 ng/mL 20 - 300 08/13 Specimen Type: SERUM No comment entered. Ordering Provider: Maryellen WOODS Report Released Date/Time: Feb 19, 2024 02:41 PM Reporting Lab: [facility] [address] [facility] [address] Performing Lab: [facility] [place] [address] [facility] [address] [facility] IRON & TIBC PANEL IRON BINDING CAPACITY [MASS/VOLU ME] IN SERUM OR PLASMA 298 ug/dL 204 - 475 08/13 Specimen Type: SERUM No comment entered. Ordering Provider: Maryellen WOODS Report Released Date/Time: Feb 19, 2024 02:41 PM Reporting Lab: [facility] [address] [facility] [address] Performing Lab: [facility] [address] [facility] [address] [facility] IRON & TIBC PANEL IRON [MASS/VOLU ME] IN SERUM OR PLASMA 62 ug/dL 40 - 160 08/13 Specimen Type: SERUM No comment entered. Ordering Provider: Maryellen WOODS Report Released Date/Time: Feb 19, 2024 02:41 PM Reporting Lab: [facility] [place] [facility] [address] [facility] [address] Performing Lab: [facility] [place] [facility] [address] [facility] [address] [facility] [place] IRON & TIBC PANEL IRON/IRON BINDING CAPACITY.T OTAL [MASS RATIO] IN SERUM OR PLASMA 20.8 20.0 - 50.0 08/13 Specimen Type: SERUM No comment entered. Ordering Provider: Maryellen WOODS Report Released Date/Time: Feb 19, 2024 02:41 PM Reporting Lab: [facility] [place] [facility] [address] [facility] [address] Performing Lab: [facility] [place] [facility] [address] [facility] [address] [facility] IRON & TIBC PANEL TRANSFERRI N [MASS/VOLU ME] IN SERUM OR PLASMA 226 mg/dL 200 - 360 08/13 Specimen Type: SERUM No comment entered. Ordering Provider: Maryellen WOODS Report Released Date/Time: Feb 19, 2024 02:41 PM Reporting Lab: [facility] [place] [facility] [address] [facility] [address] Performing Lab: [facility] [place] [facility] [address] [facility] [address] [facility] Vital Signs Combined list of inpatient and outpatient Vital Signs from Department of Defense and Veterans Affairs, ranging from 12 months to all on record, depending upon the facility. Vital Sign Value Date Comments Source SYSTOLIC BLOOD PRESSURE 129 01/15/20 25 10:24:04 [facility] DIASTOLIC BLOOD PRESSURE 62 025 10:24:04 [facility] PULSE OXIMETRY 98 01/15/2025 10:24:04 [facility] PULSE 60 01/15/2025 10:24:04 [facility] PAIN 5 12/06/2024 01:43:42 [facility] SYSTOLIC BLOOD PRESSURE 146 12/05/19 25 10:50:54 [facility] DIASTOLIC BLOOD PRESSURE 69 025 10:50:54 [facility] PULSE OXIMETRY 100 12/05/2024 10:50:54 [facility] WEIGHT 188 12/05/2024 10:50:54 [facility] BMI 26 kg/m2 12/05/2024 10:50:54 [facility] PAIN 0 12/05/2024 10:50:54 [facility] TEMPERATURE 97.1 12/05/2024 10:50:54 [facility] PULSE 60 12/05/2024 10:50:54 [facility] RESPIRATION 16 12/05/2024 10:50:54 [facility] SYSTOLIC BLOOD PRESSURE 140 11/07/20 12:56:17 [facility] DIASTOLIC BLOOD PRESSURE 68 024 12:56:17 [facility] PULSE OXIMETRY 97 11/07/2024 12:56:17 [facility] WEIGHT 200.2 11/07/2024 12:56:17 [facility] BMI 28 kg/m2 11/07/2024 12:56:17 [facility] PAIN 0 11/07/2024 12:56:17 [facility] HEIGHT 71 11/07/2024 12:56:17 [facility] TEMPERATURE 97.6 11/07/2024 12:56:17 [facility] PULSE 59 11/07/2024 12:56:17 [facility] RESPIRATION 20 11/07/2024 12:56:17 [facility] SYSTOLIC BLOOD PRESSURE 170 09/11/20 24 09:39:16 [facility] DIASTOLIC BLOOD PRESSURE 71 024 09:39:16 [facility] PULSE OXIMETRY 100 09/11/2024 09:39:16 [facility] TEMPERATURE 97.8 09/11/2024 09:39:16 [facility] PULSE 60 09/11/2024 09:39:16 [facility] Encounters Combined list of: 1) Encounters from Department of Veterans Affairs facilities going backup to the last 18 months, not all VA inpatient encounters are included; 2) Encounters from the Department of Defense facilities going backup to 280 months. Location Location Details Encounter Type Encounter Number Reason For Visit Attending Provider ADM Date DC Date Status Disposition Source [facility] Out[facility] Encounter [id number] 09/15 [facility] Encounter [id number] 10/02 [facility] PRO PHONE CALL 21-30 MIN [id number] Diagnos is: ICD-10- CM H91.91 Unspeci fied hearing loss, right ear JAQUELINE,LEIGH GERARD M 10/10 [place] [facility] Out[facility] Encounter [id number] 10/13 [facility] Out[facility] Encounter [id number] 10/16 [facility] Out[facility] Encounter [id number] 10/17 [facility] PRO PHONE CALL 21-30 MIN [id number] Diagnos is: ICD-10- CM H91.91 Unspeci fied hearing loss, right ear HILDREW,DO UGLAS 10/18 [place] [facility] Out[facility]counter [id number] 10/18 [facility] Out[facility] Encounter [id number] 10/21 [facility] OFF/OP EST MAY X REQ PHY/QHP [id number] Diagnos is: ICD-10- CM 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, unspeci fied CHIRICK BARRIENTOS 10/23 [facility] ELECTROCAR DIOGRAM REPORT [id number] Diagnos is: ICD-10- CM Z13.6 Encount er for screeni ng for cardiov ascular disorde rs ROSALVA CHOI 10/23 [facility] Outpatient Encounter [id number] Diagnos is: ICD-10- CM Z01.818 Encount er for other preproc edural examina JOYCE David 10/24 [facility] PRO PHONE CALL 11-20 MIN [id number] Diagnos is: ICD-10- CM H90.5 Unspeci fied sensori neural hearing loss HILDREW,DO UGLAS 10/27 [facility] Outpatient Encounter [id number] Diagnos is: ICD-10- CM 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 Outpatient Encounter [id number] 11/03 [facility] [place] OFFICE O/P EST LOW 20-29 MIN [id number] Diagnos is: ICD-10- CM D64.9 Anemia, unspeci fied PAZ WOODS 11/06 [facility] En[facility] [id number] 11/08 [facility] 21-30 MIN [id number] Diagnos is: ICD-10- CM H91.91 Unspeci fied hearing loss, right ear LEIGH PARSONS M 11/29 [facility] Out[facility] Encounter [id number] 12/13 [facility] Out[facility] Encounter [id number] 12/14 [facility] Encounter [id number] 12/18 [facility] Out[facility] Encounter [id number] 12/29 [facility] INTRM OPH EXAM EST PATIENT [id number] Diagnos is: ICD-10- CM Z96.1 Presenc e of intraoc ular lens MERHAR,ELE H B 01/11 [facility] Out[facility] Encounter [id number] 01/28 [facility] PRO PHONE CALL 21-30 MIN [id number] Diagnos is: ICD-10- CM H91.91 Unspeci fied hearing loss, right ear HILDREW,DO UGLAS 01/29 [facility] Out[facility] Encounter [id number] 01/30 [facility] Encounter [id number] Diagnos is: ICD-10- CM Z02.89 Encount er for other adminis trative examina YULISSA Alberto 02/05 [facility] Encounter [id number] 02/11 [facility] Encounter [id number] 02/18 [facility] Out[facility] Encounter [id number] 02/18 [facility] Out[facility] Encounter [id number] 02/18 [facility] OFFICE O/P EST LOW 20 MIN [id number] Diagnos is: ICD-10- CM D64.9 Anemia, unspeci fied PAZ WOODS F 02/18 [facility] [id number] Diagnos is: ICD-10- CM D64.9 Anemia, unspeci fied DEVIN WINTER 02/19 [facility] Out[facility] Encounter [id number] 02/19 [facility] Out[facility] Encounter [id number] 02/19 [facility] Out[facility] Encounter [id number] 03/15 [facility] Out[facility] Encounter [id number] 03/26 [facility] Encounter [id number] 03/28 [facility] Out[facility] Encounter [id number] 04/02 [facility] Out[facility] Encounter [id number] 04/02 [facility] Out[facility] Encounter [id number] 04/22 [facility] Encounter [id number] 04/26 [facility] Out[facility] Encounter [id number] 04/26 [facility] PRO PHONE CALL 21-30 MIN [id number] Diagnos is: ICD-10- CM H91.91 Unspeci fied hearing loss, right ear HILDREW,DO UGLAS 05/17 [facility] Out[facility] Encounter [id number] 05/30 [facility] Encounter [id number] 06/12 [facility] Out[facility] Encounter [id number] 06/12 [facility] COMPRE [place]PH EXAM EST PT 1/ [id number] 1. 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 Diagnos is: ICD-10- CM Z46.0 Encount er for fit/adj st of spectac les and contact lenses ELE GARZA 06/13 [facility] Out[facility] Encounter [id number] 1.07/15 [facility] Encounter [id number] 1.07/31 [facility] OFFICE O/P EST LOW 20 MIN [id number] 1. Diagnos is: ICD-10- CM H91.90 Unspeci fied hearing loss, unspeci fied ear PAZ WOODS 08/13 [facility] [place] AD[place] [id number] 1. PAZ WOODS 08/13 [facility] Out[facility] Encounter [id number] [facility] Outpatient [facility]counter [id number] 08/27 [facility] Out[facility]counter [id number] 08/29 [facility] Encounter [id number] 09/05 [facility] EVAL AUD FUNCJ 1ST HOUR [id number] Diagnos is: ICD-10- CM H90.3 Sensori neural hearing loss, bilater PB DawsonCA S 09/11 [facility] Outpatient Encounter [id number] MATTHEW BRUNO 09/11 [facility] OFFICE O/P EST MOD 30 MIN [id number] Diagnos is: ICD-10- CM H91.93 Unspeci fied hearing loss, bilDO ELBA Ricardo 09/11 [facility] Out[facility] Encounter [id number] 09/12 [facility]counter [id number] 09/16 [facility] Outpatient Encounter [id number] 09/20 [facility] Out[facility]counter [id number] 09/27 [facility] Outpatient Encounter [id number] 10/07 [facility] Outpatient Encounter [id number] 10/08 [facility] Outpatient Encounter [id number] 10/10 [facility] Outpatient Encounter [id number] Diagnos is: ICD-10- CM Z01.818 Encount er for other preproc edural examJOYCE Sanchze 11/07 [place] [facility] OFFICE O/P EST LOW 20 MIN [id number] Diagnos is: ICD-10- CM H91.90 Unspeci fied hearing loss, unspeci fied ear PAZ WOODS 11/07 [facility] Outpatient Encounter [id number] 11/26 [place] [facility] Outpatient Encounter [id number] 12/04 [place] [place] Outpatient Encounter [id number] 12/04 [facility] [place] Inpatient Encounter [id number] DO ELBA SHAFER 12/05 [place] [facility] Outpatient Encounter [id number] Diagnos is: ICD-10- CM H90.3 Sensori neural hearing loss, bilater DO ELBA Sierra 12/05 [facility] [place] Outpatient Encounter [id number] DO ELBA SHAFER 12/05 [facility] IMPLANT COCHLEAR DEVICE [id number] CARMEN CHRISTENSEN 12/05 [place] [facility] OFFICE O/P EST LOW 20 MIN [id number] Diagnos is: ICD-10- CM Z01.818 Encount er for other preproc edural examina rosalino ELLISONDREW YSI 12/05 [facility] En[facility] [id number] JAYDENÁlvaro KENNEDY 12/05 [facility] Outpatient Encounter [id number] 12/05 [facility] Inpatient Encounter [id number] Admit Reason: HEARING LOSS DO ELBA SHAFER 12/05 Discharge from inpatient treatment to the [facility] ([facility]) rolls. [facility] En[facility] [id number] JOYCE BRAVO 12/05 [facility] Inpatient Encounter [id number] TANIKA OSHEA MA 12/05 [facility] ELECTROCAR DIOGRAM REPORT [id number] Diagnos is: ICD-10- CM Z13.6 Encount er for screeni ng for cardiov ascular disorde WILL Escobar 12/05 [facility] Inpatient Encounter [id number] DO ANDREW SHAFERLAS 12/05 [facility] Inpatient Encounter [id number] DO SONI UGLAS 12/05 [facility] Inpatient Encounter [id number] DO SONI UGLAS 12/06 [facility] En[facility] [id number] DO SONI UGLAS 12/06 [facility] Inpatient Encounter [id number] DO ELBA SHAFER 12/06 [facility] 1ST HOSP IP/OBS SF/LOW 40 [id number] DO SONI UGLAS 12/06 [facility] NQHP OL DIG ASSMT&MGMT 21+ [id number] Diagnos is: ICD-10- CM Z79.899 Other long-term (curren t) drug therapy Aly YU R 12/06 [facility] Inpatient Encounter [id number] AARON BUCK 12/06 [facility] Inpatient Encounter [id number] JOHN BERNAL 12/06 [facility] Inpatient Encounter [id number] AARON BUCK 12/06 [facility] NQHP OL DIG ASSMT&MGMT 21+ [id number] Diagnos is: ICD-10- CM 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 Aly YU AMANTHA R 12/06 [facility] POSTOP FOLLOW-UP VISIT [id number] Diagnos is: ICD-10- CM H90.3 Sensori neural hearing loss, bilater DO ELBA Sierra 12/11 [facility] Outpatient Encounter [id number] 12/12 [facility] En[facility] [id number] 12/14 [facility] Outpatient Encounter [id number] 12/14 [facility] [place] [facility] PH1 ASSMT&MGMT NQHP 21-30 [id number] Diagnos is: ICD-10- CM 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, unspeci jon DILLON, SHARON 12/16 [facility] [place] [facility] COCHLEAR IMPLT F/UP EXAM [id number] Diagnos is: ICD-10- CM Z45.321 Encount er for adjustm ent and managem ent of cochlea r device RICHIE,PB SSICA S 01/15 [facility] POSTOP FOLLOW-UP VISIT [id number] Diagnos is: ICD-10- CM H90.3 Sensori neural hearing loss, bilater al DO SONI UGLAS 01/15 [facility] [place] [facility] TELEHEALTH FACILITY FEE [id number] Diagnos is: ICD-10- CM H90.3 Sensori neural hearing loss, bilater al Coral CHAMBERS RAKAN E 01/29 [facility] [place] [facility] REPROGRAM COCHLEAR IMPLT [id number] Diagnos is: ICD-10- CM H90.3 Sensori neural hearing loss, bilater al PB QUIROZ SSICA S 01/29 [facility] [place] [facility] TELE[facility]ALTH FAC[facility] FEE [id number] Diagnos is: ICD-10- CM H90.3 Sensori neural hearing loss, bilater al Coral CHAMBERS RAKAN E 02/12 [facility] [place] [facility] REPROGRAM COCHLEAR IMPLT [id number] Diagnos is: ICD-10- CM H90.3 Sensori neural hearing loss, bilater al PB QUIROZ SSICA S 02/12 [facility] [place] [facility] Outpatient Encounter [id number] 03/03 [facility] [facility] TELEHEALTH FACILITY FEE [id number] Diagnos is: ICD-10- CM H90.3 Sensori neural hearing loss, bilater Coral Pulliam RAKAN E 03/04 [facility] [place] [facility] REPROGRAM COCHLEAR IMPLT 7/> [id number] Diagnos is: ICD-10- CM H90.3 Sensori neural hearing loss, bilater PB DawsonCA S 03/04 [facility]MOD IFYING [id number] Diagnos is: ICD-10- CM H90.3 Sensori neural hearing loss, bilater Coral Pulliam RAKAN E 03/04 [facility] Procedures Combined list of: 1) Procedures from Department of Veterans Affairs facilities going back up to thelast 18 months, not all [place] non-surgical procedures are included; 2) All procedures from the Department of Defense facilities. Procedure Procedure Type Code Date Perfomer Comments Gerri e RIGHT Cochlear Implant IMPLANT COCHLEAR DEVICE [id number] 12/05/2024 CELSA HERNANDEZ [facility] Social History Combined list of available smoking, tobacco, and other social history from Department of Defense and Veterans Affairs facilities. Social History Type Response Date Comment Sourc e Tobacco smoking status NHIS VA-TOBACCO NEVER USED 02/19/2024 [facility] [place] [facility] History of tobacco use VA-TOBACCO NEVER USED 02/21/2023 [facility] [place] [facility] History of tobacco use VA-TOBACCO NEVER USED 07/22/2021 [facility] [place] [place] [facility] Plan of Care List of future care activities from Department of Veterans Affairs facilities. Additional future care activities may be listed in the Assessment and Plan section. Date/Time Care Activity Care Activity Detail Facili ty 05/13/2025 AMBULATORY - NONE AMBULATORY - NONE [facility] Advance Directives List of completed, amended, or rescinded Advance Directives on record at Department of [facility] facilities. An actual copy of the Directive is not included. Date Advance Directive Provider Source 11/07/2024 ADVANCE DIRECTIVE JOHN KUMAR CO SHELIA [facility]
--- OUTSIDE RECORDS SUMMARY | 2025-03-07 16:20 | XMS_ITS ---
[facility] Encounter Summary Created on: March 07, 2025 OLIVER OLIVAREZ : 1940 Sex: Male Author Name [facility] [facility] [place] Address [address] [place] [address] Care Team Providers Care Quality Assurance Supervisor Trim Name Role Phone PAZ WOODS Primary Care [...] Patient's Relationship to Policy Johnson KEN SEPULVEDA CT (BLUECARD) MEDICARE SUPPLEMEN DEVIN MEDEX 2 Jun 20, 2013 [id number] [phone] OLIVER OLIVAREZ PATIENT [facility] MEDICARE SUPPLEMEN DEVIN MEDEX 2 Jun 20, 2013 [id number] [phone] OLIVER OLIVAREZ PATIENT [place] MEDICARE SUPPLEMEN DEVIN MEDEX 2 Jun 20, 2013 [id number] [phone] OLIVER OLIVAREZ PATIENT [facility] MEDICARE SUPPLEMEN DEVIN MEDEX 2 Jun 20, 2013 [id number] OLIVER OLIVAREZ PATIENT MEDICARE (WNR) MEDICARE (M) PART A Apr 20, 2004 PART A [id number] OLIVER OLIVAREZ PATIENT MEDICARE (WNR) MEDICARE (M) PART B Apr 20, 2004 PART B [id number] OLIVER OLIVAREZ PATIENT MEDICARE (WNR) MEDICARE (M) PART A Apr 20, 2004 PART A [id number] OLIVER OLIVAREZ PATIENT MEDICARE (WNR) MEDICARE (M) PART B Apr 20, 2004 PART B [id number] OLIVER OLIVAREZ PATIENT FOR LIFE TFL* Oct 24, 2017 [id number] OLIVER OLIVAREZ PATIENT Selected Encounter This section includes the information on record at [place] for the Encounter. Date/Time Encounter Type Encounter Description Reason Pro vider Source Dec 05, 2024 08:06 PM Inpatient Visit HOSPITALIZATION ICD-10-CM H90.41 Snsrnrl hear loss, uni, right ear, w unrestr hear cntra side CHRISTIAN ESTEVEZ [facility] Encounter Template Text not used by [place] Assessments - Encounter Diagnoses This section includes the primary and secondary diagnoses documented for the Encounter. Date/Time Primary/Secondary Diagnosis Diagnosis Name Provider Source Dec 06, 2024 11:33 AM Diagnosis for Length of Stay Encntr for surgical aftcr fol surgery on the sense organs [facility] Dec 06, 2024 11:33 AM SECONDARY Cochlear implant status [facility] Dec 06, 2024 11:33 AM SECONDARY Snsrnrl hear loss, uni, right ear, w unrestr hear cntra side [facility] Plan of Treatment: Future Appointments (+ 6 months) and Future Tests (+/- 45 days) The Plan of Treatment section includes future care activities for the patient from all [place] treatmentfacilities. This section includes future appointments and future orders which are active, pending or scheduled. Future Appointments This section includes appointments that were scheduled to occur 6 months from the date of the Encounter, up to a maximum of 20 appointments. The data comes from all [place] treatment facilities. Appointment Date/Time Appointment Type Appointme [...] AMBULATORY - NONE [facility] [place] [facility] Mar 04, 2025 01:01 PM AMBULATORY - SURGERY [facility] Mar 04, 2025 02:00 PM AMBULATORY - REHAB MEDICIN E [facility] [place] [facility] May 13, 2025 01:00 PM AMBULATORY - NONE [facility] [place] [facility] May 13, 2025 01:01 PM [place]ATORY - SURGERY [place] [facility] Lab Results: +/- 30 days of the encounter This section includes the Chemistry and Hematology Lab Results on record with [place] for the patient. Radiology Reports and Pathology [...] Reporting Lab: [facility] [address] [facility] [facility] [address] Performing Lab: [facility] [address] [facility] [address] MRSA SURVL NARES DNA Negative Negative SA Negative Negative Nov 07, 2024 01:35 PM [place] [facility] SERUM Specimen Type: SERUM No comment entered. Ordering Provider: PAZ WOODS Report Released Date/Time: Sep 20, 2024 01:52 PM Reporting Lab: [facility] [address] [facility] [address] Performing Lab: [address] [address] PROTEIN,TOTAL 6.4 g/dL 6.0-8.3 ALBUMIN 3.9 g/dL 3.5-5.0 ALKALINE PHOSPHATASE 80 U/L 40-150 AST 14 U/L 5-34 ALT 11 U/L BILIRUBIN, TOTAL 0.5 mg/dL 0.2-1.2 Nov 07, 2024 01:35 PM [facility] BASIC METABOLIC PANEL (fasting) SERUM Specime n Type: SERUM No comment entered. Ordering Provider: PAZ WOODS Report Released Date/Time: Sep 20, 2024 01:52 PM Reporting Lab: [address] [address] Performing Lab: [address] [address] UREA NITROGEN 26 mg/dL H 7-25 GLUCOSE 161 mg/dL H 65-100 SODIUM 137 mmol/L 135-145 POTASSIUM 4.1 mmol/L 3.5-5.0 CHLORIDE 109 mmol/L 100-110 CO2 20 meq/L 20-30 CREATININE, Serum 1.60 mg/dL H 0.50-1.40 eGFR(CKD-EPI 2020) 42 mL/min L >60 Nov 07, 2024 01:35 PM [facility] FERRITIN SERUM Specimen Type: SERUM No comment entered. Ordering Provider: PAZ WOODS Report Released Date/Time: Sep 20, 2024 01:52 PM Reporting Lab: [address] [address] Performing Lab: [address] [address] FERRITIN 46 ng/mL 20-300 Nov 07, 2024 01:35 PM [facility] IRON & TIBC PANEL SERUM Specimen Type: SERUM No comment entered. Ordering Provider: PAZ WOODS Report Released Date/Time: Sep 20, 2024 01:52 PM Reporting Lab: [facility] [address] [facility] [address] Performing Lab: [address] [address] TIBC 333 ug/dL 204-475 IRON 73 ug/dL 40-160 Transferrin Saturation 21.9 20.0-50.0 Transferrin (TRF) 252 mg/dL 200-360 Nov 07, 2024 01:35 PM [facility] CBC AND DIFF (AUTO) BLOOD Specimen Type: BLOO D No comment entered. Ordering Provider: PAZ WOODS Report Released Date/Time: Sep 20, 2024 01:52 PM Reporting Lab: [address] [address] Performing Lab: [address] [address] WBC 5.12 10*3/uL 4.50-11.00 RBC 3.42 10*6/uL [...] 10*3/uL 0.00-0.00 Nov 07, 2024 01:35 PM [facility] PT & INR (PROTIME) PLASMA Specimen Type: PLASM A No comment entered. Ordering Provider: PAZ WOODS Report Released Date/Time: Sep 20, 2024 01:52 PM Reporting Lab: [address] [address] Performing Lab: [address] [address] INR 1.2 PROTIME 13.1 s 10.0-13.1 Nov 07, 2024 01:34 PM [facility] VITAMIN B12 SERUM Specimen Type: SERUM No comment entered. Ordering Provider: PAZ WOODS Report Released Date/Time: Nov 07, 2024 01:04 PM Reporting Lab: [address] [address] Performing Lab: [address] [address] VITAMIN B12 389 pg/mL 200-900 Vital Signs: All taken on the encounter date This section contains inpatient and outpatient Vital Signs collected on the date of the Encounter. Date/Time Temperature Pulse Blood Pressure Respiratory Rate SP02 Pain Height Weight Body Mass Index Source Dec 05, 2024 11:49 PM 0 [facility] Dec 05, 2024 09:57 PM 0 [facility] Dec 05, 2024 08:24 PM 97.5 74 167/58 18 99 0 71 195.2 27 [facility] Dec 05, 2024 10:52 AM 71 [facility] Dec 05, 2024 10:50 AM 97.1 60 146/69 16 100 0 188 26 [facility] Advance Directives: All historical and current Section Date Range: From patient's date of to the date document was created. This section includes ALL of a patient's completed or amended [place] Advance and Rescinded Directives. The entries below indicate that a directive exists for the patient, but an actual copy is not included with this document. The data comes from all [place] facilities. Date Advance Directives Provider Source Nov 07, 2024 ADVANCE DIRECTIVE JOHN KUMAR [place] [facility] [place] [facility] Encounter Notes: All associated encounter notes This section contains the clinical notes associated to the Encounter. Date/Time Encounter Note(s) Provider Source Dec 06, 2024 10:15 AM NURSING DISCHARGE NOTE: LOCAL TITLE: NURSING PHASE IV-DISCHARGE NOTE (GT) STANDARD TITLE: NURSING DISCHARGE NOTE DATE OF NOTE: DEC 06, 2024@10:15 ENTRY DATE: DEC 06, 2024@10:15:47 AUTHOR: MIR BUCK EXP COSIGNER: URGENCY: STATUS: COMPLETED Date/time:Nov@11:18 Discharging from (unit):6E Discharging To: Home Home with family member Mode of Travel: Personal Car How patient left unit: Wheelchair Condition at Discharge: All temporary IV access sites removed: Yes All internal pacing wires removed: SPECIAL SERVICES AGENT INFECTION PREVENTION Does the patient have an Endotracheal tube (ETT)? No Does the patient require autopsy? No Does the patient have a Peripheral IV (PIV) Line? No Does the patient have an indwelling urinary catheter? No Does this patient currently have a Central Line? No Mental Status:Alert and oriented x4 Functional Status: (ie, ability to do ADL's)Independent with adl's Remaining Symptoms: (ie,pain,nausea):Intermittent pain right ear. Received scheduled Tylenol with relief. Dressings/Wounds: (explain) Skin: See Skin Assessment/Reassessment notes. MEDICATION LIST GIVEN TO PATIENT: Yes The patient/family has been given education on the food and drug interactions related to the ordered medications.Yes The patient/family member is able to verbalize understanding of the interactions.Yes Copy of patient discharge instructions given to patient/SO Education provided to: Patient Barriers to Learning: None Learning Style: Written Verbal Patient Discharge Instructions Reviewed (including medication regimen, pain management, when and how to seek medical attention or contact their provider, and their follow-up appointments.) Instructions were understood as evidenced by the ability to repeat significant information, ask pertinent questions and demonstrated/verbalized skills learned. Patient Discharge Instructions Reviewed (including medication regimen, pain management, when and how to seek medical attention or contact their provider, and their follow-up appointments.) Patient/SO states he/she understands discharge instructions. Educational needs to be followed in the outpatient setting (eg, lifestyle, wound care, living will) Individuals involved in Plan of Care: Patient RN MD Dietary Pharmacist Influenza: Offered and refused: Patient stated, I already had the vaccine in [facility] Polishing Machine Operator Helper unable to retrieve records Prevnar 20: Patient stated, I already had the vaccine in [place] Polishing Machine Operator Helper unable to retrieve records Most current vaccine information statements (VIS) provided to patient: PREFERRED CONTACT NUMBER OF PERSON TO BE CONTACTED POST DISCHARGE: NAME: JUANIS BOYD RELATIONSHIP TO PATIENT: SELF TELEPHONE NUMBER: [phone] [facility] [phone] CHF Plan of Care: Is the patient being discharged with a diagnosis of Congestive Heart Failure (CHF)? No ----- WRISTBAND ----- Patient wristband was removed and destroyed by placing in a secured and locked Personal Health Information (PHI) receptacle for shredding. Comments: /es/ MIR BUCK RN,BSN REGISTERED NURSE Signed: 12/06/2024 11:28 MIR BUCK [facility] Dec 06, 2024 09:53 AM VICE PRESIDENT OF COMPLIANCE DISCH YANNICK NOTE: LOCAL TITLE: INPT CARE COORD/CASE MGMT INITIAL DISCHARGE PLANNIN STANDARD TITLE: VICE PRESIDENT OF COMPLIANCE DISCHARGE NOTE DATE OF NOTE: DEC 06, 2024@09:53 ENTRY DATE: DEC 06, 2024@09:53:06 AUTHOR: CAITLIN BERNAL EXP COSIGNER: URGENCY: STATUS: COMPLETED INPT CARE COORD/CASE MGMT INITIAL DISCHARGE PLANNING NOTE Has ADDENDA Assessment/Problem Identification: Discharge Planning 's Age: 84 's Race: WHITE [place]'s home address: [address] [place] [id number] Insurance: [employer] Service Connection: 100%[place] Admitting Diagnosis: Hearing Loss The patient is able to understand and follow healthcare instructions without help: Always Mental Status: Alert Oriented Functional Status/Mobility: Independent Activites of Daily Living: Independent Instrumental Activities of Daily Living: Independent Caregiver and Social Support: Lives: Alone Transportation Needs: has transportation between hospital and home with Comment: Food/Nutrition Security: Does have difficulty obtaining food? No Does largely depend on canned/packaged/frozen food or deli meats? No Homecare services ([facility] or DATA INTEGRATION DEVELOPER) No (Ornamental Iron Worker Apprentice will continue to assess prior to discharge) Other Comments: Planning & Implementation is an active participant in the treatment plan: Yes Anticipate will be discharged to appropriate level of care once medically stable Staff involved in discharge planning: , Nursing, hospice fellow, QUALITY ASSURANCE SUPERVISOR TRIM Monitoring & Evaluation continues with medical treatment per plan of care hospice fellow will remain available to assist as needed /faraz BERNAL RN REGISTERED NURSE Signed: 12/06/2024 09:59 12/06/2024 ADDENDUM STATUS: COMPLETED [place] has been cleared for discharge to home today. No need for skilled homecare services. Has Travel Home. Care team is updated via this note. /faraz BERNAL RN REGISTERED NURSE Signed: 12/06/2024 11:40 CAITLIN BERNAL [facility] Dec 06, 2024 09:50 AM NURSING NOTE: LOCAL TITLE: NS FREQUENT DOCUMENTATION STANDARD TITLE: NURSING NOTE DATE OF NOTE: DEC 06, 2024@09:50 ENTRY DATE: DEC 06, 2024@09:50:14 AUTHOR: MIR BUCK COSIGNER: URGENCY: STATUS: COMPLETED Version 2.4 Charting in accordance with [place] APPROVED [place] STANDARD (CAAES) ACUTE INPATIENT/REHABILITATION NURSING ADMISSION SCREENING, ASSESSMENT, AND STANDARDS OF CARE ==== NATIONAL EARLY WARNING SCORE (NEWS) ==== The following vital measurements were used to complete the NEWS. Measurement DT TEMP PULSE RESP BP POx F(C) (L/MIN)(%) 12/06/2024 09:15 98.1(36.7) 60 16 155/65 96 The NEWS total is 0. 1. Temperature (C/F): Score = 0 36.1 - 38.0 C (96.9 - 100.4 F) 2. Pulse: Score = 0 51-90 3. Respirations: Score = 0 12-20 4. Blood Pressure (Only Systolic BP, mmHg): Score = 0 111-219 5. Pulse Oximetry: Score = 0 96% or greater 6. Supplemental oxygen in use: Score = 0 No 7. AVPU: Score = 0 Alert Action/Interventions Taken: Repeat NEWS scoring with next vital signs /esmer/ MIR BUCK, RN,BSN REGISTERED NURSE Signed: 12/06/2024 09:51 MIR BUCK [facility] Dec 06, 2024 08:25 AM ACCOUNTING OF DISC LOSURES NOTE: LOCAL TITLE: STATE PRESCRIPTION DRUG MONITORING PROGRAM STANDARD TITLE: ACCOUNTING OF DISCLOSURES NOTE DATE OF NOTE: DEC 06, 2024@08:25:30 ENTRY DATE: DEC 06, 2024@08:25:30 AUTHOR: LATOYA TSE EXP COSIGNER: URGENCY: STATUS: COMPLETED This PDMP query was submitted by Latoya Tse [facility]. The clinical justification for this PDMP query is to review controlled substances prescribed outside of the [facility], and any additional information that may become available, as an important component of standard clinical care, and in accordance with [facility] policy. Patient information was shared with the PDMP [employer] [place]. No prescription(s) for controlled substances outside the [facility] were found in the last 90 days. /esmer/ Laotya Tse PharmD Clinical Pharmacist Signed: 12/06/2024 08:27 LATOYA TSE [facility] Dec 06, 2024 08:19 AM DISCHARGE NOTE: LOCAL TITLE: DISCHARGE NOTE (GT) STANDARD TITLE: DISCHARGE NOTE DATE OF NOTE: DEC 06, 2024@08:19 ENTRY DATE: DEC 06, 2024@08:19:42 AUTHOR: CELSA HERNANDEZ EXP COSIGNER: LIGIA ESTEVEZ URGENCY: STATUS: COMPLETED Discharge Note Patient is being discharged. Brief Summary of Hospital Stay: Admitted s/p R CI owing to long distance from home Plan for follow-up: [facility] Monday ENT Testing: Consults: Appointments:ENT f/u scheduled No data available Discharge Instructions and Medications: See Patient Discharge Instruction Note Home Care: Per instruction sheet, ok to remove adriana in 48h Additional clinical issues that require follow-up: n/a SPECIFIC CONDITIONS: Does the patient have CHF? No /esmer/ CELSA HERNANDEZ Otolaryngology - Head & Neck Surgery Resident Signed: 12/06/2024 08:20 /esmer/ LIGIA ESTEVEZ MD OTOLOGY, NEUROTOLOGY AND SKULL BASE SURGERY Cosigned: 12/11/2024 08:52 CELSA HERNANDEZ [facility] Dec 06, 2024 08:18 AM MEDICATION MGT DIS CHARGE NOTE: LOCAL TITLE: DISCHARGE MEDICATION RECONCILIATION(GT) STANDARD TITLE: MEDICATION MGT DISCHARGE NOTE DATE OF NOTE: DEC 06, 2024@08:18 ENTRY DATE: DEC 06, 2024@08:18:22 AUTHOR: CELSA HERNANDEZ COSIGNER: URGENCY: STATUS: COMPLETED DISCHARGE MEDICATION RECONCILIATION(GT) Has ADDENDA Discharged to: To Home Does the use tobacco, smokeless tobacco, pipes, cigars, and/or snuff? (Check [facility] NSG ADMISSION SCREEN Note) No Does the require any supplies, including wound care, catheters, tube feeds, chest tube, diabetic testing supplies, syringes, trach or ostomy supplies? No Medication Management After Discharge: Patient is being discharged to home. The patient independently organizes and takes medications, including pills, injections, metered dose inhalers, nebulizers, patches and eye drops. The patient does not use a pillbox. Current Active Outpatient Medications: MECLIZINE HCL 25MG TAB TAKE ONE TABLET BY MOUTH TWICE A PENDING DAY NEEDED # Refills: Quantity: 10 Issue Date: Provider: OXYCODONE HCL 5MG TABLET TAKE ONE TABLET(5 MG) BY MOUTH PENDING EVERY 4 HOURS NEEDED *THESE ARE SHORT ACTING TABS* # Refills: Quantity: 6 Issue Date: Provider: Active Medications from Remote Data NOTE: Remote meds display is limited to those items matched to National Drug File at the originating site. CARBOXYMETHYLCELLULOSE NA 0.5% SOLN,OPH Sig: INSTILL 1 DROP INTO EACH EYE TWICE DAILY NEEDED FOR DRY EYE Quantity: 15 Days Supply: 30 Rx Expiration Date: 01/11/25 Last filled 07/03/24 at [facility] (Active) I have discontinued the following outpatient medications in CPRS na I have added the following new medications to the outpatient medical regimen oxycodone, meclizine I have made the following dose changes in the outpatient medical regimen na By signing this note I acknowledge that I have actively reconciled this patient's discharge medical regimen For any questions related to this medication reconciliation I can be reached at [phone] /esmer/ CELSA HERNANDEZ Otolaryngology - Head & Neck Surgery Resident Signed: 12/06/2024 08:18 12/06/2024 ADDENDUM STATUS: COMPLETED Had extensive discussion with provider to clarify what medications patient was taking prior to admission, as history was unclear from notes and JLV. Asked provider to update non-VA medication list to reflect what patient is actually taking. The following medications were added per provider: Non-VA EZETIMIBE 10MG TAB TAKE 10MG BY MOUTH ONCE DAILY Non-VA FUROSEMIDE 20MG TAB TAKE 20MG BY MOUTH EVERY MORNING Non-VA OMEPRAZOLE 40MG EC CAP TAKE 40MG BY MOUTH ONCE DAILY Non-VA TAMSULOSIN HCL 0.4MG CAP TAKE 0.4MG BY MOUTH DAILY - Confirmed with patient's that he takes apixaban 2.5 mg twice daily (non- VA list updated to reflect this). Per provider, patient may resume home apixaban 48 hours after procedure. /esmer/ Latoya Tse, PharmD Clinical Pharmacist Signed: 12/06/2024 11:16 CELSA HERNANDEZ [facility] Dec 06, 2024 08:13 AM PHYSICIAN DISCHARG E NOTE: LOCAL TITLE: PATIENT DISCHARGE INSTRUCTION (T) STANDARD TITLE: PHYSICIAN DISCHARGE NOTE DATE OF NOTE: DEC 06, 2024@08:13 ENTRY DATE: DEC 06, 2024@08:14:22 AUTHOR: CELSA HERNANDEZ EXP COSIGNER: URGENCY: STATUS: COMPLETED Facility Treating Specialty: SURGERY (INPATIENT ONLY) Your ATTENDING PHYSICIAN during your hospital stay was: Zenaida DISCHARGE DIAGNOSIS: Hearing loss cochlear implantation REASON FOR DISCHARGE: Patient has reached optimal goals of acute hospitalization. Patient/Caregiver has been informed of the discharge to the appropriate level of care. Yes DISCHARGE TO: Home TYPE OF DISCHARGE: Regular AGENCY REFERRAL: None PHYSICAL/ACTIVITY LIMITATIONS: No restrictions DIET: REGULAR Diet from the above dietary order is to be continued by the patient post-discharge: Yes POST-HOSPITALIZATION TREATMENTS AND INSTRUCTIONS: Wound Care: No Tube Feeding: No Home Oxygen: No Catheter Care: No Glucose Monitoring: No Any Bathing Restrictions: No Any Lifting Restrictions: No Any Driving Restrictions: No May you return to work? Yes Any additional instructions or treatments? No Anticipated Date/time of discharge: Nov@11:00 CONTACT YOUR SURGICAL PROVIDER IF: Bleeding, severe pain, severe vertigo AFTER DISCHARGE QUESTIONS AND CONCERNS: Please call: Daytime: [phone] and ask for EAR,NOSE & THROAT Resident. Evenings, weekends, and holidays call and dial [phone] for skiver operator and ask for EAR,NOSE & THROAT Resident. If no response, please ask the skiver operator to page the Surgeon on duty (SOD). Was surgery related to [place]-rectal Cancer? No Additional Follow up: ENT visits Your Primary Care RN will try to reach you in the next 1-3 days to see how you are doing. If your phone number changes, you need to change your appointment, or you do not receive a call, please call us at [phone]. If you have a non surgical concern or question, please contact [facility] Primary Provider: [facility] Team: Phone #:Other or Unassigned Other: [facility] Patient/Caregiver has received, understands and agrees with the discharge plan and continuing care instructions. Yes ---- Cochlear Implant Postoperative Instructions 1. No heavy lifting, strenuous activity, or exercising for 4 weeks after surgery. 2. Keep your head elevated on 1-2 pillows when lying down for 1 week following surgery. 3. Remove the earmuff style ear bandage 1 day after surgery. There may be some blood staining on the dressing. This is normal. 4. All of you sutures are underneath the skin, and your skin is covered with a layer of skin glue for protection. Do not remove the skin glue . It will fall off on its own after a few weeks. 5. You may bathe or shower and wash your hair on the day surgery. Please remember to be gentle with your incision. Please do submerse your incision under water (do not dunk you head under water). Running water (like the shower) is ok though. 6. You will be given an antibiotic to take by mouth following surgery. Please finish the medication as prescribed; do NOT stop early even if the you feel well. If you think that you are developing an allergic reaction to the antibiotic, a yeast infection, excessive diarrhea or loose stools, or have severe abdominal cramping, please call your doctor's office. Contact us as soon as possible for any high fevers, severe headaches, or unusual neck stiffness. 7. After surgery, we are not able to activate your device for several weeks. You should already have an appointment scheduled with audiology for this. While your cochlear implant is expected to improve your ability to understand speech and language, it is very important to go have reasonable expectations in the beginning. Commonly, it takes weeks to several months of working with you to achieve your desired outcome. 8. The first clinic visit is typically one week following surgery. What to expect following Cochlear Implant surgery? Pain You will be given a pain medication to be taken for the first several days after surgery. Mild, intermittent ear pain is not unusual during the first two to four weeks after surgery and will slowly improve in most cases. It may be painful to open your jaw, and this is expected. If you are experiencing this, avoid chewy or hard foods for about 4 weeks after surgery until the discomfort begins to improve. Swelling Swelling is expected following surgery. The swelling can occur behind the ear, in front of the ear, around the eye, or around the mouth. Some bruising may also occur around these areas. The ear may appear to stick out or appear to be higher or lower than the other ear. This is normal and will gradually improve over the months following surgery. However, if a golf ball sized swelling develops, please contact us as soon as possible. You may have bruising around the eye or corner of the mouth - this occasionally occurs because of the facial nerve monitor electrodes that are sometimes used during ear surgery and is temporary. Sometimes gravity will cause the bruising to move down onto the neck - while this appears worrisome, it happens on occasion and is normal. Ear numbness You may complain of ear numbness - this is temporary and will improve over several months. If the ear is numb exercise caution when using a environmental studies department chair on a hot setting to avoid injury to the skin until sensation returns. Popping or ringing of the ear You may experience ringing, popping, crackling, or other sounds in the ear. This is caused by nerve stimulation or fluid in the ear from surgery and usually improves with time. You may feel as if the ear feels clogged or filled with fluid. This is entirely expected after surgery. Ringing (tinnitus), hearing loss, or increased hearing sensitivity Patients may notice ringing of the ear after surgery ? this can be high-pitched, low-pitched, constant or intermittent ? and is often temporary or decreases with time. You may feel that the hearing is worse and this is due to the dissolvable packing and blood from surgery ? this improves with time. Some patients experience loud sound sensitivity in the operated ear and this is usually temporary. Dizziness Dizziness may occur following surgery. Avoid sudden movements, heavy lifting or straining; stand up slowly. Dizziness is usually temporary and will improve with time. Gradually increase you activity levels as your dizziness improves. If your dizziness is severe, please let Dr. Estevez know. Drainage or discharge A bloody or watery discharge is expected during the healing process. Depending on what kind of surgery you had, this can last weeks or months, but is expected. Call your doctor's office if you have yellow or green discharge with a foul odor. Nose bleed or blood in sputum Some patients notice a nosebleed or spit up blood - this is common and results from the blood that accumulates in the middle ear during surgery, and drains into the back of the nose. This is not cause for concern. Taste disturbance and dry mouth This is common after ear surgery. It results from irritation of the taste nerve (chorda tympani nerve) during the surgical approach to safely protect the facial nerve, expose the middle ear, and inserting your cochlear implant. This is a temporary sensation for the majority of patients. In some patients, this can last a few months or more. In some patients, this can be permanent. Bruising around the eye and/or corner of the mouth: You may have some slight bruising around the eye or corner of the mouth - this occasionally occurs because of the facial nerve monitor electrodes that are sometimes used during ear surgery and is temporary. You may have a sore throat or hoarse voice and this occasionally occurs because of the breathing tube (endotracheal tube) that is used for general anesthesia. This will usually improve over time. Fevers, neck stiffness, shortness of breath, leg pain, unusual swelling, and intense pain: Call the ENT office for any unusually high fevers, neck stiffness, shortness of breath, leg pain, unusual swelling at the surgical site, or increasing pain /es/ SAID IZREIG Otolaryngology - Head & Neck Surgery Resident Signed: 12/06/2024 08:16 CELSA HERNANDEZ [facility] Dec 06, 2024 08:08 AM OTOLARYNGOLOGY NOT E: LOCAL TITLE: ENT FOLLOW-UP PROGRESS NOTE STANDARD TITLE: OTOLARYNGOLOGY NOTE DATE OF NOTE: DEC 06, 2024@08:08 ENTRY DATE: DEC 06, 2024@08:09:04 AUTHOR: CELSA HERNANDEZ EXP COSIGNER: LIGIA ESTEVEZ URGENCY: STATUS: COMPLETED ENT FOLLOW-UP PROGRESS NOTE Has ADDENDA Otolaryngology - Head & Neck Surgery Progress Note Admitted overnight s/p R CI placement owing to home in [place]. Interim: - Pt transeferred to floor without event - Denies vertigo, headache - Pain well controlled - Tolerating PO - Adriana dressing in place and appropriate Physical Exam General - NAD, AAOx3, strong voice without stridor Eyes - PERRL, EOMI, no nystagmus Ears - Adriana dressing in place to R ear, telfa to post-auricular incision in place Nose - Midline septum, pink mucosa without mass or lesion, unremarkable inferior turbinates Oral Cavity - normal dentition, no gingival fluctuance, no mucosal mass or lesion Pharynx - Tonsillar fossae intact, no mucosal mass or lesions Neck - supple, no lymphadenopathy, no thyromegaly A/P - 83 yo MALE with RIGHT sided SNHL now s/p R CI placement w/ Dr. Estevez. Comfortable overnight w/ pain well controlled, appropriate for d/c home this am w/ f/u scheduled. - OK for discharge this am - Televisit 12/11 w ENT - CI activiation 01/01 - Tylenol, oxycodone prn for pain - Meclizine prn for vertigo - Instructions explained to pt /esmer/ CELSA HERNANDEZ Otolaryngology - Head & Neck Surgery Resident Signed: 12/06/2024 08:13 /esmer/ LIGIA ESTEVEZ MD OTOLOGY, NEUROTOLOGY AND SKULL BASE SURGERY Cosigned: 12/11/2024 08:52 12/06/2024 ADDENDUM STATUS: COMPLETED Apixaban to be resumed 48h after the procedure, communicated to family /esmer/ CELSA HERNANDEZ Otolaryngology - Head & Neck Surgery Resident Signed: 12/06/2024 08:53 /esmer/ LIGIA ESTEVEZ MD OTOLOGY, NEUROTOLOGY AND SKULL BASE SURGERY Cosigned: 12/11/2024 08:52 12/11/2024 ADDENDUM STATUS: COMPLETED -- I was immediately available throughout the entire duration of care for this . I agree with the assessment and plan. -- /esmer/ LIGIA ESTEVEZ MD OTOLOGY, NEUROTOLOGY AND SKULL BASE SURGERY Signed: 12/11/2024 08:52 CELSA HERNANDEZ [facility] Dec 06, 2024 02:46 AM NURSING NOTE: LOCAL TITLE: NSG FREQUENT DOCUMENTATION STANDARD TITLE: NURSING NOTE DATE OF NOTE: DEC 06, 2024@02:46 ENTRY DATE: DEC 06, 2024@02:46:28 AUTHOR: ADRIAN MOSLEY COSIGNER: URGENCY: STATUS: COMPLETED Version 2.4 Charting in accordance with [place] APPROVED PAIUTE-SHOSHONE STANDARD (CAAES) ACUTE INPATIENT/REHABILITATION NURSING ADMISSION SCREENING, ASSESSMENT, AND STANDARDS OF CARE ==== NATIONAL EARLY WARNING SCORE (NEWS) ==== The vital signs below were used for scoring: Temperature: 98.6 Pulse: 60 Blood Pressure: 105/47 Respiration: 18 Pulse Oximetry: 96 The NEWS total is 1. 1. Temperature (C/F): Score = 0 36.1 - 38.0 C (96.9 - 100.4 F) 2. Pulse: Score = 0 51-90 3. Respirations: Score = 0 12-20 4. Blood Pressure (Only Systolic BP, mmHg): Score = 1 101-110 5. Pulse Oximetry: Score = 0 96% or greater 6. Supplemental oxygen in use: Score = 0 No 7. AVPU: Score = 0 Alert Action/Interventions Taken: Repeat NEWS scoring with next vital signs Patient Status: Remains on unit /esmer/ ADRIAN MOSLEY RN REGISTERED NURSE Signed: 12/06/2024 02:47 ADRIAN MOSLEY [facility] Dec 06, 2024 12:34 AM NURSING NOTE: LOCAL TITLE: NURSING INTERDISCIPLINARY STANDARD TITLE: NURSING NOTE DATE OF NOTE: DEC 06, 2024@00:34 ENTRY DATE: DEC 06, 2024@00:34:16 AUTHOR: ADRIAN MOSLEY EXP COSIGNER: URGENCY: STATUS: COMPLETED 1. Problem : Altered comfort Patient Goal(s): Patient will be pain free or pain will be tolerable. Responsible Discipline: Nursing, Physician Current Status: Active Recommended Intervention: -Assess characteristics of pain location -Encourage pt to verbalize/report any pain or discomfort -Administer pain medication as ordered -Assess effectiveness of pain meds 2. Problem: Risk for falls Patient Goal(s): Patient be free from fall on this admission. Responsible Discipline: Nursing, Physician,Physical Theraphy Current Status: Active Recommended Intervention: -[place] patient to his surroundings -Instruct patient to call for help before getting up. -Keep bed in lowest position, side rails up x3, nonslip socks in place, call pretty and personal items within reach -Move tubings/wires out of the way for easier ambulation -Bed alarm on -Hourly rounding 3.Problem : Risk for infection Patient Goals: Patient's VS/Temp, WBC will be WNL throughout the tour . Current Status: Active Responsible Disciplines:Nursing,Physician ,Pharmacy Recommended Intervention: - Monitor for s/s of infection. - Monitor labs and vs. - Demonstrate and encourage good hand washing technique. /esmer/ ADRIAN MOSLEY RN REGISTERED NURSE Signed: 12/06/2024 00:35 ADRIAN MOSLEY [facility] Dec 06, 2024 12:26 AM NURSING NOTE: LOCAL TITLE: RAFA SKIN INSPECTION/ASSESSMENT STANDARD TITLE: NURSING NOTE DATE OF NOTE: DEC 06, 2024@00:26 ENTRY DATE: DEC 06, 2024@00:26:32 AUTHOR: ADRIAN MOSLEY EXP COSIGNER: URGENCY: STATUS: COMPLETED Assessment Type: SKIN REINSPECTION/REASSESSMENT SKIN INSPECTION: Skin Color: Usual for ethnicity Skin Temperature: Warm Skin Moisture: Normal Skin Turgor: Elastic (normal/immediate) Hunter Skin Assessment: The patient's Hunter Scale Score is 18. The patient is at mild risk for development of pressure ulcer/injury. Sensory perception -- ability to respond meaningfully to pressure-related discomfort Slightly limited. Moisture -- degree to which skin is exposed to moisture Rarely moist. Activity -- ability to change and control body position Chair fast. Mobility -- ability to change and control body position Slightly limited. Nutrition -- usual food intake patterns Adequate. Friction and shear No apparent problem. INTERVENTIONS: New or changed pressure ulcer/injury interventions or medical condition. Education: Provide patient/caregiver education regarding causes and prevention of pressure ulcers/injuries. Provide patient/caregiver education regarding treatment plan for pressure ulcers/injuries. Pressure-Redistribution measures: Avoid turning/position on side at greater than 30 degree angle Encourage small, frequent position changes Individualized repositioning while out of bed to chair/wheelchair Maximize mobilization: Encourage activity as tolerated Individualized repositioning while out of bed to chair/wheelchair Manage moisture: Apply protective barrier ointment Instruct patient/resident/caregiver to request assistance as needed Maintain clean and dry skin No more than one linen layer below the patient/resident Manage nutrition: Encourage eating and assist with meals Monitor fluid/food intake Offer liquids every two hours when turning patient or as needed Provide or encourage oral care prn Provide tray set-up and other assistance as needed Reduce friction and shear: Elevate head of bed for meals, then lower within one hour after eating (unless contraindicated) Keep head of bed at or below 30 degrees when not eating RISK FACTORS THAT INCREASE RISK FOR DEVELOPING PRESSURE INJURIES: The patient/resident has the following: Age over 75 Device(s): (nasogastric tubes, oxygen tubing, urinary catheters, cell phone etc.) Comment: heplock Localized abnormality: Erythema blanchable: Location(s): buttocks secondary to prolonged lying in stretcher Other: Location(s): Heplock to right hand Wound - other than pressure ulcer/injury (includes open surgical wounds/incisions): Location: Right ear- s/p cochlear implant 12/05/24 Wound Description: Wound Bed Tissue Types: Other: Unable to assess,covered with dressing Coco-wound skin status: Wound drainage none. SKIN/WOUND DRESSING: Location(s): Right ear Clean Dry Intact /es/ ADRIAN MOSLEY RN REGISTERED NURSE Signed: 12/06/2024 02:49 ADRIAN MOSLEY [facility] Dec 05, 2024 11:48 PM NURSING NOTE: LOCAL TITLE: ACUTE INPATIENT NSG SHIFT ASSESSMENT STANDARD TITLE: NURSING NOTE DATE OF NOTE: DEC 05, 2024@23:48 ENTRY DATE: DEC 05, 2024@23:48:24 AUTHOR: ADRIAN MOSLEY EXP COSIGNER: URGENCY: STATUS: COMPLETED Version 2.2 Charting in accordance with [place] APPROV[place] PAIUTE-SHOSHONE STANDARD (CAAES) ACUTE INPATIENT/REHABILITATION NURSING ADMISSION SCREENING, ASSESSMENT, AND STANDARDS OF CARE ==== ASSESSMENT ==== Received from PACU with dressing to right ear ( s/p right cochlear implant ),dry and intact.Place on telemetry reading v.paced.He voids in the urinal with clear, yellow urine.Venodyne boots placed as ordered.Bed alarm on. ==== HANDOFF ==== Bedside report and handoff completed Safety check completed ==== PAIN ASSESSMENT ==== Patient's acceptable pain goal: 0 No pain Are you currently experiencing pain? No: Pain Score: 0 ==== UMANZOR FALL SCALE & TIPS PROGRAM ==== Umanzor Fall Scale: The Umanzor Fall scale was performed and score was 20. This is indicative of low risk of falls. History of falling: immediate or within 3 months? No Secondary diagnosis: No Ambulatory aid: None/bedrest/nurse assist Intravenous therapy/Heparin lock: Yes Gait/Transferring: Normal/bed rest/immobile Mental Status: Oriented to own ability/knows own limitations Fall Tailoring Interventions for Patient Safety (TIPS) Fall TIPS initiated with patient: Yes Interventions: Communicate recent fall or risk of harm Bed/Chair Alarm on Assistance out of bed: Call for assistance before getting out of bed Fall TIPS reviewed with patient: Yes Interventions: Communicate recent fall or risk of harm Bed/Chair Alarm on Assistance out of bed: Call for assistance before getting out of bed ==== ENVIRONMENTAL SAFETY MANAGEMENT ==== Implemented safety standards of care: -[place] to unit & environment -Adequate room lighting -Bed in low and locked position -Call light within reach -Personal items within reach -Traffic path in room free of clutter -Non-slip footwear -Upper/half length side rails up for bed mobility -Sensory aids within reach -Encourage patient to utilize sensory support ==== NEUROLOGICAL ==== Neurological Orientation: Oriented x4 Level of Consciousness (AVPU): Alert = Appears aware of and responsive to the environment on their own. Follows commands, opens eyes spontaneously, and tracks objects. ==== NEUROMUSCULAR/NEUROVASCULAR EXTREMITIES ASSESSMENT ==== Strength: Tow Picker Bilateral: Strong Upper Extremity Bilateral: Full strength Lower Extremity Bilateral: Full strength Sensation: Upper Extremity Sensation Bilateral: Intact Lower Extremity Sensation Bilateral: Intact Temperature: Upper Extremity Temperature Bilateral: Warm Lower Extremity Temperature Bilateral: Warm ==== CARDIOVASCULAR ==== Cardiac Rhythm Analysis: Paced: Ventricular paced Telemetry Transmitter Pack #: [id number] Capillary Refill: All 4 extremities, less than or equal to 3 seconds. Peripheral Pulses: All 4 extremities, 3+ normal. Edema: None ==== RESPIRATORY ==== Respirations: Unlabored Pattern: Regular ==== GASTROINTESTINAL ==== Last bowel movement: 15/25 Abdominal Description: Rounded Palpation: Soft, Non-tender Bowel Sounds: RUQ: Active LUQ: Active RLQ: Active LLQ: Active ==== GENITOURINARY ==== Elimination: Continent ==== ACTIVITIES OF DAILY LIVING ==== Hygiene ADLs: Oral Care: Non-ventilator patient: Patient teeth brushed: With assistance [facility] [place] was educated that poor oral hygiene increases the risk of hospital acquired pneumonia and dental problems like gingivitis and tooth decay. [place] was educated using their preferred method and verbalized understanding. ==== IV LINES ==== Peripheral IV: Present on admission: Line #1: Location: Right, Hand Gauge: 20 Line #1: Assessment: Location: Right, Hand Gauge: 20 Dressing Condition: Clean, dry, intact Site Condition: No redness, swelling, pain Line Status: Capped Flushed /esmer/ ADRIAN MOSLEY RN REGISTERED NURSE Signed: 12/06/2024 07:24 ADRIAN MOSLEY [facility] Dec 05, 2024 09:48 PM NURSING ADMISSION EVALUATION NOTE: LOCAL TITLE: VAAES ACUTE INPATIENT NSG ADMISSION SCREEN STANDARD TITLE: NURSING ADMISSION EVALUATION NOTE DATE OF NOTE: DEC 05, 2024@21:48 ENTRY DATE: DEC 05, 2024@21:48:40 AUTHOR: ADRIAN MOSLEY EXP COSIGNER: URGENCY: STATUS: COMPLETED === ALLERGY/ADVERSE DRUG REACTION (ADR) REVIEW (MRT5) === FACILITY ALLERGY/ADR -------- [facility] Allergy/Adverse Drug Reaction Review to be conducted by: Provider == MEDICATION REVIEW (MRR1) == Did patient bring medication(s) from home? No Medication Review to be conducted by Provider == GENERAL INFORMATION == Admission information given by: Patient Is there a legal guardian/conservator? Preferred language for discussing healthcare: [place] Preferred mode of communication: Verbal Items at Bedside: Visual Aids: Standard Glasses === INFECTIOUS DISEASE RISK SCREEN === Travel Screen: Have you traveled within the [place] within the last 21 days? No Have you traveled outside the [place] within the last 21 days? No Within the last 14 days, have you had: No known exposure Other Exposure to Infectious Disease: No known exposure Patient reported the following symptoms: No Symptoms Present History of Multiple Drug Resistant Organism (MDRO): No === NUTRITION SCREENING === Malnutrition Screening Weight (Previous 6 months): Measurement DT WEIGHT LB(KG)[BMI] 12/05/2024 20:24 195.2(88.54)[27] 12/05/2024 10:50 188(85.28)[26] Lost weight recently without trying: No (0 points) Have you been eating poorly because of decreased appetite? No (0 points) Total Score: 0 Other Nutrition Screening Questions: The patient does not report any concerns with their teeth that would make it difficult to eat. The patient does not report overeating to the point of feeling sick or making themselves vomit. The patient denies gaining 10 lbs.(4.5 kgs) or more in the past 3 months without trying. The patient denies having any food allergies, intolerance, special dietary needs, or ethnic, cultural or jew preferences that would affect their dietary needs. Food Insecurity Screening Within the past 12 months, you worried whether your food would run out before you got money to buy more. Never true Within the past 12 months, the food you bought just did not last you and you did not have the money to get more. Never true Food Insecurity Disposition: == RISK SCREENINGS == Alcohol Screen: Screen to be completed by: Nurse: SCREEN FOR ALCOHOL (AUDIT-C) An alcohol screening test (AUDIT-C) was negative (score=1). 1. How often did you have a drink containing alcohol in the past year? Consider a drink to be a 12 ounce can or bottle of regular beer, 8 ounces of malt liquor, a 5 ounce glass of table wine, or a 1.5 ounce shot of liquor (like scotch, gin, or vodka). Monthly or less 2. How many drinks containing alcohol did you have on a typical day when you were drinking in the past year? One or two drinks 3. How often did you have six or more drinks on one occasion in the past year? Never *Does the patient consume alcohol? Yes,per patient,he drinks 1 cocktail occassionally,last drink was last week. Date/Time of last use: Do you have a history of alcohol withdrawal symptoms? No Do you have a history of Delirium Tremens (DTs)? No Do you have a history of seizures related to withdrawal? No Tobacco Use: Never - tobacco user Do you currently or have you ever used alternative nicotine products? No Substance Use Assessment: *Do you use any recreational drugs or narcotics (prescription or non-prescription)? No === RISK OF WANDERING === The patient does not have a history of wandering. The patient does not have a history of elopement. The patient is not expressing a desire to leave. = SUICIDE SCREEN = [place] Suicide Severity Rating Scale (C-SSRS) 1. Over the past month, have you wished you were or wished you could go to sleep and not wake up? No 2. Over the past month, have you had any actual thoughts of killing yourself? No 3. Over the past month, have you been thinking about how you might do this? Response not required due to responses to other questions. 4. Over the past month, have you had these thoughts and had some intention of acting on them? Response not required due to responses to other questions. 5. Over the past month, have you started to work out or worked out the details of how to kill yourself? Response not required due to responses to other questions. 6. If yes, at any time in the past month did you intend to carry out this plan? Response not required due to responses to other questions. 7. In your lifetime, have you ever done anything, started to do anything, or prepared to do anything to end your life (for example, collected pills, obtained a gun, gave away valuables, went to the roof but didn't jump)? No 8. If YES, was this within the past 3 months? Response not required due to responses to other questions. C-SSRS Screen is Negative == EXPOSURE TO VIOLENCE AND ABUSE PRE-SCREEN == Are you worried for your safety, that you will be hurt or harmed? No Has anyone tried to force you to sign papers or use your money against your will? No = EDUCATIONAL NEEDS/LEARNING STYLE = Barriers to learning: None evident Patient learning style preferences: Verbal explanation ==== UMANZOR FALL SCALE & TIPS PROGRAM ==== Umanzor Fall Scale: The Umanzor Fall scale was performed and score was 20. This is indicative of low risk of falls. History of falling: immediate or within 3 months? No Secondary diagnosis: No Ambulatory aid: None/bedrest/nurse assist Intravenous therapy/Heparin lock: Yes Gait/Transferring: Normal/bed rest/immobile Mental Status: Oriented to own ability/knows own limitations Fall Tailoring Interventions for Patient Safety (TIPS) Fall TIPS initiated with patient: Yes Interventions: Communicate recent fall or risk of harm Toileting schedule frequency established Toileting method: Assist to bathroom Assist to commode Bed/Chair Alarm on Assistance out of bed: Call for assistance before getting out of bed === ASPIRATION RISK ASSESSMENT AND SWALLOW SCREEN === Aspiration Risk(s): Screening complete. No aspiration risk identified. Bedside Swallow Screen not indicated. Aspiration Precautions: Continue Review Patient Status: Patient status is appropriate to proceed to exclusion criteria. Exclusion Criteria: None of the above BEDSIDE SWALLOW SCREEN 1. 5 mL via a cup: A. Cough after swallowing: No B. Audible throat clear after swallowing: No C. Wet voice with AHHH : No 2. 5 mL via a cup: A. Cough after swallowing: No B. Audible throat clearing after swallowing: No C. Wet voice with AHHH : No 3. 90 mL via a cup: A. Cough after swallowing: No B. Audible throat clear after swallowing: No C. Wet voice with AHHH : No D. Unable to continuously drink: No E. Wet voice with AHHH after 1 minute: No Yes answered in question 3. Bedside Swallow Screen Results: Pass ==== PAIN ASSESSMENT ==== Patient's acceptable pain goal: 0 No pain Are you currently experiencing pain? No: Pain Score: 0 /esmer/ ADRIAN MOSLEY RN REGISTERED NURSE Signed: 12/05/2024 21:59 ADRIAN MOSLEY [facility] Dec 05, 2024 08:59 PM NURSING NOTE: [facility] STAND[facility] TITLE: NURSING NOTE DATE OF NOTE: DEC 05, 2024@20:59 ENTRY DATE: DEC 05, 2024@20:59:56 AUTHOR: AURE OSHEA EXP COSIGNER: URGENCY: STATUS: COMPLETED Assessment Type: INITIAL SKIN INSPECTION/ASSESSMENT SKIN INSPECTION: Skin Color: Usual for ethnicity Skin Temperature: Warm Skin Moisture: Normal Skin Turgor: Elastic (normal/immediate) Hunter Skin Assessment: The patient's Hunter Scale Score is 19. The patient is considered not at risk for development of pressure ulcers/injuries. Sensory perception -- ability to respond meaningfully to pressure-related discomfort Slightly limited. Moisture -- degree to which skin is exposed to moisture Rarely moist. Activity -- ability to change and control body position Walks occasionally. Mobility -- ability to change and control body position Slightly limited. Nutrition -- usual food intake patterns Adequate. Friction and shear No apparent problem. INTERVENTIONS: New or changed pressure ulcer/injury interventions or medical condition. Education: Provide patient/caregiver education regarding causes and prevention of pressure ulcers/injuries. Provide patient/caregiver education regarding treatment plan for pressure ulcers/injuries. Teach patient/caregiver importance of changing position frequently for pressure ulcer/injury prevention. Pressure-Redistribution measures: Encourage small, frequent position changes Maximize mobilization: Encourage activity as tolerated Manage moisture: Maintain clean and dry skin RISK FACTORS THAT INCREASE RISK FOR DEVELOPING PRESSURE INJURIES: The patient/resident has the following: Age over 75 Device(s): (nasogastric tubes, oxygen tubing, urinary catheters, cell phone etc.) Comment: * R ear protector Localized abnormality: Erythema blanchable: Location(s): *Jorge. inner buttocks , skin intact Comment: *sec. to prolonged sitting /lying in stretcher , per pt Wound - other than pressure ulcer/injury (includes open surgical wounds/incisions): Location: *R TEMPORAL AREA - s/p cochlear implant 12/05/24 No Edema Wound drainage none Unable to assess wound /incision - covered with gauze dsg -CDI SKIN/WOUND DRESSING: Location(s): * R TEMPORAL AREA Clean Dry Intact /esmer/ AURE OSHEA RN BSN REGISTERED NURSE Signed: 12/05/2024 21:06 AURE OSHEA [facility] Dec 05, 2024 08:49 PM NURSING NOTE: LOCAL TITLE: PATIENT BELONGING LIST NOTE STANDARD TITLE: NURSING NOTE DATE OF NOTE: DEC 05, 2024@20:49 ENTRY DATE: DEC 05, 2024@20:49:31 AUTHOR: AURE OSHEA EXP COSIGNER: URGENCY: STATUS: COMPLETED CH: 1-4 [facility] ADMITTING NURSE/PRODUCT DIRECTOR: Aure Oshea RN PATIENT WAS ADVISED THAT VALUABLES AND FUNDS WILL BE ACCEPTED FOR SAFEKEEPING; HOWEVER, [facility] DOES NOT ASSUME RESPONSIBILITY FOR LOST, STOLEN OR DAMAGED ITEMS THAT REMAIN IN THEIR POSSESSION, INCLUDING DENTURES AND EYEGLASSES. MEDICATIONS (S) ARE HANDLED IN ACCORDANCE WITH EXISTING [facility] POLICY. CLOTHING: Description/color / # of items PERSONAL CARE: *Glasses, Remained with patient Other, Remained with patient *BOOK VALUABLES: Per pt and family members who were at bedside during admission , belongings were left in a locker downstairs , taken before the procedure Only pt's glasses and a book were at bedside . MEDICATION: HANDELED IN ACCORDANCE WITH EXISTING [facility] POLICY Do you have any medications with you? No If yes, then please list the medications: BENEFICIARY NAMED: Yes If yes, provide name and contact information of a person they give authority to act as their beneficiary in the event they are unable to apple picker their belongings including valuables upon discharge or . Name: Address: Phone Number: This list was completed with the Patient/Caregiver and a copy of this signed note was given to the Patient/Caregiver. Patient agrees that once items are sent to the clothing room they will not be accessible until discharge. Patient informed that any items left after discharge will be disposed of after 90 days. /esmer/ AURE OSHEA RN BSN REGISTERED NURSE Signed: 12/05/2024 20:53 AURE OSHEA [facility] Dec 05, 2024 08:28 PM EDUCATION NOTE: LOCAL TITLE: PATIENT EDUCATION IMED STANDARD TITLE: EDUCATION NOTE DATE OF NOTE: DEC 05, 2024@20:28:04 ENTRY DATE: DEC 05, 2024@20:28:29 AUTHOR: GILLIAN TURNER COSIGNER: URGENCY: STATUS: COMPLETED VistA Imaging - Scanned Document At 8:28 PM on 12/05/24, the patient(and/or surrogate) received the following document: Fall Prevention in the Hospital. This document was selected from category: Fall Prevention Education Forms. This document was selected from specialty: [facility] Local Education Forms. Patient was given a copy of this document. SCANNED DOCUMENT SIGNATURE NOT REQUIRED Electronically Filed: 12/05/2024 by: GILLIAN FLORES [facility] Dec 05, 2024 08:28 PM NURSING NOTE: LOCAL TITLE: NURSING INTERDISCIPLINARY STANDARD TITLE: NURSING NOTE DATE OF NOTE: DEC 05, 2024@20:28 ENTRY DATE: DEC 05, 2024@20:28:38 AUTHOR: ESTEFANIA EVERETT EXP COSIGNER: URGENCY: STATUS: COMPLETED 1. Problem: fall risk Patient Goal(s): pt will have no falls while in he hospital Responsible Discipline: Nursing, Physician Current Status: Active Recommended Intervention:call pretty within reach, bed in lowest position, slipper socks worn, frequently used items within reach, safety maintained 2. Problem: activity intolerance Patient Goal(s): pt will perform adls as tolerated while in the hospital Responsible Discipline: Nursing, Physician Current Status: Active Recommended Intervention:assist with adls, self turning and repositioning in bed, amb with steady gait, encourage activity as tolerated 3. Problem: acute pain Patient Goal(s): pt will have a pain score of 2 or less while in the hospital Responsible Discipline: Nursing, Physician Current Status: Active Recommended Intervention:vitals, labs, pain assessment, pain management, pain medication, position for comfort /es/ ESTEFANIA EVERETT REGISTERED NURSE Signed: 12/05/2024 20:31 ESTEFANIA EVERETT [facility] Dec 05, 2024 08:27 PM EDUCATION NOTE: LOCAL TITLE: PATIENT EDUCATION IMED STANDARD TITLE: EDUCATION NOTE DATE OF NOTE: DEC 05, 2024@20:27:58 ENTRY DATE: DEC 05, 2024@20:28:29 AUTHOR: GILLIAN TURNERIGNER: URGENCY: STATUS: COMPLETED VistA Imaging - Scanned Document At 8:27 PM on 12/05/24, the patient(and/or surrogate) received the following document: Facts About Hand Hygiene for Patients and Visitors. This document was selected from category: Hand Hygiene for Patients and Visitors. This document was selected from specialty: [facility] Local Education Forms. Patient was given a copy of this document. SCANNED DOCUMENT SIGNATURE NOT REQUIRED Electronically Filed: 12/05/2024 by: GILLIAN [facility]MT. [facility] Dec 05, 2024 08:27 PM EDUCATION NOTE: LOCAL TITLE: PATIENT EDUCATION IMED STANDARD TITLE: EDUCATION NOTE DATE OF NOTE: DEC 05, 2024@20:27:49 ENTRY DATE: DEC 05, 2024@20:28:29 AUTHOR: GILLIAN TURNERIGNER: URGENCY: STATUS: COMPLETED VistA Imaging - Scanned Document At 8:27 PM on 12/05/24, the patient(and/or surrogate) received the following document: Pressure Ulcer Prevention Information From Hospital to Home. This document was selected from category: Pressure Ulcer Prevention Education Forms. This document was selected from specialty: [facility] Local Education Forms. Patient was given a copy of this document. SCANNED DOCUMENT SIGNATURE NOT REQUIRED Electronically Filed: 12/05/2024 by: GILLIAN TURNERUNC [facility] Dec 05, 2024 08:27 PM EDUCATION NOTE: LOCAL TITLE: PATIENT EDUCATION IMED STANDARD TITLE: EDUCATION NOTE DATE OF NOTE: DEC 05, 2024@20:27:41 ENTRY DATE: DEC 05, 2024@20:28:30 AUTHOR: GILLIAN TURNERIGNER: URGENCY: STATUS: COMPLETED VistA Imaging - Scanned Document At 8:27 PM on 12/05/24, the patient(and/or surrogate) received the following document: Telemetry Patient Education. This document was selected from category: Telemetry. This document was selected from specialty: [facility] Local Education Forms. Patient was given a copy of this document. SCANNED DOCUMENT SIGNATURE NOT REQUIRED Electronically Filed: 12/05/2024 by: GILLIAN FLORES [facility]
--- OUTSIDE RECORDS SUMMARY | 2025-03-07 16:20 | XMS_ITS | Encounter Summary ---
Author Name [facility] [place] [facility] [place] Address [address] [place] [address] Care Team Providers Care Nitro Man Name Role Phone PAZ CHASE Primary Care Provider Unavail able Insurance [...] SUPPLEMEN DEVIN MEDEX 2 Jun 20, 2013 [id number] OLIVER LOPEZ PATIENT BCBS ID MEDICARE SUPPLEMEN DEVIN MEDEX 2 Jun 20, 2013 [id number] [phone] OLIVER LOPEZ PATIENT BCBS ID MEDICARE SUPPLEMEN DEVIN MEDEX 2 Jun 20, 2013 [id number] OLIVER LOPEZ PATIENT [place] MEDICARE SUPPLEMEN TAL MEDEX 2 Jun 20, 2013 [id number] [phone] OLIVER LOPEZ PATIENT MEDICARE (WNR) MEDICARE (M) PART A Apr 20, 2004 PART A [id number] [phone] OLIVER LOPEZ PATIENT MEDICARE (WNR) MEDICARE () PART B Apr 20, 2004 PART B [id number] [phone] OLIVER LOPEZ PATIENT MEDICARE (WNR) MEDICARE () PART A Apr 20, 2004 PART A [id number] OLIVER LOPEZ PATIENT MEDICARE (WNR) MEDICARE () PART B Apr 20, 2004 PART B [id number] [phone] OLIVER LOPEZ PATIENT FOR LIFE TFL* Oct 24, 2017 [id number] [phone] OLIVER LOPEZ PATIENT Selected Encounter This section includes the information on record at [place] for the Encounter. Date/Time Encounter Type Encounter Description Reason Provider Source Nov 07, 2024 01:00 PM OFFICE O/P EST LOW 20 MIN PRIMARY CARE/MEDICINE ICD-10-CM H91.90 Unspecified hearing loss, unspecified ear VANWAGNLUIS ANGEL,WILL ODETTE F IHE Encounter Template Text not used by [place] Assessments - Encounter Diagnoses This section includes the primary and secondary diagnoses documented for the Encounter. Date/Time Primary/Secondary Diagnosis Diagnosis Name Provider Source Dec 10, 2024 01:36 PM PRIMARY Unspecified hearing loss, unspecified ear ANIL CHASE [place] [facility] [place] [facility] Dec 10, 2024 01:36 PM SECONDARY Conduction disorder, unspecified ANIL CHASE F [place] [facility] [place] [facility] Dec 10, 2024 01:36 PM SECONDARY Nonrheumatic aortic (valve) stenosis ANIL CHASE F [place] [facility] [place] [facility] Dec 10, 2024 01:36 PM SECONDARY Presence of cardiac pacemaker ANIL CHASE F [place] [facility] [place] [facility] Dec 10, 2024 01:36 PM SECONDARY Unspecified atrial fibrillation ANIL CHASEJessica Montano [facility] Plan of Treatment: Future Appointments (+ 6 months) and Future Tests (+/- 45 days) The Plan of Treatment section includes future care activities for the patient from [facility] [place] [facility] This section includes future appointments and future orders which are active, pending or scheduled. Future Appointments This section includes appointments that were scheduled to occur 6 months from the date of the Encounter, up to a maximum of 20 appointments. The data comes from all [place] treatment facilities. Appointment Date/Time Appointment Type Appointme nt Facility Name Dec 05, 2024 11:00 AM [facility] Dec 11, 2024 10:00 AM [facility] Jan 15, 2025 08:00 AM [facility] Jan 15, 2025 11:30 AM AMBULATORY - SURGERY [facility] Jan 29, 2025 01:00 PM AMBULATORY - NONE [facility] Jan 29, 2025 01:01 PM [facility] Feb 12, 2025 02:00 PM AMBULATORY - NONE [facility] Feb 12, 2025 02:01 PM [facility] Mar 04, 2025 01:00 PM AMBULATORY - NONE [facility] Mar 04, 2025 01:01 PM AMBULATORY - SURGERY [facility] Mar 04, 2025 02:00 PM AMBULATORY - REHAB MEDICIN E [facility] Lab Results: +/- 30 days of the encounter This section includes the Chemistry and Hematology Lab Results on record with [place] for the patient. Radiology Reports and Pathology Reports are provided separately, in subsequent sections. Lab Results This section contains the Chemistry/Hematology Results that were resulted 30 days before or 30 daysafter the date of the Encounter. Date/Time Source Result Type Result - Unit Interpretation Reference Range Specimen Type Comment Dec 05, 2024 11:07 AM [facility] MRSA/SA SCREEN NARES Specimen Type: NARES No comment entered. Ordering Provider: LIGIA SHAFER Report Released Date/Time: Dec 05, 2024 11:05 AM Reporting Lab: [address] [place] [address] Performing Lab: [facility] [address] [facility] [address] MRSA SURVL NARES DNA Negative Negative SA Negative Negative Nov 07, 2024 01:35 PM [facility] BASIC METABOLIC PANEL (fasting) SERUM Specime n Type: SERUM No comment entered. Ordering Provider: PAZ CHASE Report Released Date/Time: Sep 20, 2024 01:52 PM Reporting Lab: [address] [address] Performing Lab: [address] [address] UREA NITROGEN 26 mg/dL H 7-25 GLUCOSE 161 mg/dL H 65-100 SODIUM 137 mmol/L 135-145 POTASSIUM 4.1 mmol/L 3.5-5.0 CHLORIDE 109 mmol/L 100-110 CO2 20 meq/L 20-30 CREATININE, Serum 1.60 mg/dL H 0.50-1.40 eGFR(CKD-EPI 2020) 42 mL/min L >60 Nov 07, 2024 01:35 PM [facility] LIVER FUNCTION SERUM Specimen Type: SERUM No comment entered. Ordering Provider: PAZ CHASE Report Released Date/Time: Sep 20, 2024 01:52 PM Reporting Lab: [address] [address] Performing Lab: [address] [address] PROTEIN,TOTAL 6.4 g/dL 6.0-8.3 ALBUMIN 3.9 g/dL 3.5-5.0 ALKALINE PHOSPHATASE 80 U/L 40-150 AST 14 U/L 5-34 ALT 11 U/L BILIRUBIN, TOTAL 0.5 mg/dL 0.2-1.2 Nov 07, 2024 01:35 PM [facility] FERRITIN SERUM Specimen Type: SERUM No comment entered. Ordering Provider: PAZ CHASE Report Released Date/Time: Sep 20, 2024 01:52 PM Reporting Lab: [address] [place] [address] Performing Lab: [address] [address] FERRITIN 46 ng/mL 20-300 Nov 07, 2024 01:35 PM [facility] IRON & TIBC PANEL SERUM Specimen Type: SERUM No comment entered. Ordering Provider: PAZ CHASE Report Released Date/Time: Sep 20, 2024 01:52 PM Reporting Lab: [address] [address] Performing Lab: [address] [address] TIBC 333 ug/dL 204-475 IRON 73 ug/dL 40-160 Transferrin Saturation 21.9 20.0-50.0 Transferrin (TRF) 252 mg/dL 200-360 Nov 07, 2024 01:35 PM [facility] CBC AND DIFF (AUTO) BLOOD Specimen Type: BLOO D No comment entered. Ordering Provider: PAZ CHASE Report Released Date/Time: Sep 20, 2024 01:52 PM Reporting Lab: [address] [address] Performing Lab: [address] [address] WBC 5.12 10*3/uL 4.50-11.00 RBC 3.42 10*6/uL [...] 10*3/uL 0.00-0.00 Nov 07, 2024 01:35 PM [facility] [facility] PT & INR (PROTIME) PLASMA Specimen Type: PLASM A No comment entered. Ordering Provider: PAZ CHASE Report Released Date/Time: Sep 20, 2024 01:52 PM Reporting Lab: [facility] [employer] [address] Performing Lab: [facility] [employer] [address] INR 1.2 PROTIME 13.1 s 10.0-13.1 Nov 07, 2024 01:34 PM [facility] VITAMIN B12 SERUM Specimen Type: SERUM No comment entered. Ordering Provider: PAZ CHASE Report Released Date/Time: Nov 07, 2024 01:04 PM Reporting Lab: [facility] [employer] [address] [address] Performing Lab: [facility] [address] VITAMIN B12 389 pg/mL 200-900 Vital Signs: All taken on the encounter date This section contains inpatient and outpatient Vital Signs collected on the date of the Encounter. Date/Time Temperature Pulse Blood Pressure Respiratory Rate SP02 Pain Height Weight Body Mass Index Source Nov 07, 2024 12:56 PM 97.6 59 140/68 20 97 0 71 200.2 28 [facility] [employer] [facility] Social History: Smoking Status (Most current) and Tobacco Use (All prior to encounter date) This section includes the most current, and the historical, smoking and tobacco- related health factors from the [place] facility where the Encounter took place. Current Smoking Status This section includes the most current smoking, or tobacco-related health factor, from the [place] facility where the Encounter took place. Date/Time Current Smoking Status Comment Facil ity Feb 19, 2024 02:00 PM VA-TOBACCO NEVER USED [facility] Tobacco Use History This section includes a history of the smoking, or tobacco-related health factors, that were collected on or before the date of the Encounter. The data comes from the [place] facility where the Encounter took place. Date/Time Smoking Status/Tobacco Use Comment F acility Feb 21, 2023 02:30 PM VA-TOBACCO NEVER USED [place] [facility] [place] [facility] Jul 22, 2021 02:30 PM VA-TOBACCO [facility] USED [place] [facility] Advance Directives: All historical and current Section Date Range: From patient's date of to the date document was created. This section includes ALL of a patient's completed or amended [place] Advance and Rescinded Directives. The entries below indicate that a directive exists for the patient, but an actual copy is not included with this document. The data comes from all [place] facilities. Date Advance Directives Provider Source Nov 07, 2024 ADVANCE DIRECTIVE JOHN KUMAR [place] [facility] Encounter Notes: All associated encounter notes This section contains the clinical notes associated to the Encounter. Date/Time Encounter Note(s) Provider Source Nov 07, 2024 03:08 PM ADDENDUM: LOCAL TITLE: Addendum STANDARD TITLE: ADDENDUM DATE OF NOTE: NOV 07, 2024@15:08:45 ENTRY DATE: NOV 07, 2024@15:08:46 AUTHOR: PAZ CHASE COSIGNER: URGENCY: STATUS: COMPLETED Please let him and [facility] r[facility] know that his labs are stable. /esmer/ Paz Chase PA-C STAFF PHYSICIAN PRODUCT OWNER Signed: 11/07/2024 15:09 Receipt Acknowledged By: 11/07/2024 15:19 /esmer/ GENO SPARROW, BEBO REGISTERED NURSE --- Original Document --- 11/07/24 KELSEY NOTE: CC/HPI/A/P: 84 year old MALE here in follow-up for; Hearing loss, pending clearance. to lab today. Review of systems: Patient reports no changes from Usual State [place] Health[place], in meds or any admissions. Active problems - Computerized Problem List is the source for the followin. AF-Atrial Fibrillation ([facility] [id number]) 2. Diverticular Disease of Colon ([facility] [id number]) 3. 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 HB - Heart block S/P Chaney PPM 04/14/2023. 5. 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 Wing 7. Anaemia 8. Cardiac pacemaker in situ 9. H/O: Stroke ([facility] [id number]) 10. Prostate Cancer ([facility] [id number]) 11. Polyp Colon ([facility] [id number]) 12. GERD - Gastro-Esophageal Reflux Disease ([facility] [id number]) 13. Hearing Loss ([facility] [id number]) 14. Hyperlipidemia ([facility] [id number]) 15. Actinic Keratosis ([facility] [id number]) 16. Idiopathic peripheral neuropathy SERVICE CONNECTED % - 100 VA and Non VA meds were reconciled with the patient who left with a corrected copy. See medication page for details. Active and Recently Outpatient Medications (excluding Supplies): Active Outpatient Medications Status 1) CARBOXYMETHYLCELLULOSE NA 0.5% OPH SOLN INSTILL 1 DROP INTO ACTIVE EACH EYE TWICE DAILY NEEDED Indication: FOR DRY EYE Active Non-VA Medications Status 1) Non-VA APIXABAN 5MG TAB 2.5MG BY MOUTH EVERY 12 HOURS ACTIVE Indication: FOR PREVENTION OF BLOOD CLOTS 2) Non-VA DAROLUTAMIDE 300MG TAB 600MG BY MOUTH TWICE DAILY ACTIVE 3) Non-VA EVOLOCUMAB 140MG/ML INJ 1ML PEN 140MG/1ML ACTIVE SUBCUTANEOUSLY EVERY 2 WEEKS 4) Non-VA FUROSEMIDE 20MG TAB 20MG BY MOUTH ONCE DAILY ACTIVE 5) Non-VA MAGNESIUM OXIDE 400MG TAB 400MG BY MOUTH ONCE DAILY ACTIVE 6) Non-VA OMEPRAZOLE 20MG EC CAP 20MG BY MOUTH TWICE DAILY ACTIVE NEEDED 7) Non-VA TAMSULOSIN HCL 0.4MG CAP 0.4MG BY MOUTH ONCE DAILY ACTIVE 8 Total Medications 97.6 F [36.4 C] (11/07/2024 12:56) 59 (11/07/2024 12:56) 20 (11/07/2024 12:56) 140/68 (11/07/2024 12:56) 0 (11/07/2024 12:56) 71 in [180.3 cm] (11/07/2024 12:56) 200.2 lb [90.81 kg] (11/07/2024 12:56) BMI: 28.0 Neuro: Alert and oriented times three, grossly nonfocal, nasolabial folds intact. Thyroid nonpalpable. Cor: Regular rate and rhythm, normal s1 and 2 without Murmur, carotid bruits or pedal edema. Lungs; Clear to auscultation bilaterally. Recent labs reviewed with patient today:none yet. I reviewed Sunshine Chase's recent note in [place]. Cardio has no objection to elective surgery and recs holding eliquis 2 days prior to procedure. He will go to lab today. Pending labs, I feel he is optimized for surgery. /esmer/ Paz Chase PA-C STAFF PHYSICIAN PRODUCT OWNER Signed: 11/07/2024 13:26 PAZ CHASE [facility] [place] [facility] Nov 07, 2024 03:07 PM LETTERS: LOCAL TITLE: PATIENT LETTER (B) STANDARD TITLE: LETTERS DATE OF NOTE: NOV 07, 2024@15:07 ENTRY DATE: NOV 07, 2024@15:07:58 AUTHOR: PAZ CHASE EXP COSIGNER: URGENCY: STATUS: COMPLETED The following letter was mailed to LOPEZOLIVER CHAVARRIA on NOV 07, 2024 OLIVER LOPEZ [address], [place] [address] NOV 07, 2024 Dear OLIVER Gooden, : Apr Your recent labs were stable. No change in your care plan is needed. Please share with any NONVA providers. [facility]. Below are your pending appointments at the [facility]: 06/19/2025 15:00 CWM/NO/OPTOMETRY/MERHAR 08/11/2025 15:00 CWM/NO/PACT 3 If you have questions, please contact me through our Telephone Advice Program at: [phone] extension [phone] or [phone] extension [phone] (toll free in this region only). Sincerely, Paz Chase PA-C [address] [address] Ex PAZ CHASE [place] CNT [facility] Nov 07, 2024 01:23 PM PHYSICIAN PRODUCT OWNER NOTE: LOCAL TITLE: PA NOTE STANDARD TITLE: PHYSICIAN PRODUCT OWNER NOTE DATE OF NOTE: NOV 07, 2024@13:23 ENTRY DATE: NOV 07, 2024@13:23:29 AUTHOR: PAZ CHASE EXP COSIGNER: URGENCY: STATUS: COMPLETED KELSEY NOTE Has ADDENDA CC/HPI/A/P: 84 year old MALE here in follow-up for; Hearing loss, pending clearance. to lab today. Review of systems: Patient reports no changes from Usual State Of Health/[place], in meds or any admissions. Active problems - Computerized Problem List is the source for the followin. AF-Atrial Fibrillation ([facility] [id number]) 2. Diverticular Disease of Colon ([facility] [id number]) 3. 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 HB - Heart block S/P Chaney PPM 04/14/2023. 5. 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 Wing 7. Anaemia 8. Cardiac pacemaker in situ 9. H/O: Stroke ([facility] [id number]) 10. Prostate Cancer ([facility] [id number]) 11. Polyp Colon ([facility] [id number]) 12. GERD - Gastro-Esophageal Reflux Disease ([facility] [id number]) 13. Hearing Loss ([facility] [id number]) 14. Hyperlipidemia ([facility] [id number]) 15. Actinic Keratosis ([facility] [id number]) 16. Idiopathic peripheral neuropathy SERVICE CONNECTED % - 100 VA and Non VA meds were reconciled with the patient who left with a corrected copy. See medication page for details. Active and Recently Outpatient Medications (excluding Supplies): Active Outpatient Medications Status 1) CARBOXYMETHYLCELLULOSE NA 0.5% OPH SOLN INSTILL 1 DROP INTO ACTIVE EACH EYE TWICE DAILY NEEDED Indication: FOR DRY EYE Active Non-VA Medications Status 1) Non-VA APIXABAN 5MG TAB 2.5MG BY MOUTH EVERY 12 HOURS ACTIVE Indication: FOR PREVENTION OF BLOOD CLOTS 2) Non-VA DAROLUTAMIDE 300MG TAB 600MG BY MOUTH TWICE DAILY ACTIVE 3) Non-VA EVOLOCUMAB 140MG/ML INJ 1ML PEN 140MG/1ML ACTIVE SUBCUTANEOUSLY EVERY 2 WEEKS 4) Non-VA FUROSEMIDE 20MG TAB 20MG BY MOUTH ONCE DAILY ACTIVE 5) Non-VA MAGNESIUM OXIDE 400MG TAB 400MG BY MOUTH ONCE DAILY ACTIVE 6) Non-VA OMEPRAZOLE 20MG EC CAP 20MG BY MOUTH TWICE DAILY ACTIVE NEEDED 7) Non-VA TAMSULOSIN HCL 0.4MG CAP 0.4MG BY MOUTH ONCE DAILY ACTIVE 8 Total Medications 97.6 F [36.4 C] (11/07/2024 12:56) 59 (11/07/2024 12:56) 20 (11/07/2024 12:56) 140/68 (11/07/2024 12:56) 0 (11/07/2024 12:56) 71 in [180.3 cm] (11/07/2024 12:56) 200.2 lb [90.81 kg] (11/07/2024 12:56) BMI: 28.0 Neuro: Alert and oriented times three, grossly nonfocal, nasolabial folds intact. Thyroid nonpalpable. Cor: Regular rate and rhythm, normal s1 and 2 without Murmur, carotid bruits or pedal edema. Lungs; Clear to auscultation bilaterally. Recent labs reviewed with patient today:none yet. I reviewed Sunshine Rena's recent note in [place]. Cardio has no objection to elective surgery and recs holding eliquis 2 days prior to procedure. He will go to lab today. Pending labs, I feel he is optimized for surgery. /esmer/ Paz Chase PA-C STAFF PHYSICIAN PRODUCT OWNER Signed: 11/07/2024 13:26 11/07/2024 ADDENDUM STATUS: COMPLETED Please let him and CT [place] rn surgical know that his labs are stable. /faraz Chase PA-C STAFF PHYSICIAN PRODUCT OWNER Signed: 11/07/2024 15:09 Receipt Acknowledged By: 11/07/2024 15:19 /esmer/ GENO SPARROW RN REGISTERED NURSE 11/07/2024 ADDENDUM STATUS: COMPLETED Spoke to [place] and relayed message per provider. /faraz SPARROW RN REGISTERED NURSE Signed: 11/07/2024 15:19 PAZ CHASE [place] [facility] [place] [facility] Nov 07, 2024 01:10 PM ADVANCE DIRECTIVE: LOCAL TITLE: ADVANCE DIRECTIVE STANDARD TITLE: ADVANCE DIRECTIVE DATE OF NOTE: NOV 07, 2024@13:10 ENTRY DATE: NOV 07, 2024@13:10:41 AUTHOR: JOHN KUMAR EXP COSIGNER: URGENCY: STATUS: COMPLETED [place] Advance Directive Form [id number] Advance directive reviewed, forwarded to [facility] for scanning. Name of Healthcare Agent: Traci Lopez Relationship to [place]: spouse Name of Alternate Healthcare Agent: Lorena Lopez Relationship to : Daughter /esmer/ JOHN KUMAR LPN LPN Signed: 11/07/2024 13:13 [facility] [place] [facility] Nov 07, 2024 01:03 PM PREVENTIVE MEDICINE NURSING NOTE: LOCAL TITLE: CLINICAL REMINDERS/NURSING STANDARD TITLE: PREVENTIVE MEDICINE NURSING NOTE DATE OF NOTE: NOV 07, 2024@13:03 ENTRY DATE: NOV 07, 2024@13:03:25 AUTHOR: JOHN KUMAR EXP COSIGNER: URGENCY: STATUS: COMPLETED (Optional) Whole Health Documentation: What matters the most to you? What motivates you to be healthy? (MAP) Response: I like living! Sexual Orientation: The patient thinks of their sexual orientation as: Straight or Heterosexual COVID-19 Immunization: Patient received a prior dose of the Moderna Monovalent vaccine. Documented: COVID-19 (MODERNA), MRNA, LNP-S, PF, 50 MCG/0.5 ML (AGES 12+ YEARS) Historical Date Administered: Aug 29, 2024 Series: Series 6 Outside Location: Outside Healthcare Provider Information Source: FROM OTHER REGISTRY Comment: [facility] Carlos /esmer/ JOHN KUMAR LPN LPN Signed: 11/07/2024 13:09 JOHN KUMAR [place] [facility]
--- OUTSIDE RECORDS SUMMARY | 2025-03-07 16:20 | XMS_ITS ---
Author Name [facility] [place] Organization [facility] [place] Address [address] [place] [address] Care Team Providers Care Payroll Secretary Name Role Phone PAZ WOODS Primary Care [...] SUPPLEMEN DEVIN MEDEX 2 Jun 20, 2013 [id number] OLIVER LOPEZ PATIENT [place] SUPPLEMEN DEVIN MEDEX 2 Jun 20, 2013 [id number] OLIVER LOPEZ PATIENT [place] SUPPLEMEN DEVIN MEDEX 2 Jun 20, 2013 [id number] [phone] OLIVER LOPEZ [place] SUPPLEMEN TAL MEDEX 2 Jun 20, 2013 [id number] OLIVER LOPEZ PATIENT MEDICARE (WNR) MEDICARE (M) PART B Apr 20, 2004 PART B [id number] OLIVER LOPEZ PATIENT MEDICARE (WNR) MEDICARE (M) PART A Apr 20, 2004 PART A [id number] OLIVER LOPEZ PATIENT MEDICARE (WNR) MEDICARE (M) PART A Apr 20, 2004 PART A [id number] OLIVER LOPEZ PATIENT MEDICARE (WNR) MEDICARE (M) PART B Apr 20, 2004 PART B [id number] OLIVER LOPEZ FOR LIFE TFL* Oct 24, 2017 [id number] [phone] OLIVER LOPEZ PATIENT Selected Encounter This section includes the information on record at [place] for the Encounter. Date/Time Encounter Type Encounter Description Reason Provider Source Feb 12, 2025 02:00 PM [facility] F[facility]ILITY FEE AUDIOLOGY ICD-10-CM H90.3 Sensorineural hearing loss, bilateral JULIANNAINITI,FLORENCE E [facility] Encounter Template Text not used by [place] Assessments - Encounter Diagnoses This section includes the primary and secondary diagnoses documented for the Encounter. Date/Time Primary/Secondary Diagnosis Diagnosis Name Provider Source Feb 12, 2025 03:05 PM PRIMARY Sensorineural hearing loss, bilateral RTISH,FLORENCE E [facility] Plan of Treatment: Future Appointments (+ 6 months) and Future Tests (+/- 45 days) The Plan of Treatment section includes future care activities for the patient from all [place] treatmentfacilities. This section includes future appointments and future orders which are active, pending or scheduled. Future Appointments This section includes appointments that were scheduled to occur 6 months from the date of the Encounter, up to a maximum of 20 appointments. The data comes from all [place] treatment facilities. Appointment Date/Time Appointment Type Appointme nt Facility Name Mar 04, 2025 01:00 PM AM[facility]ULATORY - [facility] Mar 04, 2025 01:01 PM AM[place]ULATORY [place] [facility] Mar 04, 2025 02:00 PM AMBULATORY - REHAB MEDICIN E [place] [facility] [place] [facility] May 13, 2025 01:00 PM AMBULATORY - NONE [place] [facility] [place] [facility] May 13, 2025 01:01 PM [place]ORY [place] [facility] Jun 19, 2025 03:00 PM AMBULATORY - [facility]INE [place] [facility] Aug 11, 2025 03:00 PM [facility] Active, Pending, and Scheduled Orders This section includes a listing of several types of active, pending, and scheduled orders, including clinic medications orders, diagnostic test orders, procedure orders and consult orders; where the start date of the order is 45 days before the date of the Encounter or 45 days after the date of theEncounter. The data comes from all [place] treatment facilities. Test Date/Time Test Type Test Details Facility Name Mar 03, 2025 02:23 PM Consult Order COMMUNITY CARE-ONCOLOGY Cons Die Trimmer's Choice [facility] Social History: Smoking Status (Most current) and Tobacco Use (All prior to encounter date) This section includes the most current, and the historical, smoking and tobacco- related health factors from the [place] facility where the Encounter took place. Current Smoking Status This section includes the most current smoking, or tobacco-related health factor, from the [place] facility where the Encounter took place. Date/Time Current Smoking Status Comment Lorri ity Feb 19, 2024 02:00 PM VA-TOBACCO NEVER USED [facility] Tobacco Use History This section includes a history of the smoking, or tobacco-related health factors, that were collected on or before the date of the Encounter. The data comes from the [place] facility where the Encounter took place. Date/Time Smoking Status/Tobacco Use Comment F acility Feb 21, 2023 02:30 PM [facility]TOBACCO [facility] [place] [facility] Jul 22, 2021 02:30 PM VA-TOBACCO NEVER USED [facility] Advance Directives: All historical and current Section Date Range: From patient's date of to the date document was created. This section includes ALL of a patient's completed or amended [place] Advance and Rescinded Directives. The entries below indicate that a directive exists for the patient, but an actual copy is not included with this document. The data comes from all [place] facilities. Date Advance Directives Provider Source Nov 07, 2024 ADVANCE DIRECTIVE JOHN KUMAR [place] CNT [place] [facility] [place] [facility] Encounter Notes: All associated encounter notes This section contains the clinical notes associated to the Encounter. 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 Echols. Pt notes a screeching sound from both processors. IMPLANT(S): RIGHT EAR: MED EL SYNCHRONY 2 FLEX 28 ([id number]) Surgery date: 12/06/24 SOUND PROCESSORS: RIGHT EAR: ANDREW 3 ([id number]) in silver Magnet:4 Act Date: 01/15/25 *RIGHT EAR: SONNET2 ([id number]) Champion; Magnet 3(-) HEARING AID LEFT EAR 01/15/25 GYPSY BARAJAS L [id number] CI PROGRAMMING: -Impedances were run and were [...] about his devices (ie brought a fan operations lead that he thought was his CI remote) Counseled pt extensively re: releastic expectations of a CI and uniqueness of implantation with SSD pts. We also discussed the importance of consistent use and allowing time for acclimitzation. PLAN: 1. Pt already has a f/u scheduled for 03/04, which he will keep. /esmer/ Saravanan LAMAR, [facility]A STAFF HYDRAULIC CORRUGATING MACHINE OPERATOR Signed: 02/12/2025 16:12 FLORENCE ECHOLS [facility]
[2025-03-07 16:26] LABS: MANUAL DIFF FLAG NO
[2025-03-07 16:27] LABS: Basophils Percent Auto 0.2 % (0-2); Eosinophils Absolute Auto 0.1 X10*3/uL (0.0-0.4); Eosinophils Percent Auto 0.7 % (0-4); Hematocrit 25.2 % (42.0-52.0); Hemoglobin 8.6 g/dl (14.0-18.0); Imm Gran Abs Auto 0.03 X10*3/uL (0.00-0.03); Imm Gran Pct Auto 0.3 % (0.0-0.4); Lymphocytes Percent Auto 11.3 % (20-40); Mean Corpuscular HGB Conc 34.1 g/dl (31.0-36.0); Mean Corpuscular Hemoglobin 31.3 pg (27.0-33.0); Mean Corpuscular Volume 91.6 fL (80.0-98.0); Mean Platelet Volume 10.2 fL (9.4-12.4); Monocytes Absolute Auto 0.4 X10*3/uL (0.1-1.2); Monocytes Percent Auto 4.3 % (2-11); Neutrophils Absolute Auto 7.5 x10*3/uL (2.0-8.3); Neutrophils Percent Auto 83.2 % (45-73); Platelet Count 170 X10*3/uL (160-400); Red Blood Count 2.75 X10*6/uL (4.60-5.80)
[2025-03-07 16:41] LABS: Anion Gap 13 (12-20); Blood Urea Nitrogen 18 mg/dL (9-16); Calcium 8.6 mg/dL (8.4-10.2); Carbon Dioxide 21 mmol/L (22-29); Chloride 106 mmol/L (96-108); Creatinine Clr Calc Pharmacy 36.4; Estimated Glomerular Filt Rate 42; Glucose Random 111 mg/dL (60-115); Potassium 3.8 mmol/L (3.3-5.1); Sodium 136 mmol/L (135-145)
[2025-03-07 16:49] LABS: B Type Natriuretic Peptide 475 pg/mL (<100); Troponin-I High Sensitivity 19.7 ng/L (<3.5-35.0)
[2025-03-07 17:21] LABS: D Dimer High Sensitivity 290 NG/ML
[2025-03-07 17:28] VITALS: BP 125/46; PULSE 64; RESP 14; TEMP 37; O2SAT 98
[2025-03-07 18:14] LABS: Troponin-I High Sensitivity 21.4 ng/L (<3.5-35.0)
[2025-03-07 18:15] VITALS: BP 115/40; PULSE 67; RESP 17; TEMP 36.8; O2SAT 94
[2025-03-07 18:42] VITALS: BP 115/40; PULSE 67; RESP 17; TEMP 36.8; O2SAT 94
== END 2025-03-07 18:42 | disposition home or self-care (01) ==
PROVIDERS: Emergency Provider Emergency Medicine; PCP Internal Medicine
DX: R07.89 Other chest pain (principal); Z79.899 Other long term (current) drug therapy
CPT/HCPCS: 36415; 71046; 80048; 83880; 84484; 85025; 85379; 93005; 99283; 99284

== ENCOUNTER → 2025-03-07 15:38 | Outpatient (BNV) | payer MEDICARE, OTHER, SELFPAY | PROVIDERS: Emergency Provider Emergency Medicine; PCP Internal Medicine; Visit Provider Internal Medicine Cardiovascular Disease | DX: R94.31 Abnormal electrocardiogram [ECG] [EKG] (principal); Z95.0 Presence of cardiac pacemaker | CPT/HCPCS: 93010 ==

== ENCOUNTER → 2025-03-07 16:05 | Outpatient (BNV) | payer OTHER, MEDICARE, SELFPAY | PROVIDERS: Emergency Provider Emergency Medicine; PCP Internal Medicine; Visit Provider Radiology Diagnostic Radiology | DX: R07.9 Chest pain, unspecified (principal) | CPT/HCPCS: 71046 ==